=== PATIENT | male | born 1940 | race Caucasian/White ===

== ENCOUNTER 2020-04-15 11:44 | Outpatient (CLI) | payer OTHER, MEDICARE, SELFPAY | END 2020-04-15 11:45 | disposition home or self-care (01) | LOC: ANHCOVIDVC 11:44 | PROVIDERS: PCP Internal Medicine | DX: Z23 Encounter for immunization (principal) | CPT/HCPCS: 0001A; 91300 ==

== ENCOUNTER 2020-05-06 11:26 | Outpatient (CLI) | payer OTHER, MEDICARE, SELFPAY | END 2020-05-06 11:27 | disposition home or self-care (01) | LOC: ANHCOVIDVC 11:26 | PROVIDERS: PCP Internal Medicine | DX: Z23 Encounter for immunization (principal) | CPT/HCPCS: 0002A; 91300 ==

== ENCOUNTER 2020-09-30 13:31 | Observation (INO) | payer OTHER, SELFPAY ==
[2020-09-30] VITALS (29 sets, daily range): BP systolic 111–160; BP diastolic 55–99; PULSE 58–84; RESP 12–20; TEMP 36.1–36.3; O2SAT 94–99; BMI 33.4
--- NOTE | ~2020-09-30 | US_ITS ---
EXAMINATION: US carotid duplex BI DATE: 10/01/2020 09:01 INDICATION: TIA versus CVA TECHNIQUE: Grayscale, color Doppler, and pulsed Doppler images of the cervical carotid arteries were obtained. The degree of vessel stenosis is placed in one of the following categories: normal, <50%, 5 0-69%, >=70% but less than near-occlusion, near-occlusion, or total occlusion. Note that percent sten osis relative to normal distal artery lumen diameter is indirectly measured from velocity measurement s as described by Braden, et al. Radiology 2003; 229:340-346. Notes: Normal: Peak systolic velocity <125 centimeters/sec and no plaque <50%. Peak systolic velocity <125 ( EDV <40; ICA/CCA PSV ratio <2.0; used these factors only a tandem lesions or low cardiac output or co ntralateral disease) 50-69 %: PSV 125-230 (EDV 40-100; ratio 2-4) >= 70% but less than near occlusion: PSV greater than 230 (EDV > 100; ratio> 4.0) Near Occlusion: PSV that is variable; markedly narrowed lumen Occlusion: Absent flow on color/spectral Doppler and no lumen on cobb scale. COMPARISON: None. FINDINGS: RIGHT: The right common carotid artery (CCA) peak systolic velocity (PSV) is 90 cm/s. The right internal car otid artery (ICA) PSV is 89 cm/s. The right ICA end-diastolic velocity (EDV) is 17 cm/s. The right IC A/CCA PSV ratio is 0.98. The external carotid artery (ECA) PSV is 166 cm/s. There is antegrade flow i n the right vertebral artery. LEFT: The left CCA PSV is 163 cm/s. The left ICA PSV is 103 cm/s. The left ICA EDV is 22 cm/s. The left ICA /CCA PSV ratio is 0.63. The ECA PSV is 137 cm/s. There is antegrade flow in the left vertebral arter y. IMPRESSION: 1. Less than 50% stenosis in the right internal carotid artery by sonographic criteria. 2. Less than 50% stenosis in the left internal carotid artery by sonographic criteria. Reviewed, dictated and finalized at location A. IMPRESSION: 1. Less than 50% stenosis in the right internal carotid artery by sonographic c omar. 2. Less than 50% stenosis in the left internal carotid artery by sonographic jin woody.
--- NOTE | ~2020-09-30 | MR_ITS ---
EXAMINATION: MR brain/brain stem wo con DATE: 10/01/2020 09:49 INDICATION: Transient ischemic attack. TECHNIQUE: Magnetic resonance imaging (MRI) of the brain and brainstem was performed without intraven ous contrast. Sequences included sagittal and axial T1-weighted FSE, axial diffusion-weighted FS EPI, axial T2*-weighted GRE, axial T2-weighted FLAIR Propeller, and axial T2-weighted Propeller. Apparent diffusion coefficient (ADC) maps were created. COMPARISON: Head CT 09/30/2020 FINDINGS: There are old infarcts in right frontal lobe and right temporal lobe. There is an old infar ct in the left thalamus. There are scattered areas of nonspecific increased T2-weighted signal intens ity in the cerebral white matter and sharonda. There is no intracranial hemorrhage, acute infarction, or abnormal intracranial mass lesion. The ventricles are normal in size. There is anteroposterior elonga tion of the ocular globes. There is mucosal thickening in the paranasal sinuses. There is a trace lef t mastoid effusion. IMPRESSION: 1. Old infarcts involving the right frontal lobe, right temporal lobe, and left thalamus. 2. Moderate nonspecific cerebral white matter disease and pontine disease, which likely represents ch ronic small vessel ischemic disease. Reviewed, dictated and finalized at location B. IMPRESSION: 1. Old infarcts involving the right frontal lobe, right temporal lobe, and left thalamus. 2. Moderate nonspecific cerebral white matter disease and pontine disease, whic h likely represents chronic small vessel ischemic disease.
--- NOTE | ~2020-09-30 | CT_ITS ---
EXAMINATION: CTA brain carotid DATE: 10/01/2020 10:00 INDICATION: Transient ischemic attack. TECHNIQUE: Computed tomographic angiography (CTA) of the head was performed without and with 100 mL O mnipaque-350 intravenous contrast. CTA of the neck was performed with intravenous contrast. Automated exposure control and iterative reconstruction technique were employed. The dose-length product was 1 937.73 mGy-cm. Maximum intensity projection and volume rendered 3D-reconstructions were created by lino sorto technologist on a separate workstation. COMPARISON: Brain MRI 09/30/2020, head CT 09/30/2020 FINDINGS: HEAD CTA: There are old infarcts in the right frontal lobe and right temporal lobe. There is an old i nfarct in the left thalamus. There are scattered areas of low attenuation in the cerebral white matte r. There is no intracranial hemorrhage, acute infarction, or abnormal intracranial mass lesion. The v entricles are normal in size. There is mucosal thickening in the paranasal sinuses. There is anteropo sterior elongation of the ocular globes. There is a trace left mastoid effusion. The vertebral arteri es are codominant. There is no significant stenosis of basilar artery or the posterior cerebral arter ies. There is mild stenosis of the intracranial internal carotid arteries. There is no significant st enosis of the anterior cerebral arteries. There is mild stenosis of the middle cerebral arteries. Ant erior communicating artery is normal. Right posterior communicating artery is normal. A left posterio r communicating artery is not identified. There is no aneurysm. NECK CTA: There are no pathologically enlarged lymph nodes. There is no significant stenosis of the v ertebral arteries. There is plaque in the proximal internal carotid arteries. There is 38% stenosis o f the proximal right internal carotid artery relative to normal distal artery lumen diameter (NASCET criteria). There is 27% stenosis of the proximal left internal carotid artery relative to normal dist al artery lumen diameter. There is severe cervical spondylosis. IMPRESSION: 1. Old infarcts involving the right frontal lobe, right temporal lobe, and left thalamus. 2. Moderate nonspecific cerebral white matter disease, which likely represents chronic small vessel i schemic disease. 3. No aneurysm or significant intracranial internal stenosis. 4. 38% stenosis of the proximal right internal carotid artery relative to normal distal artery lumen diameter (NASCET criteria). 5. 27% stenosis of the proximal left internal carotid artery relative to normal distal artery lumen d iameter. Reviewed, dictated and finalized at location B. IMPRESSION: 1. Old infarcts involving the right frontal lobe, right temporal lobe, and left thalamus. 2. Moderate nonspecific cerebral white matter disease, which likely represents chronic small vessel ischemic disease. 3. No aneurysm or significant intracranial internal stenosis. 4. 38% stenosis of the proximal right internal carotid artery relative to paul l distal artery lumen diameter (NASCET criteria). 5. 27% stenosis of the proximal left internal carotid artery relative to normal distal artery lumen diameter.
--- NOTE | ~2020-09-30 | CT_ITS ---
EXAMINATION: CT brain wo con DATE: 09/30/2020 17:04 INDICATION: Dizziness TECHNIQUE: Computed tomography (CT) of the head was performed without intravenous contrast. Sagittal and coronal reconstructions were performed. The mA was adjusted according to patient size. Iterative reconstruction technique was employed. The dose-length product was 605.33 mGy-cm. COMPARISON: None FINDINGS: Small to moderate-sized region of encephalomalacia at the anteroinferior right frontal lobe which cou ld represent sequela of chronic infarct or trauma. Small old lacunar infarcts at the anterior limb of the right internal capsule and at the left thalamus. No acute intracranial hemorrhage, acute infarct ion or abnormal extra axial fluid collection. There is mild scattered white matter hypoattenuation co nsistent with chronic small vessel ischemic disease. Symmetric prominence of the sulci and ventricles consistent with moderate age-appropriate diffuse cerebral volume loss. No mass/mass effect. Intracra nial calcified cerebral atherosclerosis is noted. The orbits, paranasal sinuses and mastoid air cells are normal. IMPRESSION: 1. No acute intracranial process. 2. Small to moderate-sized region of encephalomalacia at the anteroinferior right frontal lobe likely sequela of old infarct with differential including sequelae of old trauma. 3. Couple small old infarcts at the anterior limb of the right internal capsule and at the left thala mus. 4. Age-related changes including moderate diffuse volume loss and mild scattered white matter hypoatt enuation consistent with chronic small vessel ischemic disease. Reviewed, dictated and finalized at location A. IMPRESSION: 1. No acute intracranial process. 2. Small to moderate-sized region of encephalomalacia at the anteroinferior rig ht frontal lobe likely sequela of old infarct with differential including seque lae of old trauma. 3. Couple small old infarcts at the anterior limb of the right internal capsule and at the left thalamus. 4. Age-related changes including moderate diffuse volume loss and mild scattere d white matter hypoattenuation consistent with chronic small vessel ischemic di sease.
--- NOTE | 2020-09-30 13:32 | ECG_ITS ---
Measurements Intervals [place] Rate: 84 P: -3 GA: 139 QRS: -35 QRSD: 141 T: 136 QT: 400 QTc: 475 Interpretive Statements SINUS RHYTHM ATRIAL PREMATURE COMPLEX LEFT AXIS DEVIATION LEFT BUNDLE BRANCH BLOCK BASELINE WANDER- V4-V6 ABNORMAL ECG Electronically Signed On 09-30-2020 13:47:30 CDT by David Bernal D.O.
[2020-09-30 14:02] LABS: Basophils Percent Auto 0.4 % (0.2-1.2); Eosinophils Percent Auto 0.2 % (0-4.4); Hematocrit 45.3 % (42.0-52.0); Hemoglobin 14.7 g/dL (14.0-18.0); Immature Granulocyte Absolute 0.04 K/mm3 (0.00-0.031); Immature Granulocyte Percent A 0.5 % (0-0.5); Mean Corpuscular HGB Conc 32.5 g/dl (32-36); Mean Corpuscular Hemoglobin 30.2 pg (26-34); Mean Corpuscular Volume 93.2 fl (80-100); Mean Platelet Volume 11.6 fl (7.4-10.4); Monocytes Absolute Auto 0.6 K/mm3 (0.1-0.6); Monocytes Percent Auto 6.7 % (2.6-8.5); Neutrophils Absolute Auto 6.2 K/mm3 (1.3-6.7); Neutrophils Percent Auto 76.2 % (45.5-73.1); Platelet Count Result 191 k/mm3 (150-375); Red Blood Count 4.86 M/mm3 (4.6-6.20); Red Cell Distribution Width 13.3 % (11.5-14.5); White Blood Count 8.2 K/mm3 (4.5-10.0)
[2020-09-30 14:20] LABS: Anion Gap 9 mmol/L (8-16); Blood Urea Nitrogen 17 mg/dL (9-20); Calcium 9.4 mg/dL (8.4-10.2); Carbon Dioxide 18 mmol/L (22-30); Chloride 107 mmol/L (98-107); Estimated CRCL calculation 54 ml/min; Estimated Glomerular Filt Rate 49; Glucose 125 mg/dL (65-110); Sodium 134 mmol/L (137-145)
[2020-09-30] MEDS: SODIUM CHLORIDE 0.9% IV 1,000 ML 999 ML IV CONT (17:26)
--- NOTE | 2020-09-30 17:56 | ED.GENADULT ---
HPI - General Adult General Chief complaint: Dizziness Stated complaint: DIZZY Time Seen by Provider: 09/30/20 16:20 History of Present Illness HPI narrative: Patient is a 79-year-old male who presents ER with double vision and dizziness. Occurred yesterday while he was driving. Has occurred intermittently since then. Waxes and wanes for the length. It does not totally resolve. Cannot quantify the length that will occur for reports of he just stops where he has the symptoms go away. He has no focal weakness in arm or leg. He felt like he was a little off balance with walking but could feel the ground and was not falling over. He has had no slurred speech or difficulty eating or drinking. Denies history of CVA. Reports eating and drinking normally. No flashes or floaters. Related Data Home Medications Medication Instructions Recorded Confirmed aspirin 81 mg tablet,delayed 81 mg PO DAILY 01/25/19 09/30/20 release lisinopril 20 1 tablet PO DAILY 01/25/19 09/30/20 mg-hydrochlorothiazide 12.5 mg tablet tamsulosin 0.4 mg capsule 0.4 mg PO DAILY 01/25/19 09/30/20 atorvastatin 40 mg PO DAILY 09/30/20 09/30/20 spironolactone 25 mg PO DAILY 09/30/20 09/30/20 Allergies Allergy/AdvReac Type Severity Reaction Status Date / Time No Known Allergies Allergy Verified 09/30/20 20:44 Review of Systems Review of Systems: All systems reviewed & are unremarkable except as noted in HPI and below Constitutional: Constitutional: Denies chills, Denies fever(s) and Denies weakness Eyes: Eyes: Reports change in vision (Brief diplopia that is now normalized.) ENT: Denies nasal congestion and Denies sore throat Cardiovascular: Cardiovascular: Denies chest pain, Denies rapid heart rate and Denies radiating jaw, neck or arm pain Respiratory: Respiratory: Denies cough and Denies dyspnea Gastrointestinal: Gastrointestinal: Denies abdominal pain, Denies nausea and Denies vomiting Neurologic: Denies confusion, Reports dizziness, Denies syncope, Denies headache(s), Denies focal weakness and Denies numbness [facility] Past Medical History Medical History (Updated 10/01/20 @ 01:57 by Bull Contreras MD) Alcohol abuse, uncomplicated Benign essential HTN Other and unspecified hyperlipidemia Uncontrolled type 2 diabetes mellitus, with long-term current use of insulin Family History Family History Sibling Family history of malignant neoplasm Patient's brother is in good health Patient's sister is Father Family history of malignant neoplasm Patient's father is Mother Family history of malignant neoplasm Patient's mother is Social History Social History Smoking status: Former smoker Smoking end date: 02/15/94 Alcohol intake: never Substance use: never Gender identity (if verbalized by the patient): Male Spiritual care concerns: No Exam Narrative: GENERAL: Well-appearing, well-nourished, and in no acute distress. HEAD: Normocephalic, atraumatic. EYES: PERRL and EOMI. ENT: Mucous membranes moist. CHEST: Clear to auscultation. No respiratory distress. HEART: Regular rate and rhythm. Normal peripheral pulses. ABDOMEN: Soft, nontender, nondistended. EXTREMITIES: Normal range of motion. No edema. SKIN: Warm, dry, no rash. NEURO: Cranial nerves II through XII intact. No upper or lower extremity drift. Normal [id number] testing bilaterally. Alert and oriented x3. Course Course Emergency Course: Admit to hospitalist service. Patient should likely be on anticoagulants and I am unsure why he is not. He has history of A. fib with hypertension. In addition to that he has diabetes with advanced age and CT evidence of previous CVA. The one larger area of encephalomalacia is likely related to a traumatic accident he had when he was 20 when
--- NOTE | 2020-09-30 22:21 | PM.IMHP ---
H&P: HPI History of Present Illness Date/Time: 09/30/20 22:21 Chief Complaint: vision problems Narrative: Patient is a 79-year-old male who presents to ER with some vision problem that happened yesterday while he was driving down from his friend's . He reports the vision problem was transient and felt like double vision or blurry. He could not say whether it was on his both eyes or 1 eye. But he was able to drive back home and by the time he was home he did have any problems with vision. He felt fine all day yesterday after that and went to bed. Since he woke up this morning his been feeling little weak and it is not focal on 1 side of body but generalized weakness and while he walked he felt his balance was let off and hence came to the ED for evaluation. He worked in his garage all day today without any problem. He has no speech problem or difficulty eating or drinking. He reports no prior history of CVA. Was wearing her pair of eyeglasses which he normally does not use. He reports that he normally uses contacts. Review of Systems Review of Systems: - CONSTITUTIONAL: Denies weight loss, fever and chills. - HEENT: Report changes in vision and denies hearing - RESPIRATORY: Denies SOB and cough. - CV: Denies palpitations and CP. - GI: Denies abdominal pain, nausea, vomiting and diarrhea. - : Denies dysuria and urinary frequency. - MSK: Denies myalgia and joint pain. - SKIN: Denies rash and pruritus. - NEUROLOGICAL: Denies headache and syncope. Reports generalized weakness - PSYCHIATRIC: Denies recent changes in mood. Denies anxiety and depression. All systems reviewed & are unremarkable except as noted in HPI and below Constitutional: Constitutional: Reports fatigue and Reports weakness Neurologic: Reports weakness Endocrine: Endocrine: Reports fatigue PMFSH Past Medical History Medical History (Updated 09/30/20 @ 23:32 by Pa Byrne MD) Alcohol abuse, uncomplicated Benign essential HTN Other and unspecified hyperlipidemia Uncontrolled type 2 diabetes mellitus, with long-term current use of insulin Family History Family History Sibling Family history of malignant neoplasm Patient's brother is in good health Patient's sister is Father Family history of malignant neoplasm Patient's father is Mother Family history of malignant neoplasm Patient's mother is Social History Social History Smoking status: Former smoker Smoking end date: 02/15/94 Alcohol intake: current Meds Home Medications and Allergies Home Medications Medication Instructions Recorded Confirmed Type metformin 1,000 mg tablet 1,000 mg PO BID #180 tablet 01/10/19 06/06/20 Rx aspirin 81 mg tablet,delayed 81 mg PO DAILY 01/25/19 06/06/20 History release lisinopril 20 1 tablet PO DAILY 01/25/19 06/06/20 History mg-hydrochlorothiazide 12.5 mg tablet tamsulosin 0.4 mg capsule 0.4 mg PO DAILY 01/25/19 06/06/20 History pioglitazone 45 mg tablet 45 mg PO DAILY #90 tablet 01/27/19 06/06/20 Rx diltiazem HCl 360 mg capsule,24 360 mg PO DAILY #90 cap 03/10/19 06/06/20 Rx hr,extended release glipizide 10 mg tablet 10 mg PO BID #180 tablet 05/15/19 06/06/20 Rx alcohol swabs 1 pad TOPICAL .COMPLEX #200 each 06/06/19 06/06/20 Rx blood sugar diagnostic #200 each 06/12/19 06/06/20 Rx blood-glucose meter #1 each 06/12/19 06/06/20 Rx pen needle, diabetic 31 gauge x #50 each 06/14/19 06/06/20 Rx 1/4 spironolactone 25 mg tablet 25 mg PO DAILY #90 tablet 07/11/19 06/06/20 Rx blood sugar diagnostic #100 each 02/21/20 06/06/20 Rx atorvastatin 40 mg tablet See Rx Instructions .ROUTE 04/03/20 06/06/20 Rx .COMPLEX #90 tablet insulin glargine 100 unit/mL (3 See Rx Instructions .ROUTE 09/06/20 Rx mL) subcutaneous pen .COMPLEX #15 ml
--- NOTE | 2020-09-30 23:28 | ADMGEN ---
This patient, Kenneth Guillory, was admitted to Medical Room 341-01. Patient/family oriented to hospital policies and general routines including ID bracelet, bed and alarms, visiting hours, pain management, procedures, bathroom and other care routines, personal items, smoking policy, room service/diet, and visiting hours. Information on how to activate the Rapid Response Team has been discussed. Patient/Family are encouraged to report perceived risks to care and to ask questions if they do not understand what they are told or what they should do.
[2020-09-30] MEDS: SODIUM CHLORIDE 0.9% IV 1,000 ML 75 ML IV CONT (23:41)
[2020-09-30 23:49] LABS: Glucose Point of Care 100 mg/dl (65-105)
[2020-10-01] VITALS (10 sets, daily range): BP systolic 121–157; BP diastolic 47–70; PULSE 59–90; RESP 14–24; TEMP 36–36.7; O2SAT 95–97
--- NOTE | 2020-10-01 | ECHO_ITS ---
Patient Info Name: Kenneth Guillory Age: 79 years : 1940 Gender: Male Ht: 73 in Wt: 264 lbs BSA: 2.52 m2 HR: 73 bpm BP: 129 / 67 mmHg Technical Quality: Good Exam Date: 10/01/2020 7:38 AM Exam Location: [facility] Patient Status: Outpatient Admit Date: 09/30/2020 Staff Ordering Physician: aP Byrne MD Fish Net Stringer: Fernie Rock RDCS, RT Attending Provider: Altagracia Aden PA-C Exam Type: CA echo doppler color flow Study Info Indications G45.8 - Other transient cerebral ischemic attacks and related syndromes Complete two-dimensional, color flow and Doppler transthoracic echocardiogram is performed. Strain analysis performed. Summary 1. Complete two-dimensional, color flow and Doppler transthoracic echocardiogram is performed. 2. Left ventricular chamber dimension is normal. 3. Left ventricular systolic function is mildly reduced, estimated at 45-50%. 4. There is moderately increased left ventricular wall thickness. 5. The left ventricular diastolic function is abnormal. 6. E/e' 22 is elevated. 7. Global longitudinal strain is abnormal at -14.0%. 8. Left atrial chamber dimension is moderately enlarged. 9. There is mild mitral valve regurgitation. 10. Dilated inferior vena cava with >50% collapse upon inspiration consistent with elevated right atrial pressure, 10 mmHg. Left Ventricle E/e' 22 is elevated. Global longitudinal strain is abnormal at -14.0%. Left ventricular chamber dimension is normal. Left ventricular systolic function is mildly reduced, estimated at 45-50%. There is moderately increased left ventricular wall thickness. The left ventricular diastolic function is abnormal. Right Ventricle Right ventricular systolic function is normal with normal TAPSE 2.2 cm. Right ventricular chamber dimension is normal. Left Atria Left atrial chamber dimension is moderately enlarged. Right Atria Right atrial chamber dimension is normal. Aortic Valve The aortic valve is trileaflet. There is no aortic valve stenosis. There is no aortic valve regurgitation. Pulmonic Valve There is no pulmonic regurgitation. Mitral Valve There is no mitral valve stenosis. There is mild mitral valve regurgitation. Tricuspid Valve There is no tricuspid valve regurgitation. Pericardium/Pleural There is no pericardial effusion. Inferior Vena Cava Dilated inferior vena cava with >50% collapse upon inspiration consistent with elevated right atrial pressure, 10 mmHg. Aorta The aortic root size at the sinus of Valsalva is normal. Left Ventricular Outflow Tract Name Value Normal LVOT 2D LVOT Diameter 2.1 cm LVOT Doppler LVOT Peak Gradient 4 mmHg LVOT Mean Gradient 2 mmHg LVOT VTI 21 cm LVOT VTI/AV VTI Ratio 0.7 LVOT Stroke Volume 74 ml LVOT CO 5.5 l/min LVOT CI 2.2 l/min/m2 Mitral Valve
[2020-10-01 00:25] LABS: Hemoglobin A1C 7.8 % (<5.7)
[2020-10-01 06:19] LABS: Anion Gap 7 mmol/L (8-16); Basophils Percent Auto 0.8 % (0.2-1.2); Blood Urea Nitrogen 15 mg/dL (9-20); Calcium 8.8 mg/dL (8.4-10.2); Carbon Dioxide 26 mmol/L (22-30); Chloride 102 mmol/L (98-107); Eosinophils Absolute Auto 0.1 K/mm3 (0-0.3); Eosinophils Percent Auto 1.2 % (0-4.4); Estimated CRCL calculation 80 ml/min; Estimated Glomerular Filt Rate > 60; Glucose 116 mg/dL (65-110); Hematocrit 44.2 % (42.0-52.0); Hemoglobin 13.7 g/dL (14.0-18.0); Immature Granulocyte Absolute 0.04 K/mm3 (0.00-0.031); Immature Granulocyte Percent A 0.8 % (0-0.5); Lymphocytes Absolute Auto 1.44 K/mm3 (0.9-3.2); Mean Corpuscular Hemoglobin 29.8 pg (26-34); Mean Corpuscular Volume 96.3 fl (80-100); Mean Platelet Volume 11.6 fl (7.4-10.4); Monocytes Absolute Auto 0.6 K/mm3 (0.1-0.6); Monocytes Percent Auto 10.7 % (2.6-8.5); Neutrophils Percent Auto 58.5 % (45.5-73.1); Platelet Count Result 163 k/mm3 (150-375); Potassium 3.7 mmol/L (3.4-5.0); Red Blood Count 4.59 M/mm3 (4.6-6.20); Red Cell Distribution Width 13.4 % (11.5-14.5); Sodium 135 mmol/L (137-145); White Blood Count 5.1 K/mm3 (4.5-10.0)
[2020-10-01 07:59] LABS: Glucose Point of Care 133 mg/dl (65-105)
[2020-10-01] MEDS: INSULIN ASPART (*BKC) 100 UNITS/ML SUB-Q (11:19)
[2020-10-01] MEDS: ASPIRIN 81 MG ENTERIC TABLET PO (11:56)
[2020-10-01] MEDS: hydroCHLOROthiazide 25 MG TABLET PO (11:56)
[2020-10-01] MEDS: lisinopriL 20 MG TABLET PO (11:56)
[2020-10-01] MEDS: dilTIAZem HCL CD 180 MG CAP.ER.24H 360 MG PO (11:56)
[2020-10-01] MEDS: TAMSULOSIN HCL 0.4 MG CAPSULE PO (11:56)
[2020-10-01] MEDS: ATORVASTATIN 40 MG TABLET PO (11:56)
[2020-10-01] MEDS: SPIRONOLACTONE 25 MG TABLET PO (11:56)
[2020-10-01] MEDS: ENOXAPARIN 40 MG/0.4 ML SYRINGE SUB-Q (11:57)
[2020-10-01 12:11] LABS: Glucose Point of Care 231 mg/dl (65-105)
[2020-10-01] MEDS: SODIUM CHLORIDE 0.9% IV 1,000 ML 75 ML IV CONT (13:53)
--- NOTE | 2020-10-01 14:52 | PM.IMPN ---
Progress Note: A&P Assessment and Plan (1) Generalized weakness: Code(s): R53.1 - Weakness Status: Acute (2) Old lacunar stroke without late effect: Code(s): Z86.73 - Personal history of transient ischemic attack (TIA), and cerebral infarction without residual deficits Status: Acute (3) Encephalomalacia: Code(s): G93.89 - Other specified disorders of brain Status: Acute (4) REVA (acute kidney injury): Code(s): N17.9 - Acute kidney failure, unspecified Status: Acute (5) Transient vision disturbance: Code(s): H53.9 - Unspecified visual disturbance Status: Acute (6) Uncontrolled type 2 diabetes mellitus, with long-term current use of insulin: Code(s): E11.65 - Type 2 diabetes mellitus with hyperglycemia; Z79.4 - retirement (current) use of insulin Status: Acute Assessment and Plan: 1. Generalized weakness 2. Transient vision disturbance Brain MRI showed old infarcts involving the right frontal lobe, right temporal lobe, and left thalamus, moderate nonspecific cerebral white matter disease and pontine disease, which likely represents chronic small vessel ischemic disease. CTA of head and neck also confirmed findings and noted mild bilateral stenosis in the internal carotid arteries. His vision disturbance resolved prior to coming to the hospital. He feels close to baseline from a strength perspective still feels slightly weak. On discussion with the patient, he reports he never had focal weakness or disturbance of speech or otherwise. Overall presentation does not seem consistent with stroke/TIA, as vision disturbance could have been related to glycemic changes, or others. However, optimization from a vascular perspective is recommended. - Will increase his atorvastatin dose to 80 mg daily - Continue aspirin 81 mg daily - He has been in sinus rhythm on telemetry, a capture of irregular rhythm was seen transiently, however distinct p-waves were present, patient denies history of atrial fibrillation. However, he is at risk and cardiology evaluation outpatient setting as recommended. I also discussed with him findings of mildly decreased ejection fraction which will need evaluation. - Continue blood pressure control - PT/OT worked with him today, continue as needed 3. Acute kidney injury, likely to - Creatinine now trended to baseline with gentle IV hydration. Discontinue IV fluids. Encourage oral hydration. 4. Hypertension - Continue lisinopril-hydrochlorothiazide, spironolactone, and diltiazem 5. Hyperlipidemia - Increase atorvastatin to 80 mg daily - Most recent lipid profile with total cholesterol of 150, LDL of 85 6. Diabetes mellitus type 2 on insulin - He is on insulin and metformin home along with glipizide - Continue home lantus Subjective Date/time seen: 10/01/20 14:52 No major issues last night. Hemodynamically stable. Feels almost back to baseline. His blurry vision resolved prior to presenting to the hospital and has not recurred. Just feeling slightly weak. Exam Narrative: Gen: Alert,NAD Abd: Soft, NT, ND Lungs: CTAB Heart: RRR Neuro: Motor and sensory examination of upper lower extremities is grossly normal Objective Data Vital Signs Vital Signs: Vital Signs - 24 hr 09/30/20 15:42 09/30/20 16:13 09/30/20 16:18 Temperature Pulse Rate 79 71 74 Respiratory Rate 20 18 18 Blood Pressure 130/99 H Pulse Oximetry 97 98 96 09/30/20 16:30 09/30/20 16:45 09/30/20 16:46 Temperature Pulse Rate 72 70 73 Respiratory Rate 14 16 14 Blood Pressure 144/66 H Pulse Oximetry 96 98 09/30/20 16:53 09/30/20 16:54 09/30/20 16:55 Temperature Pulse Rate 67 71 70 Respiratory Rate 20 Blood Pressure 140/77 121/62 140/77 Pulse Oximetry 96 09/30/20 16:56 09/30/20 16:58 09/30/20 17:32 Temperature Pulse Rate 72 79 66 Respiratory Rate 20 20 16 Blood Pressure 121/62 121/63 Pulse Oximetry 94 9
[2020-10-01 16:57] LABS: Glucose Point of Care 153 mg/dl (65-105)
[2020-10-01] MEDS: INSULIN GLARGINE (*BKC) 100 UNITS/ML 18 UNITS SUB-Q (21:09)
[2020-10-01 21:12] LABS: Glucose Point of Care 227 mg/dl (65-105)
[2020-10-02] VITALS: PULSE 54
[2020-10-02 04:00] VITALS: PULSE 53
[2020-10-02 06:00] VITALS: BP 128/53; PULSE 66; RESP 20; TEMP 36.7; O2SAT 95
[2020-10-02 07:54] LABS: Glucose Point of Care 150 mg/dl (65-105)
[2020-10-02 08:05] VITALS: PULSE 65
[2020-10-02] MEDS: ASPIRIN 81 MG ENTERIC TABLET PO (09:17)
[2020-10-02] MEDS: SPIRONOLACTONE 25 MG TABLET PO (09:17)
[2020-10-02] MEDS: ATORVASTATIN 40 MG TABLET 80 MG PO (09:17)
[2020-10-02] MEDS: dilTIAZem HCL CD 180 MG CAP.ER.24H 360 MG PO (09:18)
[2020-10-02] MEDS: TAMSULOSIN HCL 0.4 MG CAPSULE PO (09:18)
[2020-10-02] MEDS: hydroCHLOROthiazide 25 MG TABLET PO (09:18)
[2020-10-02] MEDS: lisinopriL 20 MG TABLET PO (09:18)
[2020-10-02] MEDS: ENOXAPARIN 40 MG/0.4 ML SYRINGE SUB-Q (09:19)
[2020-10-02] MEDS: INSULIN GLARGINE (*BKC) 100 UNITS/ML 6 UNITS SUB-Q (09:27)
[2020-10-02] MEDS: INSULIN ASPART (*BKC) 100 UNITS/ML SUB-Q (11:52)
[2020-10-02 12:00] VITALS: PULSE 68
[2020-10-02 12:03] LABS: Glucose Point of Care 250 mg/dl (65-105)
--- NOTE | 2020-10-02 13:28 | PM.IMPN ---
Progress Note: A&P Assessment and Plan (1) Encephalomalacia: Code(s): G93.89 - Other specified disorders of brain Status: Acute (2) Old lacunar stroke without late effect: Code(s): Z86.73 - Personal history of transient ischemic attack (TIA), and cerebral infarction without residual deficits Status: Acute (3) Generalized weakness: Code(s): R53.1 - Weakness Status: Acute (4) REVA (acute kidney injury): Code(s): N17.9 - Acute kidney failure, unspecified Status: Acute (5) Transient vision disturbance: Code(s): H53.9 - Unspecified visual disturbance Status: Acute (6) Uncontrolled type 2 diabetes mellitus, with long-term current use of insulin: Code(s): E11.65 - Type 2 diabetes mellitus with hyperglycemia; Z79.4 - roasterman (current) use of insulin Status: Acute Additional Plan 1. Generalized weakness 2. Transient vision disturbance Brain MRI showed old infarcts involving the right frontal lobe, right temporal lobe, and left thalamus, moderate nonspecific cerebral white matter disease and pontine disease, which likely represents chronic small vessel ischemic disease. CTA of head and neck also confirmed findings and noted mild bilateral stenosis in the internal carotid arteries. His vision disturbance resolved prior to coming to the hospital. He feels close to baseline from a strength perspective still feels slightly weak. On discussion with the patient, he reports he never had focal weakness or disturbance of speech or otherwise. Overall presentation does not seem consistent with stroke/TIA, as vision disturbance could have been related to glycemic changes, or others. However, optimization from a vascular perspective is recommended. - Will increase his atorvastatin dose to 80 mg daily - Continue aspirin 81 mg daily - He has been in sinus rhythm on telemetry, a capture of irregular rhythm was seen transiently, however distinct p-waves were present, patient denies history of atrial fibrillation. However, he is at risk and cardiology evaluation outpatient setting as recommended. I also discussed with him findings of mildly decreased ejection fraction which will need evaluation. - Continue blood pressure control - PT/OT worked with him today, continue as needed 3. Acute kidney injury, likely Pre-renal - Creatinine now trended to baseline with gentle IV hydration. Discontinue IV fluids. Encourage oral hydration. 4. Hypertension - Continue lisinopril-hydrochlorothiazide, spironolactone, and diltiazem 5. Hyperlipidemia - Increase atorvastatin to 80 mg daily - Most recent lipid profile with total cholesterol of 150, LDL of 85 6. Diabetes mellitus type 2 on insulin - He is on insulin and metformin home along with glipizide - Continue home lantus Dispo: Home today with close follow up with PCP Subjective Date/time seen: 10/02/20 13:28 No new issues last night. His weakness is improved. He has not had any arrhythmias on tele. No vision changes. Hemodynamically stable. Review of Systems Review of Systems: All systems reviewed & are unremarkable except as noted in HPI and below Exam Narrative: Gen: Alert, NAD Abd: Soft, NT, ND Heart: RRR Lungs: CTAB Ext: No LE edema Objective Data Vital Signs Vital Signs: Vital Signs - 24 hr 10/01/20 14:00 10/01/20 16:00 10/01/20 20:00 Temperature 97.7 F 98.0 F Pulse Rate 81 71 59 L Respiratory Rate 20 18 Blood Pressure 129/60 130/51 L Pulse Oximetry 97 95 10/01/20 22:00 10/02/20 00:00 10/02/20 04:00 Temperature 96.8 F L Pulse Rate 61 54 L 53 L Respiratory Rate 14 Blood Pressure 121/47 L Pulse Oximetry 97 10/02/20 06:00 10/02/20 08:05 Temperature 98.1 F Pulse Rate 66 65 Respiratory Rate 20 Blood Pressure 128/53 L Pulse Oximetry 95 Intake/Output Intake/Output: Intake & Output 09/29/20 09/30/20 10/01/20 10/02/20 23:59 23:59 23:59 23:59 Intake Total 1000 2
--- NOTE | 2020-10-02 14:55 | PM.DS ---
DS: Admitting Diagnosis Admitting Diagnosis blurry vision generalized weakness DS: Discharge Diagnosis Discharge Diagnosis (1) Generalized weakness: Code(s): R53.1 - Weakness Status: Acute (2) Transient vision disturbance: Code(s): H53.9 - Unspecified visual disturbance Status: Acute DS: Summary Hospital Course Hospital Course: This is a 79-year-old gentleman with past medical history of hypertension, diabetes mellitus who presented to the emergency department with an episode of blurry vision and feeling generalized fatigue and weakness. His episode happened after return from a friend's . The blurry vision episode was transient and resolved. However he continued to feel some weakness that was generalized. He presented to the emergency department. Brain MRI showed old infarcts involving the right frontal lobe, right temporal lobe, and left thalamus, moderate nonspecific cerebral white matter disease and pontine disease, which likely represents chronic small vessel ischemic disease. CTA of head and neck also confirmed findings and noted mild bilateral stenosis in the internal carotid arteries. He was admitted to the hospital for observation. He was monitored on telemetry for 48 hours. He showed no evidence of atrial fibrillation or other arrhythmia. His weakness had resolved and he is back to baseline. No further vision changes. Overall it was thought that his presentation was not clearly consistent with a TIA/stroke as his weakness was generalized and with no imaging evidence of acute findings. However, he was medically optimized, his atorvastatin was increased to 80 mg daily, his aspirin was continued. Physical therapy worked with him during the hospitalization, and was noted to be strong enough to discharge to home with self-care. Other relevant issues during the hospitalization, on presentation he was found to have a creatinine of 1.4. This was thought to be prerenal. With hydration it improved back to his baseline and normalized. His blood pressure was noted to be elevated initially, with resumption of his home medications, his blood pressure was well controlled. From a cardiac perspective, an echocardiogram was done that showed left ventricular systolic function mildly reduced with EF 45-50%, elevated right-sided pressures were noted. Recommend outpatient cardiology evaluation. From a diabetes perspective, he was managed with insulin sliding-scale, recommend continuation of his home medications. Status at Discharge Functional status at discharge: independent ambulation Time Spent with Patient Time attestation: Total time spent providing and/or coordinating discharge services: Time spent: Greater than 30 minutes Exam Narrative: Gen: Alert, NAD Abd: Soft, NT, ND Heart: RRR Lungs: CTAB Ext: No lower extremity edema DS: Data Data Completed and Pending Labs on day of discharge: Labs from last 24 hours 10/02/20 10/02/20 10/01/20 11:49 07:41 21:04 POC Capillary Glucose 250 H 150 H 227 H 10/01/20 16:34 POC Capillary Glucose 153 H Discharge Plan Discharge Discharging Clinician: Sepideh Gongora Patient Disposition: Home, Self-Care Activity: as tolerated Diet: diabetic Discharge Instructions: Recommend follow-up with primary provider within 1-2 weeks of discharge, continue to maintain diabetic diet, and monitor home glucose. Given heart function on ultrasound of your heart was noted to be slightly decreased, close follow-up with her primary providers import. Continue to monitor for recurrence of the symptoms you have and if any concerns should reach out to primary provider or present to the emergency department. Patient Instructions: Antibiotic Form, Acute Kidney Injury (DC) Stand Alone Forms: General Discharge Information Follow-up/Referrals: Salvador Fisher DO [Primary Care Provider] - ( Post hospital follow-up within 1-2 weeks) Discharg
== END 2020-10-02 15:45 | disposition home or self-care (01) ==
LOC: ANHED 16:30 → ANH3MED 22:54
PROVIDERS: Emergency Medicine; Physician Assistant; Admitting Provider Internal Medicine; Emergency Provider Emergency Medicine; PCP Internal Medicine; Visit Provider Internal Medicine Nephrology
DX: R53.1 Weakness (principal); H53.9 Unspecified visual disturbance; G93.89 Other specified disorders of brain; R42 Dizziness and giddiness; I10 Essential (primary) hypertension; I65.23 Occlusion and stenosis of bilateral carotid arteries; E78.5 Hyperlipidemia, unspecified; E11.65 Type 2 diabetes mellitus with hyperglycemia; N40.0 Benign prostatic hyperplasia without lower urinary tract symptoms; N17.9 Acute kidney failure, unspecified; I34.0 Nonrheumatic mitral (valve) insufficiency; Z86.73 Personal history of transient ischemic attack (TIA), and cerebral infarction without residual deficits; Z86.010 Personal history of colon polyps; Z87.891 Personal history of nicotine dependence; Z79.84 Long term (current) use of oral hypoglycemic drugs; Z79.4 Long term (current) use of insulin; Z79.82 Long term (current) use of aspirin
CPT/HCPCS: 36415; 70450; 70496; 70498; 70551; 80048; 82948; 83036; 85025; 93005; 93306; 93880; 96360; 96361; 96372; 97162; 97165; 99285; A9270; G0378; J1650; J1815; J7030; Q9967

== ENCOUNTER 2020-11-29 09:27 | Outpatient (CLI) | payer OTHER, SELFPAY ==
--- NOTE | ~2020-11-29 | NM_ITS ---
EXAMINATION: NM stress w perf spect multi DATE: 11/29/2020 13:04 INDICATION: Dyspnea TECHNIQUE: Rest images were obtained following intravenous administration of 7.87 mCi Tc99m tetrofosm in (Upshot). The patient performed an exercise activity. At peak exercise, 24.2 mCi Tc99m tetrofosmi n (Myoview) was administered intravenously, and stress images were obtained. Data was reconstructed i nto short axis and horizontal and vertical long axis SPECT images. Gated SPECT images were also obtai fara. COMPARISON: None. FINDINGS: Small mild reversible perfusion defect involving the apical septal segment. No nonreversible infarct is identified. There is normal left ventricular chamber size and wall motion with borderline left margaret tricular ejection fraction measuring 46%. IMPRESSION: 1. Small mild reversible perfusion defect consistent with ischemia at the apical septal segment.. 2. Borderline left ventricular ejection fraction measuring 46%. Reviewed, dictated and finalized at location A. IMPRESSION: 1. Small mild reversible perfusion defect consistent with ischemia at the apica l septal segment.. 2. Borderline left ventricular ejection fraction measuring 46%.
--- NOTE | 2020-11-29 11:23 | EST_ITS ---
Patient Info Name: Kenneth Guillory Age: 79 years : 1940 Gender: Male Ht: 71 in Wt: 265 lbs BSA: 2.50 m2 HR: 66 bpm BP: 125 / 76 mmHg Heart Rhythm: Atrial Fibrillation Exam Date: 11/29/2020 12:00 PM Exam Location: [facility] Stress Patient Status: Outpatient Admit Date: 11/29/2020 Staff Ordering Physician: David Bernal DO Attending Provider: David Bernal DO Exercise Technologist: Tere Canseco CT Exercise Physician: David Bernal DO Exam Type: CA stress sachi w NM Study Info Indications R06.00 - Dyspnea, unspecified A regadenoson stress test was performed. Summary 1. 1. Inconclusive lexiscan stress test for ischemic ST changes by ECG criteria due to baseline LBBB. 2. 2. Stable hemodynamics throughout the test. 3. 3. Nuclear scan to follow and will be reported separately. Please correlate with it. 4. 4. Patient informed of the above results. Protocol: Lexiscan Stress ECG Details Stage: REST Duration (min): 1 min : 29 sec HR (bpm): 64 SBP (mmHg): 125 DBP (mmHg): 76 Stage: REST Duration (min): 6 min : 39 sec HR (bpm): 62 SBP (mmHg): 125 DBP (mmHg): 76 Stage: STAGE 1 Duration (min): 1 min : 0 sec HR (bpm): 69 SBP (mmHg): 125 DBP (mmHg): 76 Stage: RECOVERY Duration (min): 1 min : 0 sec HR (bpm): 79 SBP (mmHg): 135 DBP (mmHg): 56 Stage: RECOVERY Duration (min): 2 min : 0 sec HR (bpm): 68 SBP (mmHg): 135 DBP (mmHg): 56 Stage: RECOVERY Duration (min): 3 min : 0 sec HR (bpm): 70 SBP (mmHg): 131 DBP (mmHg): 57 Stage: RECOVERY Duration (min): 3 min : 2 sec HR (bpm): 72 SBP (mmHg): 131 DBP (mmHg): 57 Rest HR: 62 bpm Peak HR: 79 bpm Rest Sys BP: 125 mmHg Peak Sys BP: 135 mmHg Max Pred HR: 143 bpm % Max Pred HR: 55 % Target HR: 122 bpm Max RPP: 10,665 bpm*mmHg Termination Reason: Completed protocol Cardiac Symptoms: None Total Time: 1 min : 0 sec Rest López BP: 76 mmHg Peak López BP: 56 mmHg Total Dose: 0.4 mg Resting ECG Atrial fibrillation, LBBB. Stress ECG No ST changes. Arrhythmias None. Report Signatures
== END 2020-11-29 09:28 | disposition home or self-care (01) ==
LOC: ANHCARD 09:30
PROVIDERS: PCP Internal Medicine; Visit Provider Internal Medicine Cardiovascular Disease
DX: R06.00 Dyspnea, unspecified (principal); R94.2 Abnormal results of pulmonary function studies
CPT/HCPCS: 78452; 93017; A9502; J2785

== ENCOUNTER 2020-12-25 02:52 | Day surgery (SDC) | payer OTHER, SELFPAY ==
[2020-12-24 14:11] VITALS: BMI 34.3
[2020-12-25] VITALS (10 sets, daily range): BP systolic 112–162; BP diastolic 65–104; PULSE 63–110; RESP 12–19; TEMP 35.8–36.3; O2SAT 94–98; BMI 32.5
--- NOTE | 2020-12-25 07:15 | SUR.PREOP ---
ARRIVES VIA WC TO [facility] FOR SCHEDULED LHC W DR. WHITMAN. STATES DAUGHTER DROPPED HIM OFF THIS AM. DENIES PAIN OR SOB. ORIENTED TO ROOM, PLAN OF CARE, PROCEDURE. QUESTIONS ANSWERED. NOTED SOME DIFFICULTY WITH RETENTION OF INFORMATION; ASKING SAME QUESTIONS FREQUENTLY. AGAIN, EXPLAINED PROCEDURE AND WHAT TO EXPECT AND REORIENTED OFTEN. IV STARTED, LABS SENT, VS OBTAINED, CONSENT SIGNED, SKIN PREPPED, PULSES MARKED. WILL CONTINUE TO MONITOR.
[2020-12-25 08:15] LABS: Anion Gap 6 mmol/L (8-16); Blood Urea Nitrogen 14 mg/dL (9-20); Carbon Dioxide 26 mmol/L (22-30); Chloride 106 mmol/L (98-107); Estimated CRCL calculation 89 ml/min; Estimated Glomerular Filt Rate > 60; Glucose 228 mg/dL (65-110); Sodium 138 mmol/L (137-145)
[2020-12-25 08:17] LABS: Prothrombin Time 12.7 Seconds (11.1-14.7)
[2020-12-25 08:18] LABS: Basophils Absolute Auto 0.1 K/mm3 (0.0-0.1); Eosinophils Absolute Auto 0.1 K/mm3 (0-0.3); Hematocrit 44.4 % (42.0-52.0); Hemoglobin 14.6 g/dL (14.0-18.0); Immature Granulocyte Absolute 0.03 K/mm3 (0.00-0.031); Immature Granulocyte Percent A 0.5 % (0-0.5); Immature Platelet Fraction Pct 7.2 % (0.9-11.2); Lymphocytes Absolute Auto 1.66 K/mm3 (0.9-3.2); Lymphocytes Percent Auto 26.6 % (18.3-44.2); Mean Corpuscular HGB Conc 32.9 g/dl (32-36); Mean Corpuscular Hemoglobin 30.8 pg (26-34); Mean Corpuscular Volume 93.7 fl (80-100); Mean Platelet Volume 11.8 fl (7.4-10.4); Monocytes Absolute Auto 0.6 K/mm3 (0.1-0.6); Monocytes Percent Auto 9.3 % (2.6-8.5); Neutrophils Absolute Auto 3.9 K/mm3 (1.3-6.7); Neutrophils Percent Auto 61.6 % (45.5-73.1); Platelet Count Result 183 k/mm3 (150-375); Red Blood Count 4.74 M/mm3 (4.6-6.20); Red Cell Distribution Width 13.6 % (11.5-14.5); White Blood Count 6.2 K/mm3 (4.5-10.0)
--- NOTE | 2020-12-25 08:52 | WPDMODSED ---
Moderate Sedation Note-Pt Data Patient Data Diagnosis: Atrial fibrillation left bundle branch block abnormal nuclear stress test ( no chest pain) Present Complaint: no complaints Procedure to be performed/Plan: left heart catheterization Allergies Allergy/AdvReac Type Severity Reaction Status Date / Time No Known Allergies Allergy Verified 12/25/20 08:41 Home Medications Medication Instructions Recorded Confirmed Type aspirin 81 mg tablet,delayed 81 mg PO DAILY 01/25/19 12/24/20 History release tamsulosin 0.4 mg capsule 0.4 mg PO DAILY 01/25/19 12/24/20 History blood sugar diagnostic #200 each 06/12/19 12/13/20 Rx blood-glucose meter #1 each 06/12/19 12/13/20 Rx pen needle, diabetic 31 gauge x #50 each 06/14/19 12/13/20 Rx 1/4 blood sugar diagnostic #100 each 02/21/20 12/13/20 Rx spironolactone 25 mg PO DAILY 09/30/20 12/24/20 History lisinopril 20 1 tablet PO DAILY #90 tablet 10/16/20 12/24/20 Rx mg-hydrochlorothiazide 12.5 mg tablet atorvastatin 80 mg tablet 80 mg PO DAILY #90 tablet 10/24/20 12/24/20 Rx metformin 1,000 mg tablet 1,000 mg PO BID #180 tablet 10/24/20 12/24/20 Rx apixaban 5 mg tablet 5 mg PO BID #60 tablet 11/29/20 12/25/20 Rx insulin glargine 100 unit/mL (3 See Rx Instructions .ROUTE 12/02/20 12/24/20 Rx mL) subcutaneous pen .COMPLEX #15 ml diltiazem HCl 360 mg capsule,24 360 mg PO DAILY #90 cap 12/03/20 12/24/20 Rx hr,extended release glipizide 10 mg PO BID 12/24/20 12/24/20 History pioglitazone 45 mg PO DAILY 12/24/20 12/24/20 History Current Medications: Active Medications Sodium Chloride (Normal Saline Iv) 500 mls @ 100 mls/hr IV CONT .Q5H STEVE Sedation/Anesthesia: No previous sedation/anesthesia problems (including family history). [facility] Past Medical History Medical History Alcohol abuse, uncomplicated Benign essential HTN Other and unspecified hyperlipidemia Uncontrolled type 2 diabetes mellitus, with long-term current use of insulin Family History Family History Sibling Family history of malignant neoplasm Patient's brother is in good health Patient's sister is Father Family history of malignant neoplasm Patient's father is Mother Family history of malignant neoplasm Patient's mother is Social History Social History Smoking status: Former smoker Second hand tobacco smoke exposure: No Smoking end date: 02/15/94 Alcohol intake: former Alcohol use details: 2012 Substance use: never Living arrangements: alone Gender identity (if verbalized by the patient): Male Spiritual care concerns: No Mod Sed Physical Exam Physical Exam Pre Procedural Exam: Normal: Appearance ( overweight patient no distress), Neck, Throat, Airway, Lungs, Heart Size, Heart Rate and Extremities and Variation: Heart Rhythm ( irregularly irregular) and Neuro Exam ( seems to have poor short-term memory) Hours since solid foods: 12 Hours since liquid intake: 12 Mallampati Classification: class II Internal Medicine - PN: Obj Da Meds/Results Medications: Active Medications Generic Name Dose Route Start Last Admin Trade Name Freq PRN Reason Stop Dose Admin Sodium Chloride 500 mls @ 100 mls/hr 12/25/20 07:00 Normal Saline Iv IV CONT .Q5H STEVE Labs CBC & Chem 7: 12/25/20 07:24 12/25/20 07:24 Labs: Laboratory Results - last 24 hr 12/25/20 12/25/20 12/25/20 07:24 07:24 07:24 WBC 6.2 RBC 4.74 Hgb 14.6 Hct 44.4 MCV 93.7 MCH 30.8 MCHC 32.9 RDW 13.6 Plt Count 183 MPV 11.8 H Immature Gran % (Auto) 0.5 Neut % (Auto) 61.6 Lymph % (Auto) 26.6 [place] % (Auto) 9.3 H Eos % (Auto) 1.0 Baso % (Auto) 1.0 Lymph # (Auto) 1.66 [place] # (Auto)
--- NOTE | 2020-12-25 09:20 | WPDCARDPROC ---
Cardiac Cath Procedure Note Date of procedure:: 12/25/20 Performing physician:: Jose Logan MD Indication:: abnormal nuclear stress test atrial fibrillation left bundle-branch block Brief clinical history:: this is a 80-year-old patient who has been found to have atrial fibrillation, left bundle branch block and LV systolic dysfunction. The patient for that reason underwent a nuclear stress test and there were modest abnormalities prompting angiogram to be recommended. He does not give a history of anginal-type chest pain. He seems to be somewhat demented to me is his short-term memory seems to be very poor as we discussed today's procedure Procedure Procedure performed:: left ventriculogram coronary angiogram Angio-Seal to right femoral artery Sedation/Medication given:: fentanyl 50 mg Versed 2 mg case start time 9:06 a.m. case end time 9:17 a.m. sedation provided by Maryam Arroyo RN, trained observer Access site:: right femoral artery Estimated blood loss:: 15 cc Procedure note:: patient was brought to the cardiac catheterization lab in the postabsorptive state the right femoral triangle was prepared and draped in the usual fashion. Anesthesia was given with 1% lidocaine infiltrated locally. Using the modified Seldinger technique 5 [place] sheath was placed into the right common femoral artery. After this left heart catheterization was carried out I used a 5 [place] angled pigtail catheter to measure left-sided hemodynamics and then injected LV g in the PORTILLO projection after this the pigtail catheter was removed and I used a 5 [place] FL4 catheter to engage and inject the left coronary artery in multiple projections after this I used a 5 [place] JR4 catheter to engage and inject the right coronary artery in orthogonal projections after this the case was terminated I performed an angiogram of the femoral artery through the sheath and then deployed a 6 [place] Angio-Seal device with a good hemostatic result. The patient left the cath lab technologist in stable condition there were no apparent procedural complications and there was no evidence of a groin hematoma upon leaving the cath lab technologist. Findings:: Hemodynamics: Central aortic pressure is 136/60 left ventricle 136/5 end-diastolic 16 there is gradient on pullback across the aortic valve. Left ventricle: The LV is normal in size there appears to be mild global systolic dysfunction with a global ejection fraction of about 40%. The left main coronary artery is widely patent the left anterior descending is a medium caliber artery in the proximal 2/3 from the distal portion down to the apex it is exceedingly small but patent. There is minimal luminal irregularity in the LAD but otherwise no significant disease. The circumflex is a medium caliber artery giving rise to the marginal branches the 1st of these takes off as a ramus intermedius branch which is relatively large and free of disease. The 2nd OM branch is extremely small and has a 85-90% stenosis. The right coronary artery is [id number] in caliber there is about 20-30% stenosis in the 2nd portion of the RCA. The RCA is dominant to the posterior circulation. The acute marginal branch which takes off in the 2nd portion of the artery has a proximal / ostial 90% stenosis. Conclusion:: 1. Coronary artery disease with high-grade lesions limited to a an extraordinarily small 2nd OM branch of the circumflex and the acute marginal RV branch of the right coronary artery. 2. Mildly reduced left ventricular systolic dysfunction with modestly elevated LVEDP Jose Logan MD [facility]
--- NOTE | 2020-12-25 11:39 | SUR.PHASEII ---
spoke with daughter about patient's excelsior picker time. discussed d/c instructions with her and the need for someone to stay with him tonight. spoke with daughter about patient's forgetfulness and concerns that he lives alone
--- NOTE | 2020-12-25 12:56 | SUR.PHASEII ---
Addendum entered by Andree Costello RN 12/25/20 12:58: @1220 Original Note: d/c instructions given to patient with written print out. verbalized understanding and all questions and concerns address. iv d/c tip intact. patient transferred with steady gait around room to get dressed and use the rr. patient transferred via wc to hospital entrance to daughter's vehicle. d/c instructions given to her as well and she verbalized understanding.
== END 2020-12-25 12:20 | disposition home or self-care (01) ==
PROVIDERS: PCP Internal Medicine; Visit Provider Specialist
PROC: 4A023N7 Measurement of Cardiac Sampling and Pressure, Left Heart, Percutaneous Approach (ICD-10-PCS; CPT 93452; principal; 2020-12-25 08:30)
DX: I25.10 Atherosclerotic heart disease of native coronary artery without angina pectoris (principal); R94.39 Abnormal result of other cardiovascular function study; I48.91 Unspecified atrial fibrillation; I44.7 Left bundle-branch block, unspecified; I11.0 Hypertensive heart disease with heart failure; E78.49 Other hyperlipidemia; E11.9 Type 2 diabetes mellitus without complications; Z87.891 Personal history of nicotine dependence; Z79.01 Long term (current) use of anticoagulants; Z79.4 Long term (current) use of insulin; Z79.84 Long term (current) use of oral hypoglycemic drugs; Z79.82 Long term (current) use of aspirin
CPT/HCPCS: 36415; 80048; 85025; 85055; 85610; 93458; C1760; C1887; C1894; G0269; J1644; J2250; J3010; J7040

== ENCOUNTER 2021-05-10 04:47 | Emergency (ER) | payer OTHER, SELFPAY ==
[2021-05-10] VITALS (15 sets, daily range): BP systolic 109–155; BP diastolic 68–113; PULSE 67–118; RESP 15–29; TEMP 34.4; O2SAT 91–96
--- NOTE | ~2021-05-10 | XR_ITS ---
EXAMINATION: XR chest 2V DATE: 05/10/2021 05:36 INDICATION: Shortness of breath TECHNIQUE: frontal and lateral views of the chest were obtained. COMPARISON: None FINDINGS: Opacities in the bilateral lower lung zones which includes small bilateral pleural effusions at the p osterior sulci. No pneumothorax. Cardiomegaly. There are bridging osteophytes at multiple levels in the spine, consistent with diffuse idiopathic skeletal hyperostosis (DISH). IMPRESSION: 1. Opacities in bilateral lower lung zones which could represent pneumonia, pulmonary edema, atelecta sis or some combination thereof. 2. Cardiomegaly. Reviewed, dictated and finalized at location A. IMPRESSION: 1. Opacities in bilateral lower lung zones which could represent pneumonia, pul monary edema, atelectasis or some combination thereof. 2. Cardiomegaly.
--- NOTE | 2021-05-10 05:01 | ECG_ITS ---
Measurements Intervals [place] Rate: 101 P: HI: 0 QRS: 30 QRSD: 141 T: 164 QT: 401 QTc: 521 Interpretive Statements ATRIAL FIBRILLATION LEFT BUNDLE BRANCH BLOCK [120+ ms QRS DURATION, 80+ ms Q/S IN V1/V2, 85+ ms R IN I/aVL/V5/V6] ABNORMAL ECG COMPARED TO ECG 09/30/2020 13:37:51 ATRIAL FIBRILLATION REPLACES SINUS RHYTHM Electronically Signed On 05-10-2021 8:41:55 CDT by Jose Logan M.D.
--- NOTE | 2021-05-10 05:34 | ED.SOB ---
HPI - SOB/Dyspnea General Chief Complaint: Shortness of Breath/Dyspnea Stated Complaint: SOB X 2 days Time Seen by Provider: 05/10/21 05:19 Source: patient Mode of arrival: ambulatory Limitations: no limitations History of Present Illness HPI Narrative: Patient is a 80-year-old male complain of shortness of breath, worse with exertion x2 days. Patient also states that he had some palpitations this morning. Patient denies any cough, chest pain, abdominal pain, nausea, vomiting, diaphoresis, fever or chills. Patient denies any history of CHF or COPD. Patient does have a history of atrial fib on Eliquis and diltiazem. Related Data Home Medications Medication Instructions Recorded Confirmed tamsulosin 0.4 mg capsule 0.4 mg PO DAILY 01/25/19 05/10/21 spironolactone 25 mg PO DAILY 09/30/20 05/10/21 aspirin 81 mg PO DAILY 05/10/21 05/10/21 Allergies Allergy/AdvReac Type Severity Reaction Status Date / Time No Known Allergies Allergy Verified 05/10/21 05:08 Review of Systems Review of Systems: All systems reviewed & are unremarkable except as noted in HPI and below Constitutional: Constitutional: Denies body ache(s), Denies chills, Denies excessive sweating, Denies fatigue, Denies fever(s), Denies headache(s), Denies lethargy, Denies malaise, Denies weakness and Denies weight loss Eyes: Eyes: Denies blurry vision, Denies change in vision and Denies loss of vision ENT: Denies dizziness, Denies ear discharge, Denies headache(s), Denies lip swelling, Denies epistaxis, Denies nasal congestion, Denies neck pain, Denies throat swelling and Denies tongue swelling Cardiovascular: Cardiovascular: Denies chest pain, Denies chest pain at rest, Denies chest pain with activity, Denies diaphoresis, Denies edema, Denies irregular heart rhythm, Denies lightheadedness and Denies palpitations Respiratory: Respiratory: Denies chest congestion, Denies cough and Denies hemoptysis Gastrointestinal: Gastrointestinal: Denies abdominal pain, Denies melena, Denies hematochezia, Denies diarrhea, Denies nausea, Denies vomiting and Denies hematemesis Musculoskeletal: Musculoskeletal: Denies abnormal gait, Denies deformity, Denies joint swelling, Denies limited range of motion, Denies neck pain and Denies numbness Neurologic: Denies Abnormal speech present, Denies abnormal gait, Denies confusion, Denies dizziness, Denies headache(s), Denies focal weakness, Denies loss of vision, Denies numbness, Denies Other visual disturbances, Denies Sensory deficit (Neuro) and Denies weakness Psychiatric: Psychiatric: Denies confusion, Denies depression, Denies auditory hallucinations, Denies homicidal ideation and Denies suicidal ideation Endocrine: Endocrine: Denies cold intolerance, Denies excessive sweating, Denies fatigue, Denies heat intolerance and Denies palpitations Hematologic/Lymphatic: Hematologic/Lymphatic: Denies easy bleeding and Denies easy bruising Allergic/Immunologic: Allergic/Immunologic: Denies lip swelling, Denies throat swelling and Denies tongue swelling PMFSH Past Medical History Medical History Alcohol abuse, uncomplicated Benign essential HTN Other and unspecified hyperlipidemia Uncontrolled type 2 diabetes mellitus, with long-term current use of insulin Family History Family History Sibling Family history of malignant neoplasm Patient's brother is in good health Patient's sister is Father Family history of malignant neoplasm Patient's father is Mother Family history of malignant neoplasm Patient's mother is Social History Social History Smoking status: Never smoker Second hand tobacco smoke exposure: No Smoking end date: 02/15/94 Alcohol intake: former Alcohol use details: 2012 Substance use:
[2021-05-10] MEDS: dilTIAZem HCl INJ 25 MG/5 ML VIAL 20 MG IV PUSH (05:39)
[2021-05-10 05:41] LABS: Basophils Absolute Auto 0.1 K/mm3 (0.0-0.1); Basophils Percent Auto 0.6 % (0.2-1.2); Eosinophils Absolute Auto 0.1 K/mm3 (0-0.3); Eosinophils Percent Auto 0.6 % (0-4.4); Hematocrit 50.8 % (42.0-52.0); Hemoglobin 16.6 g/dL (14.0-18.0); Immature Granulocyte Absolute 0.08 K/mm3 (0.00-0.031); Immature Granulocyte Percent A 0.8 % (0-0.5); Lymphocytes Absolute Auto 1.84 K/mm3 (0.9-3.2); Lymphocytes Percent Auto 19.2 % (18.3-44.2); Mean Corpuscular HGB Conc 32.7 g/dl (32-36); Mean Corpuscular Hemoglobin 30.5 pg (26-34); Mean Corpuscular Volume 93.2 fl (80-100); Mean Platelet Volume 12.2 fl (7.4-10.4); Monocytes Absolute Auto 0.8 K/mm3 (0.1-0.6); Monocytes Percent Auto 8.1 % (2.6-8.5); Neutrophils Absolute Auto 6.8 K/mm3 (1.3-6.7); Neutrophils Percent Auto 70.7 % (45.5-73.1); Platelet Count Result 291 k/mm3 (150-375); Red Blood Count 5.45 M/mm3 (4.6-6.20); Red Cell Distribution Width 13.3 % (11.5-14.5); White Blood Count 9.6 K/mm3 (4.5-10.0)
[2021-05-10 06:03] LABS: INR 1.9; Prothrombin Time 21.1 Seconds (11.1-14.7)
[2021-05-10 06:04] LABS: Partial Thromboplastin Time 34.3 SECONDS (22.3-36.8)
[2021-05-10 06:08] LABS: Alanine Aminotransferase 32 U/L (4-50); Albumin Level 3.6 g/dL (3.5-5.1); Alkaline Phosphatase 79 U/L (38-126); Anion Gap 6 mmol/L (8-16); Aspartate Amino Transferase 30 U/L (17-59); Bilirubin,Total 1.1 mg/dL (0.2-1.3); Blood Urea Nitrogen 18 mg/dL (9-20); Calcium 8.5 mg/dL (8.4-10.2); Carbon Dioxide 32 mmol/L (22-30); Chloride 93 mmol/L (98-107); Estimated CRCL calculation 87 ml/min; Estimated Glomerular Filt Rate > 60; Glucose 251 mg/dL (65-110); Potassium 3.9 mmol/L (3.4-5.0); Sodium 131 mmol/L (137-145)
[2021-05-10 06:16] LABS: NT Pro B Type Natriuretic Pept 2570 pg/mL (5-100); Troponin I 0.032 ng/mL (0.000-0.034)
[2021-05-10 06:25] LABS: D Dimer 0.48 ug/mL (<0.48)
--- NOTE | 2021-05-10 07:08 | PC.NURSE ---
report to JESSE Hand, to continue care.
[2021-05-10] MEDS: FUROSEMIDE INJ 40 MG/4 ML VIAL 20 MG IV PUSH (07:13)
== END 2021-05-10 08:48 | disposition home or self-care (01) ==
PROVIDERS: Emergency Provider Emergency Medicine; PCP Internal Medicine
DX: I48.91 Unspecified atrial fibrillation (principal); I50.9 Heart failure, unspecified; I11.0 Hypertensive heart disease with heart failure; E78.5 Hyperlipidemia, unspecified; E11.9 Type 2 diabetes mellitus without complications; Z87.891 Personal history of nicotine dependence; Z79.01 Long term (current) use of anticoagulants; Z79.4 Long term (current) use of insulin; Z79.84 Long term (current) use of oral hypoglycemic drugs; I44.7 Left bundle-branch block, unspecified
CPT/HCPCS: 36415; 71046; 80053; 83880; 84484; 85025; 85380; 85610; 85730; 93005; 96365; 96367; 96375; 99284; J0456; J0696; J1940

== ENCOUNTER 2021-07-30 20:44 | Emergency (ER) | payer OTHER, SELFPAY ==
[2021-07-30 20:46] VITALS: BP 137/93; PULSE 80; RESP 18; TEMP 36.1; O2SAT 96
[2021-07-30 21:06] VITALS: BP 121/98; PULSE 100; RESP 18; O2SAT 98
--- NOTE | 2021-07-30 21:06 | ED.MALEGU ---
HPI - Male Genitourinary General Chief complaint: Urogenital-Male Stated complaint: cant urinate Time Seen by Provider: 07/30/21 20:51 History of Present Illness HPI Narrative: Patient is a 80-year-old male with a history of urinary retention status post TURP (2017) here for evaluation of urinary retention. Patient states that he has voided only small amounts of urine throughout the day that is associated with some dysuria. Denies abdominal pain, back pain, fevers, chills. States that he is set to follow-up from his TURP in November of this year. He has required a morrissey before for urinary retention and has managed this at home before. Related Data Home Medications Medication Instructions Recorded Confirmed tamsulosin 0.4 mg capsule 0.4 mg PO DAILY 01/25/19 05/10/21 aspirin 81 mg tablet 81 mg PO DAILY 05/10/21 05/10/21 Allergies Allergy/AdvReac Type Severity Reaction Status Date / Time No Known Allergies Allergy Verified 05/10/21 05:08 Review of Systems Review of Systems: Gen: Denies fevers or chills Eyes: Denies eye pain or visual change ENT: Denies congestion Respiratory: Denies shortness of breath or cough CV: Denies chest pain or palpitations GI: Denies abdominal pain nausea, emesis or diarrhea reports urinary retention and dysuria. Denies urgency, frequency or hematuria Musculoskeletal: Denies back pain or muscle pain Neuro: Denies numbness, tingling, weakness or focal weakness Skin: Denies rash Except as documented, all other systems reviewed and negative [facility] Past Medical History Medical History Alcohol abuse, uncomplicated Benign essential HTN Other and unspecified hyperlipidemia Uncontrolled type 2 diabetes mellitus, with long-term current use of insulin Family History Family History Sibling Family history of malignant neoplasm Patient's brother is in good health Patient's sister is Father Family history of malignant neoplasm Patient's father is Mother Family history of malignant neoplasm Patient's mother is Social History Social History Smoking status: Never smoker Second hand tobacco smoke exposure: No Smoking end date: 02/15/94 Alcohol intake: former Alcohol use details: 2012 Substance use: never Substance use type: does not use Gender identity (if verbalized by the patient): Male Spiritual care concerns: No Exam Narrative: APPEARANCE: Well appearing, no pain in distress, well-nourished. Head normocephalic and atraumatic. EYES: PERRLA/EOMI, conjunctivae clear NOSE: No nasal drainage EARS: External ear normal in appearance THROAT: Oropharynx is clear. Mucous membranes are moist. NECK: Supple. No adenopathy, no masses. RESPIRATORY: Airway patent, respirations nonlabored. Clear to auscultation bilaterally, no rales, rhonchi, wheezing. CARDIOVASCULAR: Regular rate and rhythm without murmurs, rubs, or gallops. ABDOMINAL: No suprapubic tenderness. Normoactive bowel sounds. Soft, nontender, nondistended. No rebound tenderness or guarding. MUSCULOSKELETAL: Extremities are warm and well-perfused. Moves all extremities well. No edema. NEURO: Normal speech. No focal neurologic deficits. SKIN: Skin is warm and dry. No rashes. PSYCHIATRIC: Normal affect/mood. Course Vital Signs Vital signs: Vital Signs Temperature 97 F L 07/30/21 20:46 Pulse Rate 80 07/30/21 20:46 Respiratory Rate 18 07/30/21 20:46 Blood Pressure 137/93 H 07/30/21 20:46 Pulse Oximetry 96 07/30/21 20:46 Oxygen Delivery Room Air 07/30/21 20:46 Temperature 97 F L 07/30/21 20:46 Pulse Rate 64 07/30/21 23:18 Respiratory Rate 18 07/30/21 23:18 Blood Pressure 125/75 07/30/21 23:18 Pulse Oximetry 96 07/30/21 23:18 Oxygen Delivery Room
[2021-07-30 21:31] LABS: Appearance Urine Cloudy (Clear); Bilirubin Urine 1+ (Negative); Blood Urine 3+ (Negative); Color Urine Yellow (Yellow); Glucose Urine UA Trace mg/dL (Negative); Ketones Urine Negative (Negative); Leukocyte Esterase Ur Negative LEU/UL (Negative); Nitrate Urine Negative (Negative); Protein Urine 2+ mg/dL (Negative); Specific Grav Ur 1.025 (1.001-1.035); pH Urine 5.5 (5.0-9.0)
[2021-07-30 21:36] LABS: Bacteria Urine Trace /hpf; Mucus Urine Few /lpf; RBC Urine >75 /hpf (0-2); Squamous Epithelial Cell Urine Rare /hpf (Few)
[2021-07-30 21:37] LABS: Add Urine Microscopic? YES
[2021-07-30 23:18] VITALS: BP 125/75; PULSE 64; RESP 18; O2SAT 96
== END 2021-07-30 23:15 | disposition home or self-care (01) ==
PROVIDERS: Emergency Provider Family Medicine; PCP Internal Medicine
DX: R33.9 Retention of urine, unspecified (principal); R31.9 Hematuria, unspecified; I10 Essential (primary) hypertension; E78.5 Hyperlipidemia, unspecified; E11.9 Type 2 diabetes mellitus without complications; Z79.4 Long term (current) use of insulin
CPT/HCPCS: 51702; 81001; 87086; 87088; 99283

== ENCOUNTER 2021-08-10 03:36 | Emergency (ER) | payer OTHER, SELFPAY ==
[2021-08-10] VITALS (10 sets, daily range): BP systolic 99–119; BP diastolic 59–94; PULSE 82–146; RESP 17–26; TEMP 37.1; O2SAT 91–98
--- NOTE | ~2021-08-10 | XR_ITS ---
EXAMINATION: XR chest 1V portable INDICATION: Heart palpitations TECHNIQUE: Portable AP chest at 0539 hours COMPARISON: 05/10/2021 FINDINGS: Cardiomegaly is noted. There are small pleural effusions. Minimal airspace opacities are pr esent in the lung bases. No pneumothorax is identified. IMPRESSION: 1. Cardiomegaly. 2. Small pleural effusions. 3. Minimal bibasilar airspace opacities, consistent with atelectasis versus pneumonia. Reviewed, dictated and finalized at location A. IMPRESSION: 1. Cardiomegaly. 2. Small pleural effusions. 3. Minimal bibasilar airspace opacities, consistent with atelectasis versus pne umonia.
--- NOTE | 2021-08-10 03:53 | ECG_ITS ---
Measurements Intervals [place] Rate: 127 P: DE: 0 QRS: -11 QRSD: 140 T: 139 QT: 336 QTc: 489 Interpretive Statements ATRIAL FIBRILLATION WITH RAPID VENTRICULAR RESPONSE LEFT BUNDLE BRANCH BLOCK [120+ ms QRS DURATION, 80+ ms Q/S IN V1/V2, 85+ ms R IN I/aVL/V5/V6] COMPARED TO ECG 05/10/2021 05:06:13 NO SIGNIFICANT CHANGES Electronically Signed On 08-10-2021 7:19:07 CDT by Jose Logan M.D.
[2021-08-10 04:02] LABS: Basophils Absolute Auto 0.1 K/mm3 (0.0-0.1); Basophils Percent Auto 0.6 % (0.2-1.2); Eosinophils Absolute Auto 0.1 K/mm3 (0-0.3); Eosinophils Percent Auto 1.2 % (0-4.4); Hemoglobin 14.4 g/dL (14.0-18.0); Immature Granulocyte Absolute 0.05 K/mm3 (0.00-0.031); Immature Granulocyte Percent A 0.6 % (0-0.5); Lymphocytes Percent Auto 20.7 % (18.3-44.2); Mean Corpuscular Hemoglobin 29.3 pg (26-34); Mean Corpuscular Volume 91.6 fl (80-100); Mean Platelet Volume 11.1 fl (7.4-10.4); Monocytes Absolute Auto 0.7 K/mm3 (0.1-0.6); Monocytes Percent Auto 8.3 % (2.6-8.5); Neutrophils Absolute Auto 5.7 K/mm3 (1.3-6.7); Neutrophils Percent Auto 68.6 % (45.5-73.1); Platelet Count Result 236 k/mm3 (150-375); Red Blood Count 4.91 M/mm3 (4.6-6.20); Red Cell Distribution Width 14.6 % (11.5-14.5); White Blood Count 8.2 K/mm3 (4.5-10.0)
[2021-08-10] MEDS: dilTIAZem HCl INJ 25 MG/5 ML VIAL 20 MG IV PUSH (04:06)
[2021-08-10 04:11] LABS: Alanine Aminotransferase 16 U/L (6-50); Albumin Level 3.5 g/dL (3.5-5.1); Alkaline Phosphatase 97 U/L (38-126); Anion Gap 9 mmol/L (8-16); Aspartate Amino Transferase 18 U/L (17-59); Bilirubin,Total 1.4 mg/dL (0.2-1.3); Blood Urea Nitrogen 12 mg/dL (9-20); Calcium 8.9 mg/dL (8.4-10.2); Carbon Dioxide 18 mmol/L (22-30); Chloride 108 mmol/L (98-107); Estimated Glomerular Filt Rate > 60; Glucose 145 mg/dL (65-110); Magnesium 1.6 mg/dL (1.6-2.3); Potassium 3.9 mmol/L (3.4-5.0); Sodium 135 mmol/L (137-145)
--- NOTE | 2021-08-10 04:12 | ED.GENADULT ---
HPI - General Adult General Chief complaint: Urogenital-Male Stated complaint: catheter issues Time Seen by Provider: 08/10/21 03:49 History of Present Illness HPI narrative: Patient is a 80-year-old gentleman who presents to the emergency department with chief complaint of problems with catheter not draining and fast heart rate. The patient states he has history of A. fib reports he has missed a few doses of his Cardizem and reports that he was having problems with his catheter not draining. Patient denies pain denies shortness of breath denies chest pain. Patient reports symptoms or not improved by anything or they worsened by anything. Related Data Home Medications Medication Instructions Recorded Confirmed tamsulosin 0.4 mg capsule 0.4 mg PO DAILY 01/25/19 08/06/21 aspirin 81 mg tablet 81 mg PO DAILY 05/10/21 08/06/21 Allergies Allergy/AdvReac Type Severity Reaction Status Date / Time No Known Allergies Allergy Verified 08/06/21 13:53 Review of Systems Review of Systems: A 10 system review of systems was completed on the patient and is negative except for what is stated in the HPI. Nursing and ancillary documentation was reviewed. [facility] Past Medical History Medical History Alcohol abuse, uncomplicated Benign essential HTN Other and unspecified hyperlipidemia Uncontrolled type 2 diabetes mellitus, with long-term current use of insulin Family History Family History Sibling Family history of malignant neoplasm Patient's brother is in good health Patient's sister is Father Family history of malignant neoplasm Patient's father is Mother Family history of malignant neoplasm Patient's mother is Social History Social History Smoking status: Former smoker Second hand tobacco smoke exposure: No Smoking end date: 02/15/94 Alcohol intake: former Alcohol use details: 2012 Substance use: never Substance use type: does not use Gender identity (if verbalized by the patient): Male Spiritual care concerns: No Exam Narrative: GENERAL: Well-appearing, well-nourished, and in no acute distress. HEAD: Normocephalic, atraumatic. EYES: PERRLA and EOMI. ENT: Nares clear, no rhinorrhea or epistaxis. Mucous membranes moist. NECK: Supple. CHEST: Clear to auscultation. No respiratory distress. HEART: Regular rate and rhythm. No murmur heard. Normal peripheral pulses. ABDOMEN: Soft, nontender, nondistended, normal active bowel sounds. Ford catheter in place there is blood in the urine no clots present EXTREMITIES: Normal range of motion. No edema. SKIN: Warm, dry, no rash. NEURO: No focal deficits. Alert and oriented x3. PSYCH: Normal mood and affect. Course Course Emergency Course: The patient was given IV dose of Cardizem which has brought his rate down to 83. Patient's urine shows evidence of UTI the patient will be started on Keflex and the patient was doing much better at this time the patient was instructed to make sure he takes his Cardizem. Vital Signs Vital signs: Vital Signs Temperature 37.1 C 08/10/21 03:45 Pulse Rate 141 H 08/10/21 03:45 Respiratory Rate 21 H 08/10/21 03:45 Blood Pressure 119/90 08/10/21 03:45 Pulse Oximetry 96 08/10/21 03:45 Oxygen Delivery Room Air 08/10/21 03:45 Temperature 37.1 C 08/10/21 03:45 Pulse Rate 95 08/10/21 05:17 Respiratory Rate 22 H 08/10/21 05:17 Blood Pressure 116/94 H 08/10/21 05:17 Pulse Oximetry 94 08/10/21 05:17 Oxygen Delivery Room Air 08/10/21 03:45 Medical Decision Making Vital Signs Vital Signs: Vital Signs Temperature 37.1 C 08/10/21 03:45 Pulse Rate 141 H 08/10/21 03:45 Respiratory Rate 21 H 08/10/21 03:45 Blood Pressure 119
[2021-08-10 04:13] LABS: INR 1.4; Partial Thromboplastin Time 34.7 SECONDS (22.3-36.8); Prothrombin Time 16.2 Seconds (11.1-14.7)
[2021-08-10 04:23] LABS: Troponin I 0.013 ng/mL (0.000-0.034)
[2021-08-10 05:25] LABS: Appearance Urine Cloudy (Clear); Bilirubin Urine 1+ (Negative); Blood Urine 3+ (Negative); Color Urine Amber (Yellow); Glucose Urine UA Negative (Negative); Ketones Urine Negative (Negative); Leukocyte Esterase Ur 3+ LEU/UL (Negative); Nitrate Urine Positive (Negative); Protein Urine 3+ mg/dL (Negative); Specific Grav Ur 1.015 (1.001-1.035); pH Urine >=9.0 (5.0-9.0)
[2021-08-10 05:29] LABS: RBC Urine >75 /hpf (0-2); WBC Urine >75 /hpf
[2021-08-10 05:44] LABS: Add Urine Microscopic? YES
[2021-08-10] MEDS: CEPHALEXIN 500 MG CAPSULE PO (06:30)
== END 2021-08-10 06:55 | disposition home or self-care (01) ==
PROVIDERS: Emergency Provider Emergency Medicine; PCP Internal Medicine
DX: I48.91 Unspecified atrial fibrillation (principal); N39.0 Urinary tract infection, site not specified; I10 Essential (primary) hypertension; E78.5 Hyperlipidemia, unspecified; E11.9 Type 2 diabetes mellitus without complications; Z79.82 Long term (current) use of aspirin; Z87.891 Personal history of nicotine dependence; Z79.84 Long term (current) use of oral hypoglycemic drugs; Z79.4 Long term (current) use of insulin; I44.7 Left bundle-branch block, unspecified
CPT/HCPCS: 36415; 51702; 71045; 80053; 81001; 83735; 84484; 85025; 85610; 85730; 87077; 87086; 87186; 93005; 96374; 99284; A9270

== ENCOUNTER 2021-08-14 11:55 | Emergency (ER) | payer OTHER, SELFPAY ==
--- NOTE | ~2021-08-14 | CT_ITS ---
EXAMINATION: CT abdomen pelvis w con INDICATION: Abdominal pain and hematuria TECHNIQUE: Computed tomographic images of the abdomen and pelvis were obtained after the administrati on of 100 cc of Omnipaque 300 intravenous contrast. The dose-length product (DLP) was 1104.90 mGy-cm. Automated exposure control and iterative reconstruction technique were employed. COMPARISON: None available FINDINGS: There are small pleural effusions. There is minimal associated airspace opacities of the vel ng bases. The heart size is normal. There is calcified coronary artery atherosclerosis. The liver is diffusely low in attenuation when compared with the spleen, consistent with hepatic steatosis. The sp ely and pancreas are normal. There is questionable mild fat stranding surrounding the gallbladder. T here is a 1.7 cm mass of the left adrenal gland. There is a 1.2 cm mass of the right adrenal gland. T here is a 1.8 cm cyst of the right kidney. The left kidney is unremarkable. No pathologically enlarge d abdominal or pelvic lymph nodes are identified. There is no free intraperitoneal gas or evidence of bowel obstruction. Colonic diverticulosis is present without evidence of diverticulitis. There are c hanges of mesh ventral hernia repair. A Ford catheter is present in the bladder. The prostate is enl arged. There is severe lumbar spondylosis. IMPRESSION: 1. Possible inflammatory change surrounding the gallbladder. Recommend correlation for right upper qu adrant tenderness. 2. Small pleural effusions with bibasilar atelectasis versus pneumonia. 3. Bilateral adrenal masses, probably benign. Recommend follow-up adrenal CT in 12 months. Reviewed, dictated and finalized at location F. IMPRESSION: 1. Possible inflammatory change surrounding the gallbladder. Recommend correlat ion for right upper quadrant tenderness. 2. Small pleural effusions with bibasilar atelectasis versus pneumonia. 3. Bilateral adrenal masses, probably benign. Recommend follow-up adrenal CT in 12 months.
[2021-08-14 11:58] VITALS: BP 110/50; PULSE 79; RESP 16; TEMP 36.2; O2SAT 98
[2021-08-14 12:23] LABS: Add Urine Microscopic? YES; Appearance Urine Cloudy (Clear); Bilirubin Urine 3+ (Negative); Blood Urine 3+ (Negative); Color Urine Brown (Yellow); Glucose Urine UA Trace mg/dL (Negative); Ketones Urine 2+ mg/dL (Negative); Leukocyte Esterase Ur 3+ LEU/UL (Negative); Nitrate Urine Negative (Negative); Protein Urine 3+ mg/dL (Negative); pH Urine >=9.0 (5.0-9.0)
[2021-08-14 12:27] LABS: Bacteria Urine 3+ /hpf; Mucus Urine Heavy /lpf; RBC Urine 21-50 /hpf (0-2); WBC Clumps Urine Present /HPF; WBC Urine 21-30 /hpf
--- NOTE | 2021-08-14 12:43 | ED.MALEGU ---
HPI - Male Genitourinary General Chief complaint: Urogenital-Male Stated complaint: difficulty urination Time Seen by Provider: 08/14/21 12:29 History of Present Illness HPI Narrative: 80-year-old male presents to the emergency room complaints of hematuria. Patient states he was seen here 2 weeks ago for urinary retention, and an indwelling Ford catheter was placed to the leg bag with strict instructions to follow-up with urology. Patient then followed up with his primary care physician couple days later, and was once again told to follow-up with urology for his urinary retention. Patient was seen here over the weekend for hematuria and dysuria around his Ford catheter, was found to have urinary tract infection. Patient states that he completed his course of antibiotics and continues to experience the dysuria and hematuria. Related Data Home Medications Medication Instructions Recorded Confirmed tamsulosin 0.4 mg capsule 0.4 mg PO DAILY 01/25/19 08/06/21 aspirin 81 mg tablet 81 mg PO DAILY 05/10/21 08/06/21 Allergies Allergy/AdvReac Type Severity Reaction Status Date / Time No Known Allergies Allergy Verified 08/14/21 12:13 Review of Systems Review of Systems: CONSTITUTIONAL: Denies fever, chills, or sweats. EYES: Denies visual changes, redness, or discharge. ENT: Denies rhinorrhea, congestion, sore throat, or otalgia. CARDIOVASCULAR: Denies chest pain, palpitations, or edema. RESPIRATORY: Denies cough or dyspnea. GASTROINTESTINAL: Denies abdominal pain, nausea, vomiting, or diarrhea. GENITOURINARY: Reports dysuria or hematuria. SKIN: Denies rash or itching. MUSCULOSKELETAL: Denies back pain, joint pain, or myalgia. NEUROLOGIC: Denies headache, numbness, dizziness, or weakness. PSYCHIATRIC: Denies anxiety or depression. [facility] Past Medical History Medical History Alcohol abuse, uncomplicated Benign essential HTN Other and unspecified hyperlipidemia Uncontrolled type 2 diabetes mellitus, with long-term current use of insulin Family History Family History Sibling Family history of malignant neoplasm Patient's brother is in good health Patient's sister is Father Family history of malignant neoplasm Patient's father is Mother Family history of malignant neoplasm Patient's mother is Social History Social History Smoking status: Former smoker Second hand tobacco smoke exposure: No Smoking end date: 02/15/94 Alcohol intake: former Alcohol use details: 2012 Substance use: never Substance use type: does not use Gender identity (if verbalized by the patient): Male Spiritual care concerns: No Exam Narrative: GENERAL: Well-appearing, well-nourished, no physical limitations, and in no acute distress. HEAD: Normocephalic, atraumatic. EYES: Conjunctivae normal, PERRLA and EOMI. CHEST: Clear to auscultation. No respiratory distress. No wheezes rales or rhonchi. No tenderness. HEART: Regular rate and rhythm. No murmur heard. Normal peripheral pulses. ABDOMEN: Soft, suprapubic tenderness, nondistended, normal active bowel sounds. : Ford catheter in place with leg bag EXTREMITIES: Normal range of motion. No edema. No clubbing or cyanosis SKIN: Warm, dry, no rash. No noted wounds NEURO: No focal deficits. Alert and oriented x3. MAEW. CN's II-XI intact bilaterally, normal gait PSYCH: Cooperative. Normal mood and affect. Course Vital Signs Vital signs: Vital Signs Temperature 36.2 C L 08/14/21 11:58 Pulse Rate 79 08/14/21 11:58 Respiratory Rate 16 08/14/21 11:58 Blood Pressure 110/50 L 08/14/21 11:58 Pulse Oximetry 98 08/14/21 11:58 Temperature 36.2 C L 08/14/21 11:58 Pulse Rate 79 08/14/21 11:58 Respiratory Rate 16 08/14/21 11:58 Blo
[2021-08-14] MEDS: SODIUM CHLORIDE 0.9% IV 1,000 ML 999 ML IV CONT (13:17)
[2021-08-14 13:25] LABS: Basophils Absolute Auto 0.1 K/mm3 (0.0-0.1); Basophils Percent Auto 0.5 % (0.2-1.2); Eosinophils Percent Auto 0.1 % (0-4.4); Hematocrit 45.9 % (42.0-52.0); Hemoglobin 14.7 g/dL (14.0-18.0); Immature Granulocyte Absolute 0.07 K/mm3 (0.00-0.031); Immature Granulocyte Percent A 0.6 % (0-0.5); Lymphocytes Absolute Auto 0.99 K/mm3 (0.9-3.2); Mean Corpuscular Hemoglobin 29.3 pg (26-34); Mean Corpuscular Volume 91.4 fl (80-100); Mean Platelet Volume 11.1 fl (7.4-10.4); Monocytes Absolute Auto 0.9 K/mm3 (0.1-0.6); Neutrophils Percent Auto 81.8 % (45.5-73.1); Platelet Count Result 253 k/mm3 (150-375); Red Blood Count 5.02 M/mm3 (4.6-6.20); Red Cell Distribution Width 14.6 % (11.5-14.5)
[2021-08-14 13:34] LABS: Alanine Aminotransferase 14 U/L (6-50); Albumin Level 3.6 g/dL (3.5-5.1); Alkaline Phosphatase 114 U/L (38-126); Anion Gap 8 mmol/L (8-16); Aspartate Amino Transferase 23 U/L (17-59); Bilirubin,Total 1.8 mg/dL (0.2-1.3); Blood Urea Nitrogen 17 mg/dL (9-20); Calcium 9.1 mg/dL (8.4-10.2); Carbon Dioxide 26 mmol/L (22-30); Chloride 102 mmol/L (98-107); Estimated CRCL calculation 75 ml/min; Estimated Glomerular Filt Rate > 60; Glucose 83 mg/dL (65-110); Potassium 4.1 mmol/L (3.4-5.0); Sodium 136 mmol/L (137-145)
--- NOTE | 2021-08-14 13:50 | PC.NURSE ---
Patient off unit to CT.
[2021-08-14 14:05] LABS: Prostate Specific Antigen 6.9 ng/mL (< OR = 4.0)
[2021-08-14 15:13] LABS: Lipase 34 U/L (23-300)
[2021-08-14] MEDS: CIPROFLOXACIN 400 MG/D5W 200ML 200 ML 200 MG IVPB (15:19)
[2021-08-14 16:45] VITALS: BP 126/69; PULSE 60; RESP 18; O2SAT 97
== END 2021-08-14 16:59 | disposition home or self-care (01) ==
PROVIDERS: Emergency Provider Nurse Practitioner Family; PCP Internal Medicine
DX: N39.0 Urinary tract infection, site not specified (principal); R31.9 Hematuria, unspecified; N13.9 Obstructive and reflux uropathy, unspecified; I10 Essential (primary) hypertension; E78.5 Hyperlipidemia, unspecified; E11.9 Type 2 diabetes mellitus without complications; Z87.891 Personal history of nicotine dependence; Z79.82 Long term (current) use of aspirin; Z79.84 Long term (current) use of oral hypoglycemic drugs; Z79.4 Long term (current) use of insulin; R91.8 Other nonspecific abnormal finding of lung field; E27.8 Other specified disorders of adrenal gland
CPT/HCPCS: 36415; 51702; 74177; 80053; 81001; 83690; 84153; 85025; 87086; 87088; 96361; 96365; 99284; J0744; J7030; Q9967

== ENCOUNTER 2021-10-23 17:01 | Emergency (ER) | payer OTHER, SELFPAY ==
[2021-10-23 17:38] VITALS: BP 139/98; PULSE 96; RESP 16; TEMP 36.8; O2SAT 98
--- NOTE | 2021-10-23 19:45 | ED.MALEGU ---
HPI - Male Genitourinary General Chief complaint: Urogenital-Male Stated complaint: leaking morrissey Time Seen by Provider: 10/23/21 19:05 History of Present Illness HPI Narrative: Patient is a 80-year-old male who presents ER with leaking Morrissey catheter bag. Patient noticed it was leaking today and cannot get it to stop and is tired of the mass. Denies any issue with actual drainage from the Morrissey. No fevers or chills or sweats. No suprapubic pain or back pain. Related Data Home Medications Medication Instructions Recorded Confirmed tamsulosin 0.4 mg capsule 0.4 mg PO DAILY 01/25/19 10/10/21 aspirin 81 mg tablet 81 mg PO DAILY 05/10/21 10/10/21 Allergies Allergy/AdvReac Type Severity Reaction Status Date / Time No Known Allergies Allergy Verified 10/10/21 11:27 Review of Systems Constitutional: Constitutional: Denies chills and Denies fever(s) Gastrointestinal: Gastrointestinal: Denies abdominal pain, Denies nausea and Denies vomiting Genitourinary: Genitourinary: Denies hematuria and Denies oliguria PMFSH Past Medical History Medical History Alcohol abuse, uncomplicated Benign essential HTN Other and unspecified hyperlipidemia Uncontrolled type 2 diabetes mellitus, with long-term current use of insulin Family History Family History Sibling Family history of malignant neoplasm Patient's brother is in good health Patient's sister is Father Family history of malignant neoplasm Patient's father is Mother Family history of malignant neoplasm Patient's mother is Social History Social History Smoking status: Former smoker Second hand tobacco smoke exposure: No Smoking end date: 02/15/94 Alcohol intake: former Alcohol use details: 2012 Substance use: never Substance use type: does not use Gender identity (if verbalized by the patient): Male Spiritual care concerns: No Exam Narrative: GENERAL: Well-appearing, well-nourished, and in no acute distress. HEAD: Normocephalic, atraumatic. CHEST: Clear to auscultation. No respiratory distress. HEART: Regular rate and rhythm. Normal peripheral pulses. NEURO: Alert and oriented x3. PSYCH: Normal mood and affect. Course Course Emergency Course: Morrissey bag exchanged. Patient unsure when he is going to his Morrissey out. Chart review shows multiple visits with again and he is supposed to get cystoscopy. We will give him the clinic phone number so he can call for follow-up. Vital Signs Vital signs: Vital Signs Temperature 98.2 F 10/23/21 17:38 Pulse Rate 96 10/23/21 17:38 Respiratory Rate 16 10/23/21 17:38 Blood Pressure 139/98 H 10/23/21 17:38 Pulse Oximetry 98 10/23/21 17:38 Temperature 98.2 F 10/23/21 17:38 Pulse Rate 96 10/23/21 17:38 Respiratory Rate 16 10/23/21 17:38 Blood Pressure 139/98 H 10/23/21 17:38 Pulse Oximetry 98 10/23/21 17:38 Discharge Plan Discharge Clinical Impression: Morrissey catheter problem Patient Disposition: Home, Self-Care Condition: Stable Instructions: How to Change a Catheter Drainage Bag (DC) Additional Instructions: Return the ER if you have fever over 100.4 ?F, you have severe back pain, you cannot keep down food/water, you have additional concerns. Prescriptions: No Action isosorbide mononitrate 10 mg tablet 10 mg PO .qd Qty: 30 5RF Rx Instructions: give doses 7 hrs apart tamsulosin 0.4 mg capsule 0.4 mg PO DAILY atorvastatin 80 mg tablet 80 mg PO DAILY Qty: 90 1RF metformin 1,000 mg tablet 1,000 mg PO BID Qty: 180 1RF aspirin 81 mg Tablet 81 mg PO DAILY (DME) blood-glucose meter Kit See Rx Instructions .ROUTE .MEDSUPPLY Qty: 1 0RF Rx Instructions: use to test blo
== END 2021-10-23 20:13 | disposition home or self-care (01) ==
PROVIDERS: Emergency Provider Emergency Medicine; PCP Internal Medicine
DX: T83.031A Leakage of indwelling urethral catheter, initial encounter (principal); I10 Essential (primary) hypertension; E78.5 Hyperlipidemia, unspecified; E11.9 Type 2 diabetes mellitus without complications; Z79.82 Long term (current) use of aspirin; Z87.891 Personal history of nicotine dependence; Z79.4 Long term (current) use of insulin; Z79.84 Long term (current) use of oral hypoglycemic drugs; Y84.6 Urinary catheterization as the cause of abnormal reaction of the patient, or of later complication, without mention of misadventure at the time of the procedure
CPT/HCPCS: 99282

== ENCOUNTER 2021-10-28 15:10 | Inpatient (IN) | payer OTHER, SELFPAY ==
[2021-10-28] VITALS (7 sets, daily range): BP systolic 106–140; BP diastolic 55–99; PULSE 85–111; RESP 16–24; TEMP 36.6–37.2; O2SAT 98–99; BMI 23.8; BMI 27.5
--- NOTE | ~2021-10-28 | MR_ITS ---
EXAMINATION: MR foot RT wo con DATE: 10/29/2021 12:34 INDICATION: Right foot necrotic tissue. TECHNIQUE: Magnetic resonance imaging (MRI) of the right foot was performed without intravenous contr ast. COMPARISON: None FINDINGS: Bone alignment is normal. No fracture. There is mild osteoarthritis of first and fifth meta tarsophalangeal joints and some of the interphalangeal joints. Lisfranc ligament is normal. There is moderate to severe fatty atrophy of the musculature. There is increased T2-weighted signal intensity in the musculature, likely subacute on chronic denervation. IMPRESSION: 1. No evidence of osteomyelitis. 2. Mild polyarticular osteoarthritis. Reviewed, dictated and finalized at location A.
--- NOTE | ~2021-10-28 | MR_ITS ---
EXAMINATION: MR foot LT wo con DATE: 10/29/2021 12:34 INDICATION: Left foot necrotic toes. TECHNIQUE: Magnetic resonance imaging (MRI) of the left foot was performed without intravenous contra st. COMPARISON: Left foot radiographs 10/28/2021 FINDINGS: There is dorsiflexion of the metatarsophalangeal joints and flexion of the interphalangeal joints. No fracture. There is mild osteoarthritis of first metatarsophalangeal joint and some the int erphalangeal joints and midfoot joints. There are enthesophytes at the posterior and plantar aspects of calcaneal tuberosity. Lisfranc ligament is normal. The tendons are unremarkable. There is moderate to severe fatty atrophy of much of the musculature. There is increased T2-weighted signal intensity in the musculature, consistent with subacute on chronic denervation. Subcutaneous edema is noted. The re is artifact from a 5 mm linear radiopaque foreign body plantar to head of fifth metatarsal. IMPRESSION: 1. No evidence of osteomyelitis. 2. Mild polyarticular osteoarthritis. 3. 5 mm linear radiopaque foreign body in the soft tissues plantar to head of fifth metatarsal. Reviewed, dictated and finalized at location A. IMPRESSION: 1. No evidence of osteomyelitis. 2. Mild polyarticular osteoarthritis. 3. 5 mm linear radiopaque foreign body in the soft tissues plantar to head of f ifth metatarsal.
--- NOTE | ~2021-10-28 | XR_ITS ---
EXAM: XR foot LT min 3V DATE: 10/28/2021 17:26 HISTORY: necrotic toes, SPECIFICALLY 1ST 2ND DIGITS, DIABETIC . COMPARISON: None available. FINDINGS: Decreased mineralization. Vascular calcification Degenerative tibiotalar change. Plantar a nd Achilles enthesopathy. Soft tissue ulceration and subcutaneous gas in the distal portions of the f irst and second toes. No definite adjacent osseous erosion. Linear metallic foreign body in the later al aspect of the ball of the foot. Rounded hypodensities projecting over the ball and healed the foot within subcutaneous fat. IMPRESSION: Cellulitis and soft tissue ulcers involving the distal first and second toes, without def inite evidence of adjacent osteomyelitis although bone may be exposed to clinical probing. Radiopaque foreign body in the lateral aspect of the ball of the foot. Lucencies in the subcutaneous fat of the heel and ball of the foot may represent fat necrosis, or additional foreign bodies. Reviewed, dictated and finalized at location K. IMPRESSION: Cellulitis and soft tissue ulcers involving the distal first and se cond toes, without definite evidence of adjacent osteomyelitis although bone ma y be exposed to clinical probing. Radiopaque foreign body in the lateral aspect of the ball of the foot. Lucencies in the subcutaneous fat of the heel and bal l of the foot may represent fat necrosis, or additional foreign bodies.
--- NOTE | ~2021-10-28 | XR_ITS ---
EXAMINATION: XR chest 1V portable Exam Date/Time: 10/28/2021 18:15 CDT HISTORY: afib, sob Comparison: 08/10/2021. RESULT: Lines, tubes, and devices: None. Lungs and pleura: Senescent change. Bibasilar atelectasis/scar. Right lateral costophrenic angle kalie nting. Cardiomediastinal silhouette: Stable. Other: No acute osseous or upper abdominal finding. IMPRESSION: Small left pleural effusion versus chronic pleural scarring. Reviewed, dictated and finalized at location K.
--- NOTE | ~2021-10-28 | US_ITS ---
EXAMINATION: US arterial ankle brachial ind DATE: 10/29/2021 12:42 INDICATION: Peripheral arterial disease. Claudication. TECHNIQUE: Segmental pressures and plethysmographic and Doppler waveforms of the brachial and lower e xtremity arteries were obtained. COMPARISON: None. FINDINGS: Right and left brachial artery pressures of 129 mm Hg and 127 mm Hg, respectively, are concordant (no rmal difference <= 30 mmHg). The right ankle-brachial index (MEHNAZ) could not be measured due to inability to cuff occlude the arter ies (normal >= 0.9-1.0). The right great toe-brachial index (TBI) is 0.45 (normal >= 0.65). Arterial Doppler waveforms are biphasic at the ankle. The left MEHNAZ is 1.02. The left TBI was not measured. Arterial Doppler waveforms are noisy at the ankl e. IMPRESSION: 1. Decreased right TBI and nondiagnostic right MEHNAZ, consistent with right-sided arterial occlusive di sease. 2. Normal left MEHNAZ. No significant left-sided arterial occlusive disease. Reviewed, dictated and finalized at location A. IMPRESSION: 1. Decreased right TBI and nondiagnostic right MEHNAZ, consistent with right-sided arterial occlusive disease. 2. Normal left MEHNAZ. No significant left-sided arterial occlusive disease.
[2021-10-28 16:16] LABS: Basophils Percent Auto 0.3 % (0.2-1.2); Eosinophils Percent Auto 0.1 % (0-4.4); Hemoglobin 12.9 g/dL (14.0-18.0); Immature Granulocyte Absolute 0.11 K/mm3 (0.00-0.031); Immature Granulocyte Percent A 0.9 % (0-0.5); Lymphocytes Absolute Auto 0.75 K/mm3 (0.9-3.2); Lymphocytes Percent Auto 6.4 % (18.3-44.2); Mean Corpuscular HGB Conc 32.3 g/dl (32-36); Mean Corpuscular Hemoglobin 28.6 pg (26-34); Mean Corpuscular Volume 88.7 fl (80-100); Mean Platelet Volume 11.2 fl (7.4-10.4); Monocytes Absolute Auto 0.7 K/mm3 (0.1-0.6); Neutrophils Absolute Auto 10.1 K/mm3 (1.3-6.7); Neutrophils Percent Auto 86.3 % (45.5-73.1); Platelet Count Result 322 k/mm3 (150-375); Red Blood Count 4.51 M/mm3 (4.6-6.20); Red Cell Distribution Width 13.9 % (11.5-14.5); White Blood Count 11.7 K/mm3 (4.5-10.0)
[2021-10-28 16:24] LABS: Lactic Acid Reflex 2.3 mmol/L (0.7-2.0)
[2021-10-28 16:27] LABS: Alanine Aminotransferase 19 U/L (6-50); Alkaline Phosphatase 85 U/L (38-126); Anion Gap 9 mmol/L (8-16); Aspartate Amino Transferase 18 U/L (17-59); Bilirubin,Total 1.2 mg/dL (0.2-1.3); Blood Urea Nitrogen 14 mg/dL (9-20); Calcium 8.9 mg/dL (8.4-10.2); Carbon Dioxide 22 mmol/L (22-30); Chloride 103 mmol/L (98-107); Estimated CRCL calculation 76 ml/min; Estimated Glomerular Filt Rate > 60; Glucose 240 mg/dL (65-110); Magnesium 1.6 mg/dL (1.6-2.3); Potassium 4.1 mmol/L (3.4-5.0); Sodium 134 mmol/L (137-145)
[2021-10-28 16:31] LABS: Beta-Hydroxybutyrate/Acetoacetate 0.35 mmol/L (0.02-0.27)
--- NOTE | 2021-10-28 17:03 | ED.GENADULT ---
HPI - General Adult General Chief complaint: Extremity Injury, Lower <LISA Powell Last Filed: 10/29/21 00:03> Stated complaint: toe issue black <LISA Powell Last Filed: 10/29/21 00:03> Time Seen by Provider: 10/28/21 16:58 <LISA Powell Last Filed: 10/29/21 00:03> Source: patient and old records reviewed <LISA Powell Last Filed: 10/29/21 00:03> Mode of arrival: ambulatory <LISA Powell Last Filed: 10/29/21 00:03> Limitations: no limitations <LISA Powell Last Filed: 10/29/21 00:03> History of Present Illness HPI narrative: Patient is a 80 y/o male who presents to the ED with c/o black discoloration to his left first and second toes. Patient reports his toes have been black in color for the last 1 week. He denies any known injury. Denies any significant pain, he states he just noticed the abnormal coloration. He saw his PCP today and was referred to the ED for further evaluation. Patient has a history of diabetes mellitus. He states his blood sugars have been ranging from 100-150. Blood glucose upon arrival 240. He denies any other symptoms recently, fever, cough, cold symptoms, nausea, vomiting, abdominal pain, chest pain, difficulty breathing. <LISA Powell Last Filed: 10/29/21 00:03> Related Data Home medications: Home Medications Medication Instructions Recorded Confirmed tamsulosin 0.4 mg capsule 0.4 mg PO DAILY 01/25/19 10/28/21 aspirin 81 mg tablet,delayed 81 mg PO DAILY 10/28/21 10/28/21 release insulin glargine 100 unit/mL (3 6 unit subcut QAM 10/28/21 10/28/21 mL) subcutaneous pen (Lantus Solostar U-100 Insulin) insulin glargine 100 unit/mL (3 18 unit subcut QPM 10/28/21 10/28/21 mL) subcutaneous pen (Lantus Solostar U-100 Insulin) <Ciara Barahona PA-C - Last Filed: 10/29/21 00:03> Allergies/adverse reactions: Allergies Allergy/AdvReac Type Severity Reaction Status Date / Time No Known Allergies Allergy Verified 10/28/21 14:23 <Ciara Barahona PA-C - Last Filed: 10/29/21 00:03> Review of Systems Review of Systems: CONSTITUTIONAL: Denies fever, chills, diaphoresis. CARDIOVASCULAR: Denies chest pain. RESPIRATORY: Denies dyspnea. GASTROINTESTINAL: Denies abdominal pain, nausea, vomiting. SKIN: Reports black discoloration to left first and second toes. MUSCULOSKELETAL: Denies significant pain to left toes. <Ciara Barahona PA-C - Last Filed: 10/29/21 00:03> All systems reviewed & are unremarkable except as noted in HPI and below <Ciara Barahona PA-C - Last Filed: 10/29/21 00:03> [facility] Past Medical History Medical History: Medical History (Updated 10/29/21 @ 11:02 by Kecia Malone DO) Abnormal nuclear stress test Alcohol abuse, uncomplicated Atrial fibrillation Benign essential HTN BPH (benign prostatic hyperplasia) CAD (coronary artery disease) Diabetes mellitus with neuropathy Hematuria Hyperlipidemia Old lacunar stroke without late effect Other and unspecified hyperlipidemia Peripheral vascular disease due to secondary diabetes Uncontrolled type 2 diabetes mellitus, with long-term current use of insulin <Ciara Barahona PA-C - Last Filed: 10/29/21 00:03> Surgical History Surgical History: Surgical History History of cardiac catheterization History of colonoscopy Hx of transurethral resection of prostate <LISA Powell Last Filed: 10/29/21 00:03> Family History Family History: Family History Sibling Family history of malignant neoplasm Patient's brother is in good health Patient's sister is Father Family history of malignant neoplasm Patient's father is Mother Family histo
--- NOTE | 2021-10-28 17:15 | ECG_ITS ---
Measurements Intervals [place] Rate: 118 P: [place]: 0 QRS: 43 QRSD: 136 T: 164 QT: 354 QTc: 497 Interpretive Statements ATRIAL FIBRILLATION WITH RAPID VENTRICULAR RESPONSE LEFT BUNDLE BRANCH BLOCK BASELINE ARTIFACT- V5 COMPARED TO ECG 08/10/2021 03:47:48 NO SIGNIFICANT CHANGES Electronically Signed On 10-29-2021 14:26:40 CDT by David Bernal D.O.
[2021-10-28 18:03] LABS: CRP 7.6 mg/dL (<1.0)
[2021-10-28] MEDS: dilTIAZem HCl INJ 25 MG/5 ML VIAL 10 MG IV PUSH (18:10)
[2021-10-28] MEDS: SODIUM CHLORIDE 0.9% IV 1,000 ML 999 ML IV CONT (18:11)
[2021-10-28 18:15] LABS: Erythrocyte Sedimentation Rate 45 mm/hr (0-20)
[2021-10-28 18:15] LABS: Troponin I < 0.012 ng/mL (0.000-0.034)
[2021-10-28 18:18] LABS: INR 1.3; Prothrombin Time 15.7 Seconds (11.1-14.7)
[2021-10-28 19:12] LABS: Reflex Lactic Acid Yes or No Add Lactic
--- NOTE | 2021-10-28 19:13 | PC.NURSE ---
report to JESSE Eaton she assumed care of pt.
[2021-10-28 21:28] LABS: Lactic Acid 1.6 mmol/L (0.7-2.0)
[2021-10-28 21:35] LABS: Glucose Point of Care 174 mg/dl (65-105)
[2021-10-28] MEDS: dilTIAZem 100 MG/100 ML 100 MG/100 ML BAG IV CONT (22:15)
[2021-10-28] MEDS: metroNIDAZOLE 500 MG/ISO 100ML 500 MG/100 ML BAG 100 MG IVPB (22:16)
--- NOTE | 2021-10-28 23:28 | ADMGEN ---
This patient, Kenneth Guillory, was admitted to IMU Room 211-01 @2100. Patient/family oriented to hospital policies and general routines including ID bracelet, bed and alarms, visiting hours, pain management, procedures, bathroom and other care routines, personal items, smoking policy, room service/diet, and visiting hours. Information on how to activate the Rapid Response Team has been discussed. Patient/Family are encouraged to report perceived risks to care and to ask questions if they do not understand what they are told or what they should do.
--- NOTE | 2021-10-28 23:36 | PM.IMHP ---
H&P: HPI History of Present Illness Date/Time: 10/28/21 23:36 Chief Complaint: Lactose Narrative: This is a 80-year-old male patient who has a history of diabetes uncontrolled. The patient came to the emergency room with complaint of black discoloration to his left 1st and 2nd toe. The patient stated they had been black in color for at least 1 week. He denies any injury. He denies any discomfort. The patient saw his primary care doctor today who referred him to go to the emergency room. There was also an odorous smell from the left foot. The patient also chronically has a Ford catheter. His white count is noted to be 11.7. His H&H is 12.9 and 40.0. His ESR is 45. Sodium is 134. His blood sugar initially was 240 and is down to 174. His lactic was 2.3 now 1.6. His hemoglobin A1c last month was 8.6. CRP is 7.6. His beta hydroxybutyrate/acetoacetate is 0.35. The patient was started on cefepime, Flagyl and vancomycin. The patient has a history of AFib and went into RVR and was given IV bolus of Cardizem. He is typically on p.o. Cardizem however the patient only dropped briefly and then was back up in the 130s. Psoas put him on a Cardizem drip. The patient is being admitted to observation status on the date of service of 10/28/2021. Review of Systems Review of Systems: All systems reviewed & are unremarkable except as noted in HPI and below Constitutional: Constitutional: Reports as per HPI and Reports no additional constitutional complaints Comments: See HPI Eyes: Eyes: Reports as per HPI and Reports no additional eye complaints ENT: Reports system reviewed and no additional complaints, except as documented and Reports Normal hearing present Cardiovascular: Cardiovascular: Reports no additional cardiovascular complaints Respiratory: Respiratory: Reports no additional respiratory complaints and Reports no additional respiratory complaints Gastrointestinal: Gastrointestinal: Reports as per HPI and Reports no additional gastrointestinal complaints Musculoskeletal: Musculoskeletal: Reports no additional musculoskeletal complaints Integumentary/Breasts: Skin/Breast: Reports system reviewed and no additional complaints, except as docu and Reports as per HPI Neurologic: Reports system reviewed and no additional complaints, except as documented, Reports as per HPI and Reports Normal hearing present Psychiatric: Psychiatric: Reports no additional psychiatric complaints and Reports as per HPI Endocrine: Endocrine: Reports no additional endocrine complaints Hematologic/Lymphatic: Hematologic/Lymphatic: Reports no additional hematologic/lymphatic complaints Allergic/Immunologic: Allergic/Immunologic: Reports no additional allergic/immunologic complaints [facility] Past Medical History Medical History (Updated 10/28/21 @ 23:57 by Cathy Russell NP) Abnormal nuclear stress test Alcohol abuse, uncomplicated Atrial fibrillation Benign essential HTN BPH (benign prostatic hyperplasia) CAD (coronary artery disease) Hematuria Hyperlipidemia Old lacunar stroke without late effect Other and unspecified hyperlipidemia Uncontrolled type 2 diabetes mellitus, with long-term current use of insulin Surgical History Surgical History (Updated 10/28/21 @ 23:45 by Cathy Russell NP) History of cardiac catheterization History of colonoscopy Hx of transurethral resection of prostate Family History Family History Sibling Family history of malignant neoplasm Patient's brother is in good health Patient's sister is Father Family history of malignant neoplasm Patient's father is Mother Family history of malignant neoplasm Patient's mother is Social History Social History (Updated 10/28/21 @ 23:47 by Cathy Russell NP) Social History: The patient is a and he has 3 children. He states that his childr
[2021-10-29] VITALS (14 sets, daily range): BP systolic 96–110; BP diastolic 51–73; PULSE 76–112; RESP 18–24; TEMP 36–36.5; O2SAT 92–98
[2021-10-29 04:42] LABS: Appearance Urine Cloudy (Clear); Bilirubin Urine Negative (Negative); Blood Urine 2+ (Negative); Color Urine Yellow (Yellow); Glucose Urine UA Negative (Negative); Ketones Urine Negative (Negative); Leukocyte Esterase Ur 1+ LEU/UL (NEGATIVE); Nitrate Urine Positive (Negative); Protein Urine 2+ mg/dL (Negative); Urobilinogen Urine 0.2 mg/dL (<2.0)
[2021-10-29 04:47] LABS: Add Urine Microscopic? YES; Bacteria Urine Trace /hpf; Mucus Urine Rare /lpf; WBC Urine >75 /hpf (0-3)
[2021-10-29 05:42] LABS: Basophils Percent Auto 0.4 % (0.2-1.2); Eosinophils Percent Auto 0.3 % (0-4.4); Hematocrit 38.8 % (42.0-52.0); Immature Granulocyte Absolute 0.06 K/mm3 (0.00-0.031); Immature Granulocyte Percent A 0.7 % (0-0.5); Lymphocytes Absolute Auto 1.28 K/mm3 (0.9-3.2); Lymphocytes Percent Auto 14.1 % (18.3-44.2); Mean Corpuscular HGB Conc 30.9 g/dl (32-36); Mean Corpuscular Hemoglobin 28.4 pg (26-34); Mean Corpuscular Volume 91.9 fl (80-100); Mean Platelet Volume 11.8 fl (7.4-10.4); Monocytes Absolute Auto 0.7 K/mm3 (0.1-0.6); Monocytes Percent Auto 8.1 % (2.6-8.5); Neutrophils Absolute Auto 6.9 K/mm3 (1.3-6.7); Neutrophils Percent Auto 76.4 % (45.5-73.1); Platelet Count Result 265 k/mm3 (150-375); Red Blood Count 4.22 M/mm3 (4.6-6.20); White Blood Count 9.1 K/mm3 (4.5-10.0)
[2021-10-29 05:58] LABS: Alanine Aminotransferase 15 U/L (6-50); Albumin Level 2.7 g/dL (3.5-5.1); Alkaline Phosphatase 73 U/L (38-126); Anion Gap 7 mmol/L (8-16); Aspartate Amino Transferase 15 U/L (17-59); Bilirubin,Total 1.2 mg/dL (0.2-1.3); Blood Urea Nitrogen 12 mg/dL (9-20); Calcium 8.4 mg/dL (8.4-10.2); Carbon Dioxide 24 mmol/L (22-30); Chloride 105 mmol/L (98-107); Estimated CRCL calculation 85 ml/min; Estimated Glomerular Filt Rate > 60; Glucose 158 mg/dL (65-110); Magnesium 1.8 mg/dL (1.6-2.3); Phosphorus 3.3 mg/dL (2.5-4.5); Potassium 3.8 mmol/L (3.4-5.0); Sodium 136 mmol/L (137-145)
[2021-10-29 06:03] LABS: Hemoglobin A1C 8.3 % (<5.7)
[2021-10-29] MEDS: metroNIDAZOLE 500 MG/ISO 100ML 500 MG/100 ML BAG 100 MG IVPB ×3 (06:05→20:13)
[2021-10-29 06:08] LABS: Lactic Acid Reflex 1.1 mmol/L (0.7-2.0)
[2021-10-29 07:48] LABS: Glucose Point of Care 145 mg/dl (65-105)
--- NOTE | 2021-10-29 09:03 | PM.CNOR ---
Assessment and Plan Assessment and plan (1) Gangrene of toe of left foot: Code(s): I96 - Gangrene, not elsewhere classified Status: Acute Assessment and Plan: Patient admitted with left 2nd toe gangrene and partial hallux gangrene, dry. Also with necrotic eschars lateral plantar left foot and left heel. Distal right hallux. All areas appeared to be secondary to peripheral vascular disease. Also with dense neuropathy of both feet. Patient with chronic indwelling Ford catheter, unaware of treatment reason. Current UTI. Also with AFib. Other than necrosis the feet do not appear to be infected. Patient started on antibiotics, agree as initial treatment to prevent further infection. Discussed with patient. Medical comorbidities with uncontrolled diabetes, AFib, UTI. Agree with medical management for the time being. Current workup including MRI of the left foot and ABIs ordered. Will follow results. Eventually will need amputation of necrotic toes and debridement of necrotic areas. If patient has evidence of vascular disease may benefit from vascular evaluation and treatment prior to surgery to improve chance for healing. Wound consult to assist with conservative treatment of necrosis and diabetic foot ulcers. Appreciate input. Will follow. 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 Will await results. History of Present Illness HPI Consult date: 10/29/21 Requesting physician: Ciara Barahona PA-C Chief complaint: Dry Gangrene L Toes, DM, Afib w/RVR Narrative: 80-year-old gentleman admitted through the emergency room yesterday for necrotic toes left foot. The patient states that he noted changes to the toes some time in the past week. No history of injury. Patient lives at home alone. He is . He does have a son and daughter who live in the area. He states that he has diabetes but isn't very good about checking his blood sugar. He does not routinely check his feet. He states that he has not had any prior ulcerations or infections of the feet. Review of Systems Constitutional: Constitutional: Denies fever(s) Eyes: Eyes: Denies blurry vision ENT: Reports Normal hearing present Cardiovascular: Cardiovascular: Denies chest pain and Denies dyspnea Respiratory: Respiratory: Denies dyspnea and Denies wheezing Gastrointestinal: Gastrointestinal: Denies abdominal pain Genitourinary: Genitourinary: Denies urinary urgency Musculoskeletal: Musculoskeletal: Reports as per HPI Neurologic: Reports Normal hearing present, Denies behavioral changes, Denies confusion, Reports numbness (feet) and Denies convulsions Psychiatric: Psychiatric: Denies behavioral changes, Denies confusion and Denies hallucinations Endocrine: Endocrine: Denies heat intolerance Hematologic/Lymphatic: Hematologic/Lymphatic: Denies easy bleeding Allergic/Immunologic: Allergic/Immunologic: Denies wheezing [facility] Past Medical History Medical History (Updated 10/29/21 @ 09:11 by Antoni Delgado MD) Abnormal nuclear stress test Alcohol abuse, uncomplicated Atrial fibrillation Benign essential HTN BPH (benign prostatic hyperplasia) CAD (coronary artery disease) Diabetes mellitus with neuropathy Hematuria Hyperlipidemia Old lacunar stroke without late effect Other and unspecified hyperlipidemia Per
[2021-10-29] MEDS: ENOXAPARIN 40 MG/0.4 ML SYRINGE SUB-Q (10:23)
[2021-10-29] MEDS: TAMSULOSIN HCL 0.4 MG CAPSULE PO (10:23)
[2021-10-29] MEDS: ASPIRIN 81 MG ENTERIC TABLET PO (10:23)
[2021-10-29] MEDS: PIOGLITAZONE HCL 45 MG TABLET PO (10:23)
[2021-10-29] MEDS: ATORVASTATIN 40 MG TABLET 80 MG PO (10:23)
[2021-10-29] MEDS: glipiZIDE 5 MG TABLET 10 MG PO ×2 (10:23→17:08)
[2021-10-29] MEDS: lisinopriL 20 MG TABLET PO (10:23)
[2021-10-29] MEDS: hydroCHLOROthiazide 12.5 MG CAPSULE PO (10:23)
[2021-10-29] MEDS: INSULIN GLARGINE (*BKC) 100 UNITS/ML 6 UNITS SUB-Q (10:28)
[2021-10-29] MEDS: SPIRONOLACTONE 25 MG TABLET PO (10:31)
--- NOTE | 2021-10-29 10:48 | PM.IMPN ---
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: with plywood stock grader use Diabetes mellitus type: type 2 Qualified Code(s): E11.40 - Type 2 diabetes mellitus with diabetic neuropathy, unspecified; Z79.4 - half-way (current) use of insulin Code(s): E11.40 - Type 2 diabetes mellitus with diabetic neuropathy, unspecified Status: Acute Assessment and Plan: Hemoglobin A1c is 8.3, uncontrolled, continue Accu-Cheks and sliding scale insulin, will attempt to get better control to improve wound healing Will increase long-acting insulin from 18 units to 20 units at night and 6 units to 8 units in the morning (2) Peripheral vascular disease due to secondary diabetes: Code(s): E13.51 - Other specified diabetes mellitus with diabetic peripheral angiopathy without gangrene Status: Acute Assessment and Plan: Bilateral lower extremity diabetic foot ulcers, concerning for osteomyelitis, continue IV antibiotics--vancomycin, cefepime, Flagyl, appreciate surgery consultation, ABIs an MRI all pending (3) Gangrene: Code(s): I96 - Gangrene, not elsewhere classified Status: Acute Assessment and Plan: See above (4) CAD (coronary artery disease): Code(s): I25.10 - Atherosclerotic heart disease of [place] coronary artery without angina pectoris Status: Acute Assessment and Plan: Stable, continue aspirin (5) Atrial fibrillation with RVR: Code(s): I48.91 - Unspecified atrial fibrillation Status: Acute Assessment and Plan: Currently on a Cardizem drip, Cardiology consult pending (6) Chronic indwelling Ford catheter: Code(s): Z97.8 - Presence of other specified devices Status: Acute Assessment and Plan: Secondary to BPH (7) Old lacunar stroke without late effect: Code(s): Z86.73 - Personal history of transient ischemic attack (TIA), and cerebral infarction without residual deficits Status: Acute (8) Benign prostatic hyperplasia without lower urinary tract symptoms: Onset Date: 09/16/18 Code(s): N40.0 - Benign prostatic hyperplasia without lower urinary tract symptoms Status: Acute Assessment and Plan: Stable, continue Ford, continue Flomax Plan DVT prophylaxis with Lovenox GI prophylaxis not indicated Code status full code Subjective Date/time seen: 10/29/21 10:48 Interval history: No overnight events noted. No chest pain or shortness of breath. No nausea, vomiting or diarrhea. No fevers or chills. Review of Systems Review of Systems: 12 point review of systems was assessed and was negative except as noted in the HPI Exam Narrative: General: No acute distress, alert and oriented per baseline HEENT: Atraumatic, normocephalic, mucous membranes moist, poor dentition CV: Irregularly irregular, S1, S2 Lungs: Clear to auscultation bilaterally, no rales or crackles noted, no wheezes, good air entry Abdomen: Soft, nontender, nondistended Extremities: Unable to assess pulses easily, left toes wrapped in bandages, clean dry and intact, right foot with eschar noted on distal tip of hallux Skin: No rashes noted, no lesions or wounds seen Psych: Slowed cognition, flattened affect Objective Data Vital Signs Vital Signs: Vital Signs - 24 hr 10/28/21 15:13 10/28/21 17:58 10/28/21 18:37 Temperature 98.9 F Pulse Rate 95 104 H 85 Respiratory Rate 16 17 24 H Blood Pressure 140/99 H 106/76 108/75 Pulse Oximetry 99 98 98 Oxygen Delivery Room Air 10/28/21 21:07 10/28/21 22:15 10/28/21 22:00 Temperature 97.8 F Pulse Rate 111 H 108 H 97 Respiratory Rate 18 Blood Pressure 115/89 Pulse Oximetry 99 Oxygen Delivery 10/28/21 23:54 10/29/21 00:00 10/29/21 00:00 Temperature 98.0 F Pulse Rate 91 91 91 Respiratory Rate 20 20 Blood Pressure 109/55 L Pulse Oximetry 98 98 Oxygen
[2021-10-29] MEDS: SOD HYPOCHLORITE 1/4 STRENGTH 473 ML 1 APPLIC TOPICAL ×2 (13:23→20:13)
--- NOTE | 2021-10-29 15:02 | ECG_ITS ---
Measurements Intervals [place] Rate: 79 P: [place]: 0 QRS: 124 QRSD: 140 T: 189 QT: 461 QTc: 530 Interpretive Statements ATRIAL FIBRILLATION RIGHT AXIS DEVIATION LEFT BUNDLE BRANCH BLOCK ABNORMAL ECG COMPARED TO ECG 10/28/2021 17:26:16 HR HAS DECREASED Electronically Signed On 10-29-2021 15:35:03 CDT by David Bernal D.O.
[2021-10-29] MEDS: dilTIAZem 100 MG/100 ML 100 MG/100 ML BAG IV CONT (15:45)
[2021-10-29 16:13] LABS: Glucose Point of Care 249 mg/dl (65-105)
[2021-10-29] MEDS: INSULIN GLARGINE (*BKC) 100 UNITS/ML 18 UNITS SUB-Q (17:07)
[2021-10-29] MEDS: INSULIN ASPART (*BKC) 100 UNITS/ML SUB-Q (17:08)
[2021-10-29] MEDS: INSULIN GLARGINE (*BKC) 100 UNITS/ML 8 UNITS SUB-Q (18:40)
[2021-10-29 20:22] LABS: Glucose Point of Care 152 mg/dl (65-105)
[2021-10-30] VITALS (18 sets, daily range): BP systolic 95–119; BP diastolic 55–97; PULSE 77–95; RESP 17–20; TEMP 36.3–36.6; O2SAT 95–99
[2021-10-30] MEDS: metroNIDAZOLE 500 MG/ISO 100ML 500 MG/100 ML BAG 100 MG IVPB ×3 (05:42→22:04)
[2021-10-30 08:18] LABS: Glucose Point of Care 69 mg/dl (65-105)
[2021-10-30] MEDS: DEXTROSE 50% 25 GM/50 ML SYRINGE IV PUSH (08:44)
[2021-10-30] MEDS: lisinopriL 20 MG TABLET PO (08:45)
[2021-10-30] MEDS: ATORVASTATIN 40 MG TABLET 80 MG PO (08:45)
[2021-10-30] MEDS: SPIRONOLACTONE 25 MG TABLET PO (08:45)
[2021-10-30] MEDS: TAMSULOSIN HCL 0.4 MG CAPSULE PO (08:45)
[2021-10-30] MEDS: ASPIRIN 81 MG ENTERIC TABLET PO (08:45)
[2021-10-30] MEDS: PIOGLITAZONE HCL 45 MG TABLET PO (08:46)
[2021-10-30] MEDS: ENOXAPARIN 40 MG/0.4 ML SYRINGE SUB-Q (08:46)
[2021-10-30] MEDS: glipiZIDE 5 MG TABLET 10 MG PO ×2 (08:46→17:55)
[2021-10-30] MEDS: hydroCHLOROthiazide 12.5 MG CAPSULE PO (08:46)
[2021-10-30] MEDS: INSULIN GLARGINE (*BKC) 100 UNITS/ML 8 UNITS SUB-Q (08:46)
[2021-10-30 08:58] LABS: Basophils Percent Auto 0.3 % (0.2-1.2); Eosinophils Percent Auto 0.2 % (0-4.4); Hematocrit 37.9 % (42.0-52.0); Hemoglobin 12.3 g/dL (14.0-18.0); Lymphocytes Absolute Auto 0.81 K/mm3 (0.9-3.2); Lymphocytes Percent Auto 8.5 % (18.3-44.2); Mean Corpuscular HGB Conc 32.5 g/dl (32-36); Mean Corpuscular Hemoglobin 29.1 pg (26-34); Mean Corpuscular Volume 89.6 fl (80-100); Mean Platelet Volume 10.8 fl (7.4-10.4); Monocytes Absolute Auto 0.8 K/mm3 (0.1-0.6); Neutrophils Absolute Auto 7.8 K/mm3 (1.3-6.7); Platelet Count Result 252 k/mm3 (150-375); Red Blood Count 4.23 M/mm3 (4.6-6.20); Red Cell Distribution Width 13.9 % (11.5-14.5); White Blood Count 9.5 K/mm3 (4.5-10.0)
[2021-10-30 09:18] LABS: Alanine Aminotransferase 16 U/L (6-50); Albumin Level 2.9 g/dL (3.5-5.1); Alkaline Phosphatase 66 U/L (38-126); Anion Gap 12 mmol/L (8-16); Aspartate Amino Transferase 18 U/L (17-59); Blood Urea Nitrogen 11 mg/dL (9-20); Carbon Dioxide 22 mmol/L (22-30); Chloride 102 mmol/L (98-107); Estimated CRCL calculation 75 ml/min; Estimated Glomerular Filt Rate > 60; Glucose 71 mg/dL (65-110); Potassium 3.1 mmol/L (3.4-5.0); Sodium 136 mmol/L (137-145)
[2021-10-30 09:24] LABS: Glucose Point of Care 115 mg/dl (65-105)
[2021-10-30 09:24] LABS: Vancomycin Trough 17.5 ug/mL (10.0-20.0)
--- NOTE | 2021-10-30 09:42 | PM.IMPN ---
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 insulin use: with termite technician use Diabetes mellitus type: type 2 Qualified Code(s): E11.40 - Type 2 diabetes mellitus with diabetic neuropathy, unspecified; Z79.4 - nursing home (current) use of insulin Code(s): E11.40 - Type 2 diabetes mellitus with diabetic neuropathy, unspecified Status: Acute Assessment and Plan: Hemoglobin A1c is 8.3, uncontrolled, continue Accu-Cheks and sliding scale insulin, will attempt to get better control to improve wound healing 10/29: Will increase long-acting insulin from 18 units to 20 units at night and 6 units to 8 units in the morning 10/30: Some hypoglycemia noted in the content writer, will change insulin to 10 units in the AM, back down to 18 units QHS (2) Peripheral vascular disease due to secondary diabetes: Code(s): E13.51 - Other specified diabetes mellitus with diabetic peripheral angiopathy without gangrene Status: Acute Assessment and Plan: Bilateral lower extremity diabetic foot ulcers, continue IV antibiotics--vancomycin, cefepime, Flagyl, appreciate surgery consultation ABIs showed normal on the left, arterial occlusive disease on the right. MRI showed necrosis of left 2nd tow and hallux without ostemyelitis or abscess. Ortho plan is for amputation of the left 2nd toe and tip of the hallux with debridement of gangrenous eschars on left foot once medically optimized Blood cx prelim positive for GNB (3) Gangrene: Code(s): I96 - Gangrene, not elsewhere classified Status: Acute Assessment and Plan: See above (4) CAD (coronary artery disease): Code(s): I25.10 - Atherosclerotic heart disease of [place] coronary artery without angina pectoris Status: Acute Assessment and Plan: Stable, continue aspirin (5) Atrial fibrillation with RVR: Code(s): I48.91 - Unspecified atrial fibrillation Status: Acute Assessment and Plan: Currently on a Cardizem drip, Cardiology consult pending (6) Chronic indwelling Ford catheter: Code(s): Z97.8 - Presence of other specified devices Status: Acute Assessment and Plan: Secondary to BPH (7) Old lacunar stroke without late effect: Code(s): Z86.73 - Personal history of transient ischemic attack (TIA), and cerebral infarction without residual deficits Status: Acute (8) Benign prostatic hyperplasia without lower urinary tract symptoms: Onset Date: 09/16/18 Code(s): N40.0 - Benign prostatic hyperplasia without lower urinary tract symptoms Status: Acute Assessment and Plan: Stable, continue Ford, continue Flomax Plan DVT prophylaxis with Lovenox GI prophylaxis not indicated Code status full code Subjective Date/time seen: 10/30/21 09:42 Interval history: Patient sitting up eating lunch, no complaints. No overnight events noted. No chest pain or shortness of breath. No nausea, vomiting or diarrhea. No fevers or chills. Review of Systems Review of Systems: 12 point review of systems was assessed and was negative except as noted in the HPI Exam Narrative: General: No acute distress, alert and oriented per baseline HEENT: Atraumatic, normocephalic, mucous membranes moist, poor dentition CV: Irregularly irregular, S1, S2 Lungs: Clear to auscultation bilaterally, no rales or crackles noted, no wheezes, good air entry Abdomen: Soft, nontender, nondistended Extremities: Unable to assess pulses easily, left toes wrapped in bandages, clean dry and intact, right foot with eschar noted on distal tip of hallux Skin: No rashes noted, no lesions or wounds seen Psych: Slowed cognition, flattened affect Objective Data Vital Signs Vital Signs: Vital Signs - 24 hr 10/29/21 12:35 10/29/21 15:45 10/29/21 16:00 Temperature 97.1 F L 97.6 F Pulse Rate 100 76 79 Respiratory Rate 24
--- NOTE | 2021-10-30 12:02 | PM.PNORT ---
Progress Note: A&P Assessment and Plan (1) Gangrene: Code(s): I96 - Gangrene, not elsewhere classified Status: Acute (2) Peripheral vascular disease due to secondary diabetes: Code(s): E13.51 - Other specified diabetes mellitus with diabetic peripheral angiopathy without gangrene Status: Acute Assessment and Plan: Bilateral lower extremity ABIs/ TBI as ordered. Will await results. (3) Diabetes mellitus with neuropathy: Qualifiers: Diabetes mellitus type: type 2 Diabetes mellitus lobsterman insulin use: with lobsterman use Qualified Code(s): E11.40 - Type 2 diabetes mellitus with diabetic neuropathy, unspecified; Z79.4 - residential (current) use of insulin Code(s): E11.40 - Type 2 diabetes mellitus with diabetic neuropathy, unspecified Status: Acute (4) Gangrene of toe of left foot: Code(s): I96 - Gangrene, not elsewhere classified Status: Acute Assessment and Plan: Left 2nd toe gangrene and partial hallux gangrene, dry. Also with necrotic eschars lateral plantar left foot and left heel. Distal right hallux. All areas appeared to be secondary to peripheral vascular disease. Also with dense neuropathy of both feet. Other than necrosis, the feet do not appear to be infected. Patient started on antibiotics, agree as initial treatment to prevent further infection. Discussed with patient and daughter at bedside today. Medical comorbidities with uncontrolled diabetes, AFib, UTI. Agree with medical management for the time being. Current workup including MRI of the left foot and ABIs ordered. Will follow results. Eventually will need amputation of necrotic toes and debridement of necrotic areas. Wound consult to assist with conservative treatment of necrosis and diabetic foot ulcers. Appreciate input. MRI and ABIs reviewed. Plan for amputation of the left 2nd toe and tip of the hallux with debridement of the other gangrenous eschars left foot once the patient is medically optimized. Continue with antibiotics and local wound care in the interim. Once patient is stable for discharge will need follow-up with vascular surgery. Likely plan for return to OR Wednesday if medically stable. Subjective Subjective Date/Time Seen: 10/30/21 12:02 Interval history: Doing well. No new concerns. Pain controlled. Review of Systems Constitutional: Constitutional: Denies fever(s) Eyes: Eyes: Denies blurry vision ENT: Reports Normal hearing present Cardiovascular: Cardiovascular: Denies chest pain and Denies dyspnea Respiratory: Respiratory: Denies dyspnea and Denies wheezing Gastrointestinal: Gastrointestinal: Denies abdominal pain Genitourinary: Genitourinary: Denies urinary urgency Musculoskeletal: Musculoskeletal: Reports as per HPI Neurologic: Reports Normal hearing present, Denies behavioral changes, Denies confusion, Reports numbness (feet) and Denies convulsions Psychiatric: Psychiatric: Denies behavioral changes, Denies confusion and Denies hallucinations Endocrine: Endocrine: Denies heat intolerance Hematologic/Lymphatic: Hematologic/Lymphatic: Denies easy bleeding Allergic/Immunologic: Allergic/Immunologic: Denies wheezing Exam Const: General: healthy appearing; No in distress or confusion Orientation/consciousness: oriented to person, oriented to place, oriented to time and No confusion HENMT: Head: normal to inspection, normocephalic and atraumatic Eyes: Conjunctivae: conjunctivae normal Sclera: sclerae normal Neck: Neck: supple and nontender Resp: Effort & Inspection: normal respiratory effort and no audible wheezes Neuro: General: oriented to person, oriented to place, oriented to time and No confusion Extrem: Right upper extremity: normal to inspection Left upper extremity: normal to inspection Right lower extremity: ankle Details: normal to inspection, abnormal ROM Details: with range as follows (Ankle dorsiflexion -10 deg
[2021-10-30] MEDS: dilTIAZem 100 MG/100 ML 100 MG/100 ML BAG IV CONT (12:04)
[2021-10-30 12:06] LABS: Glucose Point of Care 193 mg/dl (65-105)
--- NOTE | 2021-10-30 15:03 | PM.CNCAR ---
History of Present Illness History of Present Illness Consult date/time: 10/30/21 15:03 Requesting physician: Kecia Malone DO Consult reason: atrial fibrillation Reason For Visit: Dry Gangrene L Toes, DM, Afib w/RVR Narrative: Mr Guillory is a 80 year old male [facility] Past Medical History Medical History (Updated 10/29/21 @ 11:02 by Kecia Malone DO) Abnormal nuclear stress test Alcohol abuse, uncomplicated Atrial fibrillation Benign essential HTN BPH (benign prostatic hyperplasia) CAD (coronary artery disease) Diabetes mellitus with neuropathy Hematuria Hyperlipidemia Old lacunar stroke without late effect Other and unspecified hyperlipidemia Peripheral vascular disease due to secondary diabetes Uncontrolled type 2 diabetes mellitus, with long-term current use of insulin Surgical History Surgical History History of cardiac catheterization History of colonoscopy Hx of transurethral resection of prostate Family History Family History Sibling Family history of malignant neoplasm Patient's brother is in good health Patient's sister is Father Family history of malignant neoplasm Patient's father is Mother Family history of malignant neoplasm Patient's mother is Social History Social History Social History: The patient is a and he has 3 children. He states that his children to help him out at times. The patient now lives home alone. He has a history of alcoholism but states he no longer drinks. 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 Patient is a former smoker. He does not use any marijuana or illicit drugs. His son Eamon is the durable power civil attorney for healthcare. Code status full code Smoking status: Former smoker Second hand tobacco smoke exposure: No Smoking end date: 02/15/94 Alcohol intake: former Alcohol use details: 2012 Substance use: former Substance use type: does not use Gender identity (if verbalized by the patient): Male Spiritual care concerns: No Meds Home Medications and Allergies Home Medications Medication Instructions Recorded Confirmed Type tamsulosin 0.4 mg capsule 0.4 mg PO DAILY 01/25/19 10/28/21 History lisinopril 20 1 tablet PO DAILY #90 tabs 10/16/20 10/28/21 Rx mg-hydrochlorothiazide 12.5 mg tablet atorvastatin 80 mg tablet 80 mg PO DAILY #90 tabs 10/24/20 10/28/21 Rx metformin 1,000 mg tablet 1,000 mg PO BID #180 tabs 10/24/20 10/28/21 Rx diltiazem HCl 360 mg capsule,24 360 mg PO DAILY #90 caps 12/03/20 10/28/21 Rx hr,extended release (Taztia XT) glipizide 10 mg tablet 10 mg PO BID #180 tabs 12/30/20 10/28/21 Rx pioglitazone 45 mg tablet 45 mg PO DAILY #90 tabs 12/30/20 10/28/21 Rx isosorbide mononitrate 10 mg tablet 10 mg PO .qd #30 tabs 01/02/21 10/28/21 Rx spironolactone 25 mg tablet 25 mg PO DAILY #90 tabs 07/28/21 10/28/21 Rx aspirin 81 mg tablet,delayed 81 mg PO DAILY 10/28/21 10/28/21 History release insulin glargine 100 unit/mL (3 6 unit subcut QAM 10/28/21 10/28/21 History mL) subcutaneous pen (Lantus Solostar U-100 Insulin) insulin glargine 100 unit/mL (3 18 unit subcut QPM 10/28/21 10/28/21 History mL) subcutaneous pen (Lantus Solostar U-100 Insulin) Allergies Allergy/AdvReac Type Severity Reaction Status Date / Time No Known Allergies Allergy Verified 10/28/21 14:23 Vital Signs Vital Signs - 24 hr 10/29/21 15:45 10/29/21 16:00 10/29/21 16:00 Temperature 36.4 C Pulse Rate 76 79 83 Respiratory Rate 18 Blood Pressure 110/63 Pulse Oximetry 97 Oxygen Delivery 10/29/21 16:00 10/29/21 18:00 10/29/21 20:00 Temperature 36.4 C Pulse Rate 87 112 H Respiratory Rate 20 Blood Pressure 101/52 L Pulse Oximetry 95 Oxygen Deli
[2021-10-30 15:59] LABS: Glucose Point of Care 112 mg/dl (65-105)
--- NOTE | 2021-10-30 16:32 | PM.CNCAR ---
Assessment and Plan Assessment and plan (1) Preop cardiovascular exam: Code(s): Z01.810 - Encounter for preprocedural cardiovascular examination Status: Acute Assessment and Plan: Patient is at moderate cardiac risk given known CAD that are small and not amenable to PCI, mild systolic dysfunction, uncontrolled DM, atrial fib. May proceed to noncardiac surgery once HR is controlled and it appears HR is controlled on IV Diltiazem. Will change that to PO medication in AM. (2) Hyperlipidemia: Code(s): E78.5 - Hyperlipidemia, unspecified Status: Acute Assessment and Plan: On Atorvastatin. (3) CAD (coronary artery disease): Code(s): I25.10 - Atherosclerotic heart disease of [place] coronary artery without angina pectoris Status: Acute Assessment and Plan: Stable. (4) Atrial fibrillation: Code(s): I48.91 - Unspecified atrial fibrillation Status: Acute Assessment and Plan: Stop Diltiazem drip in AM, and start Diltiazem ER 360 mg daily, and add Metoprol 25 mg PO every 6 hours for rate control. On Lovenox. After surgery, resume Eliquis. (5) Systolic dysfunction: Code(s): I51.9 - Heart disease, unspecified Status: Acute Assessment and Plan: Obtain echo. History of Present Illness History of Present Illness Consult date/time: 10/30/21 16:32 Reason For Visit: Dry Gangrene L Toes, DM, Afib w/RVR Narrative: 80 yr old man who is my regular cardiology patient and who's PCP is Dr. Fisher presents to ER 2 days ago for blackened toes. He has a history of stroke (no symptoms, but found on scans), DM, hypertension, dyslipidemia, LBBB, atrial fibrillation. Reports he noted his left toes becoming black in color for about a week. He was having issues with urinary retention and hematuria and morrissey catheter which resolved and back on Eliiquis which was stopped this hospitalization for possible toe amputation.? He has not had any more chest discomfort since being on Isosorbide mononitrate.?Reports he walks around [email or web address] and does notice CORTEZ and he has CORTEZ walking up stairs. Denies sob, orthopnea, PND, edema, dizziness, palpitations. 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 Logan: LAD distal to apical exceedingly small but patent with minimal irregularities, 2nd OM exceedingly small with 85-90% stenosis; RCA with 20-30% mid and small acute marginal RV branch with prox 90% stenosis. Echo/MUGA:: 10/01/20 Echo: EF 45-50%, mod LVH, diastolic dysfunction (E/e' 22), mod LAE, mild MR. Electrophysiology:: 08/10/21 EKG: Atrial fib with RVR at 127 bpm, LBBB. 12/13/20 EKG: Atrial fibrillation at 72 bpm, LBBB. 09/30/20 EKG: Sinus rhythm, PAC, LBBB. Stress Tests:: 11/29/20 Lexiscan myoview: Small apical septal ischemia. EF 46%. 08/14/21 CT abd: Gallbladder inflammation. Small pleural effusions. Bilateral adrenal masses, probably benign; CT f/u in 12 months. 10/01/20 CTA head/neck: Old infarcts of right frontal, right temporal, left thalamus. Chronic small vessel ischemic disease. 38% prox Right ICA and 27% prox Left ICA stenosis. 10/01/20 MRI brain: Old infarcts of right frontal, right temporal, left thalamus. 10/01/20 Carotid duplex: <50% bilateral ICA stenosis. Review of Systems Review of Systems: All systems reviewed & are unremarkable except as noted in HPI and below Constitutional: Constitutional: Reports as per HPI, Denies chills and Denies fever(s) Cardiovascular: Cardiovascular: Reports as per HPI, Denies chest pain, Denies leg edema and Denies lightheadedness Respiratory: Respiratory: Reports as per HPI and Denies dyspnea Gastrointestinal: Gastrointestinal: Reports as per HPI and Denies abdominal pain Genitourinary: Genitourinary: Reports as per HPI and Denies dysuria Musculoskeletal: Musculoskeletal: Reports as per HPI Neurologic: Reports as per HPI, Denies dizziness and Denies syncope [facility] Past Medical History Medical Histo
[2021-10-30] MEDS: INSULIN GLARGINE (*BKC) 100 UNITS/ML 18 UNITS SUB-Q (17:56)
[2021-10-30] MEDS: SOD HYPOCHLORITE 1/4 STRENGTH 473 ML 1 APPLIC TOPICAL ×2 (17:57→20:51)
[2021-10-30 20:11] LABS: Glucose Point of Care 108 mg/dl (65-105)
[2021-10-31] VITALS (10 sets, daily range): BP systolic 97–111; BP diastolic 54–60; PULSE 62–89; RESP 16–20; TEMP 36–37; O2SAT 95–99
--- NOTE | 2021-10-31 | ECHO_ITS ---
Patient Info Name: Kenneth Guillory Age: 80 years : 1940 Gender: Male Ht: 73 in Wt: 207 lbs BSA: 2.21 m2 HR: 84 bpm BP: 97 / 55 mmHg Heart Rhythm: Atrial Fibrillation Technical Quality: Fair Exam Date: 10/31/2021 7:51 AM Exam Location: [facility] Patient Status: Inpatient Admit Date: 10/29/2021 Staff Ordering Physician: David Bernal DO Acoustics Teacher: Rosy Grier RDCS Attending Provider: Kecia Malone DO Referring Physician: Gabe RADFORD; Exam Type: CA echo doppler color flow Study Info Indications I48.1 - Persistent atrial fibrillation Complete two-dimensional, color flow and Doppler transthoracic echocardiogram is performed. Summary 1. Complete two-dimensional, color flow and Doppler transthoracic echocardiogram is performed. 2. Left ventricular chamber dimension is mildly enlarged. 3. Left ventricular systolic function is moderately reduced, estimated at 35-40%. 4. Left ventricular septal wall motion is abnormal with septal motion related to bundle branch block. 5. The left ventricular diastolic function is abnormal. 6. E/e' 25 is elevated. 7. Atrial fibrillation. 8. Left atrial chamber dimension is moderately enlarged. 9. There is mild mitral valve regurgitation. 10. There is trace tricuspid valve regurgitation. 11. No pulmonary hypertension, estimated pulmonary arterial systolic pressure is 33 mmHg. 12. There is trace pulmonic regurgitation. Left Ventricle Atrial fibrillation. E/e' 25 is elevated. Left ventricular chamber dimension is mildly enlarged. Left ventricular systolic function is moderately reduced, estimated at 35-40%. Left ventricular septal wall motion is abnormal with septal motion related to bundle branch block. The left ventricular diastolic function is abnormal. Right Ventricle Right ventricular systolic function is normal and with normal TAPSE 1.9 cm. Right ventricular chamber dimension is normal. Left Atria Left atrial chamber dimension is moderately enlarged. Right Atria Right atrial chamber dimension is normal. Aortic Valve The aortic valve is trileaflet. There is no aortic valve stenosis. There is no aortic valve regurgitation. Pulmonic Valve There is trace pulmonic regurgitation. Mitral Valve There is no mitral valve stenosis. There is mild mitral valve regurgitation. Tricuspid Valve There is trace tricuspid valve regurgitation. No pulmonary hypertension, estimated pulmonary arterial systolic pressure is 33 mmHg. Pericardium/Pleural There is no pericardial effusion. Inferior Vena Cava Normal inferior vena cava with >50% collapse upon inspiration consistent with normal right atrial pressure, 5 mmHg. Aorta The aortic root size at the sinus of Valsalva is normal. Left Ventricular Outflow Tract Name Value Normal LVOT 2D LVOT Diameter 2.1 cm LVOT Doppler LVOT Peak Gradient 1 mmHg LVOT Mean Gradient 1 mmHg LVOT VTI 10 cm LVOT VTI/AV VTI Ratio 0.5 LVOT Stroke Volume
[2021-10-31] MEDS: metroNIDAZOLE 500 MG/ISO 100ML 500 MG/100 ML BAG 100 MG IVPB ×3 (04:58→20:38)
[2021-10-31 05:30] LABS: Basophils Percent Auto 0.3 % (0.2-1.2); Eosinophils Percent Auto 0.2 % (0-4.4); Hemoglobin 11.9 g/dL (14.0-18.0); Immature Granulocyte Absolute 0.12 K/mm3 (0.00-0.031); Immature Granulocyte Percent A 1.2 % (0-0.5); Lymphocytes Absolute Auto 0.96 K/mm3 (0.9-3.2); Lymphocytes Percent Auto 9.4 % (18.3-44.2); Mean Corpuscular HGB Conc 31.3 g/dl (32-36); Mean Corpuscular Hemoglobin 28.5 pg (26-34); Mean Corpuscular Volume 90.9 fl (80-100); Mean Platelet Volume 10.8 fl (7.4-10.4); Monocytes Percent Auto 9.7 % (2.6-8.5); Neutrophils Absolute Auto 8.1 K/mm3 (1.3-6.7); Neutrophils Percent Auto 79.2 % (45.5-73.1); Platelet Count Result 248 k/mm3 (150-375); Red Blood Count 4.18 M/mm3 (4.6-6.20); Red Cell Distribution Width 14.1 % (11.5-14.5); White Blood Count 10.3 K/mm3 (4.5-10.0)
[2021-10-31 05:49] LABS: Alanine Aminotransferase 14 U/L (6-50); Albumin Level 2.6 g/dL (3.5-5.1); Alkaline Phosphatase 60 U/L (38-126); Anion Gap 10 mmol/L (8-16); Aspartate Amino Transferase 19 U/L (17-59); Bilirubin,Total 0.6 mg/dL (0.2-1.3); Blood Urea Nitrogen 11 mg/dL (9-20); Calcium 7.7 mg/dL (8.4-10.2); Carbon Dioxide 22 mmol/L (22-30); Chloride 103 mmol/L (98-107); Estimated CRCL calculation 75 ml/min; Estimated Glomerular Filt Rate > 60; Glucose 47 mg/dL (65-110); Potassium 3.1 mmol/L (3.4-5.0); Sodium 135 mmol/L (137-145)
[2021-10-31] MEDS: DEXTROSE 50% 25 GM/50 ML SYRINGE IV PUSH (05:52)
[2021-10-31 06:22] LABS: Glucose Point of Care 162 mg/dl (65-105)
--- NOTE | 2021-10-31 07:33 | PM.PNCARD ---
Progress Note: A&P Assessment and Plan (1) Preop cardiovascular exam: Code(s): Z01.810 - Encounter for preprocedural cardiovascular examination Status: Acute Assessment and Plan: Patient is at moderate cardiac risk given known CAD that are small and not amenable to PCI, mild systolic dysfunction, uncontrolled DM, atrial fib. May proceed to noncardiac surgery without further cardiac workup as HR is not controlled in atrial fibrillation. (2) Atrial fibrillation: Code(s): I48.91 - Unspecified atrial fibrillation Status: Acute Assessment and Plan: HR controlled. Stop Diltiazem drip and start lower home dose of Diltiazem ER 240 mg daily due to low normal BP. In addition, stop Lisinopril/HCTZ due to low normal BP. KCl 40 meq x1 for potassium 3.1. Add Metoprolol Tartate 12.5 mg PO every 6 hours for HR >100 bpm. On Lovenox. After surgery resume Eliquis. (3) CAD (coronary artery disease): Code(s): I25.10 - Atherosclerotic heart disease of [place] coronary artery without angina pectoris Status: Acute Assessment and Plan: Stable. (4) Systolic dysfunction: Code(s): I51.9 - Heart disease, unspecified Status: Acute Assessment and Plan: Obtain echo. (5) Hyperlipidemia: Code(s): E78.5 - Hyperlipidemia, unspecified Status: Acute Assessment and Plan: On Atorvastatin. Subjective Date/time seen: 10/31/21 07:33 Interval history: Denies chest pain or sob. Exam Const: General: cooperative, healthy appearing and comfortable Resp: Auscultation: clear to auscultation bilaterally, no crackles, no rales, no rhonchi and no wheezes Cardio: Jugular venous distension: no JVD Rate: regular rate Rhythm: abnormal rhythm Peripheral pulses: dorsalis pedis pulses not present Other: Left foot wrapped, right foot with absent pulses GI: GI Palp: No abdominal tenderness and Yes Soft to palpation Neuro: General: oriented to person, oriented to place and oriented to time Extrem: Right lower extremity: no edema Left lower extremity: no edema Objective Data Vital Signs Vital Signs: Vital Signs - 24 hr 10/30/21 08:34 10/30/21 08:00 10/30/21 08:00 Temperature 97.5 F L Pulse Rate 92 89 Respiratory Rate 18 Blood Pressure 119/74 Pulse Oximetry 96 Oxygen Delivery Room Air 10/30/21 10:00 10/30/21 12:07 10/30/21 12:00 Temperature 97.3 F L Pulse Rate 91 95 94 Respiratory Rate 17 Blood Pressure 101/63 Pulse Oximetry 95 Oxygen Delivery 10/30/21 12:00 10/30/21 15:58 10/30/21 16:00 Temperature 97.8 F Pulse Rate 81 82 Respiratory Rate 18 Blood Pressure 109/97 H Pulse Oximetry 97 Oxygen Delivery Room Air 10/30/21 16:00 10/30/21 17:17 10/30/21 18:00 Temperature Pulse Rate 88 83 Respiratory Rate Blood Pressure Pulse Oximetry Oxygen Delivery Room Air 10/30/21 19:50 10/30/21 23:21 10/30/21 20:00 Temperature 97.6 F 97.9 F Pulse Rate 88 82 82 Respiratory Rate 18 18 18 Blood Pressure 96/56 L 95/62 L Pulse Oximetry 97 99 99 Oxygen Delivery Room Air 10/30/21 20:00 10/30/21 22:00 10/30/21 23:59 Temperature Pulse Rate 92 94 82 Respiratory Rate 18 Blood Pressure Pulse Oximetry 99 Oxygen Delivery Room Air 10/31/21 00:00 10/31/21 02:00 10/31/21 04:00 Temperature Pulse Rate 81 76 73 Respiratory Rate Blood Pressure Pulse Oximetry Oxygen Delivery 10/31/21 04:00 10/31/21 04:00 10/31/21 06:00 Temperature 97.7 F Pulse Rate 73 84 62 Respiratory Rate 18 20 Blood Pressure 97/55 L Pulse Oximetry 99 97 Oxygen Delivery Room Air Intake/Output Intake/Output: Intake & Output 10/28/21 10/29/21 10/30/21 10/31/21 23:59 23:59 23:59 23:59 Intake Total 1100 3260 2530 450 Output Total 850 1950 900 Balance 1100 2410 580 -450 Meds/Results Medications: Active Medications Generic Name Dose Route Start Last Admin Trade Name Freq
[2021-10-31 08:24] LABS: Glucose Point of Care 92 mg/dl (65-105)
--- NOTE | 2021-10-31 08:28 | PM.IMPN ---
Progress Note: A&P Assessment and Plan (1) Diabetes mellitus with neuropathy: Qualifiers: Diabetes mellitus terminal carman insulin use: with terminal carman use Diabetes mellitus type: type 2 Qualified Code(s): E11.40 - Type 2 diabetes mellitus with diabetic neuropathy, unspecified; Z79.4 - [facility] (current) use of insulin Code(s): E11.40 - Type 2 diabetes mellitus with diabetic neuropathy, unspecified Status: Acute Assessment and Plan: Hemoglobin A1c is 8.3, uncontrolled, continue Accu-Cheks and sliding scale insulin, will attempt to get better control to improve wound healing 10/29: Will increase long-acting insulin from 18 units to 20 units at night and 6 units to 8 units in the morning, total increase of 4 units daily 10/30: Some hypoglycemia noted in the underground utility locator, will change insulin to 10 units in the AM, back down to 18 units QHS 10/31: Still with underground utility locator hypoglycemia, 47 this am, despite lowered dose of insulin. Will reduce insulin again and try QHS only dosing. Will give 20 units tonight, hold AM dose. Stop oral glipizide and actos (2) Peripheral vascular disease due to secondary diabetes: Code(s): E13.51 - Other specified diabetes mellitus with diabetic peripheral angiopathy without gangrene Status: Acute Assessment and Plan: Bilateral lower extremity diabetic foot ulcers, continue IV antibiotics--vancomycin, cefepime, Flagyl, appreciate surgery consultation ABIs showed normal on the left, arterial occlusive disease on the right. MRI showed necrosis of left 2nd tow and hallux without ostemyelitis or abscess. Ortho plan is for amputation of the left 2nd toe and tip of the hallux with debridement of gangrenous eschars on left foot once medically optimized Blood cx prelim positive for GNB (3) Gangrene: Code(s): I96 - Gangrene, not elsewhere classified Status: Acute Assessment and Plan: See above (4) CAD (coronary artery disease): Code(s): I25.10 - Atherosclerotic heart disease of [place] coronary artery without angina pectoris Status: Acute Assessment and Plan: Stable, continue aspirin, isosorbide mononitrate 10 mg daily (5) Atrial fibrillation with RVR: Code(s): I48.91 - Unspecified atrial fibrillation Status: Acute Assessment and Plan: Cardizem gtt stopped, lisinopril/HCTZ stopped, aldactone stopped Started diltiazem ER 240 mg and will add potassium and metoprolol as needed for HR control (6) Chronic indwelling Ford catheter: Code(s): Z97.8 - Presence of other specified devices Status: Acute Assessment and Plan: Secondary to BPH (7) Old lacunar stroke without late effect: Code(s): Z86.73 - Personal history of transient ischemic attack (TIA), and cerebral infarction without residual deficits Status: Acute Assessment and Plan: Cont aspirin, statin (8) Benign prostatic hyperplasia without lower urinary tract symptoms: Onset Date: 09/16/18 Code(s): N40.0 - Benign prostatic hyperplasia without lower urinary tract symptoms Status: Acute Assessment and Plan: Stable, continue Ford, continue Flomax Plan DVT prophylaxis with Lovenox GI prophylaxis not indicated Code status full code Subjective Date/time seen: 10/31/21 08:28 Interval history: patient without complaints, no o/n events, no nvd, f,c,cp,sob Review of Systems Review of Systems: All systems reviewed & are unremarkable except as noted in HPI and below (hpi) Exam Narrative: General: No acute distress, alert and oriented per baseline HEENT: Atraumatic, normocephalic, mucous membranes moist, poor dentition CV: Irregularly irregular, S1, S2 Lungs: Clear to auscultation bilaterally, no rales or crackles noted, no wheezes, good air entry Abdomen: Soft, nontender, nondistended Extremities: Unable to assess pulses easily, left toes wrapped in bandages, clean dry and intact, right foot with escha
[2021-10-31] MEDS: ASPIRIN 81 MG ENTERIC TABLET PO (09:58)
[2021-10-31] MEDS: POTASSIUM CHLORIDE 20 MEQ TABLET 40 MEQ PO (09:58)
[2021-10-31] MEDS: TAMSULOSIN HCL 0.4 MG CAPSULE PO (09:59)
[2021-10-31] MEDS: ENOXAPARIN 40 MG/0.4 ML SYRINGE SUB-Q (09:59)
[2021-10-31] MEDS: ATORVASTATIN 40 MG TABLET 80 MG PO (09:59)
[2021-10-31] MEDS: SOD HYPOCHLORITE 1/4 STRENGTH 473 ML 1 APPLIC TOPICAL ×2 (10:21→20:38)
[2021-10-31 11:52] LABS: Glucose Point of Care 152 mg/dl (65-105)
--- NOTE | 2021-10-31 15:52 | ADMGEN ---
This patient, Kenneth Guillory, was admitted to Medical Room 243-. Patient/family oriented to hospital policies and general routines including ID bracelet, bed and alarms, visiting hours, pain management, procedures, bathroom and other care routines, personal items, smoking policy, room service/diet, and visiting hours. Information on how to activate the Rapid Response Team has been discussed. Patient/Family are encouraged to report perceived risks to care and to ask questions if they do not understand what they are told or what they should do.
[2021-10-31 17:42] LABS: Glucose Point of Care 191 mg/dl (65-105)
[2021-10-31] MEDS: INSULIN GLARGINE (*BKC) 100 UNITS/ML 20 UNITS SUB-Q (18:06)
[2021-10-31 20:46] LABS: Glucose Point of Care 288 mg/dl (65-105)
[2021-11-01] VITALS (9 sets, daily range): BP systolic 104–108; BP diastolic 55–62; PULSE 63–98; RESP 16–20; TEMP 36.3–36.6; O2SAT 94–96
[2021-11-01 05:48] LABS: Basophils Percent Auto 0.4 % (0.2-1.2); Eosinophils Percent Auto 0.4 % (0-4.4); Hematocrit 36.2 % (42.0-52.0); Hemoglobin 11.5 g/dL (14.0-18.0); Immature Granulocyte Absolute 0.11 K/mm3 (0.00-0.031); Immature Granulocyte Percent A 1.1 % (0-0.5); Lymphocytes Percent Auto 11.9 % (18.3-44.2); Mean Corpuscular HGB Conc 31.8 g/dl (32-36); Mean Corpuscular Volume 91.2 fl (80-100); Mean Platelet Volume 11.4 fl (7.4-10.4); Monocytes Percent Auto 10.1 % (2.6-8.5); Neutrophils Absolute Auto 7.7 K/mm3 (1.3-6.7); Neutrophils Percent Auto 76.1 % (45.5-73.1); Platelet Count Result 255 k/mm3 (150-375); Red Blood Count 3.97 M/mm3 (4.6-6.20); Red Cell Distribution Width 14.3 % (11.5-14.5); White Blood Count 10.1 K/mm3 (4.5-10.0)
[2021-11-01 05:59] LABS: Alanine Aminotransferase 12 U/L (6-50); Albumin Level 2.7 g/dL (3.5-5.1); Alkaline Phosphatase 56 U/L (38-126); Anion Gap 10 mmol/L (8-16); Aspartate Amino Transferase 17 U/L (17-59); Bilirubin,Total 0.5 mg/dL (0.2-1.3); Blood Urea Nitrogen 9 mg/dL (9-20); Calcium 7.7 mg/dL (8.4-10.2); Carbon Dioxide 22 mmol/L (22-30); Chloride 101 mmol/L (98-107); Estimated CRCL calculation 85 ml/min; Estimated Glomerular Filt Rate > 60; Glucose 120 mg/dL (65-110); Potassium 3.8 mmol/L (3.4-5.0); Sodium 133 mmol/L (137-145)
[2021-11-01] MEDS: metroNIDAZOLE 500 MG/ISO 100ML 500 MG/100 ML BAG 100 MG IVPB ×3 (06:00→20:39)
--- NOTE | 2021-11-01 08:49 | PM.PNCARD ---
Progress Note: A&P Assessment and Plan (1) Preop cardiovascular exam: Code(s): Z01.810 - Encounter for preprocedural cardiovascular examination Status: Acute Assessment and Plan: Patient is at moderate cardiac risk given known CAD that are small and not amenable to PCI, mild systolic dysfunction, uncontrolled DM, atrial fib. May proceed to noncardiac surgery without further cardiac workup as HR is now controlled in atrial fibrillation. (2) Atrial fibrillation: Code(s): I48.91 - Unspecified atrial fibrillation Status: Acute Assessment and Plan: HR controlled. Stop Diltiazem drip and start lower home dose of Diltiazem ER 240 mg daily due to low normal BP. In addition, stop Lisinopril/HCTZ due to low normal BP. KCl 40 meq x1 for potassium 3.1. On Lovenox. After surgery resume Eliquis. Due to systolic dysfunction that is worse than on prior echo a year ago, will change Diltiazem to Metoprolol. Monitor HR. (3) CAD (coronary artery disease): Code(s): I25.10 - Atherosclerotic heart disease of [place] coronary artery without angina pectoris Status: Acute Assessment and Plan: Stable. (4) Systolic dysfunction: Code(s): I51.9 - Heart disease, unspecified Status: Acute Assessment and Plan: Moderate. 10/31/21 Echo: EF 35-40%, mild LVE, diastolic dysfunction (E/e' 25), mod LAE, mild TR/PI. Due to systolic dysfunction, he would benefit from beta constanza rather than Diltiazem. (5) Hyperlipidemia: Code(s): E78.5 - Hyperlipidemia, unspecified Status: Acute Assessment and Plan: On Atorvastatin. Subjective Date/time seen: 11/01/21 08:49 Denies chest pain or sob. He has some left foot pain. Exam Const: General: cooperative, healthy appearing and comfortable Resp: Auscultation: clear to auscultation bilaterally, no crackles, no rales, no rhonchi and no wheezes Cardio: Jugular venous distension: no JVD Rate: regular rate Rhythm: abnormal rhythm Peripheral pulses: dorsalis pedis pulses not present Other: Left foot wrapped, right foot with absent pulses GI: GI Palp: No abdominal tenderness and Yes Soft to palpation Neuro: General: oriented to person, oriented to place and oriented to time Extrem: Right lower extremity: no edema Left lower extremity: no edema Objective Data Vital Signs Vital Signs: Vital Signs - 24 hr 10/31/21 11:58 10/31/21 12:00 10/31/21 16:00 Temperature 97.5 F L Pulse Rate 81 86 89 Respiratory Rate 20 Blood Pressure 111/59 L Pulse Oximetry 98 10/31/21 19:47 10/31/21 20:00 11/01/21 00:00 Temperature 98.6 F Pulse Rate 82 88 74 Respiratory Rate 16 Blood Pressure 105/60 Pulse Oximetry 98 11/01/21 06:00 11/01/21 04:00 Temperature 97.9 F Pulse Rate 83 75 Respiratory Rate 16 Blood Pressure 104/56 L Pulse Oximetry 94 Intake/Output Intake/Output: Intake & Output 10/29/21 10/30/21 10/31/21 11/01/21 23:59 23:59 23:59 23:59 Intake Total 3260 2530 3030 400 Output Total 850 1950 1900 600 Balance 2410 580 1130 -200 Meds/Results Medications: Active Medications Generic Name Dose Route Start Last Admin Trade Name Freq PRN Reason Stop Dose Admin Aspirin 81 mg 10/29/21 09:00 10/31/21 09:58 Aspirin 81 Mg Enteric Tablet PO 81 mg DAILY STEVE Administration Atorvastatin Calcium 80 mg 10/29/21 09:00 10/31/21 09:59 Atorvastatin 40 Mg Tablet PO 80 mg DAILY STEVE Administration Dextrose 12.5 gm 10/28/21 23:33 10/31/21 05:52 Dextrose 50% 25 Gm/50 Ml Syringe IV PUSH 12.5 gm PRN PRN Administration Hypoglycemia Protocol Diltiazem HCl 240 mg 10/31/21 09:00 10/31/21 10:02 Diltiazem Hcl Cd 240 Mg Cap.Er.24h PO 240 mg QAM STEVE Administration Enoxaparin Sodium 40 mg 10/29/21 09:00 10/31/21 09:59 Enoxaparin 40 Mg/0.4 Ml Syringe SUB-Q 40 mg DAILY STEVE Administration Glucagon 1 mg 10/28/21 23:33 Glucagon For Inj 1 Mg Vi
--- NOTE | 2021-11-01 08:57 | PM.PNCARD ---
Progress Note: A&P Assessment and Plan (1) Preop cardiovascular exam: Code(s): Z01.810 - Encounter for preprocedural cardiovascular examination Status: Acute Assessment and Plan: Patient is at moderate cardiac risk given known CAD that are small and not amenable to PCI, mild systolic dysfunction, uncontrolled DM, atrial fib. May proceed to noncardiac surgery without further cardiac workup as HR is now controlled in atrial fibrillation. (2) Atrial fibrillation: Code(s): I48.91 - Unspecified atrial fibrillation Status: Acute Assessment and Plan: HR controlled. Stop Diltiazem drip and start lower home dose of Diltiazem ER 240 mg daily due to low normal BP. In addition, stop Lisinopril/HCTZ due to low normal BP. KCl 40 meq x1 for potassium 3.1. On Lovenox. After surgery resume Eliquis. Due to systolic dysfunction that is worse than on prior echo a year ago, will change Diltiazem to Metoprolol. Monitor HR. (3) CAD (coronary artery disease): Code(s): I25.10 - Atherosclerotic heart disease of [place] coronary artery without angina pectoris Status: Acute Assessment and Plan: Stable. (4) Systolic dysfunction: Code(s): I51.9 - Heart disease, unspecified Status: Acute Assessment and Plan: Moderate. 10/31/21 Echo: EF 35-40%, mild LVE, diastolic dysfunction (E/e' 25), mod LAE, mild TR/PI. Due to systolic dysfunction, he would benefit from beta constanza rather than Diltiazem. (5) Hyperlipidemia: Code(s): E78.5 - Hyperlipidemia, unspecified Status: Acute Assessment and Plan: On Atorvastatin. Subjective Date/time seen: 11/01/21 08:57 Interval history: Denies chest pain or sob. He has some left foot pain. Exam Const: General: cooperative, healthy appearing and comfortable Resp: Auscultation: clear to auscultation bilaterally, no crackles, no rales, no rhonchi and no wheezes Cardio: Jugular venous distension: no JVD Rate: regular rate Rhythm: abnormal rhythm Peripheral pulses: dorsalis pedis pulses not present Other: Left foot wrapped, right foot with absent pulses GI: GI Palp: No abdominal tenderness and Yes Soft to palpation Neuro: General: oriented to person, oriented to place and oriented to time Extrem: Right lower extremity: no edema Left lower extremity: no edema Objective Data Vital Signs Vital Signs: Vital Signs - 24 hr 10/31/21 11:58 10/31/21 12:00 10/31/21 16:00 Temperature 97.5 F L Pulse Rate 81 86 89 Respiratory Rate 20 Blood Pressure 111/59 L Pulse Oximetry 98 10/31/21 19:47 10/31/21 20:00 11/01/21 00:00 Temperature 98.6 F Pulse Rate 82 88 74 Respiratory Rate 16 Blood Pressure 105/60 Pulse Oximetry 98 11/01/21 06:00 11/01/21 04:00 Temperature 97.9 F Pulse Rate 83 75 Respiratory Rate 16 Blood Pressure 104/56 L Pulse Oximetry 94 Intake/Output Intake/Output: Intake & Output 10/29/21 10/30/21 10/31/21 11/01/21 23:59 23:59 23:59 23:59 Intake Total 3260 2530 3030 400 Output Total 850 1950 1900 600 Balance 2410 580 1130 -200 Meds/Results Medications: Active Medications Generic Name Dose Route Start Last Admin Trade Name Freq PRN Reason Stop Dose Admin Aspirin 81 mg 10/29/21 09:00 10/31/21 09:58 Aspirin 81 Mg Enteric Tablet PO 81 mg DAILY STEVE Administration Atorvastatin Calcium 80 mg 10/29/21 09:00 10/31/21 09:59 Atorvastatin 40 Mg Tablet PO 80 mg DAILY STEVE Administration Dextrose 12.5 gm 10/28/21 23:33 10/31/21 05:52 Dextrose 50% 25 Gm/50 Ml Syringe IV PUSH 12.5 gm PRN PRN Administration Hypoglycemia Protocol Enoxaparin Sodium 40 mg 10/29/21 09:00 10/31/21 09:59 Enoxaparin 40 Mg/0.4 Ml Syringe SUB-Q 40 mg DAILY STEVE Administration Glucagon 1 mg 10/28/21 23:33 Glucagon For Inj 1 Mg Vial IM PRN PRN Hypoglycemia Protocol Glucose 15 gm 10/28/21 23:33 Glucose Oral Gel 15 Gm
[2021-11-01 09:02] LABS: Glucose Point of Care 98 mg/dl (65-105)
[2021-11-01] MEDS: ASPIRIN 81 MG ENTERIC TABLET PO (09:49)
[2021-11-01] MEDS: ATORVASTATIN 40 MG TABLET 80 MG PO (09:49)
[2021-11-01] MEDS: TAMSULOSIN HCL 0.4 MG CAPSULE PO (09:49)
[2021-11-01] MEDS: ENOXAPARIN 40 MG/0.4 ML SYRINGE SUB-Q (09:49)
[2021-11-01] MEDS: SOD HYPOCHLORITE 1/4 STRENGTH 473 ML 1 APPLIC TOPICAL ×2 (09:50→19:58)
[2021-11-01] MEDS: METOPROLOL TARTRATE 25 MG TABLET PO ×2 (12:00→18:50)
[2021-11-01 12:12] LABS: Glucose Point of Care 154 mg/dl (65-105)
--- NOTE | 2021-11-01 16:31 | PM.IMPN ---
Progress Note: A&P Assessment and Plan (1) Diabetes mellitus with neuropathy: Qualifiers: Diabetes mellitus type: type 2 Diabetes mellitus long term care administrator insulin use: with fdc use Qualified Code(s): E11.40 - Type 2 diabetes mellitus with diabetic neuropathy, unspecified; Z79.4 - skilled nursing (current) use of insulin Code(s): E11.40 - Type 2 diabetes mellitus with diabetic neuropathy, unspecified Status: Acute Assessment and Plan: Hemoglobin A1c is 8.3, uncontrolled, continue Accu-Cheks and sliding scale insulin, will attempt to get better control to improve wound healing 10/29: Will increase long-acting insulin from 18 units to 20 units at night and 6 units to 8 units in the morning, total increase of 4 units daily 10/30: Some hypoglycemia noted in the housekeeping attendant, will change insulin to 10 units in the AM, back down to 18 units QHS 10/31: Still with housekeeping attendant hypoglycemia, 47 this am, despite lowered dose of insulin. Will reduce insulin again and try QHS only dosing. Will give 20 units tonight, hold AM dose. Stop oral glipizide and actos 11/01: Sugars look much better, no hypoglycemic episodes, continue current management (2) Peripheral vascular disease due to secondary diabetes: Code(s): E13.51 - Other specified diabetes mellitus with diabetic peripheral angiopathy without gangrene Status: Acute Assessment and Plan: Bilateral lower extremity diabetic foot ulcers, continue IV antibiotics--vancomycin, cefepime, Flagyl, appreciate surgery consultation ABIs showed normal on the left, arterial occlusive disease on the right. MRI showed necrosis of left 2nd tow and hallux without ostemyelitis or abscess. Ortho plan is for amputation of the left 2nd toe and tip of the hallux with debridement of gangrenous eschars on left foot once medically optimized Blood cultures show one bottle positive for Proteus, sensitive to cefepime, blood culture two is preliminarily positive for Bacteroides fragilis, sensitivity pending, but likely sensitive to flagyl, will repeat blood cultures tomorrow, will discontinue vanc at this point (3) Gangrene: Code(s): I96 - Gangrene, not elsewhere classified Status: Acute Assessment and Plan: See above (4) CAD (coronary artery disease): Code(s): I25.10 - Atherosclerotic heart disease of [place] coronary artery without angina pectoris Status: Acute Assessment and Plan: Stable, continue aspirin, isosorbide mononitrate 10 mg daily (5) Atrial fibrillation with RVR: Code(s): I48.91 - Unspecified atrial fibrillation Status: Acute Assessment and Plan: Appreciate cardiology consultation, was previously on a diltiazem drip, this has been discontinued in favor of oral diltiazem, however, due to known systolic dysfunction (echo from 10/31/2021 showed an EF of 35-40% with diastolic dysfunction noted) this was switched to metoprolol (6) Chronic indwelling Ford catheter: Code(s): Z97.8 - Presence of other specified devices Status: Acute Assessment and Plan: Secondary to BPH (7) Old lacunar stroke without late effect: Code(s): Z86.73 - Personal history of transient ischemic attack (TIA), and cerebral infarction without residual deficits Status: Acute Assessment and Plan: Cont aspirin, statin (8) Benign prostatic hyperplasia without lower urinary tract symptoms: Onset Date: 09/16/18 Code(s): N40.0 - Benign prostatic hyperplasia without lower urinary tract symptoms Status: Acute Assessment and Plan: Stable, continue Ford, continue Flomax Plan DVT prophylaxis with Lovenox GI prophylaxis not indicated Code status full code Subjective Date/time seen: 11/01/21 16:31 Interval history: Patient resting comfortably, no complaints. No overnight events noted. No chest pain or shortness of breath. No nausea, vomiting or diarrhea. No fevers or chills. Review of Syste
[2021-11-01 17:39] LABS: Glucose Point of Care 187 mg/dl (65-105)
[2021-11-01] MEDS: INSULIN GLARGINE (*BKC) 100 UNITS/ML 20 UNITS SUB-Q (18:45)
[2021-11-01 21:16] LABS: Glucose Point of Care 216 mg/dl (65-105)
[2021-11-02] VITALS (13 sets, daily range): BP systolic 106–114; BP diastolic 60–66; PULSE 72–95; RESP 18; TEMP 36.4–36.6; O2SAT 95–97
[2021-11-02] MEDS: METOPROLOL TARTRATE 25 MG TABLET PO ×4 (00:10→21:09)
[2021-11-02 05:28] LABS: Basophils Absolute Auto 0.1 K/mm3 (0.0-0.1); Basophils Percent Auto 0.5 % (0.2-1.2); Eosinophils Percent Auto 0.3 % (0-4.4); Hematocrit 37.8 % (42.0-52.0); Hemoglobin 11.9 g/dL (14.0-18.0); Immature Granulocyte Absolute 0.11 K/mm3 (0.00-0.031); Immature Granulocyte Percent A 1.1 % (0-0.5); Lymphocytes Absolute Auto 1.09 K/mm3 (0.9-3.2); Lymphocytes Percent Auto 10.7 % (18.3-44.2); Mean Corpuscular HGB Conc 31.5 g/dl (32-36); Mean Platelet Volume 11.2 fl (7.4-10.4); Monocytes Absolute Auto 0.9 K/mm3 (0.1-0.6); Monocytes Percent Auto 9.1 % (2.6-8.5); Neutrophils Percent Auto 78.3 % (45.5-73.1); Platelet Count Result 275 k/mm3 (150-375); Red Blood Count 4.11 M/mm3 (4.6-6.20); Red Cell Distribution Width 14.3 % (11.5-14.5); White Blood Count 10.2 K/mm3 (4.5-10.0)
[2021-11-02] MEDS: metroNIDAZOLE 500 MG/ISO 100ML 500 MG/100 ML BAG 100 MG IVPB ×3 (05:28→22:32)
[2021-11-02 05:44] LABS: Alanine Aminotransferase 13 U/L (6-50); Albumin Level 2.8 g/dL (3.5-5.1); Alkaline Phosphatase 66 U/L (38-126); Anion Gap 9 mmol/L (8-16); Aspartate Amino Transferase 18 U/L (17-59); Bilirubin,Total 0.5 mg/dL (0.2-1.3); Blood Urea Nitrogen 8 mg/dL (9-20); Calcium 8.1 mg/dL (8.4-10.2); Carbon Dioxide 24 mmol/L (22-30); Chloride 101 mmol/L (98-107); Estimated CRCL calculation 85 ml/min; Estimated Glomerular Filt Rate > 60; Glucose 108 mg/dL (65-110); Sodium 134 mmol/L (137-145)
--- NOTE | 2021-11-02 07:50 | PM.PNCARD ---
Progress Note: A&P Assessment and Plan (1) Preop cardiovascular exam: Code(s): Z01.810 - Encounter for preprocedural cardiovascular examination Status: Acute Assessment and Plan: Patient is at moderate cardiac risk given known CAD that are small and not amenable to PCI, mild systolic dysfunction, uncontrolled DM, atrial fib. May proceed to noncardiac surgery without further cardiac workup as HR is now controlled in atrial fibrillation. (2) Atrial fibrillation: Code(s): I48.91 - Unspecified atrial fibrillation Status: Acute Assessment and Plan: HR controlled. Stop Diltiazem drip and start lower home dose of Diltiazem ER 240 mg daily due to low normal BP. In addition, stop Lisinopril/HCTZ due to low normal BP. KCl 40 meq x1 for potassium 3.1. On Lovenox. After surgery resume Eliquis. Due to systolic dysfunction that is worse than on prior echo a year ago, will changed Diltiazem to Metoprolol. Change Metoprolol 25 mg Q6HR to Q8HR. Monitor HR. (3) CAD (coronary artery disease): Code(s): I25.10 - Atherosclerotic heart disease of [place] coronary artery without angina pectoris Status: Acute Assessment and Plan: Stable. (4) Systolic dysfunction: Code(s): I51.9 - Heart disease, unspecified Status: Acute Assessment and Plan: Moderate. 10/31/21 Echo: EF 35-40%, mild LVE, diastolic dysfunction (E/e' 25), mod LAE, mild TR/PI. Due to systolic dysfunction, he would benefit from beta constanza rather than Diltiazem. If his BP improves will need to put him back on Lisinopril. (5) Hyperlipidemia: Code(s): E78.5 - Hyperlipidemia, unspecified Status: Acute Assessment and Plan: On Atorvastatin. Subjective Date/time seen: 11/02/21 07:50 Interval history: Denies chest pain or sob. Has left foot pain. Exam Const: General: cooperative, healthy appearing and comfortable Resp: Auscultation: clear to auscultation bilaterally, no crackles, no rales, no rhonchi and no wheezes Cardio: Jugular venous distension: no JVD Rate: regular rate Rhythm: abnormal rhythm Peripheral pulses: dorsalis pedis pulses not present Other: Left foot wrapped, right foot with absent pulses GI: GI Palp: No abdominal tenderness and Yes Soft to palpation Neuro: General: oriented to person, oriented to place and oriented to time Extrem: Right lower extremity: no edema Left lower extremity: no edema Objective Data Vital Signs Vital Signs: Vital Signs - 24 hr 11/01/21 08:00 11/01/21 08:00 11/01/21 14:25 Temperature 97.4 F L Pulse Rate 72 63 Respiratory Rate 18 Blood Pressure 105/62 Pulse Oximetry 96 Oxygen Delivery Room Air 11/01/21 12:00 11/01/21 16:00 11/01/21 12:00 Temperature Pulse Rate 98 91 91 Respiratory Rate Blood Pressure Pulse Oximetry Oxygen Delivery 11/01/21 18:50 11/01/21 19:59 11/02/21 00:10 Temperature 97.7 F Pulse Rate 86 65 78 Respiratory Rate 20 Blood Pressure 108/55 L Pulse Oximetry 96 Oxygen Delivery 11/02/21 00:00 11/02/21 00:00 11/02/21 05:30 Temperature 98 F Pulse Rate 91 78 85 Respiratory Rate 18 Blood Pressure 114/66 Pulse Oximetry 95 Oxygen Delivery 11/02/21 04:00 11/02/21 05:27 Temperature Pulse Rate 80 80 Respiratory Rate Blood Pressure Pulse Oximetry Oxygen Delivery Intake/Output Intake/Output: Intake & Output 10/30/21 10/31/21 11/01/21 11/02/21 23:59 23:59 23:59 23:59 Intake Total 2530 3030 1660 Output Total 1950 1900 1350 625 Balance 580 1130 310 -625 Meds/Results Medications: Active Medications Generic Name Dose Route Start Last Admin Trade Name Palq PRN Reason Stop Dose Admin Aspirin 81 mg 10/29/21 09:00 11/01/21 09:49 Aspirin 81 Mg Enteric Tablet PO 81 mg DAILY [facility] Administration Atorvastatin Calcium 80 mg 10/29/21 09:00 11/01/21 09:49 Atorvastatin 40 Mg Tablet PO 80 mg DAILY [facility] Ad
[2021-11-02] MEDS: ATORVASTATIN 40 MG TABLET 80 MG PO (08:37)
[2021-11-02] MEDS: ENOXAPARIN 40 MG/0.4 ML SYRINGE SUB-Q (08:37)
[2021-11-02] MEDS: ASPIRIN 81 MG ENTERIC TABLET PO (08:37)
[2021-11-02] MEDS: TAMSULOSIN HCL 0.4 MG CAPSULE PO (08:38)
[2021-11-02] MEDS: SOD HYPOCHLORITE 1/4 STRENGTH 473 ML 1 APPLIC TOPICAL ×2 (08:38→21:07)
[2021-11-02 09:22] LABS: Glucose Point of Care 114 mg/dl (65-105)
[2021-11-02 12:32] LABS: Glucose Point of Care 123 mg/dl (65-105)
--- NOTE | 2021-11-02 16:21 | PM.IMPN ---
Progress Note: A&P Assessment and Plan (1) Diabetes mellitus with neuropathy: Qualifiers: Diabetes mellitus type: type 2 Diabetes mellitus ad terminal makeup operator insulin use: with penitentiary use Qualified Code(s): E11.40 - Type 2 diabetes mellitus with diabetic neuropathy, unspecified; Z79.4 - penitentiary (current) use of insulin Code(s): E11.40 - Type 2 diabetes mellitus with diabetic neuropathy, unspecified Status: Acute Assessment and Plan: Hemoglobin A1c is 8.3, uncontrolled, continue Accu-Cheks and sliding scale insulin, will attempt to get better control to improve wound healing 10/29: Will increase long-acting insulin from 18 units to 20 units at night and 6 units to 8 units in the morning, total increase of 4 units daily 10/30: Some hypoglycemia noted in the reconnaissance crewmember, will change insulin to 10 units in the AM, back down to 18 units QHS 10/31: Still with reconnaissance crewmember hypoglycemia, 47 this am, despite lowered dose of insulin. Will reduce insulin again and try QHS only dosing. Will give 20 units tonight, hold AM dose. Stop oral glipizide and actos 11/01: Sugars look much better, no hypoglycemic episodes, continue current management 11/02: Continue current management (2) Peripheral vascular disease due to secondary diabetes: Code(s): E13.51 - Other specified diabetes mellitus with diabetic peripheral angiopathy without gangrene Status: Acute Assessment and Plan: Bilateral lower extremity diabetic foot ulcers, continue IV antibiotics--vancomycin, cefepime, Flagyl, appreciate surgery consultation ABIs showed normal on the left, arterial occlusive disease on the right. MRI showed necrosis of left 2nd tow and hallux without ostemyelitis or abscess. Ortho plan is for amputation of the left 2nd toe and tip of the hallux with debridement of gangrenous eschars on left foot once medically optimized Blood cultures show one bottle positive for Proteus, sensitive to cefepime, blood culture two is preliminarily positive for Bacteroides fragilis, sensitivity pending, but likely sensitive to flagyl, will repeat blood cultures tomorrow, will discontinue vanc at this point Antibiotics started on admission October 28, 2021, repeat blood cultures pending, will likely need long-term antibiotics due to bacteremia (3) Gangrene: Code(s): I96 - Gangrene, not elsewhere classified Status: Acute Assessment and Plan: See above (4) CAD (coronary artery disease): Code(s): I25.10 - Atherosclerotic heart disease of [place] coronary artery without angina pectoris Status: Acute Assessment and Plan: Stable, continue aspirin, isosorbide mononitrate 10 mg daily (5) Atrial fibrillation with RVR: Code(s): I48.91 - Unspecified atrial fibrillation Status: Acute Assessment and Plan: Appreciate cardiology consultation, was previously on a diltiazem drip, this has been discontinued in favor of oral diltiazem, however, due to known systolic dysfunction (echo from 10/31/2021 showed an EF of 35-40% with diastolic dysfunction noted) this was switched to metoprolol (6) Chronic indwelling Ford catheter: Code(s): Z97.8 - Presence of other specified devices Status: Acute Assessment and Plan: Secondary to BPH (7) Old lacunar stroke without late effect: Code(s): Z86.73 - Personal history of transient ischemic attack (TIA), and cerebral infarction without residual deficits Status: Acute Assessment and Plan: Cont aspirin, statin (8) Benign prostatic hyperplasia without lower urinary tract symptoms: Onset Date: 09/16/18 Code(s): N40.0 - Benign prostatic hyperplasia without lower urinary tract symptoms Status: Acute Assessment and Plan: Stable, continue Ford, continue Flomax Plan DVT prophylaxis with Lovenox GI prophylaxis not indicated Code status full code Subjective Date/time seen: 11/02/21 16:21 Interval history: No overni
[2021-11-02 17:14] LABS: Glucose Point of Care 216 mg/dl (65-105)
[2021-11-02] MEDS: INSULIN GLARGINE (*BKC) 100 UNITS/ML 20 UNITS SUB-Q (17:42)
[2021-11-02] MEDS: INSULIN ASPART (*BKC) 100 UNITS/ML SUB-Q (17:42)
[2021-11-02 22:44] LABS: Glucose Point of Care 160 mg/dl (65-105)
[2021-11-03] VITALS (21 sets, daily range): BP systolic 103–127; BP diastolic 54–88; PULSE 59–118; RESP 16–24; TEMP 35.8–36.8; O2SAT 94–100
[2021-11-03 05:48] LABS: Basophils Absolute Auto 0.1 K/mm3 (0.0-0.1); Basophils Percent Auto 0.6 % (0.2-1.2); Eosinophils Percent Auto 0.3 % (0-4.4); Hematocrit 38.6 % (42.0-52.0); Hemoglobin 12.2 g/dL (14.0-18.0); Immature Granulocyte Absolute 0.09 K/mm3 (0.00-0.031); Immature Granulocyte Percent A 0.8 % (0-0.5); Lymphocytes Absolute Auto 1.48 K/mm3 (0.9-3.2); Lymphocytes Percent Auto 13.8 % (18.3-44.2); Mean Corpuscular HGB Conc 31.6 g/dl (32-36); Mean Corpuscular Hemoglobin 28.3 pg (26-34); Mean Corpuscular Volume 89.6 fl (80-100); Mean Platelet Volume 11.5 fl (7.4-10.4); Monocytes Percent Auto 9.1 % (2.6-8.5); Neutrophils Absolute Auto 8.1 K/mm3 (1.3-6.7); Neutrophils Percent Auto 75.4 % (45.5-73.1); Platelet Count Result 308 k/mm3 (150-375); Red Blood Count 4.31 M/mm3 (4.6-6.20); Red Cell Distribution Width 14.1 % (11.5-14.5); White Blood Count 10.7 K/mm3 (4.5-10.0)
[2021-11-03] MEDS: metroNIDAZOLE 500 MG/ISO 100ML 500 MG/100 ML BAG 100 MG IVPB ×3 (05:49→21:09)
[2021-11-03 06:10] LABS: Alanine Aminotransferase 13 U/L (6-50); Albumin Level 2.7 g/dL (3.5-5.1); Alkaline Phosphatase 59 U/L (38-126); Anion Gap 5 mmol/L (8-16); Aspartate Amino Transferase 23 U/L (17-59); Bilirubin,Total 0.7 mg/dL (0.2-1.3); Blood Urea Nitrogen 8 mg/dL (9-20); Calcium 8.2 mg/dL (8.4-10.2); Carbon Dioxide 24 mmol/L (22-30); Chloride 104 mmol/L (98-107); Estimated CRCL calculation 85 ml/min; Estimated Glomerular Filt Rate > 60; Glucose 67 mg/dL (65-110); Potassium 4.2 mmol/L (3.4-5.0); Sodium 133 mmol/L (137-145)
[2021-11-03] MEDS: METOPROLOL TARTRATE 25 MG TABLET PO ×3 (06:56→21:08)
--- NOTE | 2021-11-03 07:09 | WPDHPUPDATE1 ---
History and Physical Update Update Date/Time: 11/03/21 07:09 History and Physical has been reviewed, including an updated exam of the patient. There are NO changes in the patient's condition. Left foot ulcers and necrotic 2nd toe and hallux. Plan for amputation left 2nd toe and hallux with debridement foot. Risks, benefits, and alternatives have been discussed and questions answered. Patient agrees to proceed with procedure.
--- NOTE | 2021-11-03 07:48 | PM.PNCARD ---
Progress Note: A&P Assessment and Plan (1) Preop cardiovascular exam: Code(s): Z01.810 - Encounter for preprocedural cardiovascular examination Status: Acute Assessment and Plan: Patient is at moderate cardiac risk given known CAD that are small and not amenable to PCI, moderate systolic dysfunction, uncontrolled DM, atrial fib. May proceed to noncardiac surgery without further cardiac workup as HR is now controlled in atrial fibrillation. He will be going for toe amputations this morning. (2) Atrial fibrillation: Code(s): I48.91 - Unspecified atrial fibrillation Status: Acute Assessment and Plan: HR controlled. Stop Diltiazem drip and start lower home dose of Diltiazem ER 240 mg daily due to low normal BP. In addition, stop Lisinopril/HCTZ due to low normal BP. KCl 40 meq x1 for potassium 3.1. On Lovenox. After surgery resume Eliquis. Due to systolic dysfunction that is worse than on prior echo a year ago, will changed Diltiazem to Metoprolol. Metoprolol 25 mg Q8HR. Monitor HR. (3) CAD (coronary artery disease): Code(s): I25.10 - Atherosclerotic heart disease of [place] coronary artery without angina pectoris Status: Acute Assessment and Plan: Stable. (4) Systolic dysfunction: Code(s): I51.9 - Heart disease, unspecified Status: Acute Assessment and Plan: Moderate. 10/31/21 Echo: EF 35-40%, mild LVE, diastolic dysfunction (E/e' 25), mod LAE, mild TR/PI. Due to systolic dysfunction, he would benefit from beta constanza rather than Diltiazem. If his BP improves will need to put him back on Lisinopril. (5) Hyperlipidemia: Code(s): E78.5 - Hyperlipidemia, unspecified Status: Acute Assessment and Plan: On Atorvastatin. Subjective Date/time seen: 11/03/21 07:48 Interval history: Denies chest pain or sob. Has some mild intermittent left foot pain. Exam Const: General: cooperative, healthy appearing and comfortable Resp: Auscultation: clear to auscultation bilaterally, no crackles, no rales, no rhonchi and no wheezes Cardio: Jugular venous distension: no JVD Rate: regular rate Rhythm: abnormal rhythm Peripheral pulses: dorsalis pedis pulses not present Other: Left foot wrapped, right foot with absent pulses GI: GI Palp: No abdominal tenderness and Yes Soft to palpation Neuro: General: oriented to person, oriented to place and oriented to time Extrem: Right lower extremity: no edema Left lower extremity: no edema Objective Data Vital Signs Vital Signs: Vital Signs - 24 hr 11/02/21 08:00 11/02/21 08:00 11/02/21 14:42 Temperature Pulse Rate 89 88 Respiratory Rate Blood Pressure Pulse Oximetry Oxygen Delivery Room Air 11/02/21 12:00 11/02/21 14:45 11/02/21 16:00 Temperature 97.6 F Pulse Rate 84 95 81 Respiratory Rate 18 Blood Pressure 110/60 Pulse Oximetry 95 Oxygen Delivery 11/02/21 20:34 11/02/21 21:09 11/02/21 20:00 Temperature 98 F Pulse Rate 82 76 Respiratory Rate 18 Blood Pressure 106/64 Pulse Oximetry 97 Oxygen Delivery Room Air 11/02/21 20:03 11/03/21 00:01 11/03/21 04:51 Temperature 98 F Pulse Rate 72 72 66 Respiratory Rate 20 Blood Pressure 127/70 Pulse Oximetry 97 Oxygen Delivery 11/03/21 04:03 11/03/21 06:10 11/03/21 06:56 Temperature Pulse Rate 83 87 92 Respiratory Rate Blood Pressure Pulse Oximetry Oxygen Delivery Intake/Output Intake/Output: Intake & Output 10/31/21 11/01/21 11/02/21 11/03/21 23:59 23:59 23:59 23:59 Intake Total 3030 1660 1280 100 Output Total 1900 1350 1475 550 Balance 1130 814 -619 -147 Meds/Results Medications: Active Medications Generic Name Dose Route Start Last Admin Trade Name Freq PRN Reason Stop Dose Admin Aspirin 81 mg 10/29/21 09:00 11/02/21 08:37 Aspirin 81 Mg Enteric Tablet PO 81 mg DAILY STVEE Administration Atorvastatin Calcium 80 mg
--- NOTE | 2021-11-03 08:05 | WPDANESEPPF ---
Anes - Initial Pre Proc Eval Procedure: Operation Date: 11/03/21 09:30 Proposed Procedures p Amputation Left Second Toe, Hallux, Debridement Left Foot - Antoni Delgado MD Date/Time: 11/03/21 08:05 Surgeon: Kecia Malone DO Pre Op Diagnosis: Dry Gangrene L Toes, DM, Afib w/RVR Patient Data Age: 80 Gender: M Height: 1.85 m Weight: 89.2 kg Last Vital Signs Temp 36.6 C 11/03/21 04:51 Pulse 92 11/03/21 06:56 Resp 20 11/03/21 04:51 BP 127/70 11/03/21 04:51 Pulse Ox 97 11/03/21 04:51 O2 Del Method Room Air 11/02/21 20:00 Allergies Allergy/AdvReac Type Severity Reaction Status Date / Time No Known Allergies Allergy Verified 11/03/21 09:01 Home Medications Medication Instructions Recorded Confirmed Type tamsulosin 0.4 mg capsule 0.4 mg PO DAILY 01/25/19 10/28/21 History lisinopril 20 1 tablet PO DAILY #90 tabs 10/16/20 10/28/21 Rx mg-hydrochlorothiazide 12.5 mg tablet atorvastatin 80 mg tablet 80 mg PO DAILY #90 tabs 10/24/20 10/28/21 Rx metformin 1,000 mg tablet 1,000 mg PO BID #180 tabs 10/24/20 10/28/21 Rx diltiazem HCl 360 mg capsule,24 360 mg PO DAILY #90 caps 12/03/20 10/28/21 Rx hr,extended release (Taztia XT) glipizide 10 mg tablet 10 mg PO BID #180 tabs 12/30/20 10/28/21 Rx pioglitazone 45 mg tablet 45 mg PO DAILY #90 tabs 12/30/20 10/28/21 Rx spironolactone 25 mg tablet 25 mg PO DAILY #90 tabs 07/28/21 10/28/21 Rx aspirin 81 mg tablet,delayed 81 mg PO DAILY 10/28/21 10/28/21 History release insulin glargine 100 unit/mL (3 6 unit subcut QAM 10/28/21 10/28/21 History mL) subcutaneous pen (Lantus Solostar U-100 Insulin) insulin glargine 100 unit/mL (3 18 unit subcut QPM 10/28/21 10/28/21 History mL) subcutaneous pen (Lantus Solostar U-100 Insulin) Laboratory Tests 11/02/21 11/02/21 11/02/21 09:17 12:27 17:11 WBC RBC Hgb Hct MCV MCH MCHC RDW Plt Count MPV Immature Gran % (Auto) Neut % (Auto) Lymph % (Auto) [place] % (Auto) Eos % (Auto) Baso % (Auto) Lymph # (Auto) [place] # (Auto) Eos # (Auto) Baso # (Auto) Abs Immat Gran (auto) Absolute Neuts (auto) Absolute Nucleated RBC Nucleated RBC % Sodium Potassium Chloride Carbon Dioxide Anion Gap BUN Creatinine Estim Creat Clear Calc Estimated GFR Glucose POC Capillary Glucose 114 mg/dl H mg/dl 123 mg/dl H mg/dl 216 mg/dl H mg/dl (65-105) (65-105) (65-105) Calcium Total Bilirubin AST ALT Alkaline Phosphatase Total Protein Albumin 11/02/21 11/03/21 11/03/21 21:06 05:25 05:25 WBC 10.7 K/mm3 H K/mm3 (4.5-10.0) RBC 4.31 M/mm3 L M/mm3 (4.6-6.20) Hgb 12.2 g/dL L g/dL (14.0-18.0) Hct 38.6 % L % (42.0-52.0) MCV 89.6 fl fl (80-100) MCH 28.3 pg pg (26-34) MCHC 31.6 g/dl L g/dl (32-36) RDW 14.1 % % (11.5-14.5) Plt Count 308 k/mm3 k/mm3 (150-375) MPV 11.5 fl H fl (7.4-10.4) Immature Gran % (Auto) 0.8 % H % (0-0.5) Neut % (Auto) 75.4 % H % (45.5-73.1) Lymph % (Auto) 13.8 % L % (18.3-44.2) [place] % (Auto) 9.1 % H % (2.6-8.5) Eos % (Auto) 0.3 % % (0-4.4) Baso % (Auto) 0.6 % % (0.2-1.2) Lymph # (Auto) 1.48 K/mm3 K/mm3 (0.9-3.2) [place] # (Auto) 1.0 K/mm3 H K/mm3 (0.1-0.6) Eos # (Auto) 0.0 K/mm3 K/mm3 (0-0.3) Baso # (Auto) 0.1 K/mm3 K/mm3 (0.0-0.1) Abs Immat Gran
[2021-11-03 08:19] LABS: Glucose Point of Care 59 mg/dl (65-105)
[2021-11-03] MEDS: DEXTROSE 50% 25 GM/50 ML SYRINGE IV PUSH (08:21)
--- NOTE | 2021-11-03 08:28 | PC.NURSE ---
To OR per norbert, IV Left hand. Report given to Teresa MOLINA, made aware pt will need recheck on blood sugar as dextrose was just administered.
[2021-11-03] MEDS: LACTATED RINGERS 1,000 ML 30 ML IV CONT (08:50)
[2021-11-03 08:51] LABS: Glucose Point of Care 106 mg/dl (65-105)
--- NOTE | 2021-11-03 10:07 | PM.IMPN ---
Progress Note: A&P Assessment and Plan (1) Diabetes mellitus with neuropathy: Qualifiers: Diabetes mellitus long term care administrator insulin use: with long term care administrator use Diabetes mellitus type: type 2 Qualified Code(s): E11.40 - Type 2 diabetes mellitus with diabetic neuropathy, unspecified; Z79.4 - USP (current) use of insulin Code(s): E11.40 - Type 2 diabetes mellitus with diabetic neuropathy, unspecified Status: Acute Assessment and Plan: Hemoglobin A1c is 8.3, uncontrolled, continue Accu-Cheks and sliding scale insulin, will attempt to get better control to improve wound healing 10/29: Will increase long-acting insulin from 18 units to 20 units at night and 6 units to 8 units in the morning, total increase of 4 units daily 10/30: Some hypoglycemia noted in the wheel blocker, will change insulin to 10 units in the AM, back down to 18 units QHS 10/31: Still with wheel blocker hypoglycemia, 47 this am, despite lowered dose of insulin. Will reduce insulin again and try QHS only dosing. Will give 20 units tonight, hold AM dose. Stop oral glipizide and actos 11/01: Sugars look much better, no hypoglycemic episodes, continue current management 11/02: Continue current management 11/03: In the OR today (2) Peripheral vascular disease due to secondary diabetes: Code(s): E13.51 - Other specified diabetes mellitus with diabetic peripheral angiopathy without gangrene Status: Acute Assessment and Plan: Bilateral lower extremity diabetic foot ulcers, continue IV antibiotics--vancomycin, cefepime, Flagyl, appreciate surgery consultation ABIs showed normal on the left, arterial occlusive disease on the right. MRI showed necrosis of left 2nd tow and hallux without ostemyelitis or abscess. Ortho plan is for amputation of the left 2nd toe and tip of the hallux with debridement of gangrenous eschars on left foot once medically optimized Blood cultures show one bottle positive for Proteus, sensitive to cefepime, blood culture two is preliminarily positive for Bacteroides fragilis, sensitivity pending, but likely sensitive to flagyl, will repeat blood cultures tomorrow, will discontinue vanc at this point Antibiotics started on admission October 28, 2021, repeat blood cultures pending, will likely need long-term antibiotics due to bacteremia (3) Gangrene: Code(s): I96 - Gangrene, not elsewhere classified Status: Acute Assessment and Plan: See above (4) CAD (coronary artery disease): Code(s): I25.10 - Atherosclerotic heart disease of [place] coronary artery without angina pectoris Status: Acute Assessment and Plan: Stable, continue aspirin, isosorbide mononitrate 10 mg daily (5) Atrial fibrillation with RVR: Code(s): I48.91 - Unspecified atrial fibrillation Status: Acute Assessment and Plan: Appreciate cardiology consultation, was previously on a diltiazem drip, this has been discontinued in favor of oral diltiazem, however, due to known systolic dysfunction (echo from 10/31/2021 showed an EF of 35-40% with diastolic dysfunction noted) this was switched to metoprolol (6) Chronic indwelling Ford catheter: Code(s): Z97.8 - Presence of other specified devices Status: Acute Assessment and Plan: Secondary to BPH (7) Old lacunar stroke without late effect: Code(s): Z86.73 - Personal history of transient ischemic attack (TIA), and cerebral infarction without residual deficits Status: Acute Assessment and Plan: Cont aspirin, statin (8) Benign prostatic hyperplasia without lower urinary tract symptoms: Onset Date: 09/16/18 Code(s): N40.0 - Benign prostatic hyperplasia without lower urinary tract symptoms Status: Acute Assessment and Plan: Stable, continue Ford, continue Flomax Plan DVT prophylaxis with Lovenox GI prophylaxis not indicated Code status full code Subjective Date/time seen: 11/03/21 10:07 Interv
[2021-11-03 10:41] LABS: Glucose Point of Care 91 mg/dl (65-105)
--- NOTE | 2021-11-03 10:51 | P.OP_ITS ---
Procedure Note - Detailed Date of Procedure 11/03/21 Pre-op Diagnosis Dry Gangrene L Toes, DM, Afib w/RVR Post-op Diagnosis Same Procedure Performed Amputation left hallux and 2nd toe, excisional debridement left diabetic foot ulcer x2, 5 x 5 cm. Surgeon Antoni Delgado MD Pediatric Occupational Therapist clinical education assistant Anesthesia General Indications 80-year-old gentleman with diabetes, peripheral neuropathy, peripheral vascular disease with necrosis of the left toes and diabetic foot ulcers. Presents for operative treatment. Findings Complete necrosis of the 2nd toe to the metatarsophalangeal joint. Necrosis of the hallux from the interphalangeal joint distally. 4 x 4 cm ulcer which extended to the muscular layer lateral forefoot, 3 x 3 cm ulcer heel which extends to the muscle layer. Description of Procedure Patient identified in the preoperative holding. Informed consent given. Operative extremity marked. Patient received intravenous antibiotics. Patient brought to the operating room where underwent general anesthetic by anesthesia team. Positioned supine on operating room table. Time-out performed confirming the patient, site of the surgery and the plan. Left foot prepped draped usual sterile surgical fashion using a Betadine prep solution. Fifteen blade knife used to create an oblique incision elliptical in configuration at the base of the hallux. Soft tissue elevated from around the proximal phalanx. Proximal phalanx and transected in the midportion the distal part of the toe removed and passed off. And the bone was debrided with rongeur. This was thoroughly irrig ated and skin closed with 0 Prolene interrupted suture. Fifteen blade knife then used to make elliptical incision at the base of the 2nd toe. This was released through the metatarsophalangeal joint and the toe was removed and passed off. Any necrotic tissue was debrided. Cartilage from the metatarsal head removed with a rongeur. This was thoroughly irrigated and then skin closed with 0 Prolene interrupted suture. Fifteen blade knife used to sharply debride the lateral forefoot and the heel ulcers. Skin, subcutaneous tissue and muscle that was necrotic or infected was sharply debrided and excised. Wounds then irrigated and packed open. Sterile dressing applied. The patient was then woken from anesthesia, extubated and taken to the recovery room in stable condition. All sponge, needle, instrument counts were correct at the end of the case. Estimated Blood Loss 2 Tourniquet Time 0 Drains No Packing Yes Pathology Yes (Left hallux and 2nd toe) Complications None Condition Stable Disposition PACU
--- NOTE | 2021-11-03 11:35 | PC.NURSE ---
Returned from OR per stretcher. Report received from Korin.
[2021-11-03 12:19] LABS: Glucose Point of Care 89 mg/dl (65-105)
--- NOTE | 2021-11-03 13:31 | PCPTNOTE ---
Attempted PT evaluation, patient doesn't have a post-op shoe at this time enable to ambulate safely. RN aware. Will follow.
--- NOTE | 2021-11-03 13:31 | PCOTNOTE ---
Pt. does not yet have post-op shoe necessary for out of bed activity. Nursing aware. Following.
[2021-11-03] MEDS: INSULIN ASPART (*BKC) 100 UNITS/ML SUB-Q (17:16)
[2021-11-03] MEDS: INSULIN GLARGINE (*BKC) 100 UNITS/ML 20 UNITS SUB-Q (17:18)
[2021-11-03] MEDS: ACETAMINOPHEN 325 MG TABLET 650 MG PO (17:22)
[2021-11-03 17:24] LABS: Glucose Point of Care 206 mg/dl (65-105)
[2021-11-03] MEDS: traMADol HCL (*CRX) 25 MG TABLET PO (21:25)
[2021-11-03 22:01] LABS: Glucose Point of Care 199 mg/dl (65-105)
[2021-11-04] VITALS (14 sets, daily range): BP systolic 96–126; BP diastolic 57–79; PULSE 76–120; RESP 14–18; TEMP 35.5–36.9; O2SAT 93–96
--- NOTE | 2021-11-04 | ECG_ITS ---
Measurements Intervals [place] Rate: 86 P: TN: 0 QRS: 102 QRSD: 146 T: 160 QT: 415 QTc: 497 Interpretive Statements ATRIAL FIBRILLATION RIGHT AXIS DEVIATION LEFT BUNDLE BRANCH BLOCK COMPARED TO ECG 10/29/2021 15:22:33 NO SIGNIFICANT CHANGES Electronically Signed On 11-04-2021 9:51:59 CDT by David Bernal D.O.
[2021-11-04] MEDS: metroNIDAZOLE 500 MG/ISO 100ML 500 MG/100 ML BAG 100 MG IVPB ×3 (05:28→21:34)
[2021-11-04] MEDS: METOPROLOL TARTRATE 25 MG TABLET PO ×2 (05:28→17:17)
[2021-11-04 05:45] LABS: Basophils Absolute Auto 0.1 K/mm3 (0.0-0.1); Basophils Percent Auto 0.6 % (0.2-1.2); Eosinophils Percent Auto 0.4 % (0-4.4); Hematocrit 40.1 % (42.0-52.0); Hemoglobin 12.5 g/dL (14.0-18.0); Immature Granulocyte Absolute 0.11 K/mm3 (0.00-0.031); Immature Granulocyte Percent A 1.1 % (0-0.5); Lymphocytes Absolute Auto 1.52 K/mm3 (0.9-3.2); Lymphocytes Percent Auto 15.7 % (18.3-44.2); Mean Corpuscular HGB Conc 31.2 g/dl (32-36); Mean Corpuscular Hemoglobin 28.5 pg (26-34); Mean Corpuscular Volume 91.3 fl (80-100); Mean Platelet Volume 11.2 fl (7.4-10.4); Monocytes Absolute Auto 0.9 K/mm3 (0.1-0.6); Monocytes Percent Auto 9.7 % (2.6-8.5); Neutrophils Percent Auto 72.5 % (45.5-73.1); Platelet Count Result 316 k/mm3 (150-375); Red Blood Count 4.39 M/mm3 (4.6-6.20); White Blood Count 9.7 K/mm3 (4.5-10.0)
[2021-11-04 05:59] LABS: Alanine Aminotransferase 13 U/L (6-50); Albumin Level 2.8 g/dL (3.5-5.1); Alkaline Phosphatase 68 U/L (38-126); Anion Gap 8 mmol/L (8-16); Aspartate Amino Transferase 18 U/L (17-59); Bilirubin,Total 0.6 mg/dL (0.2-1.3); Blood Urea Nitrogen 8 mg/dL (9-20); Calcium 8.4 mg/dL (8.4-10.2); Carbon Dioxide 29 mmol/L (22-30); Chloride 99 mmol/L (98-107); Estimated CRCL calculation 85 ml/min; Estimated Glomerular Filt Rate > 60; Glucose 69 mg/dL (65-110); Sodium 136 mmol/L (137-145)
[2021-11-04 06:10] LABS: Glucose Point of Care 69 mg/dl (65-105)
--- NOTE | 2021-11-04 08:04 | PM.PNCARD ---
Progress Note: A&P Assessment and Plan (1) Preop cardiovascular exam: Code(s): Z01.810 - Encounter for preprocedural cardiovascular examination Status: Acute Assessment and Plan: Patient is at moderate cardiac risk given known CAD that are small and not amenable to PCI, moderate systolic dysfunction, uncontrolled DM, atrial fib. May proceed to noncardiac surgery without further cardiac workup as HR is now controlled in atrial fibrillation. He will be going for toe amputations this morning. Check postop EKG. (2) Atrial fibrillation: Code(s): I48.91 - Unspecified atrial fibrillation Status: Acute Assessment and Plan: HR controlled. Stop Diltiazem drip and start lower home dose of Diltiazem ER 240 mg daily due to low normal BP. In addition, stop Lisinopril/HCTZ due to low normal BP. On Lovenox. After surgery resume Eliquis. Due to systolic dysfunction that is worse than on prior echo a year ago, will changed Diltiazem to Metoprolol. Decrease Metoprolol 25 mg Q12HR. Monitor HR. Resume Eliquis 5 mg BID when OK by surgery and then stop Lovenox. (3) CAD (coronary artery disease): Code(s): I25.10 - Atherosclerotic heart disease of [place] coronary artery without angina pectoris Status: Acute Assessment and Plan: Stable. (4) Systolic dysfunction: Code(s): I51.9 - Heart disease, unspecified Status: Acute Assessment and Plan: Moderate. 10/31/21 Echo: EF 35-40%, mild LVE, diastolic dysfunction (E/e' 25), mod LAE, mild TR/PI. Due to systolic dysfunction, he would benefit from beta constanza rather than Diltiazem. BP improved, start Losartan 12.5 mg daily and HCTZ 12.5 mg daily. (5) Hyperlipidemia: Code(s): E78.5 - Hyperlipidemia, unspecified Status: Acute Assessment and Plan: On Atorvastatin. Subjective Date/time seen: 11/04/21 08:04 Interval history: Denies chest pain or sob. No more foot pain since surgery yesterday. Exam Const: General: cooperative, healthy appearing and comfortable Resp: Auscultation: clear to auscultation bilaterally, no crackles, no rales, no rhonchi and no wheezes Cardio: Jugular venous distension: no JVD Rate: regular rate Rhythm: abnormal rhythm Peripheral pulses: dorsalis pedis pulses not present Other: Left foot wrapped, right foot with absent pulses GI: GI Palp: No abdominal tenderness and Yes Soft to palpation Neuro: General: oriented to person, oriented to place and oriented to time Extrem: Right lower extremity: no edema Left lower extremity: no edema Objective Data Vital Signs Vital Signs: Vital Signs - 24 hr 11/03/21 10:29 11/03/21 10:45 11/03/21 10:40 Temperature 97.7 F Pulse Rate 76 88 Respiratory Rate 16 16 Blood Pressure 105/63 119/82 Pulse Oximetry 97 100 Oxygen Delivery Simple Face Mask Room Air Simple Face Mask Oxygen Flow Rate 6 6 11/03/21 10:55 11/03/21 11:10 11/03/21 11:22 Temperature 97.2 F L Pulse Rate 89 88 91 Respiratory Rate 18 20 20 Blood Pressure 103/72 122/88 117/69 Pulse Oximetry 96 96 94 Oxygen Delivery Room Air Room Air Room Air Oxygen Flow Rate 11/03/21 11:45 11/03/21 12:00 11/03/21 12:30 Temperature 97.4 F L 97.6 F 97.2 F L Pulse Rate 91 82 92 Respiratory Rate 20 20 24 H Blood Pressure 121/65 120/71 118/66 Pulse Oximetry 97 95 97 Oxygen Delivery Oxygen Flow Rate 11/03/21 13:30 11/03/21 12:00 11/03/21 15:39 Temperature 97.0 F L Pulse Rate 85 94 98 Respiratory Rate 22 H Blood Pressure 117/54 L Pulse Oximetry 97 Oxygen Delivery Oxygen Flow Rate 11/03/21 15:38 11/03/21 16:00 11/03/21 17:13 Temperature 97.6 F Pulse Rate 118 H 88 Respiratory Rate 20 Blood Pressure 115/72 Pulse Oximetry 96 Oxygen Delivery Room Air Oxygen Flow Rate 11/03/21 20:10 11/03/21 21:08 11/03/21 20:00 Temperature 96.5 F L Pulse Rate 89 82 Respiratory Rate 20 Blood Pressure 115/59 L Pu
[2021-11-04 08:37] LABS: Glucose Point of Care 139 mg/dl (65-105)
[2021-11-04] MEDS: hydroCHLOROthiazide 12.5 MG CAPSULE PO (08:43)
[2021-11-04] MEDS: TAMSULOSIN HCL 0.4 MG CAPSULE PO (08:43)
[2021-11-04] MEDS: ATORVASTATIN 40 MG TABLET 80 MG PO (08:43)
[2021-11-04] MEDS: LOSARTAN POTASSIUM 12.5 MG TABLET PO (08:43)
[2021-11-04] MEDS: ASPIRIN 81 MG ENTERIC TABLET PO (08:43)
--- NOTE | 2021-11-04 09:45 | WPDANESPN ---
Anes - Prog Note Post-Op Date/Time: 11/04/21 10:29 Cardiovascular status: normal Respiratory status: normal Airway patency: baseline Mental status: baseline Post-Op hydration status: normal Vital Signs: Last Vital Signs Temp 35.5 C L 11/04/21 04:37 Pulse 101 H 11/04/21 08:00 Resp 18 11/04/21 08:46 BP 125/72 11/04/21 04:37 Pulse Ox 95 11/04/21 08:46 O2 Del Method Room Air 11/04/21 08:46 O2 Flow Rate 6 11/03/21 10:40 Pain Score (VAS): 06/24 I/O: Intake & Output 11/03/21 11/04/21 11/04/21 23:59 07:59 15:59 Intake Total 720 340 530 Output Total 1075 600 Balance -355 -260 530 Laboratory Tests 11/04/21 04:58 11/04/21 04:58 11/03/21 11/03/21 11/03/21 10:38 12:08 17:11 WBC RBC Hgb Hct MCV MCH MCHC RDW Plt Count MPV Immature Gran % (Auto) Neut % (Auto) Lymph % (Auto) [place] % (Auto) Eos % (Auto) Baso % (Auto) Lymph # (Auto) [place] # (Auto) Eos # (Auto) Baso # (Auto) Abs Immat Gran (auto) Absolute Neuts (auto) Absolute Nucleated RBC Nucleated RBC % Sodium Potassium Chloride Carbon Dioxide Anion Gap BUN Creatinine Estim Creat Clear Calc Estimated GFR Glucose POC Capillary Glucose 91 89 206 H Calcium Total Bilirubin AST ALT Alkaline Phosphatase Total Protein Albumin 11/03/21 11/04/21 11/04/21 20:16 04:58 04:58 WBC 9.7 RBC 4.39 L Hgb 12.5 L Hct 40.1 L MCV 91.3 MCH 28.5 MCHC 31.2 L RDW 14.0 Plt Count 316 MPV 11.2 H Immature Gran % (Auto) 1.1 H Neut % (Auto) 72.5 Lymph % (Auto) 15.7 L [place] % (Auto) 9.7 H Eos % (Auto) 0.4 Baso % (Auto) 0.6 Lymph # (Auto) 1.52 [place] # (Auto) 0.9 H Eos # (Auto) 0.0 Baso # (Auto) 0.1 Abs Immat Gran (auto) 0.11 H Absolute Neuts (auto) 7.0 H Absolute Nucleated RBC 0.0 Nucleated RBC % 0.0 Sodium 136 L Potassium 4.0 Chloride 99 Carbon Dioxide 29 Anion Gap 8 BUN 8 L Creatinine 0.80 Estim Creat Clear Calc 85 Estimated GFR > 60 Glucose 69 POC Capillary Glucose 199 H Calcium 8.4 Total Bilirubin 0.6 AST 18 ALT 13 Alkaline Phosphatase 68 Total Protein 7.0 Albumin 2.8 L 11/04/21 11/04/21 05:39 08:31 WBC RBC Hgb Hct MCV MCH MCHC RDW Plt Count MPV Immature Gran % (Auto) Neut % (Auto) Lymph % (Auto) [place] % (Auto) Eos % (Auto) Baso % (Auto) Lymph # (Auto) [place] # (Auto) Eos # (Auto) Baso # (Auto) Abs Immat Gran (auto) Absolute Neuts (auto) Absolute Nucleated RBC Nucleated RBC % Sodium Potassium Chloride Carbon Dioxide Anion Gap BUN Creatinine Estim Creat Clear Calc Estimated GFR Glucose POC Capillary Glucose 69 139 H Calcium Total Bilirubin AST ALT Alkaline Phosphatase Total Protein Albumin Microbiology 11/02/21 16:59 Blood Blood Culture - Preliminary 11/02/21 16:59 Blood Blood Culture - Preliminary 10/28/21 17:35 Blood Blood Culture - Final Bacteroides fragilis 10/28/21 17:35 Blood Blood Culture - Final Proteus Mirabilis Post-procedural complaints: none Patient Feedback: Patient satisfied with anesthetic care.
--- NOTE | 2021-11-04 10:29 | PM.PNORT ---
Progress Note: A&P Assessment and Plan (1) Gangrene of toe of left foot: Code(s): I96 - Gangrene, not elsewhere classified Status: Acute Assessment and Plan: POD #1: Debridement Left Foot and 1st/2nd Ray amputation Dressing changed. Continued concern for overall viability of remaining toes and ability to heal wounds due to severe peripheral vascular disease. Patient needs appointment scheduled with vascular surgery as part of discharge planning. Antibiotics per medicine team. Elevate LLE. Post Op Shoe. Pain control. Dispo: SNF when medically cleared and follow up with vascular surgery is arranged. Plan for follow up in the [facility] wound clinic in 2 weeks. (2) Peripheral vascular disease due to secondary diabetes: Code(s): E13.51 - Other specified diabetes mellitus with diabetic peripheral angiopathy without gangrene Status: Acute Assessment and Plan: Patient needs to have vascular surgery appointment made before discharge to SNF given questionable viability of the left foot and concern for worsening/inability to heal. (3) Diabetes mellitus with neuropathy: Qualifiers: Diabetes mellitus type: type 2 Diabetes mellitus skilled nursing insulin use: with termite technician use Qualified Code(s): E11.40 - Type 2 diabetes mellitus with diabetic neuropathy, unspecified; Z79.4 - oysterman (current) use of insulin Code(s): E11.40 - Type 2 diabetes mellitus with diabetic neuropathy, unspecified Status: Acute Subjective Subjective Date/Time Seen: 11/04/21 10:29 Post Op day: 1 Interval history: POD #1 Patient doing well. No concerns. Review of Systems Constitutional: Constitutional: Denies fever(s) Eyes: Eyes: Denies blurry vision ENT: Reports Normal hearing present Cardiovascular: Cardiovascular: Denies chest pain and Denies dyspnea Respiratory: Respiratory: Denies dyspnea and Denies wheezing Gastrointestinal: Gastrointestinal: Denies abdominal pain Genitourinary: Genitourinary: Denies urinary urgency Musculoskeletal: Musculoskeletal: Reports as per HPI Neurologic: Reports Normal hearing present, Denies behavioral changes, Denies confusion, Reports numbness (feet) and Denies convulsions Psychiatric: Psychiatric: Denies behavioral changes, Denies confusion and Denies hallucinations Endocrine: Endocrine: Denies heat intolerance Hematologic/Lymphatic: Hematologic/Lymphatic: Denies easy bleeding Allergic/Immunologic: Allergic/Immunologic: Denies wheezing Exam Const: General: comfortable and no acute distress Resp: Effort & Inspection: normal respiratory effort Skin: Wounds: wounds noted (see extremity exam ) Extrem: Other: Dressing removed right foot. Some sanguineous drainage. Incision well approximated at the site of the 1st/2nd ray amputation. Skin/remaining toes with questionable viability skilled nursing. Blue tinged 3rd ray. Lateral forefoot and heel wounds with 10% slough and 90% red/pink wound bed. New dressing placed. Objective Data Vital Signs Vital Signs: Vital Signs - 24 hr 11/03/21 10:45 11/03/21 10:40 11/03/21 10:55 Temperature Pulse Rate 88 89 Respiratory Rate 16 18 Blood Pressure 119/82 103/72 Pulse Oximetry 100 96 Oxygen Delivery Room Air Simple Face Mask Room Air Oxygen Flow Rate 6 11/03/21 11:10 11/03/21 11:22 11/03/21 11:45 Temperature 36.2 C L 36.3 C L Pulse Rate 88 91 91 Respiratory Rate 20 20 20 Blood Pressure 122/88 117/69 121/65 Pulse Oximetry 96 94 97 Oxygen Delivery Room Air Room Air Oxygen Flow Rate 11/03/21 12:00 11/03/21 12:30 11/03/21 13:30 Temperature 36.4 C 36.2 C L 36.1 C L Pulse Rate 82 92 85 Respiratory Rate 20 24 H 22 H Blood Pressure 120/71 118/66 117/54 L Pulse Oximetry 95 97 97 Oxygen Delivery Oxygen Flow Rate 11/03/21 12:00 11/03/21 15:39 11/03/21 15:38 Temperature Pulse Rate 94 98 Respiratory Rate Blood Pressure Pulse Oximetry Oxygen Delivery Miranda
[2021-11-04] MEDS: traMADol HCL (*CRX) 25 MG TABLET PO (10:37)
[2021-11-04 12:07] LABS: Glucose Point of Care 153 mg/dl (65-105)
[2021-11-04] MEDS: cefTRIAXone 2 GM in SODIUM CHLORIDE 0.9% IV 100 ML 200 ML IVPB (12:42)
--- NOTE | 2021-11-04 14:48 | PM.IMPN ---
Progress Note: A&P Assessment and Plan (1) Diabetes mellitus with neuropathy: Qualifiers: Diabetes mellitus type: type 2 Diabetes mellitus terminal operator insulin use: with care home use Qualified Code(s): E11.40 - Type 2 diabetes mellitus with diabetic neuropathy, unspecified; Z79.4 - jail (current) use of insulin Code(s): E11.40 - Type 2 diabetes mellitus with diabetic neuropathy, unspecified Status: Acute Assessment and Plan: Hemoglobin A1c is 8.3, uncontrolled, continue Accu-Cheks and sliding scale insulin, will attempt to get better control to improve wound healing 10/29: Will increase long-acting insulin from 18 units to 20 units at night and 6 units to 8 units in the morning, total increase of 4 units daily 10/30: Some hypoglycemia noted in the director dermatology, will change insulin to 10 units in the AM, back down to 18 units QHS 10/31: Still with director dermatology hypoglycemia, 47 this am, despite lowered dose of insulin. Will reduce insulin again and try QHS only dosing. Will give 20 units tonight, hold AM dose. Stop oral glipizide and actos 11/01: Sugars look much better, no hypoglycemic episodes, continue current management 11/02: Continue current management 11/03: In the OR today 11/04: BG stable (2) Peripheral vascular disease due to secondary diabetes: Code(s): E13.51 - Other specified diabetes mellitus with diabetic peripheral angiopathy without gangrene Status: Acute Assessment and Plan: Bilateral lower extremity diabetic foot ulcers, continue IV antibiotics--vancomycin, cefepime, Flagyl, appreciate surgery consultation ABIs showed normal on the left, arterial occlusive disease on the right. MRI showed necrosis of left 2nd tow and hallux without ostemyelitis or abscess. Ortho plan is for amputation of the left 2nd toe and tip of the hallux with debridement of gangrenous eschars on left foot once medically optimized Blood cultures show one bottle positive for Proteus, sensitive to cefepime, blood culture two is preliminarily positive for Bacteroides fragilis, sensitivity pending, but likely sensitive to flagyl, will repeat blood cultures tomorrow, will discontinue vanc at this point Antibiotics started on admission October 28, 2021, repeat blood cultures pending, will likely need long-term antibiotics due to bacteremia 11/04: f/u repeat blood cultures, de-escalate to rocephin + flagyl, will likely be able to go to SNF with cefdinir + flagyl po tomorrow if blood cx come back negative and sensitivities come back (3) Gangrene: Code(s): I96 - Gangrene, not elsewhere classified Status: Acute Assessment and Plan: See above (4) CAD (coronary artery disease): Code(s): I25.10 - Atherosclerotic heart disease of [place] coronary artery without angina pectoris Status: Acute Assessment and Plan: Stable, continue aspirin, isosorbide mononitrate 10 mg daily (5) Atrial fibrillation with RVR: Code(s): I48.91 - Unspecified atrial fibrillation Status: Acute Assessment and Plan: Appreciate cardiology consultation, was previously on a diltiazem drip, this has been discontinued in favor of oral diltiazem, however, due to known systolic dysfunction (echo from 10/31/2021 showed an EF of 35-40% with diastolic dysfunction noted) this was switched to metoprolol (6) Chronic indwelling Ford catheter: Code(s): Z97.8 - Presence of other specified devices Status: Acute Assessment and Plan: Secondary to BPH (7) Old lacunar stroke without late effect: Code(s): Z86.73 - Personal history of transient ischemic attack (TIA), and cerebral infarction without residual deficits Status: Acute Assessment and Plan: Cont aspirin, statin (8) Benign prostatic hyperplasia without lower urinary tract symptoms: Onset Date: 09/16/18 Code(s): N40.0 - Benign prostatic hyperplasia without lower urinary tract symptoms Status: Acute
[2021-11-04 17:14] LABS: Glucose Point of Care 168 mg/dl (65-105)
[2021-11-04] MEDS: INSULIN GLARGINE (*BKC) 100 UNITS/ML 20 UNITS SUB-Q (17:19)
[2021-11-04] MEDS: cefTRIAXone 2 GM in SODIUM CHLORIDE 0.9% IV 100 ML IVPB (20:33)
[2021-11-04 23:36] LABS: Glucose Point of Care 200 mg/dl (65-105)
[2021-11-05] VITALS (9 sets, daily range): BP systolic 102–127; BP diastolic 58–75; PULSE 70–100; RESP 20; TEMP 35.8–36.5; O2SAT 93–97
[2021-11-05] MEDS: ACETAMINOPHEN 325 MG TABLET 650 MG PO ×2 (05:17→11:48)
[2021-11-05] MEDS: metroNIDAZOLE 500 MG/ISO 100ML 500 MG/100 ML BAG 100 MG IVPB ×2 (05:17→13:37)
[2021-11-05] MEDS: METOPROLOL TARTRATE 25 MG TABLET PO ×2 (05:18→17:48)
[2021-11-05 05:34] LABS: Basophils Absolute Auto 0.1 K/mm3 (0.0-0.1); Basophils Percent Auto 0.7 % (0.2-1.2); Eosinophils Percent Auto 0.2 % (0-4.4); Hemoglobin 12.9 g/dL (14.0-18.0); Lymphocytes Percent Auto 16.4 % (18.3-44.2); Mean Corpuscular HGB Conc 31.5 g/dl (32-36); Mean Corpuscular Hemoglobin 28.3 pg (26-34); Mean Corpuscular Volume 89.9 fl (80-100); Mean Platelet Volume 10.9 fl (7.4-10.4); Monocytes Absolute Auto 0.9 K/mm3 (0.1-0.6); Monocytes Percent Auto 8.8 % (2.6-8.5); Neutrophils Absolute Auto 7.1 K/mm3 (1.3-6.7); Neutrophils Percent Auto 72.9 % (45.5-73.1); Platelet Count Result 320 k/mm3 (150-375); Red Blood Count 4.56 M/mm3 (4.6-6.20); Red Cell Distribution Width 14.2 % (11.5-14.5); White Blood Count 9.8 K/mm3 (4.5-10.0)
[2021-11-05 05:46] LABS: Alanine Aminotransferase 13 U/L (6-50); Albumin Level 2.8 g/dL (3.5-5.1); Alkaline Phosphatase 66 U/L (38-126); Anion Gap 8 mmol/L (8-16); Aspartate Amino Transferase 17 U/L (17-59); Bilirubin,Total 0.5 mg/dL (0.2-1.3); Blood Urea Nitrogen 7 mg/dL (9-20); Calcium 8.5 mg/dL (8.4-10.2); Carbon Dioxide 30 mmol/L (22-30); Chloride 99 mmol/L (98-107); Estimated CRCL calculation 85 ml/min; Estimated Glomerular Filt Rate > 60; Glucose 64 mg/dL (65-110); Potassium 4.2 mmol/L (3.4-5.0); Sodium 137 mmol/L (137-145)
[2021-11-05 07:30] LABS: Glucose Point of Care 65 mg/dl (65-105)
--- NOTE | 2021-11-05 08:05 | PM.PNCARD ---
Progress Note: A&P Assessment and Plan (1) Preop cardiovascular exam: Code(s): Z01.810 - Encounter for preprocedural cardiovascular examination Status: Acute Assessment and Plan: Patient is at moderate cardiac risk given known CAD that are small and not amenable to PCI, moderate systolic dysfunction, uncontrolled DM, atrial fib. May proceed to noncardiac surgery without further cardiac workup as HR is now controlled in atrial fibrillation. Check postop EKG is unremarkable. (2) Atrial fibrillation: Code(s): I48.91 - Unspecified atrial fibrillation Status: Acute Assessment and Plan: HR controlled. Stop Diltiazem drip and start lower home dose of Diltiazem ER 240 mg daily due to low normal BP. In addition, stop Lisinopril/HCTZ due to low normal BP. On Lovenox. After surgery resume Eliquis. Due to systolic dysfunction that is worse than on prior echo a year ago, will changed Diltiazem to Metoprolol. On Metoprolol 25 mg Q12HR. Resume Eliquis 5 mg BID when OK by surgery and then stop Lovenox. (3) CAD (coronary artery disease): Code(s): I25.10 - Atherosclerotic heart disease of [place] coronary artery without angina pectoris Status: Acute Assessment and Plan: Stable. (4) Systolic dysfunction: Code(s): I51.9 - Heart disease, unspecified Status: Acute Assessment and Plan: Moderate. 10/31/21 Echo: EF 35-40%, mild LVE, diastolic dysfunction (E/e' 25), mod LAE, mild TR/PI. Due to systolic dysfunction, he would benefit from beta constanza rather than Diltiazem. On Metoprolol 25 mg BID, Losartan 12.5 mg daily and HCTZ 12.5 mg daily. (5) Hyperlipidemia: Code(s): E78.5 - Hyperlipidemia, unspecified Status: Acute Assessment and Plan: On Atorvastatin. Subjective Date/time seen: 11/05/21 08:05 Interval history: Denies any chest pain, sob, or foot pain. Exam Const: General: cooperative, healthy appearing and comfortable Resp: Auscultation: clear to auscultation bilaterally, no crackles, no rales, no rhonchi and no wheezes Cardio: Jugular venous distension: no JVD Rate: regular rate Rhythm: abnormal rhythm Peripheral pulses: dorsalis pedis pulses not present Other: Left foot wrapped, right foot with absent pulses GI: GI Palp: No abdominal tenderness and Yes Soft to palpation Neuro: General: oriented to person, oriented to place and oriented to time Extrem: Right lower extremity: no edema Left lower extremity: no edema Objective Data Vital Signs Vital Signs: Vital Signs - 24 hr 11/04/21 08:46 11/04/21 10:32 11/04/21 12:04 Temperature 97.7 F Pulse Rate 76 107 H Respiratory Rate 18 16 Blood Pressure 126/79 Pulse Oximetry 95 95 Oxygen Delivery Room Air 11/04/21 14:15 11/04/21 17:17 11/04/21 16:00 Temperature 98.5 F Pulse Rate 84 120 H 94 Respiratory Rate 14 Blood Pressure 106/59 L Pulse Oximetry 93 Oxygen Delivery 11/04/21 19:49 11/04/21 19:49 11/04/21 20:00 Temperature 96.3 F L Pulse Rate 80 120 H 85 Respiratory Rate 18 14 Blood Pressure 96/68 L Pulse Oximetry 94 93 Oxygen Delivery Room Air 11/05/21 00:00 11/05/21 04:02 11/05/21 04:00 Temperature 96.5 F L Pulse Rate 93 89 87 Respiratory Rate 20 Blood Pressure 127/75 Pulse Oximetry 93 Oxygen Delivery 11/05/21 05:18 Temperature Pulse Rate 80 Respiratory Rate Blood Pressure Pulse Oximetry Oxygen Delivery Intake/Output Intake/Output: Intake & Output 11/02/21 11/03/21 11/04/21 11/05/21 23:59 23:59 23:59 23:59 Intake Total 1280 1210 1710 290 Output Total 6297 1625 1525 1200 Balance -195 -415 185 -910 Meds/Results Medications: Active Medications Generic Name Dose Route Start Last Admin Trade Name Freq PRN Reason Stop Dose Admin Acetaminophen 650 mg 11/03/21 11:28 11/05/21 05:17 Acetaminophen 325 Mg Tablet PO 650 mg Q6H PRN Administration Pain or Fever
[2021-11-05 08:07] LABS: Glucose Point of Care 77 mg/dl (65-105)
[2021-11-05] MEDS: TAMSULOSIN HCL 0.4 MG CAPSULE PO (09:02)
[2021-11-05] MEDS: hydroCHLOROthiazide 12.5 MG CAPSULE PO (09:03)
[2021-11-05] MEDS: ATORVASTATIN 40 MG TABLET 80 MG PO (09:03)
[2021-11-05] MEDS: cefTRIAXone 2 GM in SODIUM CHLORIDE 0.9% IV 100 ML 200 ML IVPB (09:03)
[2021-11-05] MEDS: LOSARTAN POTASSIUM 12.5 MG TABLET PO (09:03)
[2021-11-05] MEDS: APIXABAN 5 MG TABLET PO ×2 (09:03→20:13)
[2021-11-05] MEDS: ASPIRIN 81 MG ENTERIC TABLET PO (09:03)
[2021-11-05] MEDS: traMADol HCL (*CRX) 25 MG TABLET PO (10:01)
--- NOTE | 2021-11-05 10:22 | PCNWS ---
Weekly nutritional screen. Patient is tolerating current diet with adequate intake. No weight loss reported. No nutritional needs at this time.
[2021-11-05 12:02] LABS: Glucose Point of Care 123 mg/dl (65-105)
[2021-11-05 12:09] LABS: EDCOVIDSCREEN Negative (Negative)
--- NOTE | 2021-11-05 14:04 | PC.NURSE ---
On 11/05/21, the student, [Edd Traoer], provided care and completed [facility] documentation on this patient. I have reviewed the student's documentation and agree with the findings.
[2021-11-05 17:02] LABS: Glucose Point of Care 164 mg/dl (65-105)
--- NOTE | 2021-11-05 17:15 | PM.DS ---
DS: Admitting Diagnosis Discharge Date 11/05/21 Admitting Diagnosis Wet Gangrene DS: Discharge Diagnosis Discharge Diagnosis (1) Diabetes mellitus with neuropathy: Qualifiers: Diabetes mellitus jail insulin use: with jail use Diabetes mellitus type: type 2 Qualified Code(s): E11.40 - Type 2 diabetes mellitus with diabetic neuropathy, unspecified; Z79.4 - long term care phlebotomist (current) use of insulin Code(s): E11.40 - Type 2 diabetes mellitus with diabetic neuropathy, unspecified Status: Acute Assessment and Plan: Hemoglobin A1c is 8.3, uncontrolled, continue Accu-Cheks and sliding scale insulin, will attempt to get better control to improve wound healing 10/29: Will increase long-acting insulin from 18 units to 20 units at night and 6 units to 8 units in the morning, total increase of 4 units daily 10/30: Some hypoglycemia noted in the zyglo technician, will change insulin to 10 units in the AM, back down to 18 units QHS 10/31: Still with zyglo technician hypoglycemia, 47 this am, despite lowered dose of insulin. Will reduce insulin again and try QHS only dosing. Will give 20 units tonight, hold AM dose. Stop oral glipizide and actos 11/01: Sugars look much better, no hypoglycemic episodes, continue current management 11/02: Continue current management 11/03: In the OR today 11/04: BG stable 11/05- BG 69-200. Continuing glargine 20 units qpm. Discontinuing pioglitazone due to heart failure with EF worsen compared to a year ago. Also holding metformin until patient follows up with primary care physician. (2) Peripheral vascular disease due to secondary diabetes: Code(s): E13.51 - Other specified diabetes mellitus with diabetic peripheral angiopathy without gangrene Status: Acute Assessment and Plan: Bilateral lower extremity diabetic foot ulcers, continue IV antibiotics--vancomycin, cefepime, Flagyl, appreciate surgery consultation ABIs showed normal on the left, arterial occlusive disease on the right. MRI showed necrosis of left 2nd tow and hallux without ostemyelitis or abscess. Ortho plan is for amputation of the left 2nd toe and tip of the hallux with debridement of gangrenous eschars on left foot once medically optimized Blood cultures show one bottle positive for Proteus, sensitive to cefepime, blood culture two is preliminarily positive for Bacteroides fragilis, sensitivity pending, but likely sensitive to flagyl, will repeat blood cultures tomorrow, will discontinue vanc at this point Antibiotics started on admission October 28, 2021, repeat blood cultures pending, will likely need long-term antibiotics due to bacteremia 11/04: f/u repeat blood cultures, de-escalate to rocephin + flagyl, will likely be able to go to SNF with cefdinir + flagyl po tomorrow if blood cx come back negative and sensitivities come back 11/05: F/u repeat blood cultures from 11/02 with now growth. Will discharge to SNF with cefdinir and metronidazole to be completed on 11/02/21 for a total of 14 days treatment. Patient PCP called by care coordination for referral for Vascular Surgery follow up. (3) Gangrene: Code(s): I96 - Gangrene, not elsewhere classified Status: Acute Assessment and Plan: Meets criteria for wet gangrene with initial leukocytosis. Patient initially treated with cefepime, vancomycin and metronidazole. Continued cefdinir and metronidazole through 11/12/21. (4) CAD (coronary artery disease): Code(s): I25.10 - Atherosclerotic heart disease of [place] coronary artery without angina pectoris Status: Acute Assessment and Plan: Stable, continue aspirin and statin. (5) Atrial fibrillation with RVR: Code(s): I48.91 - Unspecified atrial fibrillation Status: Acute Assessment and Plan: Appreciate cardiology consultation, was previously on a diltiazem drip, this has been discontinued in favor of oral diltiazem, however, due to known systolic dysfunction (ech
[2021-11-05] MEDS: INSULIN GLARGINE (*BKC) 100 UNITS/ML 20 UNITS SUB-Q (17:50)
[2021-11-05] MEDS: cefTRIAXone 2 GM in SODIUM CHLORIDE 0.9% IV 100 ML IVPB (20:14)
[2021-11-05 20:40] LABS: Glucose Point of Care 235 mg/dl (65-105)
== END 2021-11-05 22:40 | DRG 617 ==
LOC: ANHED 19:24 → ANHIMU 20:08 → ANH2MED 10-31 15:20
PROVIDERS: Nurse Practitioner; Orthopaedic Surgery; Physician Assistant; Student in an Organized Health Care Education/Training Program; Admitting Provider Internal Medicine; Emergency Provider Emergency Medicine; PCP Internal Medicine; Visit Provider Family Medicine
PROC: 0Y6Q0Z3 Detachment at Left 1st Toe, Low, Open Approach (ICD-10-PCS; principal; 2021-11-03 09:30)
DX: E11.69 Type 2 diabetes mellitus with other specified complication (principal); E11.52 Type 2 diabetes mellitus with diabetic peripheral angiopathy with gangrene; M86.8X7 Other osteomyelitis, ankle and foot; N39.0 Urinary tract infection, site not specified; E11.42 Type 2 diabetes mellitus with diabetic polyneuropathy; E11.621 Type 2 diabetes mellitus with foot ulcer; L97.523 Non-pressure chronic ulcer of other part of left foot with necrosis of muscle; L97.519 Non-pressure chronic ulcer of other part of right foot with unspecified severity; E11.65 Type 2 diabetes mellitus with hyperglycemia; I11.9 Hypertensive heart disease without heart failure; I48.91 Unspecified atrial fibrillation; N40.0 Benign prostatic hyperplasia without lower urinary tract symptoms; I25.10 Atherosclerotic heart disease of native coronary artery without angina pectoris; E78.5 Hyperlipidemia, unspecified; F10.21 Alcohol dependence, in remission; Z20.822 Contact with and (suspected) exposure to COVID-19; Z79.4 Long term (current) use of insulin; Z79.82 Long term (current) use of aspirin; Z79.84 Long term (current) use of oral hypoglycemic drugs; Z86.73 Personal history of transient ischemic attack (TIA), and cerebral infarction without residual deficits; Z97.8 Presence of other specified devices
CPT/HCPCS: 36415; 71045; 73630; 73718; 80053; 80202; 81001; 82010; 82565; 82948; 83036; 83605; 83735; 84100; 84484; 85025; 85610; 85652; 85730; 86140; 87040; 87077; 87186; 87426; 88305; 88311; 93005; 93306; 93922; 96361; 96365; 96366; 96367; 96368; 96372; 96375; 97110; 97116; 97161; 97166; 97530; 97535; 99285; A9270; C9803; G0378; J0692; J0696; J1650; J1815; J2370; J2704; J3010; J3370; J7030; J7120

== ENCOUNTER 2021-11-22 16:29 | Emergency (ER) | payer OTHER, SELFPAY ==
[2021-11-22] VITALS (7 sets, daily range): BP systolic 108–127; BP diastolic 62–82; PULSE 80–107; RESP 16–22; TEMP 36.6; O2SAT 95–100
--- NOTE | 2021-11-22 17:07 | ED.MALEGU ---
HPI - Male Genitourinary General Chief complaint: Urogenital-Male Stated complaint: bleeding from penis after pulling out catheter Time Seen by Provider: 11/22/21 16:30 Source: patient, family and RN notes reviewed Mode of arrival: EMS Limitations: no limitations History of Present Illness HPI Narrative: This is a 80 year old male with history of chronic indwelling morrissey catheter who presents for evaluation after morrissey catheter pulled out. Nursing staff reports patient pulled out catheter last night. He states he has been able to urinate some but there was blood in urine. He is unsure how long he has had catheter in place. He denies abdominal pain, penile pain, nausea, vomiting or fever. He takes eliquis for atrial fibrillation. Related Data Home Medications Medication Instructions Recorded Confirmed tamsulosin 0.4 mg capsule 0.4 mg PO DAILY 01/25/19 10/28/21 aspirin 81 mg tablet,delayed 81 mg PO DAILY 10/28/21 10/28/21 release Allergies Allergy/AdvReac Type Severity Reaction Status Date / Time No Known Allergies Allergy Verified 11/22/21 17:02 Review of Systems Review of Systems: All systems reviewed & are unremarkable except as noted in HPI and below Constitutional: Constitutional: Denies chills and Denies fatigue Gastrointestinal: Gastrointestinal: Denies abdominal pain, Denies nausea and Denies vomiting Genitourinary: Genitourinary: Reports hematuria, Denies oliguria and Denies dysuria Musculoskeletal: Musculoskeletal: Denies back pain PMFSH Past Medical History Medical History Abnormal nuclear stress test Alcohol abuse, uncomplicated Atrial fibrillation Benign essential HTN BPH (benign prostatic hyperplasia) Brain TIA CAD (coronary artery disease) CHF (congestive heart failure) Diabetes mellitus with neuropathy Encephalomalacia Hematuria Hyperlipidemia Obesity (BMI 30-39.9) Old lacunar stroke without late effect Other and unspecified hyperlipidemia Peripheral vascular disease due to secondary diabetes Uncontrolled type 2 diabetes mellitus, with long-term current use of insulin Surgical History Surgical History History of cardiac catheterization History of colonoscopy Hx of transurethral resection of prostate Family History Family History Sibling Family history of malignant neoplasm Patient's brother is in good health Patient's sister is Father Family history of malignant neoplasm Patient's father is Mother Family history of malignant neoplasm Patient's mother is Social History Social History Social History: The patient is a and he has 3 children. He states that his children to help him out at times. The patient now lives home alone. He has a history of alcoholism but states he no longer drinks. Patient is retired from the local [employer]. Patient is a former smoker. He does not use any marijuana or illicit drugs. His son Eamon is the durable power bankruptcy attorney for healthcare. Code status full code Smoking status: Former smoker Second hand tobacco smoke exposure: No Smoking end date: 02/15/94 Alcohol intake: former Alcohol use details: 2012 Substance use: former Substance use type: does not use Gender identity (if verbalized by the patient): Male Spiritual care concerns: No Exam Const: General: no acute distress Nutritional Appearance: well nourished HENMT: Head: normal to inspection Eyes: EOM: EOMs intact bilaterally Chest: Chest palpation & inspection: normal inspection of the chest Resp: Effort & Inspection: normal respiratory effort Auscultation: clear to auscultation bilaterally Cardio: Rate: regular rate Rhythm: regular rhythm Heart so
[2021-11-22 18:37] LABS: Add Urine Microscopic? YES; Appearance Urine Cloudy (Clear); Bacteria Urine Trace /hpf; Bilirubin Urine Negative (Negative); Blood Urine 3+ (Negative); Color Urine Yellow (Yellow); Glucose Urine UA Negative (Negative); Ketones Urine Negative (Negative); Leukocyte Esterase Ur Trace LEU/UL (Negative); Mucus Urine Few /lpf; Nitrate Urine Negative (Negative); Protein Urine 1+ mg/dL (Negative); RBC Urine >75 /hpf (0-2); Specific Grav Ur 1.011 (1.001-1.035); Urobilinogen Urine Negative mg/dL (<2.0)
[2021-11-22 19:40] LABS: Basophils Percent Auto 0.5 % (0.2-1.2); Eosinophils Percent Auto 0.3 % (0-4.4); Hematocrit 37.2 % (42.0-52.0); Hemoglobin 11.8 g/dL (14.0-18.0); Immature Granulocyte Absolute 0.03 K/mm3 (0.00-0.031); Immature Granulocyte Percent A 0.4 % (0-0.5); Lymphocytes Absolute Auto 1.15 K/mm3 (0.9-3.2); Lymphocytes Percent Auto 15.3 % (18.3-44.2); Mean Corpuscular HGB Conc 31.7 g/dl (32-36); Mean Corpuscular Hemoglobin 28.7 pg (26-34); Mean Corpuscular Volume 90.5 fl (80-100); Mean Platelet Volume 10.3 fl (7.4-10.4); Monocytes Absolute Auto 0.6 K/mm3 (0.1-0.6); Monocytes Percent Auto 8.1 % (2.6-8.5); Neutrophils Absolute Auto 5.7 K/mm3 (1.3-6.7); Neutrophils Percent Auto 75.4 % (45.5-73.1); Platelet Count Result 263 k/mm3 (150-375); Red Blood Count 4.11 M/mm3 (4.6-6.20); Red Cell Distribution Width 14.9 % (11.5-14.5); White Blood Count 7.5 K/mm3 (4.5-10.0)
[2021-11-22 19:50] LABS: Alanine Aminotransferase 19 U/L (6-50); Albumin Level 2.9 g/dL (3.5-5.1); Alkaline Phosphatase 71 U/L (38-126); Anion Gap 6 mmol/L (8-16); Aspartate Amino Transferase 20 U/L (17-59); Bilirubin,Total 0.9 mg/dL (0.2-1.3); Blood Urea Nitrogen 10 mg/dL (9-20); Calcium 8.1 mg/dL (8.4-10.2); Carbon Dioxide 26 mmol/L (22-30); Chloride 101 mmol/L (98-107); Estimated CRCL calculation 85 ml/min; Estimated Glomerular Filt Rate > 60; Glucose 117 mg/dL (65-110); Potassium 3.6 mmol/L (3.4-5.0); Sodium 133 mmol/L (137-145)
--- NOTE | 2021-11-22 19:56 | PC.NURSE ---
This RN called [facility] and spoke with LESA Shi, who reports that pt was scheduled to be d/c from their facility today prior to removing morrissey cath. Per Yuridia, pt's family needs to come picking table worker pt's belongings and medications, and follow up with his primary care provider. Pt also has home health already se up.
== END 2021-11-22 20:36 ==
PROVIDERS: Emergency Provider General Practice; PCP Internal Medicine
DX: N40.1 Benign prostatic hyperplasia with lower urinary tract symptoms (principal); R33.8 Other retention of urine; I48.91 Unspecified atrial fibrillation; I25.10 Atherosclerotic heart disease of native coronary artery without angina pectoris; I11.0 Hypertensive heart disease with heart failure; I50.9 Heart failure, unspecified; E11.40 Type 2 diabetes mellitus with diabetic neuropathy, unspecified; E11.51 Type 2 diabetes mellitus with diabetic peripheral angiopathy without gangrene; I73.9 Peripheral vascular disease, unspecified; E78.5 Hyperlipidemia, unspecified; Z90.79 Acquired absence of other genital organ(s); Z86.73 Personal history of transient ischemic attack (TIA), and cerebral infarction without residual deficits; Z87.891 Personal history of nicotine dependence; Z79.82 Long term (current) use of aspirin; Z79.01 Long term (current) use of anticoagulants; Z79.4 Long term (current) use of insulin; Z79.84 Long term (current) use of oral hypoglycemic drugs
CPT/HCPCS: 36415; 51702; 80053; 81001; 85025; 87086; 99283

== ENCOUNTER 2021-12-02 08:19 | Outpatient (RCR) | payer OTHER, SELFPAY ==
--- NOTE | 2021-12-02 09:00 | W.PM.PROC2 ---
Procedure Note - Detailed Date of Procedure 12/02/21 Pre-op Diagnosis E11.40, I96 Gangrene, not elsewhere classified Post-op Diagnosis Same Procedure Performed Excisional debridement left foot 6 x 4.5 cm. Skin, subcutaneous tissue and muscle. Surgeon Antoni Delgado MD Anesthesia None Indications 81-year-old status post left foot toe amputations. Presents with wound dehiscence and necrotic breakdown of the surgical site. Indicated for debridement. Description of Procedure Informed consent given by the patient. Correct site identified and marked. Alcohol prep solution used. Fifteen blade knife then used to debride skin which was necrotic, subcutaneous tissue and muscle which was nonviable of the left distal foot. Wound measures 6 x 4.5 cm. Minimal bleeding encountered. Sterile dressing applied. Drains No Packing Yes Pathology None sent Complications None Condition Stable Disposition Other ( Return home with family)
--- NOTE | 2021-12-02 09:02 | PM.PNORT ---
Progress Note: A&P Assessment and Plan (1) Gangrene: Code(s): I96 - Gangrene, not elsewhere classified Status: Acute Assessment and Plan: 4 weeks status post left hallux amputation and debridement. Wound dehiscence noted today. Sutures removed. Indicated for debridement of the necrotic tissue. Performed today without difficulty. Awaiting home health assistance. Silver gel to the wounds with dry gauze covering to be changed daily. Patient may wash foot dry. Continue with protected weight-bearing with fracture boot. Follow-up in 2 weeks for reassessment. 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 Recommend vascular evaluation. Subjective Subjective Date/Time Seen: 12/02/21 09:02 Principal diagnosis: left foot gangrene Interval history: 4 weeks status post left hallux amputation with debridement. [facility] He has returned home over the past week. Family doing dressing changes with Xeroform. Awaiting home health. Exam Const: General: cooperative and no acute distress Orientation/consciousness: patient oriented x3 and No confusion HENMT: Head: normal to inspection, normocephalic and atraumatic Eyes: Conjunctivae: conjunctivae normal Sclera: sclerae normal Neck: Neck: supple and nontender Resp: Effort & Inspection: normal respiratory effort and no audible wheezes Neuro: General: oriented to person, oriented to place, oriented to time and No confusion Extrem: Right upper extremity: normal to inspection Left upper extremity: normal to inspection Right lower extremity: ankle Details: normal to inspection, abnormal ROM Details: with range as follows (Ankle dorsiflexion -10 degrees, Plantar flexion 40 degrees, inversion 15 degrees, [id number] degress) and other (Good stability all directions); no tenderness, no swelling and no ecchymosis and foot Details: abnormal to inspection Details: other ( clawtoe deformity), abnormal ROM of toe (Hallux MTP dorsieflexion 40, planterflexion 20), vascular exam Details: dorsalis pedis pulse absent, posterior tibial pulse absent and capillary refill abnormal, tendon exam Details: active flexion abnormal and active extension abnormal and motor-sensory exam (Absent sensation light touch to the above ankle level.) Details: two point discrimination abnormal Location: in all toes and light-touch abnormal Location: in all toes Left lower extremity: ankle Details: normal to inspection and abnormal ROM Details: with range as follows (Ankle dorsiflexion -10, planter flexion 40, inversion 15, eversion 15); no tenderness and no swelling and foot Details: abnormal to inspection ( completely necrotic 2nd toe. Necrotic hallux to the IP joint. Necrotic skin plantar 5th metatarsal head. No drainage.), vascular exam Details: dorsalis pedis pulse absent, posterior tivial pulse absent and capillary refill abnormal, tendon exam active flexion normal of the great toe and active extension normal of the great toe, motor-sensory exam ( Absent sensation light touch to the above ankle level.) two point discrimination abnormal in all toes and light-touch abnormal in all toes and other ( Wound dehiscence with necrosis the hallux amputation surgical site. Wound measures 6 x 4.5 cm with 1.4 cm depth. 90% slough. No drainage. Lateral m
[2021-12-02 09:46] VITALS: BMI 28.4
== END 2022-02-17 07:28 | disposition home or self-care (01) ==
LOC: ANHWOC 08:19
PROVIDERS: PCP Internal Medicine; Visit Provider Orthopaedic Surgery
DX: E11.40 Type 2 diabetes mellitus with diabetic neuropathy, unspecified (principal); I96 Gangrene, not elsewhere classified; Z79.4 Long term (current) use of insulin
CPT/HCPCS: 11042

== ENCOUNTER 2021-12-15 14:14 | Inpatient (IN) | payer OTHER, SELFPAY ==
[2021-12-15] VITALS (18 sets, daily range): BP systolic 108–158; BP diastolic 76–115; PULSE 94–120; RESP 16–24; TEMP 35.6–36.3; O2SAT 96–100; BMI 28.2
--- NOTE | ~2021-12-15 | MR_ITS ---
EXAMINATION: MR foot LT wo con DATE: 12/16/2021 09:46 INDICATION: Suspected osteomyelitis TECHNIQUE: Magnetic resonance imaging (MRI) of the left fore/mid foot was performed without intraveno us contrast. Sequences included axial, sagittal and coronal T1-weighted FSE, sagittal fluid sensitive FSE STIR and axial and coronal T2-weighted FS FSE. COMPARISON: MRI dated 10/29/2021 and radiographs dated 12/15/2021 FINDINGS: Since the prior MRI there has been amputation of the great toe at the level of the proximal metaphyse al region of the proximal phalanx and of the second toe at the level of the metatarsophalangeal joint . There is a large open soft tissue defect at the great toe amputation which exposes the osteotomy dyan in of the remaining base of the proximal phalanx. There is decreased T1 and increased T2 signal invol ving the medial aspect of the remaining bone consistent with osteomyelitis. A couple small regions of increased T2 signal and minimally decreased T1 signal at the medial and plantar aspects of the head of the first metatarsal and increased T2 and decreased T1 signal at the medial sesamoid and small fir st metatarsophalangeal joint effusion consistent with septic arthritis and additional osteomyelitis. Increased T2 signal and loss of T1 marrow fat signal along the distal margin of the head of the secon d metatarsal with osteolysis and loss of the distal cortical margin evident on the prior radiographs consistent with additional osteomyelitis. Marrow edema at the immediately adjacent medial side of the head of the third metatarsal and medial base of the third proximal phalanx with indistinct cortices on the radiographs also consistent with osteomyelitis. Similar marrow signal changes with increased T2 and decreased T1 signal at the lateral base of the fi fth proximal phalanx and lateral head of the fifth metatarsal adjacent to a deep soft tissue ulcerati on and with associated subtle cortical erosions on prior radiographs consistent with osteomyelitis. No fractures. Mild polyarticular osteoarthritis throughout the mid and forefoot. Diffuse subcutaneous edema in the forefoot. No abscess. There is mild fatty atrophy and increased fluid signal of the int rinsic musculature of the foot consistent with likely acute on chronic innervation changes related to diabetic neuropathy. Chronic diabetic neuropathy. IMPRESSION: 1. Status post amputation of the first and second toes. 2. Osteomyelitis involving the remaining remaining small portion of the base of the first proximal ph alanx, head of the first metatarsal and medial first metatarsal sesamoid. 3. Osteomyelitis involving the head of the second metatarsal and adjacent medial side of both the bas e of the third proximal phalanx and head of the third metatarsal. 4. Osteomyelitis involving the lateral base of the fifth proximal phalanx and lateral head of the fif th metatarsal. Reviewed, dictated and finalized at location B. IMPRESSION: 1. Status post amputation of the first and second toes. 2. Osteomyelitis involving the remaining remaining small portion of the base of the first proximal phalanx, head of the first metatarsal and medial first meta tarsal sesamoid. 3. Osteomyelitis involving the head of the second metatarsal and adjacent media l side of both the base of the third proximal phalanx and head of the third met atarsal. 4. Osteomyelitis involving the lateral base of the fifth proximal phalanx and l ateral head of the fifth metatarsal.
--- NOTE | ~2021-12-15 | XR_ITS ---
XR foot LT min 3V DATE: 12/15/2021 14:46 INDICATION: Wound following partial amputation of left foot TECHNIQUE: 4 views COMPARISON: 10/28/2021 left foot 10/29/2021 ultrasound arterial ankle/brachial index 10/29/2021 MR left foot FINDINGS: There is amputation of the second toe including all 3 phalanges. There is amputation of the distal phalanx of the great toe and all but the base and a portion of the metaphysis of the proximal phalanx of the left great toe. There is subcutaneous emphysema of the stum p at the first and second digits, which may be postoperative. Infection is not excluded. There is cortical bone destruction of the head of the second metatarsal bone, which may be postoperat traci change or secondary to osteomyelitis. There is plantar and posterior calcaneal enthesopathy. Metatarsal artery calcification is noted in addition to anterior and posterior tibial artery calcific ation, suggesting diabetes. IMPRESSION: Surgical amputation of the second toe and most of the first toe except for the base and m idportion of the metaphysis of the proximal phalanx There is subcutaneous emphysema at the amputation sites, which may be postoperative versus infection There is some bone destruction of the cortex of the second metatarsal head which may be postoperative or secondary to osteomyelitis Arterial calcifications including metatarsal artery calcification suggesting diabetes Plantar and posterior calcaneal enthesopathy Reviewed, dictated and finalized at location A. IMPRESSION: Surgical amputation of the second toe and most of the first toe exc ept for the base and midportion of the metaphysis of the proximal phalanx There is subcutaneous emphysema at the amputation sites, which may be postopera tive versus infection There is some bone destruction of the cortex of the second metatarsal head whic h may be postoperative or secondary to osteomyelitis Arterial calcifications including metatarsal artery calcification suggesting di abetes Plantar and posterior calcaneal enthesopathy
--- NOTE | ~2021-12-15 | US_ITS ---
EXAMINATION: US arterial ankle brachial ind DATE: 12/16/2021 09:56 INDICATION: Peripheral vascular disease with left foot gangrene in a patient with diabetes, hyperchol esterolemia, hypertension and prior smoking. TECHNIQUE: Segmental pressures and plethysmographic and Doppler waveforms of the brachial and lower e xtremity arteries were obtained. COMPARISON: None. FINDINGS: Right and left brachial artery pressures of 117 mm Hg and 131 mm Hg, respectively, are concordant (no rmal difference <= 30 mmHg). The right ankle-brachial index (MEHNAZ) is 1.05 (normal >= 0.9-1.0). The right great toe-brachial index (TBI) is 0.47 (normal >= 0.65). Arterial Doppler waveforms are biphasic with brisk systolic upstrokes at both right posterior tibial and dorsalis pedis arteries. The left MEHNAZ is 1.03. The left TBI is unable to be obtained due to prior amputation of the left great toe. Arterial Doppler waveforms are biphasic with brisk systolic upstrokes at both left posterior ti bial and dorsalis pedis arteries. IMPRESSION: 1. Mild arterial occlusive disease to the right lower limb with normal right MEHNAZ but mildly decreased right TBI. 2. No evident arterial occlusive disease to the left lower limb with normal left MEHNAZ, similar to the right but with left TBI unable to be obtained due to amputation of the left great toe. Reviewed, dictated and finalized at location B. IMPRESSION: 1. Mild arterial occlusive disease to the right lower limb with normal right AB I but mildly decreased right TBI. 2. No evident arterial occlusive disease to the left lower limb with normal lef t MEHNAZ, similar to the right but with left TBI unable to be obtained due to ampu tation of the left great toe.
--- NOTE | 2021-12-15 14:27 | ECG_ITS ---
Measurements Intervals [place] Rate: 129 P: [place]: 0 QRS: 9 QRSD: 139 T: 0 QT: 353 QTc: 518 Interpretive Statements ATRIAL FIBRILLATION WITH RAPID VENTRICULAR RESPONSE LEFT BUNDLE BRANCH BLOCK LOW VOLTAGE IN LIMB LEADS BASELINE WANDER- V4-V6 ABNORMAL ECG COMPARED TO ECG 11/04/2021 09:28:51 HEART RATE HAS INCREASED Electronically Signed On 12-16-2021 6:21:59 CDT by David Bernal D.O.
--- NOTE | 2021-12-15 15:04 | ED.WOUNDLAC ---
HPI - Wound/Laceration General Chief Complaint: Wound/Laceration Stated Complaint: wound/infection Time Seen by Provider: 12/15/21 14:33 History of Present Illness HPI narrative: Pt presents with worsening wound around amputated left great and second toes. Pt denies fever or chills or pain. Pt says that his daughter watches wound. Pt says home health came today and said the wound was significantly worse and he needed to come to the ER. Related Data Home Medications Medication Instructions Recorded Confirmed aspirin 81 mg tablet,delayed 81 mg PO DAILY 10/28/21 12/02/21 release Allergies Allergy/AdvReac Type Severity Reaction Status Date / Time No Known Allergies Allergy Verified 12/15/21 14:36 Review of Systems Review of Systems: All systems reviewed & are unremarkable except as noted in HPI and below PMFSH Past Medical History Medical History (Updated 12/15/21 @ 18:59 by Giovanni Naylor III, ) Abnormal ankle brachial index (MEHNAZ) Abnormal nuclear stress test Alcohol abuse, uncomplicated Atrial fibrillation Benign essential HTN BPH (benign prostatic hyperplasia) Brain TIA CAD (coronary artery disease) CHF (congestive heart failure) Diabetes mellitus with neuropathy Encephalomalacia Hematuria Hyperlipidemia Obesity (BMI 30-39.9) Old lacunar stroke without late effect Other and unspecified hyperlipidemia Peripheral vascular disease due to secondary diabetes Uncontrolled type 2 diabetes mellitus, with long-term current use of insulin Surgical History Surgical History History of cardiac catheterization History of colonoscopy Hx of transurethral resection of prostate Family History Family History Sibling Family history of malignant neoplasm Patient's brother is in good health Patient's sister is Father Family history of malignant neoplasm Patient's father is Mother Family history of malignant neoplasm Patient's mother is Social History Social History Social History: The patient is a and he has 3 children. He states that his children to help him out at times. The patient now lives home alone. He has a history of alcoholism but states he no longer drinks. 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 Patient is a former smoker. He does not use any marijuana or illicit drugs. His son Eamon is the durable power employment law attorney for healthcare. Code status full code Smoking status: Former smoker Second hand tobacco smoke exposure: No Smoking end date: 02/15/94 Alcohol intake: former Alcohol use details: 2012 Substance use: former Substance use type: does not use Gender identity (if verbalized by the patient): Male Spiritual care concerns: No Exam Const: Nutritional Appearance: well nourished Orientation/consciousness: patient oriented x3 Limitations: no limitations Eyes: Conjunctivae: conjunctivae normal EOM: EOMs intact bilaterally Neck: Neck: normal visual inspection, no lymphadenopathy and no meningeal signs Resp: Effort & Inspection: normal respiratory effort Auscultation: clear to auscultation bilaterally Cardio: Rate: regular rate Rhythm: regular rhythm GI: GI Palp: Yes Soft to palpation Auscultation: normal bowel sounds Skin: Other: stumps great toe and 2nd toe left foot with drainiage and necrotic tissue around wound, minimal erythema. Neuro: General: patient oriented x3, moves all extremities, no meningeal signs and no focal motor deficits Cranial nerves: Yes Nystagmus not present Speech: normal speech Gait exam (Neuro): Normal gait present Extrem: General: normal to inspection and no clubbing, cyanosis or edema Psych: Mental Status: mental status grossly normal Affect: normal affect Course Vital Signs
[2021-12-15 15:05] LABS: Basophils Absolute Auto 0.1 K/mm3 (0.0-0.1); Basophils Percent Auto 0.8 % (0.2-1.2); Eosinophils Percent Auto 0.4 % (0-4.4); Hematocrit 44.8 % (42.0-52.0); Hemoglobin 13.9 g/dL (14.0-18.0); Immature Granulocyte Absolute 0.14 K/mm3 (0.00-0.031); Immature Granulocyte Percent A 1.4 % (0-0.5); Lymphocytes Absolute Auto 1.23 K/mm3 (0.9-3.2); Lymphocytes Percent Auto 12.7 % (18.3-44.2); Mean Corpuscular Hemoglobin 28.8 pg (26-34); Mean Corpuscular Volume 92.8 fl (80-100); Mean Platelet Volume 11.6 fl (7.4-10.4); Monocytes Absolute Auto 0.6 K/mm3 (0.1-0.6); Monocytes Percent Auto 5.9 % (2.6-8.5); Neutrophils Absolute Auto 7.7 K/mm3 (1.3-6.7); Neutrophils Percent Auto 78.8 % (45.5-73.1); Platelet Count Result 316 k/mm3 (150-375); Red Blood Count 4.83 M/mm3 (4.6-6.20); Red Cell Distribution Width 15.5 % (11.5-14.5); White Blood Count 9.7 K/mm3 (4.5-10.0)
[2021-12-15 15:10] LABS: Lactic Acid Reflex 2.7 mmol/L (0.7-2.0)
[2021-12-15 15:15] LABS: Alanine Aminotransferase 26 U/L (6-50); Albumin Level 3.3 g/dL (3.5-5.1); Alkaline Phosphatase 118 U/L (38-126); Anion Gap 11 mmol/L (8-16); Aspartate Amino Transferase 22 U/L (17-59); Bilirubin,Total 0.9 mg/dL (0.2-1.3); Blood Urea Nitrogen 13 mg/dL (9-20); CRP 2.6 mg/dL (<1.0); Calcium 8.6 mg/dL (8.4-10.2); Carbon Dioxide 28 mmol/L (22-30); Chloride 99 mmol/L (98-107); Estimated CRCL calculation 83 ml/min; Estimated Glomerular Filt Rate > 60; Glucose 261 mg/dL (65-110); Potassium 3.8 mmol/L (3.4-5.0); Sodium 138 mmol/L (137-145)
[2021-12-15 15:27] LABS: Erythrocyte Sedimentation Rate 33 mm/hr (0-20)
[2021-12-15 17:58] LABS: Reflex Lactic Acid Yes or No Add Lactic
--- NOTE | 2021-12-15 18:51 | PC.NURSE ---
SPOKE WITH [facility] BED PLACEMENT TEAM WHO STATES PT IS ON LIST FOR VASCULAR TO A MED/SURG BED.
[2021-12-15 19:46] LABS: SARS-CoV-2 RNA PCR Negative
--- NOTE | 2021-12-15 20:09 | PM.IMHP ---
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 The patient denies fevers or chills, nausea, vomiting, diarrhea, chest pain or shortness of breath. He denies any sick contacts or recent travel. He states he has no pain in his foot due to his neuropathy and no complaints. He is not sure if he has had any drainage from the foot or not. Lab work in the ER showed elevated lactic acid at 2.7, this came down to 2 after recheck. LFTs are within normal limits, CRP was 2.6. Upon chart review, ABIs were done in October 2021 showing normal ABIs on the left with vascular disease noted on the right. An x-ray done in the ER today showed possible osteomyelitis of the 2nd left toe. Patient is on the waiting list at [facility] for a bed so that he can have a vascular surgery workup as well as further care. He was given a dose of Zosyn in the ER. Glucose was 261. Otherwise CBC and BMP were essentially within normal limits. Patient was admitted from October 29 to for sepsis, gangrene and uncontrolled diabetes. He had afib with RVR during that stay, MRI showed osteo of left toes requiring amputation November 03, 2021, by discharge he was ready to transition to [facility]. Patient was seen in the office by Dr. Delgado, orthopedic surgery, on December 02 for his postop check of his left hallux amputation and debridement. Wound dehiscence was noted that day, sutures were removed and debridement of necrotic tissue was performed. Patient was discharged with silver gel and dry gauze to be changed daily and follow up in 2 weeks. At that time, vascular evaluation was recommended. Patient has long history of BPH with urinary retention since catheter placement in August of 2021. He was seen in the office on December 11 by Urology for a voiding trial which he failed, Ford was replaced at that time. Review of Systems Review of Systems: 12 point review of systems was assessed and was negative except as noted in the HPI [facility] Past Medical History Medical History (Updated 12/16/21 @ 01:17 by Kecia Malone DO) Abnormal ankle brachial index (MEHNAZ) Abnormal nuclear stress test Alcohol abuse, uncomplicated Atrial fibrillation Benign essential HTN BPH (benign prostatic hyperplasia) Brain TIA CAD (coronary artery disease) CHF (congestive heart failure) Diabetes mellitus with neuropathy Encephalomalacia Hematuria Hyperlipidemia Obesity (BMI 30-39.9) Old lacunar stroke without late effect Other and unspecified hyperlipidemia Peripheral vascular disease due to secondary diabetes Uncontrolled type 2 diabetes mellitus, with long-term current use of insulin Surgical History Surgical History History of cardiac catheterization History of colonoscopy Hx of transurethral resection of prostate Family History Family History Sibling Family history of malignant neoplasm Patient's brother is in good health Patient's sister is Father Family history of malignant neoplasm Patient's father is Mother Family history of malignant neoplasm Patient's mother is Social History Social History Social History: The patient is a and he has 3 children. He states that his children to help him out at times. The patient now lives home alone. He has a history of alcoho
--- NOTE | 2021-12-15 23:26 | ADMGEN ---
This patient, Kenneth Guillory, was admitted to [facility] Surg Room 310-01 at 2100. Patient/family oriented to hospital policies and general routines including ID bracelet, bed and alarms, visiting hours, pain management, procedures, bathroom and other care routines, personal items, smoking policy, room service/diet, and visiting hours. Information on how to activate the Rapid Response Team has been discussed. Patient/Family are encouraged to report perceived risks to care and to ask questions if they do not understand what they are told or what they should do.
[2021-12-16] MEDS: PIPERACILLIN/TAZOBACTAM SOD 4.5 GM in SODIUM CHLORIDE 0.9% IV 100 ML 200 ML IVPB ×2 (01:07→04:58)
[2021-12-16 05:30] VITALS: BP 110/82; PULSE 83; RESP 17; TEMP 36; O2SAT 99
[2021-12-16 06:10] LABS: Basophils Absolute Auto 0.1 K/mm3 (0.0-0.1); Basophils Percent Auto 0.8 % (0.2-1.2); Eosinophils Absolute Auto 0.1 K/mm3 (0-0.3); Eosinophils Percent Auto 0.7 % (0-4.4); Hematocrit 41.1 % (42.0-52.0); Hemoglobin 12.8 g/dL (14.0-18.0); Immature Granulocyte Absolute 0.09 K/mm3 (0.00-0.031); Lymphocytes Absolute Auto 1.16 K/mm3 (0.9-3.2); Lymphocytes Percent Auto 12.9 % (18.3-44.2); Mean Corpuscular HGB Conc 31.1 g/dl (32-36); Mean Corpuscular Hemoglobin 28.3 pg (26-34); Mean Corpuscular Volume 90.7 fl (80-100); Mean Platelet Volume 11.2 fl (7.4-10.4); Monocytes Absolute Auto 0.6 K/mm3 (0.1-0.6); Monocytes Percent Auto 6.6 % (2.6-8.5); Platelet Count Result 286 k/mm3 (150-375); Red Blood Count 4.53 M/mm3 (4.6-6.20); Red Cell Distribution Width 15.3 % (11.5-14.5)
[2021-12-16 06:27] LABS: Lactic Acid Reflex 1.1 mmol/L (0.7-2.0)
[2021-12-16 06:30] LABS: Alanine Aminotransferase 20 U/L (6-50); Albumin Level 2.9 g/dL (3.5-5.1); Alkaline Phosphatase 90 U/L (38-126); Anion Gap 10 mmol/L (8-16); Aspartate Amino Transferase 16 U/L (17-59); Blood Urea Nitrogen 14 mg/dL (9-20); Calcium 8.3 mg/dL (8.4-10.2); Carbon Dioxide 28 mmol/L (22-30); Chloride 98 mmol/L (98-107); Estimated CRCL calculation 83 ml/min; Estimated Glomerular Filt Rate > 60; Glucose 188 mg/dL (65-110); Potassium 3.7 mmol/L (3.4-5.0); Sodium 136 mmol/L (137-145)
[2021-12-16 07:24] LABS: Hemoglobin A1C 9.7 % (<5.7)
[2021-12-16 08:00] VITALS: PULSE 83; RESP 17; O2SAT 99
[2021-12-16 08:12] LABS: Glucose Point of Care 175 mg/dl (65-105)
--- NOTE | 2021-12-16 10:15 | PCOTNOTE ---
Per nursing, pt is being transferred to another hospital to today. Following.
[2021-12-16] MEDS: METOPROLOL TARTRATE 25 MG TABLET PO (10:22)
[2021-12-16] MEDS: hydroCHLOROthiazide 12.5 MG CAPSULE PO (10:23)
[2021-12-16] MEDS: ATORVASTATIN 40 MG TABLET 80 MG PO (10:23)
--- NOTE | 2021-12-16 10:36 | P.TS_ITS ---
Transfer Discharge Sum: Prov Provider Date of admission: 12/15/21 19:00 Primary care physician: Salvador Fisher DO Admitting clinician: Jm Montes MD Consults: 12/16/21 Care Coordination Consult Routine Comment: d/c planning/transfer planning Reason for Consult:: Other Consult to Physician Routine Comment: Consulting Provider: scallop cutter machine/MD group to consult: Dr Sandy pritchett Reason for consultation: osteo left foot Has provider been notified: No Wound/ET Consult Routine Reason for Consult:: diabetic foot ulcers DS: Admitting Diagnosis Discharge Date 12/16/2021 Admitting Diagnosis diabetic foot wound DS: Discharge Diagnosis Discharge Diagnosis (1) Diabetic foot infection: Code(s): E11.628 - Type 2 diabetes mellitus with other skin complications; L08.9 - Local infection of the skin and subcutaneous tissue, unspecified Status: Acute Assessment and Plan: * started on vancomycin and Zosyn, blood and wound cultures taken and pending * foot x-ray showed surgical amputation with subcutaneous emphysema at amputation site and some bone destruction of the cortex of the 2nd metatarsal head which may be postoperative or secondary to osteomyelitis * MRI follow-up revealed osteomyelitis of the remaining small portion of the base of the 1st proximal phalanx, head of the 1st metatarsal and medial 1st metatarsal sesamoid as well as osteomyelitis involving the head of 2nd metatarsal adjacent medial side of both the bases 3rd proximal phalanx and head of the 3rd metatarsal, lateral base of the 5th proximal phalanx and lateral head of the 5th metatarsal * patient was accepted for transfer to [facility] for evaluation by vascular surgery * disc provided with MRI and x-ray results to be reviewed at outside facility (2) Diabetes mellitus with neuropathy: Qualifiers: Diabetes mellitus type: type 2 Diabetes mellitus continuous churn buttermaker insulin use: with continuous churn buttermaker use Qualified Code(s): E11.40 - Type 2 diabetes mellitus with diabetic neuropathy, unspecified; Z79.4 - medical terminologist (current) use of insulin Code(s): E11.40 - Type 2 diabetes mellitus with diabetic neuropathy, unspecified Status: Chronic Assessment and Plan: * A1c 8.3 * managed during admission with Accu-Cheks and sliding scale insulin * hypoglycemic protocol * continue home lantus 20 units qHS * will need tight glucose control, goal of less than 180 for best healing (3) Chronic indwelling Ford catheter: Code(s): Z97.8 - Presence of other specified devices Status: Chronic Assessment and Plan: * failed voiding trial on December 11, 2021 with Urology * chronic Ford since August 2021, last replaced on December 11 * continue tamsulosin and finasteride (4) CHF (congestive heart failure): Code(s): I50.9 - Heart failure, unspecified Status: Chronic Assessment and Plan: * Stable, patient euvolemic on exam (5) Atrial fibrillation: Code(s): I48.91 - Unspecified atrial fibrillation Status: Chronic Assessment and Plan: * rate controlled during admission * eliquis on hold in the event surgical intervention is planned * continue metoprolol tartrate (6) Benign essential HTN: Code(s): I10 - Essential (primary) hypertension Status: Chronic Assessment and Plan: * BP stable during admission * Continue HCTZ and metopr
--- NOTE | 2021-12-16 10:36 | PM.TDS ---
Transfer Discharge Sum: Prov Provider Date of admission: 12/15/21 19:00 Primary care physician: Salvador Fisher DO Admitting clinician: Jm Montes MD Consults: 12/16/21 Care Coordination Consult Routine Comment: d/c planning/transfer planning Reason for Consult:: Other Consult to Physician Routine Comment: Consulting Provider: on call pharmacy technician/MD group to consult: Dr Sandy pritchett Reason for consultation: osteo left foot Has provider been notified: No Wound/ET Consult Routine Reason for Consult:: diabetic foot ulcers DS: Admitting Diagnosis Discharge Date 12/16/2021 Admitting Diagnosis diabetic foot wound DS: Discharge Diagnosis Discharge Diagnosis (1) Diabetic foot infection: Code(s): E11.628 - Type 2 diabetes mellitus with other skin complications; L08.9 - Local infection of the skin and subcutaneous tissue, unspecified Status: Acute Assessment and Plan: started on vancomycin and Zosyn, blood and wound cultures taken and pending foot x-ray showed surgical amputation with subcutaneous emphysema at amputation site and some bone destruction of the cortex of the 2nd metatarsal head which may be postoperative or secondary to osteomyelitis MRI follow-up revealed osteomyelitis of the remaining small portion of the base of the 1st proximal phalanx, head of the 1st metatarsal and medial 1st metatarsal sesamoid as well as osteomyelitis involving the head of 2nd metatarsal adjacent medial side of both the bases 3rd proximal phalanx and head of the 3rd metatarsal, lateral base of the 5th proximal phalanx and lateral head of the 5th metatarsal patient was accepted for transfer to [facility] for evaluation by vascular surgery disc provided with MRI and x-ray results to be reviewed at outside facility (2) Diabetes mellitus with neuropathy: Qualifiers: Diabetes mellitus type: type 2 Diabetes mellitus intermediate teacher insulin use: with correction use Qualified Code(s): E11.40 - Type 2 diabetes mellitus with diabetic neuropathy, unspecified; Z79.4 - middle or intermediate school principal (current) use of insulin Code(s): E11.40 - Type 2 diabetes mellitus with diabetic neuropathy, unspecified Status: Chronic Assessment and Plan: A1c 8.3 managed during admission with Accu-Cheks and sliding scale insulin hypoglycemic protocol continue home lantus 20 units qHS will need tight glucose control, goal of less than 180 for best healing (3) Chronic indwelling Ford catheter: Code(s): Z97.8 - Presence of other specified devices Status: Chronic Assessment and Plan: failed voiding trial on December 11, 2021 with Urology chronic Ford since August 2021, last replaced on December 11 continue tamsulosin and finasteride (4) CHF (congestive heart failure): Code(s): I50.9 - Heart failure, unspecified Status: Chronic Assessment and Plan: Stable, patient euvolemic on exam (5) Atrial fibrillation: Code(s): I48.91 - Unspecified atrial fibrillation Status: Chronic Assessment and Plan: rate controlled during admission eliquis on hold in the event surgical intervention is planned continue metoprolol tartrate (6) Benign essential HTN: Code(s): I10 - Essential (primary) hypertension Status: Chronic Assessment and Plan: BP stable during admission Continue HCTZ and metoprolol Transfer Discharge Sum: Med Medications Active and Home Medications: Home Medications atorvastatin 80 mg tablet 80 mg PO DAILY #90 tabs 10/24/20 [Rx Confirmed 12/15/21] aspirin 81 mg tablet,delayed release 81 mg PO DAILY 10/28/21 [History Confirmed 12/15/21] apixaban 5 mg tablet (Eliquis) 5 mg PO Q12HR 30 days #60 tabs 11/05/21 [Rx Confirmed 12/15/21] hydrochlorothiazide 12.5 mg capsule 12.5 mg PO QAM 30 days #30 caps 11/05/21 [Rx Confirmed 12/15/21] insulin aspart U-100 100 unit/mL subcutaneous
== END 2021-12-16 11:37 | disposition short-term general hospital (02) | DRG 565 ==
LOC: ANHED 18:59 → ANH3MEDSUR 20:40
PROVIDERS: Student in an Organized Health Care Education/Training Program; Admitting Provider Family Medicine; Emergency Provider Emergency Medicine; PCP Internal Medicine; Visit Provider Physician Assistant
DX: T87.44 Infection of amputation stump, left lower extremity (principal); I48.20 Chronic atrial fibrillation, unspecified; L97.426 Non-pressure chronic ulcer of left heel and midfoot with bone involvement without evidence of necrosis; M86.9 Osteomyelitis, unspecified; E11.621 Type 2 diabetes mellitus with foot ulcer; E11.628 Type 2 diabetes mellitus with other skin complications; L08.9 Local infection of the skin and subcutaneous tissue, unspecified; E11.40 Type 2 diabetes mellitus with diabetic neuropathy, unspecified; E11.51 Type 2 diabetes mellitus with diabetic peripheral angiopathy without gangrene; E11.65 Type 2 diabetes mellitus with hyperglycemia; E11.69 Type 2 diabetes mellitus with other specified complication; E78.5 Hyperlipidemia, unspecified; I11.0 Hypertensive heart disease with heart failure; I50.9 Heart failure, unspecified; I25.10 Atherosclerotic heart disease of native coronary artery without angina pectoris; N40.1 Benign prostatic hyperplasia with lower urinary tract symptoms; R33.8 Other retention of urine; G93.89 Other specified disorders of brain; F10.10 Alcohol abuse, uncomplicated; Z20.822 Contact with and (suspected) exposure to COVID-19; Z79.4 Long term (current) use of insulin; Z86.73 Personal history of transient ischemic attack (TIA), and cerebral infarction without residual deficits; Z79.01 Long term (current) use of anticoagulants; Z89.412 Acquired absence of left great toe; Z89.422 Acquired absence of other left toe(s)
CPT/HCPCS: 36415; 73630; 73718; 80053; 82948; 83036; 83605; 85025; 85652; 86140; 87040; 87070; 87205; 93005; 93922; 96365; 99285; A9270; J2543; J3370; U0003; U0005

== ENCOUNTER 2022-01-13 07:54 | Inpatient (IN) | payer OTHER, SELFPAY ==
[2022-01-13] VITALS (49 sets, daily range): BP systolic 100–121; BP diastolic 68–80; PULSE 18–102; RESP 13–68; TEMP 35.1–36.4; O2SAT 91–100; BMI 29.6
--- NOTE | ~2022-01-13 | XR_ITS ---
EXAMINATION: XR chest 1V portable INDICATION: Respiratory failure TECHNIQUE: Portable AP chest at 0539 hours COMPARISON: 01/14/2022 FINDINGS: The endotracheal tube ends approximately 3.5 cm above the holly. The nasogastric tube is f ollowed as far as the stomach. Its tip is beyond the inferior margin of the radiograph. A left upper extremity PICC ends with its tip in the distal superior vena cava. Cardiomegaly is noted. Moderate-si zed pleural effusions are stable. Diffuse airspace opacities persist throughout all lung zones with s light worsening in the right lower lung zone. IMPRESSION: 1. Diffuse lung disease with slight worsening in the right mid and lower lung zones, consistent with pulmonary edema versus pneumonia. 2. Cardiomegaly. 3. Moderate-sized pleural effusions, stable. Reviewed, dictated and finalized at location A. STRATEGIST IMPRESSION: 1. Diffuse lung disease with slight worsening in the right mid and lower lung z ones, consistent with pulmonary edema versus pneumonia. 2. Cardiomegaly. 3. Moderate-sized pleural effusions, stable.
--- NOTE | ~2022-01-13 | US_ITS ---
EXAMINATION: US thoracentesis DATE: 01/23/2022 15:25 INDICATION: Left pleural effusion TECHNIQUE: The procedure and its risks and benefits were discussed with the patient. Potential risks discussed included bleeding, infection, and pneumothorax. The patient understood the risks and agreed to proceed. The skin was prepped and draped in sterile fashion. 1% lidocaine was used for local anes thesia. Under ultrasound guidance, a 5 Fr catheter with trochar was advanced into the left pleural ef fusion. Fluid was aspirated. The catheter was removed, and a dressing was applied. There were no imme diate complications. FINDINGS: Ultrasound images demonstrate a moderate sized left pleural effusion and the catheter within the flui d. IMPRESSION: 1. Successful ultrasound-guided thoracentesis yielding 1000 mL of clear yellow fluid. Reviewed, dictated and finalized at location A. AND MARBLE SETTER
--- NOTE | ~2022-01-13 | XR_ITS ---
XR chest ET placement 01/19/2022 08:52 Indication: Respiratory distress Procedure: AP portable chest Comparison: Comparison to multiple prior studies sequentially, with oldest reviewed study dated 03/2021. Findings: Endotracheal tube tip 4.3 cm above the holly. NG tube in the stomach. There is bilateral a irspace disease with improvement in the right upper lung. Bilateral pleural effusions. No pneumothora x. PICC line tip in the caudal aspect of the SVC near the cavoatrial junction. Impression: 1: Extensive bilateral airspace disease which may represent edema and/or pneumonia. There is improvem ent in the right upper lung. 2: Bilateral pleural effusions. Reviewed, dictated and finalized at location A. SCREEN PAINTER Impression: 1: Extensive bilateral airspace disease which may represent edema and/or pneumo theresa. There is improvement in the right upper lung. 2: Bilateral pleural effusions.
--- NOTE | ~2022-01-13 | US_ITS ---
EXAMINATION: US venous doppler UE DATE: 01/21/2022 13:15 INDICATION: Arm swelling TECHNIQUE: Casanova scale images with and without compression and Doppler images of the right and left up per extremity veins were obtained. COMPARISON: None. FINDINGS: The right and left internal jugular vein, subclavian vein, axillary vein, brachial veins, basilic vei n, cephalic vein, radial vein, and ulnar vein are patent. IMPRESSION: 1. Patent bilateral upper extremity veins. No evidence of deep venous thrombosis. Reviewed, dictated and finalized at location A. ON STOMPER IMPRESSION: 1. Patent bilateral upper extremity veins. No evidence of deep venous thrombosi s.
--- NOTE | ~2022-01-13 | XR_ITS ---
EXAMINATION: XR chest 1V portable DATE: 01/21/2022 06:16 INDICATION: Spiculated irregular TECHNIQUE: frontal view of the chest was obtained. COMPARISON: Chest radiograph dated 01/20/2022 FINDINGS: Endotracheal tube tip 4.2 cm above the holly. Nasogastric tube extends below the left hemidiaphragm with distal tip collimated off the study. Left upper extremity peripherally inserted central venous catheter (PICC) tip at the caudal superior vena cava. Persistent bilateral gradient of basilar predominant hazy airspace opacities in the mid and lower salomón g zones. No pneumothorax. Cardiomegaly. IMPRESSION: 1. Persistent small right and small to moderate left pleural effusions with associated atelectasis an d/or pneumonia in the mid and lower lung zones. Reviewed, dictated and finalized at location A. NS LABORER IMPRESSION: 1. Persistent small right and small to moderate left pleural effusions with ass ociated atelectasis and/or pneumonia in the mid and lower lung zones.
--- NOTE | ~2022-01-13 | CT_ITS ---
EXAMINATION: CT LE LT wo con DATE: 01/13/2022 15:02 INDICATION: Left lower limb infection. TECHNIQUE: Computed tomography (CT) of the left lower limb was performed without intravenous contrast . Automated exposure control and iterative reconstruction technique were employed. The dose-length pr oduct was 1723.35 mGy-cm. COMPARISON: None FINDINGS: The prostate is moderately enlarged. The bladder is decompressed by a Ford catheter. There is subcutaneous edema in the lower limbs. There are changes of left-sided below-knee amputation. No erosions of bone to suggest osteomyelitis. No abscess. Skin sirena are noted. There is mild left hip osteoarthritis. There is mild left knee osteoarthritis. There is a small knee joint effusion. Vascul ar calcifications are noted. IMPRESSION: 1. Recent left-sided below-knee amputation. No abscess or evidence of osteomyelitis. Reviewed, dictated and finalized at location A. HER PHYSICALLY IMPAIRED IMPRESSION: 1. Recent left-sided below-knee amputation. No abscess or evidence of osteomyel itis.
--- NOTE | ~2022-01-13 | XR_ITS ---
EXAMINATION: XR chest 1V portable DATE: 01/20/2022 05:58 INDICATION: Respiratory failure TECHNIQUE: frontal and lateral views of the chest were obtained. COMPARISON: Chest radiograph dated 01/19/22 FINDINGS: Endotracheal tube tip 4.1 cm above the holly. Nasogastric tube tip in proximal side port in the body of the stomach. Left upper extremity peripherally inserted central venous catheter (PICC) tip at th e caudal superior vena cava. Gradient of bilateral basilar predominant hazy airspace opacities consistent with small left and mode rate-sized left pleural effusions. This has decreased on the left with improved aeration in the left upper lung zone. Left-sided retrocardiac consolidation and additional mild opacities in bilateral mid and lower lung zones. No pneumothorax. Cardiomegaly. IMPRESSION: 1. Small right and decreased moderate-sized left pleural effusions with associated atelectasis and/or pneumonia in the bilateral mid and lower lung zones. Reviewed, dictated and finalized at location A. ROGRAPHER IMPRESSION: 1. Small right and decreased moderate-sized left pleural effusions with associa best atelectasis and/or pneumonia in the bilateral mid and lower lung zones.
--- NOTE | ~2022-01-13 | XR_ITS ---
XR chest 1V 01/13/2022 09:25 Indication: Altered level of consciousness. Procedure: AP view of the chest Comparison: Comparison to multiple prior studies sequentially, with oldest reviewed study dated 05/10. Findings: Cardiomegaly. There is pulmonary edema. Cannot exclude superimposed pneumonia. Bilateral pl eural effusions. No pneumothorax. Impression: 1: Cardiomegaly with pulmonary edema. Cannot exclude superimposed pneumonia. 2: Pleural effusions. Reviewed, dictated and finalized at location A. BOSS HOEING Impression: 1: Cardiomegaly with pulmonary edema. Cannot exclude superimposed pneumonia. 2: Pleural effusions.
--- NOTE | ~2022-01-13 | XR_ITS ---
EXAMINATION: XR chest 1V portable DATE: 01/27/2022 05:48 INDICATION: Respiratory failure. TECHNIQUE: A single frontal view of the chest was obtained. COMPARISON: Chest single view 01/26/2022 FINDINGS: There are airspace opacities in the mid and lower lung zones with a perihilar and basilar p redominance. There are small pleural effusions. No pneumothorax. Cardiomegaly is noted. A left upper extremity peripherally inserted central venous catheter (PICC) is seen with tip in the superior vena cava. IMPRESSION: 1. Stable airspace opacities in the mid and lower lung zones considering the difference in technique, consistent with pneumonia. 2. Stable small pleural effusions. 3. Cardiomegaly. Reviewed, dictated and finalized at location A. OMER ACCOUNT EXECUTIVE IMPRESSION: 1. Stable airspace opacities in the mid and lower lung zones considering the di fference in technique, consistent with pneumonia. 2. Stable small pleural effusions. 3. Cardiomegaly.
--- NOTE | ~2022-01-13 | XR_ITS ---
EXAMINATION: [id number] DATE: 01/24/2022 11:06 INDICATION: Right pleural effusion postthoracentesis. TECHNIQUE: frontal view of the chest was obtained. COMPARISON: Chest radiograph dated 01/23/2022 FINDINGS: Endotracheal tube tip 4.2 cm above the holly. Nasogastric tube with proximal side-port in the body o f the stomach and distal tip collimated beyond the inferior margin of the [id number]. Left upper e xtremity peripherally inserted central venous catheter (PICC) tip at the caudal superior vena cava. Decrease in the airspace opacities at the right lung with mild residual predominantly linear opacitie s at the right lung base and negligible blunting at the costophrenic angle consistent with near compl ete resolution of a prior right pleural effusion with residual mild basilar atelectasis versus less l ikely pneumonia. Persistent. Cardiac opacity at the left lower lung zone consistent with likely small left pleural effusion and associated atelectasis and/or pneumonia. No pneumothorax. Cardiomegaly. IMPRESSION: 1. Near complete resolution of a prior right pleural effusion post thoracentesis. 2. Unchanged small left pleural effusion. 3. Opacity bilateral lower lung zones, left greater than right most likely atelectasis although pneum onia not excludable. 4. Cardiomegaly. Reviewed, dictated and finalized at location A. ENCE DEVELOPMENT MANAGER IMPRESSION: 1. Near complete resolution of a prior right pleural effusion post thoracentesi s. 2. Unchanged small left pleural effusion. 3. Opacity bilateral lower lung zones, left greater than right most likely atel ectasis although pneumonia not excludable. 4. Cardiomegaly.
--- NOTE | ~2022-01-13 | XR_ITS ---
EXAMINATION: XR chest PICC line DATE: 01/14/2022 10:07 INDICATION: Central line placement. TECHNIQUE: A single frontal view of the chest was obtained. COMPARISON: Chest single view at 6:06 AM FINDINGS: There are airspace opacities in all lung zones bilaterally with a perihilar and basilar pre dominance. There are moderate-sized pleural effusions. No pneumothorax. Cardiomegaly is noted. The en dotracheal tube tip is 1.6 cm above the holly. The nasogastric tube tip is beyond the inferior hailey n of the radiograph, but at least to the stomach. A left upper extremity peripherally inserted centra l venous catheter (PICC) is seen with tip at the superior cavoatrial junction. IMPRESSION: 1. PICC tip at the superior cavoatrial junction. 2. Diffuse lung disease with mild improvement, consistent with pulmonary edema versus pneumonia. 3. Stable moderate-sized pleural effusions. 4. Cardiomegaly. Reviewed, dictated and finalized at location A. PRESIDENT OF SOFTWARE ENGINEERING
--- NOTE | ~2022-01-13 | XR_ITS ---
EXAMINATION: XR chest 1V portable DATE: 01/24/2022 06:22 INDICATION: Hepatocellular TECHNIQUE: Respiratory failure COMPARISON: Chest radiograph dated 01/23/2022 FINDINGS: Endotracheal tube tip 4.2 cm above the holly. Nasogastric tube in stomach. Left upper extremity colin pherally inserted central venous catheter (PICC) tip at the caudal superior vena cava. Persistent gradient of basilar predominant hazy airspace opacities throughout the right lung and at t he left lower lung zone with blunting at the costophrenic angle consistent with likely small left and [id number]-ux-lhikahgc right pleural effusions and associated atelectasis and/or pneumonia. No pneumothor ax. Cardiomegaly. IMPRESSION: 1. No significant change in small left and moderate right pleural effusions with associated atelectas is and/or pneumonia. 2. Cardiomegaly. Reviewed, dictated and finalized at location A. UT ROASTER IMPRESSION: 1. No significant change in small left and moderate right pleural effusions wit h associated atelectasis and/or pneumonia. 2. Cardiomegaly.
--- NOTE | ~2022-01-13 | XR_ITS ---
EXAMINATION: XR chest 1V portable DATE: 01/14/2022 06:19 INDICATION: Respiratory failure. TECHNIQUE: A single frontal view of the chest was obtained. COMPARISON: Chest single view 01/13/2022, CT abdomen and pelvis 08/14/2021 FINDINGS: There are moderate-sized pleural effusions. There are airspace opacities in all lung zones bilaterally. No pneumothorax. Cardiomegaly is noted. The endotracheal tube tip is 9 mm above the liu na. The nasogastric tube tip is beyond the inferior margin of the radiograph, but at least to the sto mach. IMPRESSION: 1. Worsened diffuse lung disease, consistent with pulmonary edema versus pneumonia. 2. Moderate-sized pleural effusions with worsening on the right. 3. Cardiomegaly. Reviewed, dictated and finalized at location A. OLOGIC ENGINEER IMPRESSION: 1. Worsened diffuse lung disease, consistent with pulmonary edema versus pneumo theresa. 2. Moderate-sized pleural effusions with worsening on the right. 3. Cardiomegaly.
--- NOTE | ~2022-01-13 | XR_ITS ---
XR chest 1V portable 01/18/2022 06:41 Indication: Respiratory failure Procedure: AP portable chest Comparison: Comparison to multiple prior studies sequentially, with oldest reviewed study dated 12/18. Findings: Endotracheal tube tip 5 cm above the holly. Cardiomegaly. No significant change to diffuse bilateral airspace disease. There are bilateral pleural effusions, right greater than left. No pneum othorax identified. PICC line tip in the SVC. Impression: 1: Stable diffuse bilateral airspace disease which may represent edema and/or pneumonia. 2: Bilateral pleural effusions, right greater than left. 3: Cardiomegaly. Reviewed, dictated and finalized at location A. CAL DOCTOR Impression: 1: Stable diffuse bilateral airspace disease which may represent edema and/or p neumonia. 2: Bilateral pleural effusions, right greater than left. 3: Cardiomegaly.
--- NOTE | ~2022-01-13 | XR_ITS ---
XR abdomen NG/feed tube insert INDICATION: Evaluate NG tube position. TECHNIQUE: Limited KUB perform for evaluating NG tube . COMPARISON: 01/13/2022 FINDINGS: NG tube tip in the stomach. Visualized bowel gas pattern is nonspecific. IMPRESSION: 1: NG tube tip in the stomach. Reviewed, dictated and finalized at location A. TMAN
--- NOTE | ~2022-01-13 | XR_ITS ---
EXAMINATION: XR chest 1V portable DATE: 01/16/2022 06:13 INDICATION: Respiratory failure. TECHNIQUE: A single frontal view of the chest was obtained. COMPARISON: Chest single view 01/15/2022 FINDINGS: There are airspace opacities in all lung zones bilaterally with a perihilar and basilar pre dominance. There are moderate-sized pleural effusions. No pneumothorax. Cardiomegaly is noted. The en dotracheal tube tip is 3.5 cm above the holly. A left upper extremity peripherally inserted central venous catheter (PICC) is seen with tip at the superior cavoatrial junction. The nasogastric tube tip is beyond the inferior margin of the radiograph, but at least to the stomach. IMPRESSION: 1. Stable diffuse lung disease, consistent with pulmonary edema versus pneumonia. 2. Stable moderate-sized pleural effusions. 3. Cardiomegaly. Reviewed, dictated and finalized at location A. ASSOCIATE IMPRESSION: 1. Stable diffuse lung disease, consistent with pulmonary edema versus pneumoni a. 2. Stable moderate-sized pleural effusions. 3. Cardiomegaly.
--- NOTE | ~2022-01-13 | XR_ITS ---
EXAMINATION: XR chest 1V portable DATE: 01/25/2022 06:31 INDICATION: Respiratory failure. TECHNIQUE: A single frontal view of the chest was obtained. COMPARISON: Chest single view 01/24/2022 FINDINGS: There are airspace opacities in right mid and lower lung zones and left lower lung zone. Th ere are small pleural effusions. No pneumothorax. Cardiomegaly is noted. The endotracheal tube tip is 4.2 cm above the holly. The nasogastric tube tip is in the stomach. A left upper extremity peripher ally inserted central venous catheter (PICC) is seen with tip in the superior vena cava. IMPRESSION: 1. Airspace opacities in right mid and lower lung zones and left lower lung zone with worsening on th e right and improvement on the left, consistent with atelectasis versus pneumonia. 2. Stable small pleural effusions. 3. Cardiomegaly. Reviewed, dictated and finalized at location A. LIFE MANAGER IMPRESSION: 1. Airspace opacities in right mid and lower lung zones and left lower lung zon e with worsening on the right and improvement on the left, consistent with atel ectasis versus pneumonia. 2. Stable small pleural effusions. 3. Cardiomegaly.
--- NOTE | ~2022-01-13 | XR_ITS ---
XR chest ET placement 01/13/2022 10:25 Indication: Endotracheal tube placement. Respiratory distress. Procedure: AP portable chest Comparison: 01/13/2022 Findings: Cardiomegaly. Bilateral airspace disease is present, patchy on the right side. Moderate ple ural effusions. Cardiomegaly. Endotracheal tube tip 2.1 cm above the holly. No pneumothorax. Impression: 1: Persistent bilateral airspace disease, patchy on the right. Differential diagnosis includes edema and pneumonia. 2: Moderate pleural effusions. Reviewed, dictated and finalized at location A. RCYCLE SERVICE TECHNICIAN Impression: 1: Persistent bilateral airspace disease, patchy on the right. Differential agnes gnosis includes edema and pneumonia. 2: Moderate pleural effusions.
--- NOTE | ~2022-01-13 | XR_ITS ---
XR abdomen NG/feed tube insert DATE: 01/13/2022 14:20 INDICATION: Orogastric tube placement TECHNIQUE: Portable supine AP view on 01/13/2022 at 1419 hours COMPARISON: 08/14/2021 CT abdomen pelvis FINDINGS: Moderate bilateral pleural effusions, cardiomegaly, pulmonary vascular congestion and bilat eral pulmonary infiltrates are noted, consistent with congestive heart failure. Diffuse idiopathic skeletal hyperostosis of the thoracic spine. An orogastric tube is present, the proximal side-port in the lower esophagus, the tip of the nasogast hiren tube barely extending into the gastric fundus. Advancement of the tube is recommended. IMPRESSION: Orogastric tube side port is in the distal esophagus, the tip of the tube extending barel y into the gastric fundus. Tube advancement is recommended Pelvic congestive heart failure, moderate bilateral pleural effusions, probable pulmonary edema Reviewed, dictated and finalized at Location A. Reviewed, dictated and finalized at location B. LE WMS CONSULTANT IMPRESSION: Orogastric tube side port is in the distal esophagus, the tip of th e tube extending barely into the gastric fundus. Tube advancement is recommende d Pelvic congestive heart failure, moderate bilateral pleural effusions, probable pulmonary edema
--- NOTE | ~2022-01-13 | CT_ITS ---
EXAMINATION: CT brain wo con DATE: 01/13/2022 09:21 INDICATION: Altered level of consciousness TECHNIQUE: Computed tomography (CT) of the head was performed without intravenous contrast. The dose- length product was 832.33 mGy-cm. Automated exposure control and iterative reconstruction technique w ere employed. COMPARISON: CT dated 10/01/2020 FINDINGS: Generalized atrophy. There are scattered moderate periventricular and subcortical white mat ter changes, most likely related to small vessel ischemic disease (microangiopathy). There is a chron ic right frontal lobe infarction. Chronic right lacunar infarction. Chronic left thalamic infarction. Chronic right temporal lobe infarction. There is demineralization. There is intracranial atheroscler osis. No acute infarction, hemorrhage, mass or mass effect. There is mucosal thickening of the maxill luisito and ethmoid sinuses with mucoperiosteal reaction in the right maxillary sinus. Rightward nasal se ptal deviation. Mastoids are pneumatized. IMPRESSION: 1. No acute intracranial abnormality. 2: Multiple chronic infarctions as discussed above. 3: Moderate sinus disease, likely chronic. 4: Chronic age-related findings. Reviewed, dictated and finalized at location A. CAL PRACTICE MANAGER
--- NOTE | ~2022-01-13 | XR_ITS ---
EXAMINATION: XR chest 1V portable DATE: 01/28/2022 06:20 INDICATION: Respiratory failure. TECHNIQUE: A single frontal view of the chest was obtained. COMPARISON: Chest single view 01/27/2022, chest CT 01/25/2022 FINDINGS: The patient is rotated to his left. There are airspace opacities in the mid and lower lung zones, right worse than left. There are small pleural effusions. No pneumothorax. Cardiomegaly is not ed. IMPRESSION: 1. Airspace opacities in the mid and lower lung zones, right worse than left with worsening on the ri ght, consistent with pneumonia. 2. Stable small pleural effusions. 3. Cardiomegaly. Reviewed, dictated and finalized at location A. DCAST OPERATIONS DIRECTOR IMPRESSION: 1. Airspace opacities in the mid and lower lung zones, right worse than left wi th worsening on the right, consistent with pneumonia. 2. Stable small pleural effusions. 3. Cardiomegaly.
--- NOTE | ~2022-01-13 | XR_ITS ---
EXAMINATION: XR chest 1V portable INDICATION: Respiratory failure TECHNIQUE: Portable AP chest at 0558 hours COMPARISON: 01/21/2022 FINDINGS: The endotracheal tube ends approximately 4.8 cm above the holly. The nasogastric tube is f ollowed as far as the stomach. Its tip is beyond the inferior margin of the radiograph. Small to mode rate-sized pleural effusions are stable. Diffuse interstitial and airspace opacities are present with slight worsening. Cardiomegaly is noted. No pneumothorax is identified. A left upper extremity PICC ends with its tip in the proximal superior vena cava. IMPRESSION: 1. Small to moderate-sized pleural effusions, stable. 2. Diffuse lung disease with slight worsening, consistent with pulmonary edema and/or pneumonia. 3. Cardiomegaly. Reviewed, dictated and finalized at location A. PRESS OPERATOR
--- NOTE | ~2022-01-13 | CT_ITS ---
EXAMINATION: CT chest abdomen pelvis wo con DATE: 01/25/2022 10:19 INDICATION: Fever. TECHNIQUE: Computed tomography (CT) of the chest, abdomen, and pelvis was performed without intraveno us contrast. Automated exposure control and iterative reconstruction technique were employed. The dos e-length product was 1833.75 mGy-cm. COMPARISON: Chest CT 01/21/2022, CT abdomen and pelvis 08/14/2021 FINDINGS: CHEST CT: There are nodules and airspace and groundglass opacities in right upper lobe and right lower lobe. Th ere are mild groundglass opacities in right middle lobe. There are peripheral airspace opacities in a nterior segment left upper lobe. There is dependent atelectasis in left lower lobe. There are small p leural effusions, left worse than right. The endotracheal tube tip is in expected position above the holly. There is left atrial enlargement of the heart. There are coronary artery calcifications. Ther e is a small pericardial effusion. The nasogastric tube tip is in the distal stomach. ABDOMEN/PELVIS CT: The liver, gallbladder, spleen, pancreas, and right adrenal gland are normal. There is a chronic 1.5 cm mass in left adrenal gland measuring low attenuation, consistent with an adenoma. The kidneys are normal. There is no urolithiasis. There is a Ford catheter in expected position. The prostate is sev erely enlarged. There is liquid stool in the colon suggestive of diarrhea. There are no pathologicall y enlarged lymph nodes. There is no free intraperitoneal fluid. There is moderate lumbar spondylosis. IMPRESSION: 1. Pneumonia in the right lung and anterior segment left upper lobe, worsened from 01/21/22. 2. Small pleural effusions, left worse than right, improved from 01/21/2022. 3. Stable small pericardial effusion. Reviewed, dictated and finalized at location A. ORT MERCHANDISER IMPRESSION: 1. Pneumonia in the right lung and anterior segment left upper lobe, worsened f rom 01/21/22. 2. Small pleural effusions, left worse than right, improved from 01/21/2022. 3. Stable small pericardial effusion.
--- NOTE | ~2022-01-13 | CT_ITS ---
EXAMINATION: CT diagnostic chest wo con DATE: 01/21/2022 10:06 INDICATION: pneumonia, pleural effusion TECHNIQUE: Computed tomography (CT) of the chest was performed without intravenous contrast. Addition al 3D reconstructions utilizing coronal maximum intensity projection (MIP) were performed. Automated exposure control and iterative reconstruction technique were employed. The dose-length product was 77 4.48 mGy-cm. COMPARISON: None FINDINGS: Endotracheal tube tip 5.5 cm above the holly. Nasogastric tube tip at the gastric antrum with proxim al side-port probably positioned below level of the gastroesophageal junction. Left upper extremity p eripherally inserted central venous catheter (PICC) tip in the caudal superior vena cava. Moderate-sized bilateral posterior layering pleural effusions with complete collapse of the left lowe r lobe and dependent compressive atelectasis in the bilateral upper lobes, lingula and right lower lo be. 2.0 x 1.4 cm somewhat wedge-shaped peripheral nodular opacity at the lingula most likely infectio us/inflammatory in etiology. There are some subtle groundglass opacities in the right middle and righ t lower lobes. A few small calcified nodules in the right upper and lower lobes consistent with old g ranulomatous disease. No pneumothorax. Mild cardiomegaly. Minimal pericardial effusion. Atherosclerot ic coronary artery calcification is. Thoracic aorta is normal in caliber. No pathologically enlarged thoracic lymphadenopathy. Small amount of perihepatic and splenic ascites in the visualized upper abd omen. Mild thoracic spondylosis with bridging osteophytes at multiple levels consistent with diffuse idiopathic skeletal hyperostosis (DISH). IMPRESSION: 1. Moderate-sized bilateral posterior layering pleural effusions with dependent atelectasis including complete collapse of the left lower lobe. Underlying lung disease in the atelectatic portions of the lung cannot be excluded. 2. 2.0 x 1.4 cm peripheral nodular opacity lingula is most likely infectious/inflammatory in etiology . Recommend 3 month follow-up low-dose noncontrast chest CT. 3. Mild groundglass opacities in the right middle and lower lobes which could represent atelectasis, pneumonia or minimal pulmonary edema. 4. Mild cardio likely with coronary artery disease and minimal pericardial effusion. 5. Small amount of ascites in the upper abdomen. Reviewed, dictated and finalized at location A. GENCY CARE ATTENDANT IMPRESSION: 1. Moderate-sized bilateral posterior layering pleural effusions with dependent atelectasis including complete collapse of the left lower lobe. Underlying salomón g disease in the atelectatic portions of the lung cannot be excluded. 2. 2.0 x 1.4 cm peripheral nodular opacity lingula is most likely infectious/in flammatory in etiology. Recommend 3 month follow-up low-dose noncontrast chest CT. 3. Mild groundglass opacities in the right middle and lower lobes which could r epresent atelectasis, pneumonia or minimal pulmonary edema. 4. Mild cardio likely with coronary artery disease and minimal pericardial effu margaret. 5. Small amount of ascites in the upper abdomen.
--- NOTE | ~2022-01-13 | US_ITS ---
EXAMINATION: US thoracentesis DATE: 01/24/2022 11:07 INDICATION: Right pleural effusion TECHNIQUE: The procedure and its risks and benefits were discussed with the patient. Potential risks discussed included bleeding, infection, and pneumothorax. The patient understood the risks and agreed to proceed. The skin was prepped and draped in sterile fashion. 1% lidocaine was used for local anes thesia. Under ultrasound guidance, a 5 Fr catheter with trochar was advanced into the moderate-sized right pleural effusion. Fluid was aspirated. The catheter was removed, and a dressing was applied. Th ere were no immediate complications. FINDINGS: Ultrasound images demonstrate a moderate-sized right pleural effusion and the catheter within the flu id. IMPRESSION: 1. Successful ultrasound-guided thoracentesis yielding 1100 mL of clear yellow fluid. Reviewed, dictated and finalized at location A. MILL SUPERVISOR
--- NOTE | ~2022-01-13 | XR_ITS ---
EXAMINATION: XR chest 1V portable DATE: 01/26/2022 06:38 INDICATION: Respiratory failure. TECHNIQUE: A single frontal view of the chest was obtained. COMPARISON: Chest single view 01/25/2022, chest CT 01/25/2022 FINDINGS: There are patchy airspace opacities in the mid and lower lung zones. There are small pleura l effusions. No pneumothorax. Cardiomegaly is noted. A left upper extremity peripherally inserted siomara tral venous catheter (PICC) is seen with tip in the superior vena cava. IMPRESSION: 1. Stable patchy airspace opacities in the mid and lower lung zones, consistent with pneumonia. 2. Stable small pleural effusions. 3. Cardiomegaly. Reviewed, dictated and finalized at location A. VERY REPRESENTATIVE
--- NOTE | ~2022-01-13 | XR_ITS ---
XR chest 1V portable 01/17/2022 06:16 Indication: Respiratory failure Procedure: AP portable chest Comparison: Comparison to multiple prior studies sequentially, with oldest reviewed study dated 12/18. Findings: Endotracheal tube 4.6 cm above the holly. Cardiomegaly with interstitial edema unchanged B ilateral pleural effusions, right greater than left. No pneumothorax identified. Impression: 1: Unchanged pulmonary edema. Bilateral pleural effusions. Reviewed, dictated and finalized at location A. GER CRISIS Impression: 1: Unchanged pulmonary edema. Bilateral pleural effusions.
--- NOTE | ~2022-01-13 | XR_ITS ---
EXAMINATION: [id number] DATE: 01/23/2022 15:43 INDICATION: Status post left thoracentesis TECHNIQUE: frontal view of the chest was obtained. COMPARISON: Chest radiograph dated 01/23/2022 FINDINGS: Endotracheal tube tip 2.8 cm above the holly. Nasogastric tube extends below the left hemidiaphragm with distal tip collimated off the study. Right upper extremity peripherally inserted central venous catheter (PICC) tip at the caudal superior vena cava. Improved aeration with decreasing opacities in the left lung with some residual opacities in the mid and lower lung zones. There is also been interval improvement in airspace opacities scattered through out the right lung particularly at the lower lung zone. Blunting at the costophrenic angles consisten t with small bilateral pleural effusions. No pneumothorax. Cardiomegaly. IMPRESSION: 1. Opacities in both lungs consistent with small bilateral pleural effusions and associated atelectas is and/or pneumonia. This is decreased bilaterally but to a greater degree on the left post left-side d thoracentesis. Reviewed, dictated and finalized at location A. DATION CONSULTANT IMPRESSION: 1. Opacities in both lungs consistent with small bilateral pleural effusions an d associated atelectasis and/or pneumonia. This is decreased bilaterally but to a greater degree on the left post left-sided thoracentesis.
--- NOTE | ~2022-01-13 | XR_ITS ---
EXAMINATION: XR chest 1V portable DATE: 01/19/2022 06:25 INDICATION: Respiratory failure TECHNIQUE: frontal view of the chest was obtained. COMPARISON: Chest radiograph dated 01/18/2022 FINDINGS: Left upper extremity peripherally inserted central venous catheter (PICC) tip at the superior cavoat rial junction. Increasing diffuse airspace opacities throughout both lungs, left greater than right c onsistent with moderate to large left and small to moderate right pleural effusions with associated a telectasis and/or pneumonia. Cardiomegaly. IMPRESSION: 1. Increasing moderate to large left and [id number]-sltqabce right pleural effusions with associated at electasis and/or pneumonia. 2. Cardiomegaly. Reviewed, dictated and finalized at location A. AL BEHAVIORIST IMPRESSION: 1. Increasing moderate to large left and [id number] right pleural effusi ons with associated atelectasis and/or pneumonia. 2. Cardiomegaly.
--- NOTE | ~2022-01-13 | CT_ITS ---
CT head without contrast Indication: Encephalopathy COMPARISON: 01/13/2022 Technique: Serial scans were obtained through the brain without the administration of contrast. Dose reduction technique was used on this scan by utilizing automated exposure control and iterative recon struction technique. The dose-length product (DLP) was 681.00 mGy-cm. Findings: There is no evidence of intracranial hemorrhage, mass lesion, or acute infarct. Stable movie stunt performer delores right frontal lobe infarct. The ventricles and subarachnoid spaces are dilated, consistent with m ild atrophy. Low attenuation regions are seen within the periventricular white matter bilaterally, l ikely representing changes from chronic microvascular ischemic disease. There is no evidence of edema , mass effect or midline shift. The visualized paranasal sinuses and mastoid air cells are clear. Impression: No acute abnormality. No intracranial hemorrhage, mass, or acute infarct. Stable chronic right frontal lobe infarct. Atrophy and chronic white matter changes, as above. Reviewed, dictated and finalized at location [] RNAL SALESPERSON Impression: No acute abnormality. No intracranial hemorrhage, mass, or acute infarct. Stable chronic right frontal lobe infarct. Atrophy and chronic white matter changes, as above.
--- NOTE | ~2022-01-13 | XR_ITS ---
EXAMINATION: XR chest 1V portable DATE: 01/31/2022 11:32 INDICATION: Pneumonia TECHNIQUE: frontal view of the chest was obtained. COMPARISON: Chest radiograph dated 01/28/2022 FINDINGS: Again seen is a gradient of basilar predominant hazy airspace opacities in the left mid to lower and right lower lung zones consistent with small bilateral posterior layering pleural effusions. This has decreased on the right. More dense bibasilar consolidation, left greater than right consistent with associated atelectasis or pneumonia. Mild linear atelectasis/scarring in the right upper lung zone. N o pneumothorax. Mild cardiomegaly. There are bridging osteophytes at multiple levels in the spine, co nsistent with diffuse idiopathic skeletal hyperostosis (DISH). IMPRESSION: 1. Small bilateral posterior layering pleural effusions with associated bibasilar atelectasis and/or pneumonia, unchanged more prominent on the left and to a lesser degree and with interval improvement on the right. 2. Cardiomegaly. Reviewed, dictated and finalized at location A. UCT MGR IMPRESSION: 1. Small bilateral posterior layering pleural effusions with associated bibasil ar atelectasis and/or pneumonia, unchanged more prominent on the left and to a lesser degree and with interval improvement on the right. 2. Cardiomegaly.
--- NOTE | ~2022-01-13 | XR_ITS ---
EXAMINATION: XR chest 1V portable DATE: 01/23/2022 06:12 INDICATION: Respiratory failure TECHNIQUE: frontal view of the chest was obtained. COMPARISON: Chest radiograph dated 01/22/2022 FINDINGS: Endotracheal tube tip 3.9 cm above the holly. Nasogastric tube extends below the left hemidiaphragm with distal tip collimated off the study. Right upper extremity peripherally inserted central venous catheter (PICC) tip near the superior cavoatrial junction. Persistent lower lung predominant airspace opacities throughout both lungs relatively sparing the api deepthi. This includes small to moderate-sized bilateral pleural effusions. No pneumothorax. Cardiomegaly . IMPRESSION: 1. No significant change in small to moderate-sized bilateral pleural effusions with associated atele ctasis and/or pneumonia. 2. Cardiomegaly. Reviewed, dictated and finalized at location A. IC RELATIONS SPECIALIST IMPRESSION: 1. No significant change in small to moderate-sized bilateral pleural effusions with associated atelectasis and/or pneumonia. 2. Cardiomegaly.
--- NOTE | 2022-01-13 08:04 | ECG_ITS ---
Measurements Intervals Dietrich Rate: 92 P: MT: 0 QRS: 14 QRSD: 146 T: 196 QT: 413 QTc: 513 Interpretive Statements ATRIAL FIBRILLATION LEFT BUNDLE BRANCH BLOCK BASELINE ARTIFACT- I, II, III ABNORMAL ECG COMPARED TO ECG 12/15/2021 14:29:10 HEART RATE HAS DECREASED Electronically Signed On 01-13-2022 22:52:24 INTERNATIONAL TRADE MANAGER by David Bernal D.O.
--- NOTE | 2022-01-13 08:06 | ED.AMS ---
HPI - Altered Mental Status General Chief Complaint: Altered Mental Status Stated Complaint: AMS Time Seen by Provider: 01/13/22 07:58 History of Present Illness HPI narrative: Pt presents from local [facility] for being unresponsive this morning. Pt has history of a fib and has had recent BKA of LLE. Pt is on eliquis. Pt is diabetic and initial BS was in 50's per EMS. Pt given d50 and BS no w 180. No further history available. Pt appears no be full code from PA paperwork. Related Data Home Medications Medication Instructions Recorded Confirmed aspirin 81 mg tablet,delayed 81 mg PO DAILY 10/28/21 12/15/21 release finasteride 5 mg tablet 5 mg PO DAILY 01/13/22 01/13/22 insulin glargine 100 unit/mL 15 units subcut QPM 01/13/22 01/13/22 subcutaneous solution (Lantus U-100 Insulin) Allergies Allergy/AdvReac Type Severity Reaction Status Date / Time No Known Allergies Allergy Verified 12/15/21 14:36 Review of Systems Review of Systems: ROS unobtainable: Yes unobtainable due to medical condition and unobtainable due to mental status PMFSH Past Medical History Medical History Abnormal ankle brachial index (MEHNAZ) Abnormal nuclear stress test Alcohol abuse, uncomplicated Atrial fibrillation Benign essential HTN BPH (benign prostatic hyperplasia) Brain TIA CAD (coronary artery disease) CHF (congestive heart failure) Diabetes mellitus with neuropathy Encephalomalacia Hematuria Hyperlipidemia Obesity (BMI 30-39.9) Old lacunar stroke without late effect Other and unspecified hyperlipidemia Peripheral vascular disease due to secondary diabetes Uncontrolled type 2 diabetes mellitus, with long-term current use of insulin Surgical History Surgical History History of cardiac catheterization History of colonoscopy Hx of transurethral resection of prostate Family History Family History Sibling Family history of malignant neoplasm Patient's brother is in good health Patient's sister is Father Family history of malignant neoplasm Patient's father is Mother Family history of malignant neoplasm Patient's mother is Social History Social History Social History: The patient is a and he has 3 children. He states that his children to help him out at times. The patient now lives home alone. He has a history of alcoholism but states he no longer drinks. 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 Patient is a former smoker. He does not use any marijuana or illicit drugs. His son Eamon is the durable power admitted attorneys for healthcare. Code status full code Smoking packs per day: 1 Smoking cigarettes per day: 20.0 Years smoked: 15 Smoking pack-years: 15.00 Smoking status: Unknown if ever smoked Tobacco type: cigarettes Second hand tobacco smoke exposure: No Smoking end date: 12/15/89 Alcohol intake: unknown Alcohol use details: 2012 Substance use: unknown Substance use type: does not use Lack of Transportation: No Lack of Food: Never True Current Housing: I Have Housing Concerned About Future Housing: No Difficulty Paying Gas/Electric Bills: No Difficulty Paying for Meds: No Currently Unemployed: No Education: High School Diploma/GED Difficulty w/ Childcare or Family Care: No Gender identity (if verbalized by the patient): Male Spiritual care concerns: No Exam Const: Nutritional Appearance: obese Limitations: altered mental status Other: pt no response to verbal stimuli but withdraws from painful stimuli and moans HENMT: Head: normal to inspection Mouth: Yes Normal oral and palatal mucosa present Eyes: Conjunctivae: conjunctivae normal Pupils: Equal, round and reactive pupils prese
[2022-01-13 08:11] LABS: Glucose Point of Care 183 mg/dl (65-105)
[2022-01-13 08:49] LABS: Basophils Percent Auto 0.2 % (0.2-1.2); Hematocrit 42.5 % (42.0-52.0); Immature Granulocyte Absolute 0.07 K/mm3 (0.00-0.031); Immature Granulocyte Percent A 0.6 % (0-0.5); Lymphocytes Absolute Auto 0.49 K/mm3 (0.9-3.2); Lymphocytes Percent Auto 4.1 % (18.3-44.2); Mean Corpuscular HGB Conc 30.6 g/dl (32-36); Mean Corpuscular Hemoglobin 28.7 pg (26-34); Mean Corpuscular Volume 93.8 fl (80-100); Monocytes Absolute Auto 0.8 K/mm3 (0.1-0.6); Monocytes Percent Auto 6.8 % (2.6-8.5); Neutrophils Absolute Auto 10.7 K/mm3 (1.3-6.7); Neutrophils Percent Auto 88.3 % (45.5-73.1); Platelet Count Result 193 k/mm3 (150-375); Red Blood Count 4.53 M/mm3 (4.6-6.20); Red Cell Distribution Width 17.4 % (11.5-14.5); White Blood Count 12.1 K/mm3 (4.5-10.0)
[2022-01-13 09:01] LABS: INR 1.9; Prothrombin Time 21.2 Seconds (11.1-14.7)
[2022-01-13 09:02] LABS: Partial Thromboplastin Time 38.4 SECONDS (22.3-36.8)
[2022-01-13 09:05] LABS: Appearance Urine Clear (Clear); Bilirubin Urine 1+ (Negative); Blood Urine Negative (Negative); Color Urine Amber (Yellow); Glucose Urine UA Negative (Negative); Ketones Urine Trace mg/dL (Negative); Leukocyte Esterase Ur Negative LEU/UL (Negative); Nitrate Urine Negative (Negative); Protein Urine 2+ mg/dL (Negative); Specific Grav Ur 1.025 (1.001-1.035)
[2022-01-13 09:05] LABS: Alveolar/Arterial O2 Gradient 71.3 mmHg; Base Excess ABG 10.5 mEq/l (+/-2.0); Fractional Inspired Oxygen 28 %; HCO3 ABG 37.6 mEq/l (22.0-26.0); Oxygen Content ABG 17.1 %vol (16.0-22.0); Oxygen Saturation ABG 88.8 % (95.0-100.0); PO2 ABG 56.4 mmHg (80.0-100.0); PO2 FiO2 Ratio Arterial Blood 2.01 %; Total Hemoglobin 13.8 g/dL (12.0-18.0); pH ABG 7.408 (7.350-7.450)
[2022-01-13 09:06] LABS: Device NASAL CANNULA; Modified Allen's Test Pass; Site Drawn RIGHT RADIAL
[2022-01-13 09:09] LABS: Lactic Acid Reflex 1.1 mmol/L (0.7-2.0)
[2022-01-13 09:10] LABS: Bacteria Urine Trace /hpf; Budding Yeast Urine Present /hpf; Calcium Oxalate Crystals Urine Present /hpf; Mucus Urine Rare /lpf; Squamous Epithelial Cell Urine Rare /hpf (Few); WBC Urine 0-3 /hpf
[2022-01-13 09:11] LABS: Add Urine Microscopic? YES
[2022-01-13 09:24] LABS: Influenza A QL RT-PCR Negative (Negative); Influenza B QL RT-PCR Negative (Negative); SARS-CoV-2 RNA PCR Positive
[2022-01-13 09:25] LABS: Anisocytosis 2+ (NORMAL); Platelet Estimate Adequate (Adequate); Poikilocytosis 1+ (NORMAL); Schistocytes None Seen (NORMAL)
--- NOTE | 2022-01-13 09:31 | PC.NURSE ---
Patient continues to have periods of apnea. Patient's O2 saturation dropping around 87%-88%. EDP Naylor aware. Patient still only responding to painful stimuli.
--- NOTE | 2022-01-13 09:56 | PC.NURSE ---
pt prepped for intubation bp 114/85 p 86 100% being bagged versed 4mg given ivp 0957 succ 120 mg ivp 0958 pt intubated with 7.5 et tube 27 @ lip confirmed with visual of cords, postive color change on colormetric device, auscultation all 4 lung alicia, good chest rise and fall with bagging resp contacted for pcxr
[2022-01-13 10:00] LABS: Ammonia < 9 umol/L (9-30)
[2022-01-13 10:09] LABS: Alanine Aminotransferase 25 U/L (6-50); Albumin Level 2.6 g/dL (3.5-5.1); Alkaline Phosphatase 92 U/L (38-126); Anion Gap 4 mmol/L (8-16); Aspartate Amino Transferase 31 U/L (17-59); Blood Urea Nitrogen 17 mg/dL (9-20); Calcium 8.3 mg/dL (8.4-10.2); Carbon Dioxide 33 mmol/L (22-30); Chloride 104 mmol/L (98-107); Estimated Glomerular Filt Rate > 60; Glucose 52 mg/dL (65-110); Potassium 3.8 mmol/L (3.4-5.0); Sodium 141 mmol/L (137-145)
--- NOTE | 2022-01-13 10:14 | PC.NURSE ---
Per EDP Naylor, no further sedation needed.
[2022-01-13] MEDS: DEXTROSE 50% 25 GM/50 ML SYRINGE IV PUSH (10:15)
[2022-01-13 10:18] LABS: Troponin I 0.019 ng/mL (0.000-0.034)
--- NOTE | 2022-01-13 10:20 | PC.NURSE ---
Per EDP Naylor, no OG/NG needed at this time.
[2022-01-13] MEDS: SODIUM CHLORIDE 0.9% IV 500 ML 999 ML IV CONT (10:31)
[2022-01-13 10:38] LABS: Glucose Point of Care 116 mg/dl (65-105)
--- NOTE | 2022-01-13 10:56 | PC.NURSE ---
Patient beginning to move and attempted to remove ETT. EDP in room. Per EDP Naylor verbal order read-back, 20mg Propofol given.
[2022-01-13] MEDS: PROPOFOL IV EMULSION 100 ML 3 MG IV CONT (11:01)
[2022-01-13] MEDS: PROPOFOL IV EMULSION 100 ML 9 MG IV CONT (11:11)
[2022-01-13 12:04] LABS: Glucose Point of Care 60 mg/dl (65-105)
[2022-01-13] MEDS: DEXTROSE 10% 500 ML 999 ML (12:12)
[2022-01-13] MEDS: DEXTROSE 50% 25 GM/50 ML SYRINGE (12:12)
[2022-01-13] MEDS: FUROSEMIDE INJ 40 MG/4 ML VIAL IV PUSH (12:25)
--- NOTE | 2022-01-13 13:00 | PM.IMHP ---
H&P: HPI History of Present Illness Date/Time: 01/13/22 13:00 Chief Complaint: Altered mental status. Narrative: This is a 81-year-old male with history of stroke, hypertension, hyperlipidemia, paroxysmal atrial fibrillation on anticoagulation, uncontrolled diabetes, and benign prostatic hyperplasia with chronic indwelling Ford catheter who presented to the emergency department via EMS from local rehab facility for evaluation of altered mental status. He is intubated on mechanical ventilation is unable to provide a history and as such a majority of the following is obtained via a review of his electronic medical records. He was recently seen in our emergency department within the last several weeks and he was sent to [facility] on 12/16/2021 for vascular intervention due to a diabetic foot infection. There he had a left [id number] amputation he was discharged to a local rehab facility where he was found to be altered this morning. EMS was summoned on arrival his blood sugar was in the 50s and he was given an amp of D50 with improvement his blood sugar to 180 however he remained poorly responsive and he was intubated in the ER. He has since been admitted to the ICU on a dextrose drip. Labs in the ER were significant for white blood cell count of 12.1, normal lactic acid level, normal ammonia, and normal troponin. Chest x-ray showed cardiomegaly with pulmonary edema and pleural effusions, possible superimposed pneumonia. UA was unremarkable. Head CT showed no acute findings. Review of Systems Review of Systems: Unable to be obtained as he is intubated. [facility] Past Medical History Medical History (Updated 01/13/22 @ 20:27 by Nupur Go PA-C) Abnormal ankle brachial index (MEHNAZ) Abnormal nuclear stress test Alcohol abuse, uncomplicated Atrial fibrillation Benign essential HTN BPH (benign prostatic hyperplasia) Brain TIA CAD (coronary artery disease) CHF (congestive heart failure) Diabetes mellitus with neuropathy Encephalomalacia Heart failure with reduced ejection fraction Hematuria Hyperlipidemia Obesity (BMI 30-39.9) Old lacunar stroke without late effect Other and unspecified hyperlipidemia Paroxysmal atrial fibrillation Peripheral vascular disease due to secondary diabetes Uncontrolled type 2 diabetes mellitus, with long-term current use of insulin Surgical History Surgical History History of cardiac catheterization History of colonoscopy Hx of transurethral resection of prostate Family History Family History Sibling Family history of malignant neoplasm Patient's brother is in good health Patient's sister is Father Family history of malignant neoplasm Patient's father is Mother Family history of malignant neoplasm Patient's mother is Social History Social History (Updated 01/13/22 @ 20:18 by Nupur Go PA-C) Social History: The patient is and lives in his own home. He has 3 children. Retired from the local [employer]. He smoked briefly and quit in 1989. History of alcoholism, no alcohol for many years. No illicit substance abuse. And he has 3 children. He lives in his own home. Surrogate medical decision maker: Eamon Guillory, son. Code status: Full code. Smoking packs per day: 1 Smoking cigarettes per day: 20.0 Years smoked: 15 Smoking pack-years: 15.00 Smoking status: Former smoker Tobacco type: cigarettes Second hand tobacco smoke exposure: No Smoking end date: 12/15/89 Alcohol intake: unknown Alcohol use details: 2012 Substance use: unknown Substance use type: does not use Lack of Transportation: No Lack of Food: Never True Current Housing: I Have Housing Concerned About Future Housing: No Difficulty Paying Gas/Electric Bills: No Difficulty Paying for
--- NOTE | 2022-01-13 13:08 | WPDCNINT ---
Assessment and Plan Assessment and plan (1) Acute respiratory failure: Code(s): J96.00 - Acute respiratory failure, unspecified whether with hypoxia or hypercapnia Status: Acute Assessment and Plan: Acute Respiratory failure secondary to encephalopathy, pulmonary edema Patient now intubated and sedated Continue full mechanical ventilation support to prevent hypoxemia/hypercarbia and end organ damage. Vent settings and PCXR reviewed ABG ordered and pending Patient received Lasix in the ER with good urine output Bronchodilators (2) Encephalopathy: Code(s): G93.40 - Encephalopathy, unspecified Status: Acute Assessment and Plan: Likely secondary to hypoglycemia or narcotic. No reported seizures but hypoglycemia could have led to a seizure leading to postictal stage. Patient may have another CVA as he has history of multiple CVAs in the past Head CT reviewed and negative Currently he is sedated D5 infusion Check EEG Avoid further opioids at this time Check ammonia and TSH Check urine drug screen (3) Hypoglycemia: Code(s): E16.2 - Hypoglycemia, unspecified Status: Acute Assessment and Plan: Patient has history of diabetes and is on add Lantus and short-acting insulin Hold Lantus IV dextrose infusion Acute cannot blood sugar checks (4) CHF (congestive heart failure): Code(s): I50.9 - Heart failure, unspecified Status: Acute Assessment and Plan: Patient has history of congestive heart failure with EF 35-40% Most recent echocardiogram Summary ? 1. Complete two-dimensional, color flow and Doppler transthoracic echocardiogram is performed. ? 2. Left ventricular chamber dimension is mildly enlarged. ? 3. Left ventricular systolic function is moderately reduced, estimated at 35-40%. ? 4. Left ventricular septal wall motion is abnormal with septal motion related to bundle branch block. ? 5. The left ventricular diastolic function is abnormal. ? 6. E/e' 25 is elevated. ? 7. Atrial fibrillation. ? 8. Left atrial chamber dimension is moderately enlarged. ? 9. There is mild mitral valve regurgitation. ? 10. There is trace tricuspid valve regurgitation. ? 11. No pulmonary hypertension, estimated pulmonary arterial systolic pressure is 33 mmHg. ? 12. There is trace pulmonic regurgitation. Lasix given in the ER Will continue Lasix daily as patient has volume overload (5) Diabetic foot infection: Code(s): E11.628 - Type 2 diabetes mellitus with other skin complications; L08.9 - Local infection of the skin and subcutaneous tissue, unspecified Status: Acute Assessment and Plan: Patient's stump appears slightly warmer and red No discharge seen Check CT Consult wound care to exam Will consider surgery consult Empiric IV antibiotics Blood cultures (6) COVID-19: Code(s): U07.1 - COVID-19 Status: Acute Assessment and Plan: Patient tested positive COVID 19. He is vaccinated against COVID-19 Patient is on oxygen and chest x-ray does show infiltrates which is likely pulmonary edema It seems that he was tested positive and [facility] on 01/03 Isolation Will start dexamethasone at this time (7) Atrial fibrillation: Code(s): I48.91 - Unspecified atrial fibrillation Status: Acute Assessment and Plan: Rate controlled Check EKG Continue Paxil P.o. and IV Lopressor Plan DVT prophylaxis -continue apixaban Stress ulcer prophylaxis -PPI Nutrition -start tube feeds Code Status - Full Code Total Critical Care Time - 40 minutes Due to a high probability of clinically significant, life threatening deterioration, the patient required my highest level of preparedness to intervene emergently and I personally spent this critical care time directly and personally managing the patient. This critical care time included obtaining a history; examining the patient; pulse oximetry; ordering and review of studies; arranging urgen
[2022-01-13 13:53] LABS: Glucose Point of Care 259 mg/dl (65-105)
[2022-01-13] MEDS: PIPERACILLIN/TAZOBACTAM SOD 4.5 GM in SODIUM CHLORIDE 0.9% IV 100 ML 200 ML IVPB (14:02)
--- NOTE | 2022-01-13 15:15 | ADMGEN ---
This patient, Kenneth Guillory, was admitted to Intensive Care Unit-1. Patient/family oriented to hospital policies and general routines including ID bracelet, bed and alarms, visiting hours, pain management, procedures, bathroom and other care routines, personal items, smoking policy, room service/diet, and visiting hours. Information on how to activate the Rapid Response Team has been discussed. Patient/Family are encouraged to report perceived risks to care and to ask questions if they do not understand what they are told or what they should do.
[2022-01-13 15:17] LABS: Thyroid Stimulating Hormone 0.823 uIU/mL (0.465-4.680)
[2022-01-13] MEDS: DEXTROSE 5%/0.45% SOD CHL 1,000 ML 100 ML IV CONT (15:54)
[2022-01-13] MEDS: PROPOFOL IV EMULSION 100 ML 24 MG IV CONT (15:58)
[2022-01-13 16:13] LABS: Ammonia < 9 umol/L (9-30)
[2022-01-13 16:24] LABS: NT Pro B Type Natriuretic Pept 10400 pg/mL (5-100); Troponin I 0.024 ng/mL (0.000-0.034)
[2022-01-13 16:58] LABS: Procalcitonin 0.9 ng/mL
[2022-01-13 18:25] LABS: Glucose Point of Care 171 mg/dl (65-105)
[2022-01-13 18:25] LABS: Glucose Point of Care 145 mg/dl (65-105)
[2022-01-13] MEDS: PROPOFOL IV EMULSION 100 ML 18 MG IV CONT (20:39)
[2022-01-13] MEDS: MINERAL OIL/WHITE PETROLATUM OINTMENT 1 APPLIC EACH EYE (20:42)
[2022-01-13] MEDS: METOPROLOL TARTRATE 25 MG TABLET PO (20:42)
[2022-01-13] MEDS: APIXABAN 5 MG TABLET PO (20:42)
[2022-01-13 21:04] LABS: Glucose Point of Care 154 mg/dl (65-105)
[2022-01-13 22:05] LABS: Alveolar/Arterial O2 Gradient 115.6 mmHg; Base Excess ABG 10.7 mEq/l (+/-2.0); Carboxyhemoglobin 0.4 % THb (0-2.0); Fractional Inspired Oxygen 40 %; HCO3 ABG 33.8 mEq/l (22.0-26.0); Methemoglobin ABG 0.2 %THb (0-1.5); Oxygen Saturation ABG 98.8 % (95.0-100.0); Oxyhemoglobin 97.7 % THb (90.0-100.0); PCO2 ABG 39.2 mmHg (35.0-45.0); PO2 ABG 124.5 mmHg (80.0-100.0); PO2 FiO2 Ratio Arterial Blood 3.11 %; Reduced Hemoglobin 1.7 %THb (0-5.0); Total Hemoglobin 13.7 g/dL (12.0-18.0)
[2022-01-13 22:08] LABS: Arterial Blood Gas Vent Mode CMV; Arterial Blood Gas Ventilator rate 18 /MIN; Device VENTILATOR; Modified Allen's Test Pass; Site Drawn RIGHT RADIAL; pH ABG 7.554 (7.350-7.450)
[2022-01-13 22:09] LABS: Arterial Blood Gas PEEP 5 cmH2O; Arterial Blood Gas Tidal Volume 400 ml
[2022-01-13 22:59] LABS: Glucose Point of Care 237 mg/dl (65-105)
[2022-01-13 23:13] LABS: Barbiturate Screen Urine Negative (Negative); Benzodiazepines Screen Urine Positive (Negative)
[2022-01-13 23:34] LABS: Amphetamine Screen Urine Negative (Negative); Cannabinoid Screen Urine Negative (Negative); Cocaine Screen Urine Negative (Negative); Methadone Screen Urine Negative (Negative); Opiate Screen Urine Negative (Negative); Phencyclidine Screen Urine Negative (Negative)
[2022-01-14] VITALS (40 sets, daily range): BP systolic 82–133; BP diastolic 54–87; PULSE 58–113; RESP 16–21; TEMP 35.8–37.6; O2SAT 98–100; BMI 31.6
[2022-01-14] MEDS: INSULIN ASPART (*BKC) 100 UNITS/ML SUB-Q ×5 (00:59→23:30)
[2022-01-14 01:28] LABS: Glucose Point of Care 266 mg/dl (65-105)
[2022-01-14] MEDS: PROPOFOL IV EMULSION 100 ML 12 MG IV CONT ×2 (04:30→23:31)
[2022-01-14 04:50] LABS: Alanine Aminotransferase 19 U/L (6-50); Albumin Level 2.2 g/dL (3.5-5.1); Alkaline Phosphatase 63 U/L (38-126); Anion Gap 2 mmol/L (8-16); Aspartate Amino Transferase 37 U/L (17-59); Bilirubin,Total 1.5 mg/dL (0.2-1.3); Blood Urea Nitrogen 16 mg/dL (9-20); Calcium 7.5 mg/dL (8.4-10.2); Carbon Dioxide 31 mmol/L (22-30); Chloride 98 mmol/L (98-107); Estimated CRCL calculation 113 ml/min; Estimated Glomerular Filt Rate > 60; Glucose 217 mg/dL (65-110); Magnesium 1.7 mg/dL (1.6-2.3); Phosphorus 3.2 mg/dL (2.5-4.5); Potassium 4.1 mmol/L (3.4-5.0); Sodium 131 mmol/L (137-145)
[2022-01-14 04:50] LABS: Glucose Point of Care 217 mg/dl (65-105)
[2022-01-14 05:07] LABS: Basophils Percent Auto 0.2 % (0.2-1.2); Hematocrit 39.7 % (42.0-52.0); Hemoglobin 12.8 g/dL (14.0-18.0); Immature Granulocyte Absolute 0.06 K/mm3 (0.00-0.031); Immature Granulocyte Percent A 0.6 % (0-0.5); Lymphocytes Absolute Auto 0.34 K/mm3 (0.9-3.2); Lymphocytes Percent Auto 3.5 % (18.3-44.2); Mean Corpuscular HGB Conc 32.2 g/dl (32-36); Mean Corpuscular Hemoglobin 29.8 pg (26-34); Mean Corpuscular Volume 92.3 fl (80-100); Mean Platelet Volume 12.5 fl (7.4-10.4); Monocytes Absolute Auto 0.4 K/mm3 (0.1-0.6); Monocytes Percent Auto 4.4 % (2.6-8.5); Neutrophils Absolute Auto 8.8 K/mm3 (1.3-6.7); Neutrophils Percent Auto 91.3 % (45.5-73.1); Platelet Count Result 183 k/mm3 (150-375); Red Cell Distribution Width 17.4 % (11.5-14.5); White Blood Count 9.7 K/mm3 (4.5-10.0)
[2022-01-14 05:10] LABS: Alveolar/Arterial O2 Gradient 110.2 mmHg; Carboxyhemoglobin 0.2 % THb (0-2.0); Fractional Inspired Oxygen 35 %; HCO3 ABG 35.6 mEq/l (22.0-26.0); Methemoglobin ABG 0.3 %THb (0-1.5); Oxygen Content ABG 18.9 %vol (16.0-22.0); Oxygen Saturation ABG 98.2 % (95.0-100.0); PCO2 ABG 37.7 mmHg (35.0-45.0); PO2 ABG 95.5 mmHg (80.0-100.0); PO2 FiO2 Ratio Arterial Blood 2.73 %; Reduced Hemoglobin 2.5 %THb (0-5.0); Total Hemoglobin 13.8 g/dL (12.0-18.0)
[2022-01-14 05:11] LABS: Arterial Blood Gas Ventilator rate 18 /MIN; Device VENTILATOR; Modified Allen's Test Pass; Site Drawn RIGHT RADIAL; pH ABG 7.593 (7.350-7.450)
[2022-01-14 05:12] LABS: Arterial Blood Gas PEEP 5 cmH2O; Arterial Blood Gas Tidal Volume 400 ml; Arterial Blood Gas Vent Mode CMV
[2022-01-14] MEDS: hetaSTARCH 6%/NACL 500 ML 250 ML IV CONT (07:18)
[2022-01-14] MEDS: IPRATROPIUM BR 0.02% INH SOLN 0.5 MG/2.5 ML VIAL INHALATION ×3 (07:30→22:13)
[2022-01-14] MEDS: ALBUTEROL SULFATE NEB 2.5 MG/3 ML INH 5 MG INHALATION ×3 (07:30→22:13)
[2022-01-14] MEDS: FINASTERIDE 5 MG TABLET PO (09:23)
[2022-01-14] MEDS: APIXABAN 5 MG TABLET PO ×2 (09:24→20:49)
[2022-01-14] MEDS: ASPIRIN 81 MG ENTERIC TABLET PO (09:24)
[2022-01-14] MEDS: LIDOCAINE HCL 1% PF INJ 5 ML VIAL INFILTRATE (09:25)
--- NOTE | 2022-01-14 09:27 | WPDINTPN ---
Progress Note: A&P Assessment and Plan (1) Acute respiratory failure: Code(s): J96.00 - Acute respiratory failure, unspecified whether with hypoxia or hypercapnia Status: Acute Assessment and Plan: Acute Respiratory failure secondary to encephalopathy, pulmonary edema Patient now intubated and sedated Continue full mechanical ventilation support to prevent hypoxemia/hypercarbia and end organ damage. Chest x-ray this morning: Chest x-ray showed worsening diffuse lung disease consistent with pulmonary edema versus pneumonia, moderate-size pleural effusion with worsening on the right, cardiomegaly ABGs reviewed, will decrease respiratory rate to 14, increase PEEP to 8 Patient received Lasix in the ER with good urine output, this morning blood pressures were low, will hold Lasix for now Bronchodilators Sedated with propofol, maintain RASS of 0 to -2, daily sedation vacation evaluated neurological status (2) Pneumonia: Code(s): J18.9 - Pneumonia, unspecified organism Status: Acute Assessment and Plan: Chest x-ray as above -continue Zosyn, vancomycin (01/13) -will add azithromycin (01/14) (3) Encephalopathy: Code(s): G93.40 - Encephalopathy, unspecified Status: Acute Assessment and Plan: Likely secondary to hypoglycemia or narcotic. No reported seizures but hypoglycemia could have led to a seizure leading to postictal stage. Patient may have another CVA as he has history of multiple CVAs in the past Head CT reviewed and negative Currently he is sedated D5 infusion Check EEG Avoid further opioids at this time Ammonia level <9 TSH within normal limits Urine drug screen was positive for benzodiazepine (4) Hypoglycemia: Code(s): E16.2 - Hypoglycemia, unspecified Status: Acute Assessment and Plan: Patient has history of diabetes and is on Lantus and short-acting insulin at home Will hold Lantus for now -continue Accu-Cheks and sliding scale insulin -IV dextrose infusion was discontinued since patient has been hyperglycemic (5) CHF (congestive heart failure): Code(s): I50.9 - Heart failure, unspecified Status: Acute Assessment and Plan: Patient has history of congestive heart failure with EF 35-40% Most recent echocardiogram 10/31/2021 Summary ? 1. Complete two-dimensional, color flow and Doppler transthoracic echocardiogram is performed. ? 2. Left ventricular chamber dimension is mildly enlarged. ? 3. Left ventricular systolic function is moderately reduced, estimated at 35-40%. ? 4. Left ventricular septal wall motion is abnormal with septal motion related to bundle branch block. ? 5. The left ventricular diastolic function is abnormal. ? 6. E/e' 25 is elevated. ? 7. Atrial fibrillation. ? 8. Left atrial chamber dimension is moderately enlarged. ? 9. There is mild mitral valve regurgitation. ? 10. There is trace tricuspid valve regurgitation. ? 11. No pulmonary hypertension, estimated pulmonary arterial systolic pressure is 33 mmHg. ? 12. There is trace pulmonic regurgitation. Lasix given in the ER -hold Lasix given hypotension, will restart Lasix was blood pressures permit (6) Diabetic foot infection: Code(s): E11.628 - Type 2 diabetes mellitus with other skin complications; L08.9 - Local infection of the skin and subcutaneous tissue, unspecified Status: Acute Assessment and Plan: Patient's stump appears slightly warmer and red No discharge seen 01/13/2022 CT scan of left lower extremity: Recent left-sided below-knee amputation. No abscess or evidence of osteomyelitis -wound care evaluate the patient, no further recommendations -patient on empiric antibiotics -Blood cultures pending (7) COVID-19: Code(s): U07.1 - COVID-19 Status: Acute Assessment and Plan: Patient tested positive COVID 19. He is vaccinated against COVID-19 Patient is on oxygen and chest x-ray does show infiltrates which is likely pulmonary
[2022-01-14] MEDS: ALBUMIN HUMAN 25% 25 GM/100 ML 100 ML IVPB ×3 (10:46→20:48)
[2022-01-14] MEDS: PANTOPRAZOLE SODIUM IV 40 MG VIAL IV PUSH (10:49)
[2022-01-14] MEDS: MINERAL OIL/WHITE PETROLATUM OINTMENT 1 APPLIC EACH EYE ×2 (10:51→20:49)
[2022-01-14 11:35] LABS: Glucose Point of Care 236 mg/dl (65-105)
[2022-01-14] MEDS: CENTRAL LINE FLUSH 10 ML IV PUSH ×2 (14:46→21:04)
[2022-01-14] MEDS: PROPOFOL IV EMULSION 100 ML 9 MG IV CONT (15:32)
[2022-01-14 18:05] LABS: Glucose Point of Care 284 mg/dl (65-105)
[2022-01-14 21:11] LABS: Vancomycin Trough 19.4 ug/mL (10.0-20.0)
[2022-01-15] VITALS (32 sets, daily range): BP systolic 98–143; BP diastolic 58–83; PULSE 66–123; RESP 12–22; TEMP 36–36.7; O2SAT 95–100
[2022-01-15] LABS: Glucose Point of Care 331 mg/dl (65-105)
[2022-01-15] MEDS: ALBUTEROL SULFATE NEB 2.5 MG/3 ML INH 5 MG INHALATION ×4 (03:12→20:52)
[2022-01-15] MEDS: IPRATROPIUM BR 0.02% INH SOLN 0.5 MG/2.5 ML VIAL INHALATION ×4 (03:12→20:53)
[2022-01-15] MEDS: ALBUMIN HUMAN 25% 25 GM/100 ML 100 ML IVPB (04:26)
[2022-01-15 04:53] LABS: Basophils Percent Auto 0.1 % (0.2-1.2); Hematocrit 36.4 % (42.0-52.0); Hemoglobin 11.5 g/dL (14.0-18.0); Immature Granulocyte Absolute 0.05 K/mm3 (0.00-0.031); Immature Granulocyte Percent A 0.6 % (0-0.5); Lymphocytes Absolute Auto 0.34 K/mm3 (0.9-3.2); Lymphocytes Percent Auto 3.8 % (18.3-44.2); Mean Corpuscular HGB Conc 31.6 g/dl (32-36); Mean Corpuscular Hemoglobin 29.5 pg (26-34); Mean Corpuscular Volume 93.3 fl (80-100); Mean Platelet Volume 11.9 fl (7.4-10.4); Monocytes Absolute Auto 0.5 K/mm3 (0.1-0.6); Neutrophils Absolute Auto 8.1 K/mm3 (1.3-6.7); Neutrophils Percent Auto 90.5 % (45.5-73.1); Platelet Count Result 181 k/mm3 (150-375); Red Cell Distribution Width 17.7 % (11.5-14.5); White Blood Count 8.9 K/mm3 (4.5-10.0)
[2022-01-15 04:58] LABS: Alanine Aminotransferase 18 U/L (6-50); Albumin Level 2.7 g/dL (3.5-5.1); Alkaline Phosphatase 72 U/L (38-126); Anion Gap 3 mmol/L (8-16); Aspartate Amino Transferase 25 U/L (17-59); Bilirubin,Total 1.2 mg/dL (0.2-1.3); Blood Urea Nitrogen 17 mg/dL (9-20); Calcium 8.1 mg/dL (8.4-10.2); Carbon Dioxide 35 mmol/L (22-30); Chloride 96 mmol/L (98-107); Estimated CRCL calculation 110 ml/min; Estimated Glomerular Filt Rate > 60; Glucose 344 mg/dL (65-110); Magnesium 1.8 mg/dL (1.6-2.3); Phosphorus 3.1 mg/dL (2.5-4.5); Potassium 3.6 mmol/L (3.4-5.0); Sodium 134 mmol/L (137-145)
[2022-01-15] MEDS: INSULIN ASPART (*BKC) 100 UNITS/ML SUB-Q ×4 (06:00→23:13)
[2022-01-15] MEDS: PROPOFOL IV EMULSION 100 ML 9 MG IV CONT ×2 (06:01→16:58)
[2022-01-15] MEDS: CENTRAL LINE FLUSH 10 ML IV PUSH ×3 (06:03→22:22)
[2022-01-15 06:28] LABS: Glucose Point of Care 339 mg/dl (65-105)
[2022-01-15 06:56] LABS: Alveolar/Arterial O2 Gradient 52.1 mmHg; Base Excess ABG 9.1 mEq/l (+/-2.0); Carboxyhemoglobin 0.3 % THb (0-2.0); Fractional Inspired Oxygen 30 %; HCO3 ABG 34.1 mEq/l (22.0-26.0); Methemoglobin ABG 0.2 %THb (0-1.5); Oxygen Content ABG 15.9 %vol (16.0-22.0); Oxyhemoglobin 96.6 % THb (90.0-100.0); PO2 ABG 104.2 mmHg (80.0-100.0); PO2 FiO2 Ratio Arterial Blood 3.47 %; Reduced Hemoglobin 2.9 %THb (0-5.0); Total Hemoglobin 11.6 g/dL (12.0-18.0); pH ABG 7.461 (7.350-7.450)
[2022-01-15 06:57] LABS: Device VENTILATOR; Modified Allen's Test Unable to perform; Site Drawn RIGHT RADIAL
[2022-01-15 06:58] LABS: Arterial Blood Gas PEEP 8 cmH2O; Arterial Blood Gas Tidal Volume 400 ml; Arterial Blood Gas Vent Mode CMV; Arterial Blood Gas Ventilator rate 14 /MIN
[2022-01-15] MEDS: ASPIRIN 81 MG ENTERIC TABLET PO (08:59)
[2022-01-15] MEDS: FINASTERIDE 5 MG TABLET PO (08:59)
[2022-01-15] MEDS: PANTOPRAZOLE SODIUM IV 40 MG VIAL IV PUSH (08:59)
[2022-01-15] MEDS: FUROSEMIDE INJ 40 MG/4 ML VIAL 20 MG IV PUSH (08:59)
[2022-01-15] MEDS: MINERAL OIL/WHITE PETROLATUM OINTMENT 1 APPLIC EACH EYE ×2 (08:59→20:42)
[2022-01-15] MEDS: APIXABAN 5 MG TABLET PO ×2 (08:59→20:42)
[2022-01-15] MEDS: INSULIN GLARGINE (*BKC) 100 UNITS/ML 15 UNITS SUB-Q (09:00)
--- NOTE | 2022-01-15 09:25 | WPDINTPN ---
Progress Note: A&P Assessment and Plan (1) Acute respiratory failure: Code(s): J96.00 - Acute respiratory failure, unspecified whether with hypoxia or hypercapnia Status: Acute Assessment and Plan: Acute Respiratory failure secondary to encephalopathy, pulmonary edema Patient now intubated and sedated Continue full mechanical ventilation support to prevent hypoxemia/hypercarbia and end organ damage. Chest x-ray this morning: showed Diffuse lung disease with slight worsening in the right mid and lower lung zones, consistent with pulmonary edema versus pneumonia. Cardiomegaly, moderate-sized pleural effusions ABGs reviewed, will decrease respiratory rate to 14, increase PEEP to 8 Patient received Lasix in the ER with good urine output, this morning blood pressures were low, Bronchodilators Sedated with propofol, maintain RASS of 0 to -2, daily sedation vacation evaluated neurological status -will diurese patient today, blood pressures have been stable (2) Pneumonia: Code(s): J18.9 - Pneumonia, unspecified organism Status: Acute Assessment and Plan: Chest x-ray as above -continue Zosyn, vancomycin (01/13) -added azithromycin on (01/14) (3) Sepsis: Code(s): A41.9 - Sepsis, unspecified organism Status: Acute Assessment and Plan: Patient presented with encephalopathy, hypoglycemia, respiratory failure source likely due to pna and or bacteremia -01/13: Blood cultures growing gram-positive cocci in clusters 1 of 2 bottles. Blood cultures -Continue abx as above - PICC line placed 01/14 -blood pressures stable this morning (4) Encephalopathy: Code(s): G93.40 - Encephalopathy, unspecified Status: Acute Assessment and Plan: Likely secondary to hypoglycemia or narcotic. No reported seizures but hypoglycemia could have led to a seizure leading to postictal stage. Patient may have another CVA as he has history of multiple CVAs in the past Head CT reviewed and negative Currently he is sedated off D5 infusion -Will decrease sedation to evaluate Neuro status. Check EEG if pt does not wake up Avoid further opioids at this time Ammonia level <9 TSH within normal limits Urine drug screen was positive for benzodiazepine (5) Hypoglycemia: Code(s): E16.2 - Hypoglycemia, unspecified Status: Acute Assessment and Plan: Patient has history of diabetes and is on Lantus and short-acting insulin at home Will hold Lantus for now -continue Accu-Cheks and sliding scale insulin -IV dextrose infusion was discontinued since patient has been hyperglycemic -started on Lantus for hyperglycemia (6) CHF (congestive heart failure): Code(s): I50.9 - Heart failure, unspecified Status: Acute Assessment and Plan: Patient has history of congestive heart failure with EF 35-40% Most recent echocardiogram 10/31/2021 Summary ? 1. Complete two-dimensional, color flow and Doppler transthoracic echocardiogram is performed. ? 2. Left ventricular chamber dimension is mildly enlarged. ? 3. Left ventricular systolic function is moderately reduced, estimated at 35-40%. ? 4. Left ventricular septal wall motion is abnormal with septal motion related to bundle branch block. ? 5. The left ventricular diastolic function is abnormal. ? 6. E/e' 25 is elevated. ? 7. Atrial fibrillation. ? 8. Left atrial chamber dimension is moderately enlarged. ? 9. There is mild mitral valve regurgitation. ? 10. There is trace tricuspid valve regurgitation. ? 11. No pulmonary hypertension, estimated pulmonary arterial systolic pressure is 33 mmHg. ? 12. There is trace pulmonic regurgitation. Lasix given in the ER -will diurese today (7) Diabetic foot infection: Code(s): E11.628 - Type 2 diabetes mellitus with other skin complications; L08.9 - Local infection of the skin and subcutaneous tissue, unspecified Status: Acute Assessment and Plan: Patient's stump appears slightly w
--- NOTE | 2022-01-15 11:11 | PCFNICU ---
ICU Rounding Note: Pt current nutrition is Glucerna 1.2 at 65 ml/hr. Last recorded weight is 103.9 kg. Bowel Motility: No BM reported. Labs Reviewed:Glu 344, Cr 0.6,Hgb 11.5, Hct 36.4, Alb 2.7 Meds Noted:Propofol, Zosyn, Vancomycin, Albumin,Eliquis, Protonix, Lantus, Atrovent Skin: WNL Additional Notes: Patient remains on mechanical vent and tube feedings of Glucerna 1.2 at 65 ml/hr. Patient is tolerating tube feedings per nursing. Propofol infusion at 15 mcg or 9 ml/me=237 kcals. Tube feedings are appropriate at this time. Following daily in ICU rounds. Will monitor every Wednesday and Wednesday..
[2022-01-15 12:20] LABS: Glucose Point of Care 334 mg/dl (65-105)
[2022-01-15 17:30] LABS: Glucose Point of Care 306 mg/dl (65-105)
[2022-01-15 23:55] LABS: Glucose Point of Care 345 mg/dl (65-105)
[2022-01-16] VITALS (35 sets, daily range): BP systolic 101–128; BP diastolic 49–90; PULSE 64–135; RESP 14–22; TEMP 36.2–37.6; O2SAT 95–100
[2022-01-16] MEDS: PROPOFOL IV EMULSION 100 ML 9 MG IV CONT ×3 (03:16→22:47)
[2022-01-16 05:34] LABS: Alveolar/Arterial O2 Gradient 36.4 mmHg; Base Excess ABG 11.3 mEq/l (+/-2.0); Carboxyhemoglobin 0.3 % THb (0-2.0); Fractional Inspired Oxygen 30 %; HCO3 ABG 37.1 mEq/l (22.0-26.0); Methemoglobin ABG 0.3 %THb (0-1.5); Oxygen Saturation ABG 98.3 % (95.0-100.0); Oxyhemoglobin 97.2 % THb (90.0-100.0); PO2 ABG 114.1 mmHg (80.0-100.0); Reduced Hemoglobin 2.2 %THb (0-5.0); Total Hemoglobin 12.3 g/dL (12.0-18.0); pH ABG 7.455 (7.350-7.450)
[2022-01-16 05:54] LABS: Arterial Blood Gas PEEP 8 cmH2O; Arterial Blood Gas Tidal Volume 400 ml; Arterial Blood Gas Vent Mode CMV; Arterial Blood Gas Ventilator rate 14 /MIN; Device VENTILATOR; Modified Allen's Test Pass; Site Drawn RIGHT RADIAL
[2022-01-16] MEDS: INSULIN ASPART (*BKC) 100 UNITS/ML SUB-Q ×3 (06:05→16:55)
[2022-01-16] MEDS: CENTRAL LINE FLUSH 10 ML IV PUSH ×3 (06:07→20:34)
[2022-01-16 06:19] LABS: Basophils Percent Auto 0.1 % (0.2-1.2); Hematocrit 35.8 % (42.0-52.0); Immature Granulocyte Absolute 0.05 K/mm3 (0.00-0.031); Immature Granulocyte Percent A 0.5 % (0-0.5); Lymphocytes Absolute Auto 0.35 K/mm3 (0.9-3.2); Lymphocytes Percent Auto 3.7 % (18.3-44.2); Mean Corpuscular HGB Conc 30.7 g/dl (32-36); Mean Corpuscular Hemoglobin 28.5 pg (26-34); Mean Corpuscular Volume 92.7 fl (80-100); Mean Platelet Volume 11.9 fl (7.4-10.4); Monocytes Absolute Auto 0.6 K/mm3 (0.1-0.6); Monocytes Percent Auto 6.2 % (2.6-8.5); Neutrophils Absolute Auto 8.6 K/mm3 (1.3-6.7); Neutrophils Percent Auto 89.5 % (45.5-73.1); Platelet Count Result 173 k/mm3 (150-375); Red Blood Count 3.86 M/mm3 (4.6-6.20); Red Cell Distribution Width 17.5 % (11.5-14.5); White Blood Count 9.6 K/mm3 (4.5-10.0)
[2022-01-16 06:25] LABS: Alanine Aminotransferase 20 U/L (6-50); Albumin Level 2.6 g/dL (3.5-5.1); Alkaline Phosphatase 66 U/L (38-126); Anion Gap 2 mmol/L (8-16); Aspartate Amino Transferase 33 U/L (17-59); Bilirubin,Total 0.7 mg/dL (0.2-1.3); Blood Urea Nitrogen 17 mg/dL (9-20); Calcium 8.1 mg/dL (8.4-10.2); Carbon Dioxide 37 mmol/L (22-30); Chloride 95 mmol/L (98-107); Estimated CRCL calculation 129 ml/min; Estimated Glomerular Filt Rate > 60; Glucose 279 mg/dL (65-110); Magnesium 1.8 mg/dL (1.6-2.3); Phosphorus 2.8 mg/dL (2.5-4.5); Sodium 134 mmol/L (137-145)
[2022-01-16 06:30] LABS: Glucose Point of Care 298 mg/dl (65-105)
[2022-01-16] MEDS: INSULIN GLARGINE (*BKC) 100 UNITS/ML 30 UNITS SUB-Q (08:09)
[2022-01-16] MEDS: PANTOPRAZOLE SODIUM IV 40 MG VIAL IV PUSH (08:10)
[2022-01-16] MEDS: APIXABAN 5 MG TABLET PO ×2 (08:12→20:34)
[2022-01-16] MEDS: MINERAL OIL/WHITE PETROLATUM OINTMENT 1 APPLIC EACH EYE ×2 (08:12→20:34)
[2022-01-16] MEDS: ASPIRIN 81 MG ENTERIC TABLET PO (08:13)
[2022-01-16] MEDS: FINASTERIDE 5 MG TABLET PO (08:13)
[2022-01-16] MEDS: FUROSEMIDE INJ 40 MG/4 ML VIAL 20 MG IV PUSH (09:13)
[2022-01-16] MEDS: ALBUTEROL SULFATE NEB 2.5 MG/3 ML INH 5 MG INHALATION ×3 (09:48→21:44)
[2022-01-16] MEDS: IPRATROPIUM BR 0.02% INH SOLN 0.5 MG/2.5 ML VIAL INHALATION ×3 (09:48→21:44)
--- NOTE | 2022-01-16 11:16 | PCNFU ---
Nutrition Follow-Up Complete: Inadequate Oral Intake as related to mechanical ventilation as evidenced by NPO. Goal: Meet estimated nutritional needs patient is progressing towards goal. We will continue current goal. Pt current nutrition is Glucerna 1.2 at 65 ml/hr. Last recorded weight is 108 kg. Bowel Motility: No BM started on Miralax. Labs Reviewed:Glu 279, Cr 0.5,Alb 2.6,Na 134 Meds Noted:Propofol, Zosyn, Vancomycin, Albumin,Eliquis, Protonix, Lantus, Atrovent Skin: WNL Additional Notes: Patient remains on mechanical vent and tube feedings of Glucerna 1.2 at 65 ml/hr and tolerating per nursing. Current tube feeding is providing patient with 1716 kcals/86 gms protein/1151 ml water. Additional 317 kcals from propofol infusion. Meeting 100% caloric needs and 91% protein needs. Flush 30 ml q 4hours. Agree with diet orders at this time. Will monitor in ICU rounds and reassessing every Wednesday and Wednesday.
[2022-01-16 11:42] LABS: Glucose Point of Care 351 mg/dl (65-105)
--- NOTE | 2022-01-16 12:23 | WPDINTPN ---
Progress Note: A&P Assessment and Plan (1) Acute respiratory failure: Code(s): J96.00 - Acute respiratory failure, unspecified whether with hypoxia or hypercapnia Status: Acute Assessment and Plan: Acute Respiratory failure secondary to encephalopathy, pulmonary edema Patient now intubated and sedated Continue full mechanical ventilation support to prevent hypoxemia/hypercarbia and end organ damage. Chest x-ray this morning: showed Stable diffuse lung disease, consistent with pulmonary edema versus pneumonia. Stable moderate-sized pleural effusions.. Cardiomegaly ABGs reviewed, 01/15/2022: Responded well to Lasix, will repeat again today Bronchodilators Sedated with propofol, maintain RASS of 0 to -2, daily sedation vacation evaluated neurological status (2) Pneumonia: Code(s): J18.9 - Pneumonia, unspecified organism Status: Acute Assessment and Plan: Chest x-ray as above -continue Zosyn, vancomycin (01/13) -azithromycin (01/14) (3) Sepsis: Code(s): A41.9 - Sepsis, unspecified organism Status: Acute Assessment and Plan: Patient presented with encephalopathy, hypoglycemia, respiratory failure source likely due to pna and or bacteremia -01/13: Blood cultures growing Staph capitis and Staph epidermidis -01/14: Sputum culture: Normal oropharyngeal tami -01/14: MRSA screen pending 01/15; repeat blood cultures pending -Continue abx as above - PICC line placed 01/14 -blood pressures stable this morning (4) Encephalopathy: Code(s): G93.40 - Encephalopathy, unspecified Status: Acute Assessment and Plan: Likely secondary to hypoglycemia or narcotic. No reported seizures but hypoglycemia could have led to a seizure leading to postictal stage. Patient may have another CVA as he has history of multiple CVAs in the past Head CT reviewed and negative Currently he is sedated off D5 infusion -Will decrease sedation to evaluate Neuro status. Check EEG if pt does not wake up Avoid further opioids at this time Ammonia level <9 TSH within normal limits Urine drug screen was positive for benzodiazepine (5) Hypoglycemia: Code(s): E16.2 - Hypoglycemia, unspecified Status: Acute Assessment and Plan: Patient has history of diabetes and is on Lantus and short-acting insulin at home Will hold Lantus for now -continue Accu-Cheks and sliding scale insulin -IV dextrose infusion was discontinued since patient has been hyperglycemic -increase Lantus (6) CHF (congestive heart failure): Code(s): I50.9 - Heart failure, unspecified Status: Acute Assessment and Plan: Patient has history of congestive heart failure with EF 35-40% Most recent echocardiogram 10/31/2021 Summary ? 1. Complete two-dimensional, color flow and Doppler transthoracic echocardiogram is performed. ? 2. Left ventricular chamber dimension is mildly enlarged. ? 3. Left ventricular systolic function is moderately reduced, estimated at 35-40%. ? 4. Left ventricular septal wall motion is abnormal with septal motion related to bundle branch block. ? 5. The left ventricular diastolic function is abnormal. ? 6. E/e' 25 is elevated. ? 7. Atrial fibrillation. ? 8. Left atrial chamber dimension is moderately enlarged. ? 9. There is mild mitral valve regurgitation. ? 10. There is trace tricuspid valve regurgitation. ? 11. No pulmonary hypertension, estimated pulmonary arterial systolic pressure is 33 mmHg. ? 12. There is trace pulmonic regurgitation. Will diurese again today (7) Diabetic foot infection: Code(s): E11.628 - Type 2 diabetes mellitus with other skin complications; L08.9 - Local infection of the skin and subcutaneous tissue, unspecified Status: Acute Assessment and Plan: Patient's stump appears slightly warmer and red No discharge seen 01/13/2022 CT scan of left lower extremity: Recent left-sided below-knee amputation. No abscess or evidence of osteomy
[2022-01-16 17:18] LABS: Glucose Point of Care 273 mg/dl (65-105)
[2022-01-17] VITALS (40 sets, daily range): BP systolic 99–123; BP diastolic 59–91; PULSE 60–127; RESP 14–23; TEMP 37.1–37.9; O2SAT 97–100
[2022-01-17] MEDS: INSULIN ASPART (*BKC) 100 UNITS/ML SUB-Q ×3 (01:17→18:03)
[2022-01-17 01:29] LABS: Glucose Point of Care 256 mg/dl (65-105)
[2022-01-17] MEDS: IPRATROPIUM BR 0.02% INH SOLN 0.5 MG/2.5 ML VIAL INHALATION ×4 (03:12→21:25)
[2022-01-17] MEDS: ALBUTEROL SULFATE NEB 2.5 MG/3 ML INH 5 MG INHALATION ×4 (03:12→21:25)
[2022-01-17 04:58] LABS: Base Excess ABG 17.3 mEq/l (+/-2.0); Carboxyhemoglobin 0.1 % THb (0-2.0); Fractional Inspired Oxygen 30 %; HCO3 ABG 44.3 mEq/l (22.0-26.0); Methemoglobin ABG 0.3 %THb (0-1.5); Oxygen Content ABG 17.6 %vol (16.0-22.0); Oxygen Saturation ABG 95.2 % (95.0-100.0); Oxyhemoglobin 94.7 % THb (90.0-100.0); PO2 ABG 74.6 mmHg (80.0-100.0); PO2 FiO2 Ratio Arterial Blood 2.49 %; Reduced Hemoglobin 4.9 %THb (0-5.0); Total Hemoglobin 13.2 g/dL (12.0-18.0); pH ABG 7.464 (7.350-7.450)
[2022-01-17 05:09] LABS: PCO2 ABG 63.2 mmHg (35.0-45.0); Site Drawn RIGHT RADIAL
[2022-01-17 05:10] LABS: Arterial Blood Gas PEEP 8 cmH2O; Arterial Blood Gas Tidal Volume 400 ml; Arterial Blood Gas Vent Mode CMV; Arterial Blood Gas Ventilator rate 14 /MIN; Device VENTILATOR; Modified Allen's Test Pass
[2022-01-17] MEDS: CENTRAL LINE FLUSH 10 ML IV PUSH ×3 (05:20→20:14)
[2022-01-17 05:22] LABS: Basophils Percent Auto 0.1 % (0.2-1.2); Hematocrit 38.3 % (42.0-52.0); Hemoglobin 11.7 g/dL (14.0-18.0); Immature Granulocyte Absolute 0.07 K/mm3 (0.00-0.031); Immature Granulocyte Percent A 0.8 % (0-0.5); Lymphocytes Absolute Auto 0.65 K/mm3 (0.9-3.2); Lymphocytes Percent Auto 7.1 % (18.3-44.2); Mean Corpuscular HGB Conc 30.5 g/dl (32-36); Mean Corpuscular Hemoglobin 29.4 pg (26-34); Mean Corpuscular Volume 96.2 fl (80-100); Mean Platelet Volume 11.8 fl (7.4-10.4); Monocytes Absolute Auto 0.9 K/mm3 (0.1-0.6); Monocytes Percent Auto 9.9 % (2.6-8.5); Neutrophils Absolute Auto 7.5 K/mm3 (1.3-6.7); Neutrophils Percent Auto 82.1 % (45.5-73.1); Platelet Count Result 184 k/mm3 (150-375); Red Blood Count 3.98 M/mm3 (4.6-6.20); Red Cell Distribution Width 17.2 % (11.5-14.5); White Blood Count 9.1 K/mm3 (4.5-10.0)
[2022-01-17 05:37] LABS: Alanine Aminotransferase 31 U/L (6-50); Albumin Level 2.5 g/dL (3.5-5.1); Alkaline Phosphatase 78 U/L (38-126); Anion Gap 1 mmol/L (8-16); Aspartate Amino Transferase 47 U/L (17-59); Bilirubin,Total 0.6 mg/dL (0.2-1.3); Blood Urea Nitrogen 23 mg/dL (9-20); Calcium 7.8 mg/dL (8.4-10.2); Carbon Dioxide 39 mmol/L (22-30); Chloride 95 mmol/L (98-107); Estimated CRCL calculation 128 ml/min; Estimated Glomerular Filt Rate > 60; Glucose 186 mg/dL (65-110); Magnesium 1.9 mg/dL (1.6-2.3); Phosphorus 2.6 mg/dL (2.5-4.5); Potassium 4.3 mmol/L (3.4-5.0); Sodium 135 mmol/L (137-145)
[2022-01-17 05:47] LABS: Vancomycin Trough 28.1 ug/mL (10.0-20.0)
[2022-01-17 05:48] LABS: Glucose Point of Care 185 mg/dl (65-105)
[2022-01-17] MEDS: polyethylene glycoL 3350 17 GM POWD.PACK PO (09:44)
[2022-01-17] MEDS: PANTOPRAZOLE SODIUM IV 40 MG VIAL IV PUSH (09:45)
[2022-01-17] MEDS: FINASTERIDE 5 MG TABLET PO (09:45)
[2022-01-17] MEDS: ASPIRIN 81 MG ENTERIC TABLET PO (09:45)
[2022-01-17] MEDS: APIXABAN 5 MG TABLET PO ×2 (09:45→20:14)
[2022-01-17] MEDS: MINERAL OIL/WHITE PETROLATUM OINTMENT 1 APPLIC EACH EYE ×2 (09:46→20:15)
[2022-01-17] MEDS: FUROSEMIDE INJ 40 MG/4 ML VIAL 20 MG IV PUSH (09:46)
[2022-01-17] MEDS: INSULIN GLARGINE (*BKC) 100 UNITS/ML 45 UNITS SUB-Q (10:25)
[2022-01-17] MEDS: PROPOFOL IV EMULSION 100 ML 6 MG IV CONT (10:27)
--- NOTE | 2022-01-17 10:45 | P.PNIM_ITS ---
Progress Note: A&P Assessment and Plan (1) Acute respiratory failure: Code(s): J96.00 - Acute respiratory failure, unspecified whether with hypoxia or hypercapnia Status: Acute Assessment and Plan: Acute Respiratory failure secondary to encephalopathy, pulmonary edema Patient now intubated and sedated Continue full mechanical ventilation support to prevent hypoxemia/hypercarbia and end organ damage. Chest x-ray this morning: showed Stable diffuse lung disease, consistent with pulmonary edema versus pneumonia. Stable moderate-sized pleural effusions.. Cardiomegaly ABGs reviewed, 01/15/2022: Responded well to Lasix, will repeat again today Bronchodilators Sedated with propofol, maintain RASS of 0 to -2, daily sedation vacation evaluated neurological status (2) Pneumonia: Code(s): J18.9 - Pneumonia, unspecified organism Status: Acute Assessment and Plan: Chest x-ray as above -continue Zosyn, vancomycin (01/13) -azithromycin (01/14) (3) Sepsis: Code(s): A41.9 - Sepsis, unspecified organism Status: Acute Assessment and Plan: Patient presented with encephalopathy, hypoglycemia, respiratory failure source likely due to pna and or bacteremia -01/13: Blood cultures growing Staph capitis and Staph epidermidis -01/14: Sputum culture: Normal oropharyngeal tami -01/14: MRSA screen pending 01/15; repeat blood cultures pending -Continue abx as above - PICC line placed 01/14 -blood pressures stable this morning (4) Encephalopathy: Code(s): G93.40 - Encephalopathy, unspecified Status: Acute Assessment and Plan: Likely secondary to hypoglycemia or narcotic. No reported seizures but hypoglycemia could have led to a seizure leading to postictal stage. Patient may have another CVA as he has history of multiple CVAs in the past Head CT reviewed and negative Currently he is sedated off D5 infusion -Will decrease sedation to evaluate Neuro status. Check EEG if pt does not wake up Avoid further opioids at this time Ammonia level <9 TSH within normal limits Urine drug screen was positive for benzodiazepine (5) Hypoglycemia: Code(s): E16.2 - Hypoglycemia, unspecified Status: Acute Assessment and Plan: Patient has history of diabetes and is on Lantus and short-acting insulin at home Will hold Lantus for now -continue Accu-Cheks and sliding scale insulin -IV dextrose infusion was discontinued since patient has been hyperglycemic -increase Lantus (6) CHF (congestive heart failure): Code(s): I50.9 - Heart failure, unspecified Status: Acute Assessment and Plan: Patient has history of congestive heart failure with EF 35-40% Most recent echocardiogram 10/31/2021 Summary ? 1. Complete two-dimensional, color flow and Doppler transthoracic echocardiogram is performed. ? 2. Left ventricular chamber dimension is mildly enlarged. ? 3. Left ventricular systolic function is moderately reduced, estimated at 35- 40%. ? 4. Left ventricular septal wall motion is abnormal with septal motion related to bundle branch block. ? 5. The left ventricular diastolic function is abnormal. ? 6. E/e' 25 is elevated. ? 7. Atrial fibrillation. ? 8. Left atrial chamber dimension is moderately enlarged. ? 9. There is mild mitral valve regurgitation. ? 10. There is trace tricuspid valve regurgitation. ? 11. No pulmonary hypertension, estimated pulmonary arterial systolic pressure is 33 mmHg. ? 12. There is trace pulmonic regurgitation. Will diurese again today (7) Diabetic foot infection:
--- NOTE | 2022-01-17 11:59 | WPDINTPN ---
Progress Note: A&P Assessment and Plan (1) Acute respiratory failure: Code(s): J96.00 - Acute respiratory failure, unspecified whether with hypoxia or hypercapnia Status: Acute Assessment and Plan: Acute Respiratory failure secondary to encephalopathy, pulmonary edema Patient now intubated and sedated Continue full mechanical ventilation support to prevent hypoxemia/hypercarbia and end organ damage. Chest x-ray this morning: Unchanged pulmonary edema. Bilateral pleural effusions ABGs reviewed, 01/15/2022: Responded well to Lasix, will repeat again today Bronchodilators Patient requires thoracentesis Sedated with propofol, maintain RASS of 0 to -2, daily sedation vacation evaluated neurological status (2) Pneumonia: Code(s): J18.9 - Pneumonia, unspecified organism Status: Acute Assessment and Plan: Chest x-ray as above -continue Zosyn, vancomycin (01/13) -azithromycin (01/14) (3) Sepsis: Code(s): A41.9 - Sepsis, unspecified organism Status: Acute Assessment and Plan: Patient presented with encephalopathy, hypoglycemia, respiratory failure source likely due to pna and or bacteremia -01/13: Blood cultures growing Staph capitis and Staph epidermidis -01/14: Sputum culture: Normal oropharyngeal tami -01/14: MRSA screen pending 01/15; repeat blood cultures, preliminary report is negative x2 -Continue abx as above - PICC line placed 01/14 -blood pressures stable this morning (4) Encephalopathy: Code(s): G93.40 - Encephalopathy, unspecified Status: Acute Assessment and Plan: Likely secondary to hypoglycemia or narcotic. No reported seizures but hypoglycemia could have led to a seizure leading to postictal stage. Patient may have another CVA as he has history of multiple CVAs in the past Head CT reviewed and negative Currently he is sedated off D5 infusion -Will decrease sedation to evaluate Neuro status. Check EEG if pt does not wake up Avoid further opioids at this time Ammonia level <9 TSH within normal limits Urine drug screen was positive for benzodiazepine (5) Hypoglycemia: Code(s): E16.2 - Hypoglycemia, unspecified Status: Acute Assessment and Plan: Patient has history of diabetes and is on Lantus and short-acting insulin at home Will hold Lantus for now -continue Accu-Cheks and sliding scale insulin -IV dextrose infusion was discontinued since patient has been hyperglycemic -increase Lantus (6) CHF (congestive heart failure): Code(s): I50.9 - Heart failure, unspecified Status: Acute Assessment and Plan: Patient has history of congestive heart failure with EF 35-40% Most recent echocardiogram 10/31/2021 Summary ? 1. Complete two-dimensional, color flow and Doppler transthoracic echocardiogram is performed. ? 2. Left ventricular chamber dimension is mildly enlarged. ? 3. Left ventricular systolic function is moderately reduced, estimated at 35-40%. ? 4. Left ventricular septal wall motion is abnormal with septal motion related to bundle branch block. ? 5. The left ventricular diastolic function is abnormal. ? 6. E/e' 25 is elevated. ? 7. Atrial fibrillation. ? 8. Left atrial chamber dimension is moderately enlarged. ? 9. There is mild mitral valve regurgitation. ? 10. There is trace tricuspid valve regurgitation. ? 11. No pulmonary hypertension, estimated pulmonary arterial systolic pressure is 33 mmHg. ? 12. There is trace pulmonic regurgitation. Will diurese again today (7) Diabetic foot infection: Code(s): E11.628 - Type 2 diabetes mellitus with other skin complications; L08.9 - Local infection of the skin and subcutaneous tissue, unspecified Status: Acute Assessment and Plan: Patient's stump appears slightly warmer and red No discharge seen 01/13/2022 CT scan of left lower extremity: Recent left-sided below-knee amputation. No abscess or evidence of osteomyelitis -wound care lizzy
[2022-01-17 12:39] LABS: Glucose Point of Care 255 mg/dl (65-105)
[2022-01-17] MEDS: LACTULOSE 20 GM/30 ML UDC PO (14:23)
--- NOTE | 2022-01-17 14:37 | ECG_ITS ---
Measurements Intervals [place] Rate: 98 P: CT: 0 QRS: -22 QRSD: 140 T: 156 QT: 374 QTc: 478 Interpretive Statements ATRIAL FIBRILLATION LEFT BUNDLE BRANCH BLOCK [120+ ms QRS DURATION, 80+ ms Q/S IN V1/V2, 85+ ms R IN I/aVL/V5/V6] WARNING: DATA QUALITY MAY AFFECT INTERPRETATION COMPARED TO ECG 01/13/2022 08:04:01 NO SIGNIFICANT CHANGES Electronically Signed On 01-19-2022 11:09:29 [employer]NAGER [employer] by Caroline Macdonald M.D.
[2022-01-17] MEDS: AMIODARONE 150 MG/D5W 100 ML 150 MG/100 ML BAG 600 MG IV CONT (14:43)
[2022-01-17 18:19] LABS: Glucose Point of Care 364 mg/dl (65-105)
[2022-01-18] VITALS (31 sets, daily range): BP systolic 106–141; BP diastolic 52–97; PULSE 72–121; RESP 12–24; TEMP 36.5–37.2; O2SAT 94–100
[2022-01-18] MEDS: PROPOFOL IV EMULSION 100 ML 6 MG IV CONT (00:02)
[2022-01-18] MEDS: INSULIN ASPART (*BKC) 100 UNITS/ML SUB-Q ×4 (00:03→17:02)
[2022-01-18 00:22] LABS: Glucose Point of Care 287 mg/dl (65-105)
[2022-01-18] MEDS: ALBUTEROL SULFATE NEB 2.5 MG/3 ML INH 5 MG INHALATION ×4 (03:27→21:21)
[2022-01-18] MEDS: IPRATROPIUM BR 0.02% INH SOLN 0.5 MG/2.5 ML VIAL INHALATION ×4 (03:27→21:21)
[2022-01-18 05:04] LABS: Alveolar/Arterial O2 Gradient 90.5 mmHg; Base Excess ABG 15.8 mEq/l (+/-2.0); Carboxyhemoglobin 0.3 % THb (0-2.0); Fractional Inspired Oxygen 30 %; HCO3 ABG 44.4 mEq/l (22.0-26.0); Methemoglobin ABG 0.4 %THb (0-1.5); Oxygen Content ABG 13.7 %vol (16.0-22.0); PO2 FiO2 Ratio Arterial Blood 1.27 %; Reduced Hemoglobin 29.3 %THb (0-5.0)
[2022-01-18] MEDS: CENTRAL LINE FLUSH 10 ML IV PUSH ×3 (05:07→21:30)
[2022-01-18 05:08] LABS: Basophils Percent Auto 0.2 % (0.2-1.2); Hemoglobin 12.7 g/dL (14.0-18.0); Immature Granulocyte Absolute 0.11 K/mm3 (0.00-0.031); Immature Granulocyte Percent A 1.2 % (0-0.5); Lymphocytes Percent Auto 6.3 % (18.3-44.2); Mean Corpuscular Hemoglobin 29.5 pg (26-34); Mean Corpuscular Volume 95.1 fl (80-100); Mean Platelet Volume 11.8 fl (7.4-10.4); Monocytes Absolute Auto 0.9 K/mm3 (0.1-0.6); Neutrophils Percent Auto 83.3 % (45.5-73.1); Platelet Count Result 196 k/mm3 (150-375); Red Blood Count 4.31 M/mm3 (4.6-6.20); Red Cell Distribution Width 16.9 % (11.5-14.5); White Blood Count 9.6 K/mm3 (4.5-10.0)
[2022-01-18 05:08] LABS: PCO2 ABG 72.6 mmHg (35.0-45.0)
[2022-01-18 05:09] LABS: Oxygen Saturation ABG 69.8 % (95.0-100.0); PO2 ABG 38.1 mmHg (80.0-100.0)
[2022-01-18 05:10] LABS: Device VENTILATOR; Modified Allen's Test Pass; Site Drawn RIGHT RADIAL
[2022-01-18 05:20] LABS: Alanine Aminotransferase 35 U/L (6-50); Albumin Level 2.7 g/dL (3.5-5.1); Alkaline Phosphatase 99 U/L (38-126); Anion Gap 3 mmol/L (8-16); Aspartate Amino Transferase 40 U/L (17-59); Bilirubin,Total 0.6 mg/dL (0.2-1.3); Blood Urea Nitrogen 30 mg/dL (9-20); Calcium 7.9 mg/dL (8.4-10.2); Carbon Dioxide 39 mmol/L (22-30); Chloride 91 mmol/L (98-107); Estimated CRCL calculation 130 ml/min; Estimated Glomerular Filt Rate > 60; Glucose 231 mg/dL (65-110); Phosphorus 3.3 mg/dL (2.5-4.5); Potassium 4.3 mmol/L (3.4-5.0); Sodium 133 mmol/L (137-145)
[2022-01-18 05:31] LABS: Glucose Point of Care 240 mg/dl (65-105)
[2022-01-18 05:44] LABS: Alveolar/Arterial O2 Gradient 43.4 mmHg; Base Excess ABG 14.7 mEq/l (+/-2.0); Carboxyhemoglobin 0.1 % THb (0-2.0); Fractional Inspired Oxygen 30 %; HCO3 ABG 41.1 mEq/l (22.0-26.0); Methemoglobin ABG 0.3 %THb (0-1.5); Oxygen Content ABG 19.2 %vol (16.0-22.0); Oxygen Saturation ABG 97.9 % (95.0-100.0); Oxyhemoglobin 97.1 % THb (90.0-100.0); PCO2 ABG 57.2 mmHg (35.0-45.0); PO2 ABG 103.3 mmHg (80.0-100.0); PO2 FiO2 Ratio Arterial Blood 3.44 %; Reduced Hemoglobin 2.5 %THb (0-5.0); pH ABG 7.474 (7.350-7.450)
[2022-01-18 05:52] LABS: Device VENTILATOR; Modified Allen's Test Pass; Site Drawn LEFT RADIAL
[2022-01-18 05:53] LABS: Arterial Blood Gas PEEP 8 cmH2O; Arterial Blood Gas Tidal Volume 400 ml; Arterial Blood Gas Vent Mode CMV; Arterial Blood Gas Ventilator rate 14 /MIN
[2022-01-18 05:54] LABS: Arterial Blood Gas PEEP 8 cmH2O; Arterial Blood Gas Vent Mode CMV; Arterial Blood Gas Ventilator rate 14 /MIN; pH ABG 7.404 (7.350-7.450)
[2022-01-18 05:55] LABS: Arterial Blood Gas Tidal Volume 400 ml
--- NOTE | 2022-01-18 08:38 | WPDINTPN ---
Progress Note: A&P Assessment and Plan (1) Acute respiratory failure: Code(s): J96.00 - Acute respiratory failure, unspecified whether with hypoxia or hypercapnia Status: Acute Assessment and Plan: Acute Respiratory failure secondary to encephalopathy, pulmonary edema Patient now intubated and sedated Continue full mechanical ventilation support to prevent hypoxemia/hypercarbia and end organ damage. Chest x-ray this morning: Stable diffuse bilateral airspace disease which may represent edema and/or pneumonia.: Bilateral pleural effusions, right greater than left.? Cardiomegaly. ABGs reviewed, Bronchodilators Bilateral pleural effusions, -patient has been responding to diuresis, will continue Sedated with propofol, maintain RASS of 0 to -2, daily sedation vacation evaluated neurological status -will wean off propofol -placed patient on PSV 01/19, tolerating. Start weaning pressure support 1 sedation is off completely (2) Pneumonia: Code(s): J18.9 - Pneumonia, unspecified organism Status: Acute Assessment and Plan: Chest x-ray as above -continue Zosyn, vancomycin (01/13) -azithromycin (01/14) (3) Sepsis: Code(s): A41.9 - Sepsis, unspecified organism Status: Acute Assessment and Plan: Patient presented with encephalopathy, hypoglycemia, respiratory failure source likely due to pna and or bacteremia -01/13: Blood cultures growing Staph capitis and Staph epidermidis -01/14: Sputum culture: Normal oropharyngeal tami -01/14: MRSA screen negative 01/15; repeat blood cultures, preliminary report is negative x2 -Continue abx as above - PICC line placed 01/14 -blood pressures stable this morning (4) Encephalopathy: Code(s): G93.40 - Encephalopathy, unspecified Status: Acute Assessment and Plan: Likely secondary to hypoglycemia or narcotic. No reported seizures but hypoglycemia could have led to a seizure leading to postictal stage. Patient may have another CVA as he has history of multiple CVAs in the past Head CT reviewed and negative Currently he is sedated off D5 infusion -Will decrease sedation to evaluate Neuro status. Check EEG if pt does not wake up Avoid further opioids at this time Ammonia level <9 TSH within normal limits Urine drug screen was positive for benzodiazepine (5) Hypoglycemia: Code(s): E16.2 - Hypoglycemia, unspecified Status: Acute Assessment and Plan: Patient has history of diabetes and is on Lantus and short-acting insulin at home Will hold Lantus for now -continue Accu-Cheks and sliding scale insulin -IV dextrose infusion was discontinued since patient has been hyperglycemic -increase Lantus (6) CHF (congestive heart failure): Code(s): I50.9 - Heart failure, unspecified Status: Acute Assessment and Plan: Patient has history of congestive heart failure with EF 35-40% Most recent echocardiogram 10/31/2021 Summary ? 1. Complete two-dimensional, color flow and Doppler transthoracic echocardiogram is performed. ? 2. Left ventricular chamber dimension is mildly enlarged. ? 3. Left ventricular systolic function is moderately reduced, estimated at 35-40%. ? 4. Left ventricular septal wall motion is abnormal with septal motion related to bundle branch block. ? 5. The left ventricular diastolic function is abnormal. ? 6. E/e' 25 is elevated. ? 7. Atrial fibrillation. ? 8. Left atrial chamber dimension is moderately enlarged. ? 9. There is mild mitral valve regurgitation. ? 10. There is trace tricuspid valve regurgitation. ? 11. No pulmonary hypertension, estimated pulmonary arterial systolic pressure is 33 mmHg. ? 12. There is trace pulmonic regurgitation. Will diurese again today (7) Diabetic foot infection: Code(s): E11.628 - Type 2 diabetes mellitus with other skin complications; L08.9 - Local infection of the skin and subcutaneous tissue, unspecified Status: Acute Assessmen
[2022-01-18] MEDS: APIXABAN 5 MG TABLET PO ×2 (08:40→20:27)
[2022-01-18] MEDS: MINERAL OIL/WHITE PETROLATUM OINTMENT 1 APPLIC EACH EYE (08:40)
[2022-01-18] MEDS: PANTOPRAZOLE SODIUM IV 40 MG VIAL IV PUSH (08:40)
[2022-01-18] MEDS: polyethylene glycoL 3350 17 GM POWD.PACK PO (08:40)
[2022-01-18] MEDS: LACTULOSE 20 GM/30 ML UDC PO (08:40)
[2022-01-18] MEDS: ASPIRIN 81 MG ENTERIC TABLET PO (08:40)
[2022-01-18] MEDS: FINASTERIDE 5 MG TABLET PO (08:41)
[2022-01-18] MEDS: INSULIN GLARGINE (*BKC) 100 UNITS/ML 55 UNITS SUB-Q (08:41)
[2022-01-18 08:54] LABS: Glucose Point of Care 200 mg/dl (65-105)
[2022-01-18] MEDS: METOPROLOL TARTRATE 12.5 MG TABLET PO ×2 (09:44→20:27)
[2022-01-18] MEDS: FUROSEMIDE INJ 40 MG/4 ML VIAL 20 MG IV PUSH ×2 (09:44→16:46)
[2022-01-18 13:19] LABS: Glucose Point of Care 277 mg/dl (65-105)
--- NOTE | 2022-01-18 15:00 | PCRCNOTE ---
at 14:50 was called to ICU room 1, Pt had self extubated and Dr. Mcknight was also called to bedside. Pt placed on 5L NC, pt is being closely monitored with SpO2 at 98%.
--- NOTE | 2022-01-18 15:31 | PC.NURSE ---
At 1440, this nurse went to assess patient who had a large bowel movement. This nurse and another nurse were bathing patient. At the start of bath, ET tube was noted to be at correct placement of 25 cm at the lip, cuff was properly inflated. Patients restraints removed, and patient turned on side closest to ventilator. This nurse was bathing backside, as patient was rolled back onto his back, the ET tube was noted to be out far further then what was noted at the start of patients bath. Gurgling was heard and ET tube was determined to be out of patients airway. MD and respiratory notified. ET tube removed and ambu bag placed over airway for respiratory support. Tube feeds were already on hold at the start of patients bath. OG tube was also noted to be out of proper placement with the ET tube and was also removed for airway support. Patient placed on 2L NC per Edger Technician direction. Patient alert and following commands. Oxygen noted to be 97-98% on 2L NC. Nurse to monitor.
[2022-01-18 20:58] LABS: Glucose Point of Care 208 mg/dl (65-105)
[2022-01-19] VITALS (110 sets, daily range): BP systolic 80–150; BP diastolic 52–135; PULSE 69–142; RESP 9–34; TEMP 35.5–36.8; O2SAT 91–100
[2022-01-19 00:25] LABS: Glucose Point of Care 75 mg/dl (65-105)
[2022-01-19] MEDS: IPRATROPIUM BR 0.02% INH SOLN 0.5 MG/2.5 ML VIAL INHALATION ×4 (02:49→19:35)
[2022-01-19] MEDS: ALBUTEROL SULFATE NEB 2.5 MG/3 ML INH 5 MG INHALATION ×4 (02:49→19:35)
[2022-01-19 04:42] LABS: Basophils Percent Auto 0.1 % (0.2-1.2); Eosinophils Percent Auto 0.1 % (0-4.4); Hematocrit 40.6 % (42.0-52.0); Hemoglobin 12.6 g/dL (14.0-18.0); Immature Granulocyte Absolute 0.12 K/mm3 (0.00-0.031); Immature Granulocyte Percent A 1.4 % (0-0.5); Lymphocytes Absolute Auto 0.63 K/mm3 (0.9-3.2); Lymphocytes Percent Auto 7.2 % (18.3-44.2); Mean Corpuscular Hemoglobin 29.3 pg (26-34); Mean Corpuscular Volume 94.4 fl (80-100); Mean Platelet Volume 11.9 fl (7.4-10.4); Monocytes Absolute Auto 0.7 K/mm3 (0.1-0.6); Monocytes Percent Auto 8.1 % (2.6-8.5); Neutrophils Absolute Auto 7.3 K/mm3 (1.3-6.7); Neutrophils Percent Auto 83.1 % (45.5-73.1); Platelet Count Result 217 k/mm3 (150-375); Red Cell Distribution Width 16.8 % (11.5-14.5); White Blood Count 8.8 K/mm3 (4.5-10.0)
[2022-01-19 05:08] LABS: Alanine Aminotransferase 43 U/L (6-50); Albumin Level 2.6 g/dL (3.5-5.1); Alkaline Phosphatase 98 U/L (38-126); Aspartate Amino Transferase 48 U/L (17-59); Bilirubin,Total 0.8 mg/dL (0.2-1.3); Blood Urea Nitrogen 28 mg/dL (9-20); Calcium 8.1 mg/dL (8.4-10.2); Carbon Dioxide > 40 mmol/L (22-30); Chloride 92 mmol/L (98-107); Estimated CRCL calculation 111 ml/min; Estimated Glomerular Filt Rate > 60; Glucose 39 mg/dL (65-110); Magnesium 2.1 mg/dL (1.6-2.3); Phosphorus 3.5 mg/dL (2.5-4.5); Potassium 3.7 mmol/L (3.4-5.0); Sodium 134 mmol/L (137-145)
[2022-01-19] MEDS: DEXTROSE 50% 25 GM/50 ML SYRINGE IV PUSH ×2 (05:09→07:02)
[2022-01-19] MEDS: CENTRAL LINE FLUSH 10 ML IV PUSH ×3 (05:11→20:54)
[2022-01-19 05:36] LABS: Glucose Point of Care 107 mg/dl (65-105)
[2022-01-19 05:36] LABS: Glucose Point of Care 45 mg/dl (65-105)
[2022-01-19 05:45] LABS: Vancomycin Random 10.2 ug/mL (10-20)
[2022-01-19 05:49] LABS: Alveolar/Arterial O2 Gradient 62.8 mmHg; Base Excess ABG 14.4 mEq/l (+/-2.0); Carboxyhemoglobin 0.4 % THb (0-2.0); Fractional Inspired Oxygen 28 %; HCO3 ABG 40.4 mEq/l (22.0-26.0); Methemoglobin ABG 0.2 %THb (0-1.5); Oxygen Saturation ABG 94.8 % (95.0-100.0); Oxyhemoglobin 93.6 % THb (90.0-100.0); PCO2 ABG 56.1 mmHg (35.0-45.0); PO2 ABG 70.6 mmHg (80.0-100.0); PO2 FiO2 Ratio Arterial Blood 2.52 %; Reduced Hemoglobin 5.8 %THb (0-5.0); Total Hemoglobin 12.9 g/dL (12.0-18.0); pH ABG 7.475 (7.350-7.450)
[2022-01-19 05:54] LABS: Device NASAL CANNULA; Modified Allen's Test Unable to perform; Site Drawn RIGHT BRACHIAL
[2022-01-19 07:05] LABS: Glucose Point of Care 63 mg/dl (65-105)
[2022-01-19 07:43] LABS: Glucose Point of Care 86 mg/dl (65-105)
[2022-01-19] MEDS: PANTOPRAZOLE SODIUM IV 40 MG VIAL IV PUSH (08:38)
[2022-01-19] MEDS: METOPROLOL TARTRATE 12.5 MG TABLET PO ×2 (08:38→20:54)
[2022-01-19] MEDS: polyethylene glycoL 3350 17 GM POWD.PACK PO (08:38)
[2022-01-19] MEDS: FINASTERIDE 5 MG TABLET PO (08:39)
[2022-01-19] MEDS: APIXABAN 5 MG TABLET PO ×2 (08:40→20:54)
[2022-01-19 09:29] LABS: Triglycerides 47 mg/dL (<150)
[2022-01-19] MEDS: ASPIRIN 81 MG ENTERIC TABLET PO (09:40)
[2022-01-19] MEDS: AMIODARONE 150 MG/D5W 100 ML 150 MG/100 ML BAG 600 MG IV CONT (09:41)
[2022-01-19] MEDS: OLANZapine 5 MG TABLET 10 MG PO (09:47)
[2022-01-19] MEDS: PROPOFOL IV EMULSION 100 ML 9.5 MG IV CONT ×2 (09:48→18:31)
[2022-01-19] MEDS: AMIODARONE 360 MG/D5W 200 ML 360 MG/200 ML BAG 33.33 MG IV CONT (09:50)
[2022-01-19 10:04] LABS: Alveolar/Arterial O2 Gradient 281.9 mmHg; Base Excess ABG 14.9 mEq/l (+/-2.0); Carboxyhemoglobin 0.3 % THb (0-2.0); Fractional Inspired Oxygen 60 %; HCO3 ABG 40.2 mEq/l (22.0-26.0); Methemoglobin ABG 0.3 %THb (0-1.5); Oxygen Content ABG 19.4 %vol (16.0-22.0); Oxygen Saturation ABG 97.4 % (95.0-100.0); Oxyhemoglobin 96.3 % THb (90.0-100.0); PO2 ABG 89.8 mmHg (80.0-100.0); Reduced Hemoglobin 3.1 %THb (0-5.0); Total Hemoglobin 14.3 g/dL (12.0-18.0); pH ABG 7.515 (7.350-7.450)
[2022-01-19 10:05] LABS: Arterial Blood Gas Ventilator rate 16 /MIN; Device VENTILATOR; Modified Allen's Test Pass; Site Drawn RIGHT RADIAL
[2022-01-19 10:06] LABS: Arterial Blood Gas PEEP 8 cmH2O; Arterial Blood Gas Tidal Volume 400 ml; Arterial Blood Gas Vent Mode CMV
--- NOTE | 2022-01-19 11:10 | PCFNICU ---
ICU Rounding Note: Pt current nutrition is NPO. Nutrition recommendation: Glucerna 1.2 @ 65 ml/h with Beneprotein modular once per day. Total 1796 kcals, 105 g protein, 1151 ml free water. Flushes 30 ml q 4 hours. Last recorded weight is 105.6 kg. Bowel Motility: +2 BM 01/19/22 (diarrhea) Labs Reviewed: hGB 12.6, hCT 40.6, Alb 2.6, Na 134, BUN 28, Cre 0.6, Glu 39 Meds Noted: Propofol current rate 9.5 ml/h= 250 kcals Skin: Leg incision Additional Notes: Self-extubated 01/18/22 and had to be re-intubated. Propofol restarted. Tube feeds to restart@ 45 ml/h and advance to goal of 65 ml/h by 10 ml q 4 h. Following daily in ICU rounds. Will montior every Wednesday and Wednesday..
--- NOTE | 2022-01-19 11:28 | WPDINTPN ---
Progress Note: A&P Assessment and Plan (1) Acute respiratory failure: Code(s): J96.00 - Acute respiratory failure, unspecified whether with hypoxia or hypercapnia Status: Acute Assessment and Plan: Acute Respiratory failure secondary to encephalopathy, pulmonary edema 01/18/2022: ETT was accidentally pulled out will turning the patient, patient was on pressure support ventilation at that time off all sedation. Was tolerating 2 L nasal cannula all through yesterday evening and overnight. 01/19/2022: Patient was agonal, chest x-ray worsened, unresponsive, decided to re-intubate the patient. Re-intubation was uneventful. Continue full mechanical ventilation support to prevent hypoxemia/hypercarbia and end organ damage. Chest x-ray this morning: Extensive bilateral airspace disease which may represent edema and/or pneumonia. There is improvement in the right upper lung.:? Bilateral pleural effusions ABGs reviewed, -continue Bronchodilators -patient has been responding well to diuresis, will hold today as patient went to AFib RVR and was hypotensive Restarted propofol, maintain RASS of 0 to -2, daily sedation vacation evaluated neurological status (2) Pneumonia: Code(s): J18.9 - Pneumonia, unspecified organism Status: Acute Assessment and Plan: Chest x-ray as above -continue Zosyn, vancomycin (01/13) -status post 6 days of azithromycin (3) Sepsis: Code(s): A41.9 - Sepsis, unspecified organism Status: Acute Assessment and Plan: Patient presented with encephalopathy, hypoglycemia, respiratory failure source likely due to pna and or bacteremia -01/13: Blood cultures growing Staph capitis and Staph epidermidis -01/14: Sputum culture: Normal oropharyngeal tami -01/14: MRSA screen negative 01/15; repeat blood cultures, preliminary report is negative x2 -Continue abx as above - PICC line placed 01/14 -blood pressures borderline morning (4) Encephalopathy: Code(s): G93.40 - Encephalopathy, unspecified Status: Acute Assessment and Plan: Likely secondary to hypoglycemia or narcotic. No reported seizures but hypoglycemia could have led to a seizure leading to postictal stage. Patient may have another CVA as he has history of multiple CVAs in the past Head CT reviewed and negative Currently he is sedated off D5 infusion -Will decrease sedation to evaluate Neuro status. Check EEG if pt does not wake up Avoid further opioids at this time Ammonia level <9 TSH within normal limits Urine drug screen was positive for benzodiazepine (5) Hypoglycemia: Code(s): E16.2 - Hypoglycemia, unspecified Status: Acute Assessment and Plan: Patient has history of diabetes and is on Lantus and short-acting insulin at home Will hold Lantus for now -continue Accu-Cheks and sliding scale insulin -Lantus held as patient was hypoglycemic overnight requiring D50 IV push Will restart tube feeds and monitor blood sugars closely (6) CHF (congestive heart failure): Code(s): I50.9 - Heart failure, unspecified Status: Acute Assessment and Plan: Patient has history of congestive heart failure with EF 35-40% Most recent echocardiogram 10/31/2021 Summary ? 1. Complete two-dimensional, color flow and Doppler transthoracic echocardiogram is performed. ? 2. Left ventricular chamber dimension is mildly enlarged. ? 3. Left ventricular systolic function is moderately reduced, estimated at 35-40%. ? 4. Left ventricular septal wall motion is abnormal with septal motion related to bundle branch block. ? 5. The left ventricular diastolic function is abnormal. ? 6. E/e' 25 is elevated. ? 7. Atrial fibrillation. ? 8. Left atrial chamber dimension is moderately enlarged. ? 9. There is mild mitral valve regurgitation. ? 10. There is trace tricuspid valve regurgitation. ? 11. No pulmonary hypertension, estimated pulmonary arterial systolic pressure is 33 mmHg. ? 12. Th
--- NOTE | 2022-01-19 11:28 | WPDPROCEDUR ---
Procedures Intubation Intubation Date: 01/19/22 Intubation Time: 08:20 A pre-procedural Time-Out was completed immediately before starting the procedure and confirmed: Patient Identification, Site, Procedure, Patient Position and the Availability of Requisite Equipment: Yes Sedative: etomidate Paralytic: rocuronium Laryngoscope: fiber optic video scope Assist device used: fiber optic device ET tube size: 8 Tube secured depth (cm): 24 Tube secured location: lips Tube placement confirmation: visualized tube passing through cords, equal breath sounds bilaterally, no breath sounds over epigastrium and confirmation by capnometry Patient tolerated procedure: well Intubation complications: none
[2022-01-19 12:04] LABS: Glucose Point of Care 105 mg/dl (65-105)
[2022-01-19] MEDS: AMIODARONE 360 MG/D5W 200 ML 360 MG/200 ML BAG 16.67 MG IV CONT (18:00)
[2022-01-19 18:37] LABS: Glucose Point of Care 154 mg/dl (65-105)
[2022-01-19 18:37] LABS: Glucose Point of Care 117 mg/dl (65-105)
[2022-01-20] VITALS (110 sets, daily range): BP systolic 89–123; BP diastolic 55–84; PULSE 65–97; RESP 14–24; TEMP 35.9–37.2; O2SAT 93–100
[2022-01-20] MEDS: IPRATROPIUM BR 0.02% INH SOLN 0.5 MG/2.5 ML VIAL INHALATION ×4 (01:16→21:43)
[2022-01-20] MEDS: ALBUTEROL SULFATE NEB 2.5 MG/3 ML INH 5 MG INHALATION ×4 (01:16→21:43)
[2022-01-20 05:00] LABS: Glucose Point of Care 190 mg/dl (65-105)
[2022-01-20 05:21] LABS: Alanine Aminotransferase 33 U/L (6-50); Albumin Level 2.2 g/dL (3.5-5.1); Alkaline Phosphatase 95 U/L (38-126); Anion Gap 3 mmol/L (8-16); Aspartate Amino Transferase 38 U/L (17-59); Bilirubin,Total 0.5 mg/dL (0.2-1.3); Blood Urea Nitrogen 30 mg/dL (9-20); Calcium 7.8 mg/dL (8.4-10.2); Carbon Dioxide 39 mmol/L (22-30); Chloride 93 mmol/L (98-107); Estimated CRCL calculation 94 ml/min; Estimated Glomerular Filt Rate > 60; Glucose 211 mg/dL (65-110); Magnesium 2.1 mg/dL (1.6-2.3); Phosphorus 3.2 mg/dL (2.5-4.5); Sodium 135 mmol/L (137-145)
[2022-01-20 05:31] LABS: Basophils Percent Auto 0.1 % (0.2-1.2); Hematocrit 36.3 % (42.0-52.0); Hemoglobin 11.2 g/dL (14.0-18.0); Immature Granulocyte Absolute 0.14 K/mm3 (0.00-0.031); Immature Granulocyte Percent A 1.6 % (0-0.5); Lymphocytes Absolute Auto 0.61 K/mm3 (0.9-3.2); Lymphocytes Percent Auto 6.9 % (18.3-44.2); Mean Corpuscular HGB Conc 30.9 g/dl (32-36); Mean Corpuscular Hemoglobin 28.1 pg (26-34); Mean Corpuscular Volume 91.2 fl (80-100); Mean Platelet Volume 12.5 fl (7.4-10.4); Monocytes Absolute Auto 0.8 K/mm3 (0.1-0.6); Monocytes Percent Auto 8.9 % (2.6-8.5); Neutrophils Absolute Auto 7.3 K/mm3 (1.3-6.7); Neutrophils Percent Auto 82.5 % (45.5-73.1); Platelet Count Result 204 k/mm3 (150-375); Red Blood Count 3.98 M/mm3 (4.6-6.20); Red Cell Distribution Width 16.5 % (11.5-14.5); White Blood Count 8.8 K/mm3 (4.5-10.0)
[2022-01-20] MEDS: INSULIN ASPART (*BKC) 100 UNITS/ML SUB-Q ×3 (05:50→18:23)
[2022-01-20] MEDS: AMIODARONE 360 MG/D5W 200 ML 360 MG/200 ML BAG 16.67 MG IV CONT (06:23)
[2022-01-20] MEDS: CENTRAL LINE FLUSH 10 ML IV PUSH ×3 (06:23→21:47)
[2022-01-20 06:31] LABS: Alveolar/Arterial O2 Gradient 96.3 mmHg; Base Excess ABG 16.1 mEq/l (+/-2.0); Carboxyhemoglobin 0.3 % THb (0-2.0); Fractional Inspired Oxygen 40 %; HCO3 ABG 41.9 mEq/l (22.0-26.0); Methemoglobin ABG 0.3 %THb (0-1.5); Oxygen Content ABG 18.4 %vol (16.0-22.0); Oxygen Saturation ABG 98.7 % (95.0-100.0); Oxyhemoglobin 97.4 % THb (90.0-100.0); PCO2 ABG 55.4 mmHg (35.0-45.0); PO2 ABG 125.2 mmHg (80.0-100.0); PO2 FiO2 Ratio Arterial Blood 3.13 %; Total Hemoglobin 13.3 g/dL (12.0-18.0); pH ABG 7.497 (7.350-7.450)
[2022-01-20 06:33] LABS: Device VENTILATOR; Modified Allen's Test Pass; Site Drawn LEFT RADIAL
[2022-01-20 06:34] LABS: Arterial Blood Gas PEEP 8 cmH2O; Arterial Blood Gas Tidal Volume 400 ml; Arterial Blood Gas Vent Mode CMV; Arterial Blood Gas Ventilator rate 14 /MIN
[2022-01-20] MEDS: APIXABAN 5 MG TABLET PO ×2 (09:38→21:47)
[2022-01-20] MEDS: ASPIRIN 81 MG ENTERIC TABLET PO (09:38)
[2022-01-20] MEDS: polyethylene glycoL 3350 17 GM POWD.PACK PO (09:39)
[2022-01-20] MEDS: METOPROLOL TARTRATE 12.5 MG TABLET PO (09:39)
[2022-01-20] MEDS: FINASTERIDE 5 MG TABLET PO (09:39)
[2022-01-20] MEDS: OLANZapine 5 MG TABLET 10 MG PO (09:39)
[2022-01-20] MEDS: PANTOPRAZOLE SODIUM IV 40 MG VIAL IV PUSH (09:39)
--- NOTE | 2022-01-20 11:23 | PCNFU ---
Nutrition Follow-Up Complete: Inadequate Oral Intake as related to mechanical ventilation as evidenced by NPO. goal: Meet estimated nutritional needs Patient is progressing towards goal.We will continue current goal. Pt current nutrition is Glucerna 1.2 at 65 ml/hr. Last recorded weight is 104.5 kg. Bowel Motility:+Bm reported 01/19 Labs Reviewed:Glu 211, Cr 0.7,BUN 30, Na 135, Alb 2.2,Hct 36.3,Hgb 11.2 Meds Noted:Zosyn, Propofol at 9 ml/ad=963 kcals,Vancomycin, Miralax, Protonix, Atrovent, NovoLog. Skin: WNL Additional Notes: Patient remains on mechanical vent and tube feedings of Glucerna 1.2 at 65 ml/hr and tolerating. Prosource added once daily for an additional 80 kcals and 20 gms protein. Total kcal intake: 2047 kcals/105 gms protein/1151 ml water. Flush 30 ml q 4 hours. Tube feedings meeting 100% kcal and protein needs. Agree with diet orders. Monitoring in ICU rounds and reassess every Wednesday and Wednesday.
[2022-01-20] MEDS: FUROSEMIDE INJ 40 MG/4 ML VIAL 20 MG IV PUSH ×2 (11:49→17:35)
[2022-01-20 12:16] LABS: Glucose Point of Care 279 mg/dl (65-105)
--- NOTE | 2022-01-20 13:02 | WPDINTPN ---
Progress Note: A&P Assessment and Plan (1) Acute respiratory failure: Code(s): J96.00 - Acute respiratory failure, unspecified whether with hypoxia or hypercapnia Status: Acute Assessment and Plan: Acute Respiratory failure secondary to encephalopathy, pulmonary edema 01/18/2022: ETT was accidentally pulled out will turning the patient, patient was on pressure support ventilation at that time off all sedation. Was tolerating 2 L nasal cannula all through yesterday evening and overnight. 01/19/2022: Patient was agonal, chest x-ray worsened, unresponsive, decided to re-intubate the patient. Re-intubation was uneventful. Continue full mechanical ventilation support to prevent hypoxemia/hypercarbia and end organ damage. Chest x-ray this morning: Small right and decreased moderate-sized left pleural effusions with associated atelectasis and/or pneumonia in the bilateral mid and lower lung zones. ABGs reviewed, -continue Bronchodilators -will diurese today Sedated with propofol, maintain RASS of 0 to -2, daily sedation vacation evaluated neurological status (2) Pneumonia: Code(s): J18.9 - Pneumonia, unspecified organism Status: Acute Assessment and Plan: Chest x-ray as above -continue Zosyn, vancomycin (01/13) continue for total of 10 days -status post 6 days of azithromycin (3) Sepsis: Code(s): A41.9 - Sepsis, unspecified organism Status: Acute Assessment and Plan: Patient presented with encephalopathy, hypoglycemia, respiratory failure source likely due to pna and or bacteremia -01/13: Blood cultures growing Staph capitis and Staph epidermidis -01/14: Sputum culture: Normal oropharyngeal tami -01/14: MRSA screen negative 01/15; repeat blood cultures, preliminary report is negative x2 -Continue abx as above - PICC line placed 01/14 - (4) Encephalopathy: Code(s): G93.40 - Encephalopathy, unspecified Status: Acute Assessment and Plan: Likely secondary to hypoglycemia or narcotic. No reported seizures but hypoglycemia could have led to a seizure leading to postictal stage. Patient may have another CVA as he has history of multiple CVAs in the past Head CT reviewed and negative Currently he is sedated off D5 infusion -Will decrease sedation to evaluate Neuro status. Check EEG if pt does not wake up Avoid further opioids at this time Ammonia level <9 TSH within normal limits Urine drug screen was positive for benzodiazepine (5) Hypoglycemia: Code(s): E16.2 - Hypoglycemia, unspecified Status: Acute Assessment and Plan: Patient has history of diabetes and is on Lantus and short-acting insulin at home Will hold Lantus for now -continue Accu-Cheks and sliding scale insulin -Lantus held as patient was hypoglycemic overnight requiring D50 IV push Blood sugars better after restarting tube feeds (6) CHF (congestive heart failure): Code(s): I50.9 - Heart failure, unspecified Status: Acute Assessment and Plan: Patient has history of congestive heart failure with EF 35-40% Most recent echocardiogram 10/31/2021 Summary ? 1. Complete two-dimensional, color flow and Doppler transthoracic echocardiogram is performed. ? 2. Left ventricular chamber dimension is mildly enlarged. ? 3. Left ventricular systolic function is moderately reduced, estimated at 35-40%. ? 4. Left ventricular septal wall motion is abnormal with septal motion related to bundle branch block. ? 5. The left ventricular diastolic function is abnormal. ? 6. E/e' 25 is elevated. ? 7. Atrial fibrillation. ? 8. Left atrial chamber dimension is moderately enlarged. ? 9. There is mild mitral valve regurgitation. ? 10. There is trace tricuspid valve regurgitation. ? 11. No pulmonary hypertension, estimated pulmonary arterial systolic pressure is 33 mmHg. ? 12. There is trace pulmonic regurgitation. (7) Diabetic foot infection: Code(s): E11.628 - Type
[2022-01-20 20:54] LABS: Glucose Point of Care 251 mg/dl (65-105)
[2022-01-20] MEDS: PROPOFOL IV EMULSION 100 ML 9.5 MG IV CONT (21:48)
[2022-01-21] VITALS (33 sets, daily range): BP systolic 86–132; BP diastolic 52–102; PULSE 67–118; RESP 14–21; TEMP 35.9–37.1; O2SAT 96–100
[2022-01-21 01:34] LABS: Glucose Point of Care 98 mg/dl (65-105)
[2022-01-21] MEDS: ALBUTEROL SULFATE NEB 2.5 MG/3 ML INH 5 MG INHALATION ×4 (03:44→21:46)
[2022-01-21] MEDS: IPRATROPIUM BR 0.02% INH SOLN 0.5 MG/2.5 ML VIAL INHALATION ×4 (03:45→21:46)
[2022-01-21 05:57] LABS: Alveolar/Arterial O2 Gradient 88.2 mmHg; Base Excess ABG 17.2 mEq/l (+/-2.0); Carboxyhemoglobin 0.3 % THb (0-2.0); Fractional Inspired Oxygen 40 %; HCO3 ABG 44.1 mEq/l (22.0-26.0); Methemoglobin ABG 0.3 %THb (0-1.5); Oxygen Content ABG 18.5 %vol (16.0-22.0); Oxygen Saturation ABG 98.6 % (95.0-100.0); Oxyhemoglobin 97.4 % THb (90.0-100.0); PO2 FiO2 Ratio Arterial Blood 3.15 %; Total Hemoglobin 13.4 g/dL (12.0-18.0); pH ABG 7.472 (7.350-7.450)
[2022-01-21 06:01] LABS: Device VENTILATOR; Modified Allen's Test Pass; PCO2 ABG 61.7 mmHg (35.0-45.0); Site Drawn LEFT RADIAL
[2022-01-21 06:02] LABS: Arterial Blood Gas PEEP 8 cmH2O; Arterial Blood Gas Tidal Volume 400 ml; Arterial Blood Gas Vent Mode CMV; Arterial Blood Gas Ventilator rate 14 /MIN
[2022-01-21 06:38] LABS: Basophils Percent Auto 0.2 % (0.2-1.2); Hematocrit 39.9 % (42.0-52.0); Hemoglobin 12.3 g/dL (14.0-18.0); Immature Granulocyte Absolute 0.14 K/mm3 (0.00-0.031); Immature Granulocyte Percent A 1.3 % (0-0.5); Lymphocytes Absolute Auto 0.58 K/mm3 (0.9-3.2); Lymphocytes Percent Auto 5.6 % (18.3-44.2); Mean Corpuscular HGB Conc 30.8 g/dl (32-36); Mean Corpuscular Hemoglobin 29.3 pg (26-34); Monocytes Absolute Auto 0.8 K/mm3 (0.1-0.6); Monocytes Percent Auto 7.4 % (2.6-8.5); Neutrophils Absolute Auto 8.9 K/mm3 (1.3-6.7); Neutrophils Percent Auto 85.5 % (45.5-73.1); Platelet Count Result 217 k/mm3 (150-375); Red Cell Distribution Width 16.7 % (11.5-14.5); White Blood Count 10.4 K/mm3 (4.5-10.0)
[2022-01-21 06:56] LABS: Alanine Aminotransferase 35 U/L (6-50); Albumin Level 2.4 g/dL (3.5-5.1); Alkaline Phosphatase 99 U/L (38-126); Aspartate Amino Transferase 39 U/L (17-59); Bilirubin,Total 0.4 mg/dL (0.2-1.3); Blood Urea Nitrogen 34 mg/dL (9-20); Calcium 7.9 mg/dL (8.4-10.2); Carbon Dioxide > 40 mmol/L (22-30); Chloride 92 mmol/L (98-107); Estimated CRCL calculation 93 ml/min; Estimated Glomerular Filt Rate > 60; Glucose 173 mg/dL (65-110); Phosphorus 3.4 mg/dL (2.5-4.5); Potassium 3.9 mmol/L (3.4-5.0); Sodium 133 mmol/L (137-145); Triglycerides 66 mg/dL (<150)
[2022-01-21] MEDS: CENTRAL LINE FLUSH 10 ML IV PUSH ×3 (07:01→21:14)
[2022-01-21] MEDS: FINASTERIDE 5 MG TABLET PO (08:19)
[2022-01-21] MEDS: PANTOPRAZOLE SODIUM IV 40 MG VIAL IV PUSH (08:19)
[2022-01-21] MEDS: polyethylene glycoL 3350 17 GM POWD.PACK PO (08:19)
[2022-01-21] MEDS: APIXABAN 5 MG TABLET PO (08:19)
[2022-01-21] MEDS: ASPIRIN 81 MG ENTERIC TABLET PO (08:19)
[2022-01-21] MEDS: OLANZapine 5 MG TABLET 10 MG PO (08:20)
[2022-01-21] MEDS: FUROSEMIDE INJ 40 MG/4 ML VIAL 20 MG IV PUSH ×2 (08:20→16:58)
[2022-01-21] MEDS: PROPOFOL IV EMULSION 100 ML 3.17 MG IV CONT (08:35)
--- NOTE | 2022-01-21 09:26 | WPDINTPN ---
Progress Note: A&P Assessment and Plan (1) Acute respiratory failure: Code(s): J96.00 - Acute respiratory failure, unspecified whether with hypoxia or hypercapnia Status: Acute Assessment and Plan: Acute Respiratory failure secondary to encephalopathy, pulmonary edema 01/18/2022: ETT was accidentally pulled out will turning the patient, patient was on pressure support ventilation at that time off all sedation. Was tolerating 2 L nasal cannula all through yesterday evening and overnight. 01/19/2022: Patient was agonal, chest x-ray worsened, unresponsive, decided to re-intubate the patient. Re-intubation was uneventful. Continue full mechanical ventilation support to prevent hypoxemia/hypercarbia and end organ damage. Chest x-ray this morning: Persistent small right and small to moderate left pleural effusions with associated atelectasis and/or pneumonia in the mid and lower lung zones ABGs reviewed, -continue Bronchodilators -will diurese today -01/21: Check CT scan of the chest Sedated with propofol, maintain RASS of 0 to -2, daily sedation vacation evaluated neurological status (2) Pneumonia: Code(s): J18.9 - Pneumonia, unspecified organism Status: Acute Assessment and Plan: Chest x-ray as above -continue Zosyn, vancomycin (01/13) continue for total of 10 days -status post 6 days of azithromycin (3) Sepsis: Code(s): A41.9 - Sepsis, unspecified organism Status: Acute Assessment and Plan: Patient presented with encephalopathy, hypoglycemia, respiratory failure source likely due to pna and or bacteremia -01/13: Blood cultures growing Staph capitis and Staph epidermidis -01/14: Sputum culture: Normal oropharyngeal tami -01/14: MRSA screen negative 01/15; repeat blood cultures, preliminary report is negative x2 -Continue abx as above - PICC line placed 01/14 (4) Encephalopathy: Code(s): G93.40 - Encephalopathy, unspecified Status: Acute Assessment and Plan: Likely secondary to hypoglycemia or narcotic. No reported seizures but hypoglycemia could have led to a seizure leading to postictal stage. Patient may have another CVA as he has history of multiple CVAs in the past Head CT reviewed and negative Currently he is sedated off D5 infusion -Will decrease sedation to evaluate Neuro status. Check EEG if pt does not wake up Avoid further opioids at this time Ammonia level <9 TSH within normal limits Urine drug screen was positive for benzodiazepine -improved, patient does open his eyes and follows simple commands on low-dose propofol (5) Hypoglycemia: Code(s): E16.2 - Hypoglycemia, unspecified Status: Acute Assessment and Plan: Patient has history of diabetes and is on Lantus and short-acting insulin at home Will hold Lantus for now -continue Accu-Cheks and sliding scale insulin -Lantus held as patient was hypoglycemic overnight requiring D50 IV push Blood sugars better after restarting tube feeds (6) CHF (congestive heart failure): Code(s): I50.9 - Heart failure, unspecified Status: Acute Assessment and Plan: Patient has history of congestive heart failure with EF 35-40% Most recent echocardiogram 10/31/2021 Summary ? 1. Complete two-dimensional, color flow and Doppler transthoracic echocardiogram is performed. ? 2. Left ventricular chamber dimension is mildly enlarged. ? 3. Left ventricular systolic function is moderately reduced, estimated at 35-40%. ? 4. Left ventricular septal wall motion is abnormal with septal motion related to bundle branch block. ? 5. The left ventricular diastolic function is abnormal. ? 6. E/e' 25 is elevated. ? 7. Atrial fibrillation. ? 8. Left atrial chamber dimension is moderately enlarged. ? 9. There is mild mitral valve regurgitation. ? 10. There is trace tricuspid valve regurgitation. ? 11. No pulmonary hypertension, estimated pulmonary arterial systolic pressure is 33 mmHg
--- NOTE | 2022-01-21 11:34 | PCFNICU ---
ICU Rounding Note: Pt current nutrition is . Nutrition recommendation: Last recorded weight is 104 kg. Bowel Motility: Labs Reviewed: Meds Noted: Skin: Additional Notes: Following daily in ICU rounds. Will montior every Wednesday and Wednesday..
--- NOTE | 2022-01-21 11:35 | PCFNICU ---
ICU Rounding Note: Pt current nutrition is Glucerna 1.2 at 65 ml/hr Last recorded weight is 104 kg. Bowel Motility:+Bm reported 01/20 Labs Reviewed:Glu 173, BUN 34, Alb 2.4,Na 133, Hgb 12.3,Hct 39.9 Meds Noted:Zosyn, Propofol at 6.34 ml/cm=241 kcals,Vancomycin, Miralax, Protonix, Atrovent, NovoLog. Skin: WNL Additional Notes:Patient remains on mechanical vent and tube feedings of Glucerna 1.2 at 65 ml/hr and tolerating. Prosource once daily providing an additional 80 kcals and 20 gms protein. Flush 30 ml q 4 hours. Agree with diet orders at this time. Following daily in ICU rounds and reassess every Wednesday and Wednesday.
[2022-01-21] MEDS: METOPROLOL TARTRATE 12.5 MG TABLET PO ×2 (12:03→23:00)
[2022-01-21] MEDS: INSULIN ASPART (*BKC) 100 UNITS/ML SUB-Q ×2 (12:06→18:50)
[2022-01-21 12:40] LABS: Glucose Point of Care 292 mg/dl (65-105)
--- NOTE | 2022-01-21 15:08 | PM.IMPN ---
Progress Note: A&P Assessment and Plan (1) Acute respiratory failure: Code(s): J96.00 - Acute respiratory failure, unspecified whether with hypoxia or hypercapnia Status: Acute Assessment and Plan: Acute Respiratory failure secondary to encephalopathy, pulmonary edema Patient now intubated and sedated Continue full mechanical ventilation support to prevent hypoxemia/hypercarbia and end organ damage. Chest x-ray this morning: showed Stable diffuse lung disease, consistent with pulmonary edema versus pneumonia. Stable moderate-sized pleural effusions.. 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 (2) Pneumonia: Code(s): J18.9 - Pneumonia, unspecified organism Status: Acute Assessment and Plan: Chest x-ray as above -continue Zosyn, vancomycin (01/13) -azithromycin (01/14) (3) Sepsis: Code(s): A41.9 - Sepsis, unspecified organism Status: Acute Assessment and Plan: Patient presented with encephalopathy, hypoglycemia, respiratory failure source likely due to pna and or bacteremia -01/13: Blood cultures growing Staph capitis and Staph epidermidis -01/14: Sputum culture: Normal oropharyngeal tami -01/14: MRSA screen pending 01/15; repeat blood cultures pending -Continue abx as above - PICC line placed 01/14 -blood pressures stable this morning (4) Encephalopathy: Code(s): G93.40 - Encephalopathy, unspecified Status: Acute Assessment and Plan: Likely secondary to hypoglycemia or narcotic. No reported seizures but hypoglycemia could have led to a seizure leading to postictal stage. Patient may have another CVA as he has history of multiple CVAs in the past Head CT reviewed and negative Currently he is sedated off D5 infusion -Will decrease sedation to evaluate Neuro status. Check EEG if pt does not wake up Avoid further opioids at this time Ammonia level <9 TSH within normal limits Urine drug screen was positive for benzodiazepine (5) Hypoglycemia: Code(s): E16.2 - Hypoglycemia, unspecified Status: Acute Assessment and Plan: Patient has history of diabetes and is on Lantus and short-acting insulin at home Will hold Lantus for now -continue Accu-Cheks and sliding scale insulin -IV dextrose infusion was discontinued since patient has been hyperglycemic -increase Lantus (6) CHF (congestive heart failure): Code(s): I50.9 - Heart failure, unspecified Status: Acute Assessment and Plan: Patient has history of congestive heart failure with EF 35-40% Most recent echocardiogram 10/31/2021 Summary ? 1. Complete two-dimensional, color flow and Doppler transthoracic echocardiogram is performed. ? 2. Left ventricular chamber dimension is mildly enlarged. ? 3. Left ventricular systolic function is moderately reduced, estimated at 35-40%. ? 4. Left ventricular septal wall motion is abnormal with septal motion related to bundle branch block. ? 5. The left ventricular diastolic function is abnormal. ? 6. E/e' 25 is elevated. ? 7. Atrial fibrillation. ? 8. Left atrial chamber dimension is moderately enlarged. ? 9. There is mild mitral valve regurgitation. ? 10. There is trace tricuspid valve regurgitation. ? 11. No pulmonary hypertension, estimated
[2022-01-21 18:54] LABS: Glucose Point of Care 339 mg/dl (65-105)
--- NOTE | 2022-01-21 20:24 | PC.NURSE ---
Report given to JESSE Perez at 1300 PM 01/21/2022. All questions answered and plan of care reviewed. Ana to resume patient care.
--- NOTE | 2022-01-21 20:37 | PC.NURSE ---
This nurse to resume patient care at 1700 PM 01/21/2022 . Report received by Ana.
[2022-01-22] VITALS (29 sets, daily range): BP systolic 98–137; BP diastolic 58–83; PULSE 61–96; RESP 14–20; TEMP 36.5–36.9; O2SAT 96–100
[2022-01-22 00:26] LABS: Glucose Point of Care 335 mg/dl (65-105)
[2022-01-22] MEDS: INSULIN ASPART (*BKC) 100 UNITS/ML SUB-Q ×4 (00:58→17:44)
[2022-01-22] MEDS: ALBUTEROL SULFATE NEB 2.5 MG/3 ML INH 5 MG INHALATION ×4 (02:52→20:58)
[2022-01-22] MEDS: IPRATROPIUM BR 0.02% INH SOLN 0.5 MG/2.5 ML VIAL INHALATION ×4 (02:52→20:57)
[2022-01-22 05:25] LABS: Glucose Point of Care 323 mg/dl (65-105)
[2022-01-22] MEDS: PROPOFOL IV EMULSION 100 ML 6.34 MG IV CONT ×2 (05:43→17:50)
[2022-01-22] MEDS: CENTRAL LINE FLUSH 10 ML IV PUSH ×3 (05:46→20:25)
[2022-01-22 05:53] LABS: Alveolar/Arterial O2 Gradient 78.3 mmHg; Base Excess ABG 11.7 mEq/l (+/-2.0); Carboxyhemoglobin 0.3 % THb (0-2.0); Fractional Inspired Oxygen 30 %; HCO3 ABG 35.4 mEq/l (22.0-26.0); Methemoglobin ABG 0.2 %THb (0-1.5); Oxygen Content ABG 17.9 %vol (16.0-22.0); Oxygen Saturation ABG 97.3 % (95.0-100.0); Oxyhemoglobin 95.6 % THb (90.0-100.0); PCO2 ABG 42.6 mmHg (35.0-45.0); PO2 ABG 85.5 mmHg (80.0-100.0); PO2 FiO2 Ratio Arterial Blood 2.85 %; Reduced Hemoglobin 3.9 %THb (0-5.0); Total Hemoglobin 13.3 g/dL (12.0-18.0)
[2022-01-22 05:54] LABS: Device VENTILATOR; Modified Allen's Test Pass; Site Drawn RIGHT RADIAL; pH ABG 7.538 (7.350-7.450)
[2022-01-22 05:55] LABS: Arterial Blood Gas PEEP 8 cmH2O; Arterial Blood Gas Tidal Volume 400 ml; Arterial Blood Gas Vent Mode CMV; Arterial Blood Gas Ventilator rate 14 /MIN
[2022-01-22 07:16] LABS: Basophils Percent Auto 0.2 % (0.2-1.2); Hematocrit 38.4 % (42.0-52.0); Hemoglobin 11.8 g/dL (14.0-18.0); Immature Granulocyte Absolute 0.19 K/mm3 (0.00-0.031); Immature Granulocyte Percent A 2.2 % (0-0.5); Lymphocytes Absolute Auto 0.75 K/mm3 (0.9-3.2); Lymphocytes Percent Auto 8.6 % (18.3-44.2); Mean Corpuscular HGB Conc 30.7 g/dl (32-36); Mean Corpuscular Hemoglobin 29.4 pg (26-34); Mean Corpuscular Volume 95.5 fl (80-100); Mean Platelet Volume 11.8 fl (7.4-10.4); Monocytes Absolute Auto 0.7 K/mm3 (0.1-0.6); Monocytes Percent Auto 7.6 % (2.6-8.5); Neutrophils Absolute Auto 7.1 K/mm3 (1.3-6.7); Neutrophils Percent Auto 81.4 % (45.5-73.1); Platelet Count Result 218 k/mm3 (150-375); Red Blood Count 4.02 M/mm3 (4.6-6.20); Red Cell Distribution Width 16.7 % (11.5-14.5); White Blood Count 8.7 K/mm3 (4.5-10.0)
[2022-01-22 07:39] LABS: Alanine Aminotransferase 33 U/L (6-50); Albumin Level 2.4 g/dL (3.5-5.1); Alkaline Phosphatase 98 U/L (38-126); Aspartate Amino Transferase 30 U/L (17-59); Bilirubin,Total 0.5 mg/dL (0.2-1.3); Blood Urea Nitrogen 37 mg/dL (9-20); Calcium 7.6 mg/dL (8.4-10.2); Carbon Dioxide > 40 mmol/L (22-30); Chloride 92 mmol/L (98-107); Estimated CRCL calculation 109 ml/min; Estimated Glomerular Filt Rate > 60; Glucose 291 mg/dL (65-110); Phosphorus 2.9 mg/dL (2.5-4.5); Potassium 3.7 mmol/L (3.4-5.0); Sodium 134 mmol/L (137-145)
[2022-01-22 07:43] LABS: Vancomycin Trough 16.2 ug/mL (10.0-20.0)
[2022-01-22] MEDS: ASPIRIN 81 MG ENTERIC TABLET PO (09:13)
[2022-01-22] MEDS: FUROSEMIDE INJ 40 MG/4 ML VIAL 20 MG IV PUSH (09:13)
[2022-01-22] MEDS: FINASTERIDE 5 MG TABLET PO (09:13)
[2022-01-22] MEDS: METOPROLOL TARTRATE 12.5 MG TABLET PO ×2 (09:13→20:24)
[2022-01-22] MEDS: OLANZapine 5 MG TABLET 10 MG PO (09:14)
[2022-01-22] MEDS: PANTOPRAZOLE SODIUM IV 40 MG VIAL IV PUSH (09:14)
--- NOTE | 2022-01-22 10:25 | PCFNICU ---
ICU Rounding Note: Pt current nutrition is Glucerna 1.2 at 65 ml/hr Last recorded weight is 106.2 kg. Bowel Motility:+BM reported 01/22 Labs Reviewed:Glu 291, Cr 0.6,BUN 37, Na 134, Alb 2.4,Hct 38.4,Hgb 11.8 Meds Noted:Zosyn, Propofol at 6.34 ml/bg=548 kcals,Vancomycin, Miralax, Protonix, Atrovent, NovoLog. Skin: WNL Additional Notes: Patient remains on mechanical vent and tube feedings of Glucerna 1.2 at 65 ml/hr and tolerating. Protein Modular of Prosource once daily providing an additional 80 kcals and 20 gms protein. Flush 30 ml q 4 hours. Agree with diet orders. Following daily in ICU rounds and reassessing every Wednesday and Wednesday.
[2022-01-22 12:41] LABS: Glucose Point of Care 339 mg/dl (65-105)
--- NOTE | 2022-01-22 14:50 | WPDINTPN ---
Progress Note: A&P Assessment and Plan (1) Acute respiratory failure: Code(s): J96.00 - Acute respiratory failure, unspecified whether with hypoxia or hypercapnia Status: Acute Assessment and Plan: Acute Respiratory failure secondary to encephalopathy, pulmonary edema 01/18/2022: ETT was accidentally pulled out will turning the patient, patient was on pressure support ventilation at that time off all sedation. Was tolerating 2 L nasal cannula all through yesterday evening and overnight. 01/19/2022: Patient was agonal, chest x-ray worsened, unresponsive, decided to re-intubate the patient. Re-intubation was uneventful. Continue full mechanical ventilation support to prevent hypoxemia/hypercarbia and end organ damage. Chest x-ray this morning: Persistent small right and small to moderate left pleural effusions with associated atelectasis and/or pneumonia in the mid and lower lung zones ABGs reviewed, -01/21: Lower extremity Dopplers were negative for DVT CT chest IMPRESSION: 1. Moderate-sized bilateral posterior layering pleural effusions with dependent atelectasis including complete collapse of the left lower lobe. Underlying lung disease in the atelectatic portions of the lung cannot be excluded. 2. 2.0 x 1.4 cm peripheral nodular opacity lingula is most likely infectious/inflammatory in etiology. Recommend 3 month follow-up low-dose noncontrast chest CT. 3. Mild groundglass opacities in the right middle and lower lobes which could represent atelectasis, pneumonia or minimal pulmonary edema. 4. Mild cardio likely with coronary artery disease and minimal pericardial effusion. 5. Small amount of ascites in the upper abdomen -continue Bronchodilators -continue diuretics. Will give dose of Diamox due to metabolic alkalosis - Sedated with propofol, maintain RASS of 0 to -2, daily sedation vacation evaluated neurological status (2) Pneumonia: Code(s): J18.9 - Pneumonia, unspecified organism Status: Acute Assessment and Plan: Chest x-ray as above -continue Zosyn, vancomycin (01/13) continue for total of 10 days -status post 6 days of azithromycin (3) Sepsis: Code(s): A41.9 - Sepsis, unspecified organism Status: Acute Assessment and Plan: Patient presented with encephalopathy, hypoglycemia, respiratory failure source likely due to pna and or bacteremia -01/13: Blood cultures growing Staph capitis and Staph epidermidis -01/14: Sputum culture: Normal oropharyngeal tami -01/14: MRSA screen negative 01/15; repeat blood cultures, preliminary report is negative x2 -Continue abx as above - PICC line placed 01/14 (4) Encephalopathy: Code(s): G93.40 - Encephalopathy, unspecified Status: Acute Assessment and Plan: Likely secondary to hypoglycemia or narcotic. No reported seizures but hypoglycemia could have led to a seizure leading to postictal stage. Patient may have another CVA as he has history of multiple CVAs in the past Head CT reviewed and negative Currently he is sedated off D5 infusion Avoid further opioids at this time Ammonia level <9 TSH within normal limits Urine drug screen was positive for benzodiazepine -improved, patient does open his eyes and follows simple commands on low-dose propofol (5) Hypoglycemia: Code(s): E16.2 - Hypoglycemia, unspecified Status: Acute Assessment and Plan: Patient has history of diabetes and is on Lantus and short-acting insulin at home -continue Accu-Cheks and sliding scale insulin -resume Lantus at a lower rate (6) CHF (congestive heart failure): Code(s): I50.9 - Heart failure, unspecified Status: Acute Assessment and Plan: Patient has history of congestive heart failure with EF 35-40% Most recent echocardiogram 10/31/2021 Summary ? 1. Complete two-dimensional, color flow and Doppler transthoracic echocardiogram is performed. ? 2. Left ventricular chamber dimension is
--- NOTE | 2022-01-22 16:05 | PM.IMPN ---
Progress Note: A&P Assessment and Plan (1) Acute respiratory failure: Code(s): J96.00 - Acute respiratory failure, unspecified whether with hypoxia or hypercapnia Status: Acute Assessment and Plan: Acute Respiratory failure secondary to encephalopathy, pulmonary edema Patient now intubated and sedated Continue full mechanical ventilation support to prevent hypoxemia/hypercarbia and end organ damage. Chest x-ray this morning: showed Stable diffuse lung disease, consistent with pulmonary edema versus pneumonia. Stable moderate-sized pleural effusions.. 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 (2) Pneumonia: Code(s): J18.9 - Pneumonia, unspecified organism Status: Acute Assessment and Plan: Chest x-ray as above -continue Zosyn, vancomycin (01/13) -azithromycin (01/14) (3) Sepsis: Code(s): A41.9 - Sepsis, unspecified organism Status: Acute Assessment and Plan: Patient presented with encephalopathy, hypoglycemia, respiratory failure source likely due to pna and or bacteremia -01/13: Blood cultures growing Staph capitis and Staph epidermidis -01/14: Sputum culture: Normal oropharyngeal tami -01/14: MRSA screen pending 01/15; repeat blood cultures pending -Continue abx as above - PICC line placed 01/14 -blood pressures stable this morning (4) Encephalopathy: Code(s): G93.40 - Encephalopathy, unspecified Status: Acute Assessment and Plan: Likely secondary to hypoglycemia or narcotic. No reported seizures but hypoglycemia could have led to a seizure leading to postictal stage. Patient may have another CVA as he has history of multiple CVAs in the past Head CT reviewed and negative Currently he is sedated off D5 infusion -Will decrease sedation to evaluate Neuro status. Check EEG if pt does not wake up Avoid further opioids at this time Ammonia level <9 TSH within normal limits Urine drug screen was positive for benzodiazepine (5) Hypoglycemia: Code(s): E16.2 - Hypoglycemia, unspecified Status: Acute Assessment and Plan: Patient has history of diabetes and is on Lantus and short-acting insulin at home Will hold Lantus for now -continue Accu-Cheks and sliding scale insulin -IV dextrose infusion was discontinued since patient has been hyperglycemic -increase Lantus (6) CHF (congestive heart failure): Code(s): I50.9 - Heart failure, unspecified Status: Acute Assessment and Plan: Patient has history of congestive heart failure with EF 35-40% Most recent echocardiogram 10/31/2021 Summary ? 1. Complete two-dimensional, color flow and Doppler transthoracic echocardiogram is performed. ? 2. Left ventricular chamber dimension is mildly enlarged. ? 3. Left ventricular systolic function is moderately reduced, estimated at 35-40%. ? 4. Left ventricular septal wall motion is abnormal with septal motion related to bundle branch block. ? 5. The left ventricular diastolic function is abnormal. ? 6. E/e' 25 is elevated. ? 7. Atrial fibrillation. ? 8. Left atrial chamber dimension is moderately enlarged. ? 9. There is mild mitral valve regurgitation. ? 10. There is trace tricuspid valve regurgitation. ? 11. No pulmonary
[2022-01-22 17:28] LABS: Glucose Point of Care 320 mg/dl (65-105)
[2022-01-22] MEDS: acetaZOLAMIDE SODIUM FOR INJ 500 MG VIAL IV PUSH (17:41)
[2022-01-22] MEDS: INSULIN GLARGINE (*BKC) 100 UNITS/ML 20 UNITS SUB-Q (17:44)
[2022-01-22] MEDS: MINERAL OIL/WHITE PETROLATUM OINTMENT 1 APPLIC EACH EYE (21:54)
[2022-01-23] VITALS (26 sets, daily range): BP systolic 98–130; BP diastolic 57–92; PULSE 59–104; RESP 12–18; TEMP 36.1–36.5; O2SAT 100
[2022-01-23] MEDS: INSULIN ASPART (*BKC) 100 UNITS/ML SUB-Q ×4 (00:26→16:52)
[2022-01-23 00:33] LABS: Glucose Point of Care 299 mg/dl (65-105)
[2022-01-23] MEDS: IPRATROPIUM BR 0.02% INH SOLN 0.5 MG/2.5 ML VIAL INHALATION ×4 (02:52→19:33)
[2022-01-23] MEDS: ALBUTEROL SULFATE NEB 2.5 MG/3 ML INH 5 MG INHALATION ×4 (02:52→19:33)
[2022-01-23] MEDS: CENTRAL LINE FLUSH 10 ML IV PUSH ×3 (05:06→20:08)
[2022-01-23 05:25] LABS: Basophils Percent Auto 0.2 % (0.2-1.2); Hematocrit 38.6 % (42.0-52.0); Hemoglobin 11.9 g/dL (14.0-18.0); Immature Granulocyte Absolute 0.16 K/mm3 (0.00-0.031); Immature Granulocyte Percent A 1.8 % (0-0.5); Lymphocytes Absolute Auto 0.47 K/mm3 (0.9-3.2); Lymphocytes Percent Auto 5.3 % (18.3-44.2); Mean Corpuscular HGB Conc 30.8 g/dl (32-36); Mean Corpuscular Hemoglobin 29.1 pg (26-34); Mean Corpuscular Volume 94.4 fl (80-100); Mean Platelet Volume 11.7 fl (7.4-10.4); Monocytes Absolute Auto 0.6 K/mm3 (0.1-0.6); Monocytes Percent Auto 6.7 % (2.6-8.5); Neutrophils Absolute Auto 7.7 K/mm3 (1.3-6.7); Platelet Count Result 210 k/mm3 (150-375); Red Blood Count 4.09 M/mm3 (4.6-6.20); Red Cell Distribution Width 16.3 % (11.5-14.5); White Blood Count 8.9 K/mm3 (4.5-10.0)
[2022-01-23 05:36] LABS: Alanine Aminotransferase 28 U/L (6-50); Albumin Level 2.3 g/dL (3.5-5.1); Alkaline Phosphatase 93 U/L (38-126); Anion Gap -3 mmol/L (8-16); Aspartate Amino Transferase 28 U/L (17-59); Bilirubin,Total 0.4 mg/dL (0.2-1.3); Blood Urea Nitrogen 31 mg/dL (9-20); Calcium 7.7 mg/dL (8.4-10.2); Carbon Dioxide 38 mmol/L (22-30); Chloride 93 mmol/L (98-107); Estimated CRCL calculation 74 ml/min; Estimated Glomerular Filt Rate > 60; Glucose 265 mg/dL (65-110); Magnesium 1.9 mg/dL (1.6-2.3); Phosphorus 2.8 mg/dL (2.5-4.5); Potassium 3.4 mmol/L (3.4-5.0); Sodium 128 mmol/L (137-145)
[2022-01-23 05:39] LABS: Triglycerides 107 mg/dL (<150)
[2022-01-23 05:43] LABS: Alveolar/Arterial O2 Gradient 23.5 mmHg; Base Excess ABG 12.1 mEq/l (+/-2.0); Carboxyhemoglobin 0.3 % THb (0-2.0); Fractional Inspired Oxygen 30 %; Methemoglobin ABG 0.2 %THb (0-1.5); Oxygen Content ABG 18.2 %vol (16.0-22.0); Oxygen Saturation ABG 98.6 % (95.0-100.0); Oxyhemoglobin 97.5 % THb (90.0-100.0); PCO2 ABG 54.4 mmHg (35.0-45.0); PO2 ABG 126.5 mmHg (80.0-100.0); PO2 FiO2 Ratio Arterial Blood 4.22 %; Total Hemoglobin 13.1 g/dL (12.0-18.0); pH ABG 7.462 (7.350-7.450)
[2022-01-23 05:45] LABS: Arterial Blood Gas Vent Mode CMV; Arterial Blood Gas Ventilator rate 14 /MIN; Device VENTILATOR; Modified Allen's Test Pass; Site Drawn RIGHT RADIAL
[2022-01-23 05:46] LABS: Arterial Blood Gas PEEP 8 cmH2O; Arterial Blood Gas Tidal Volume 350 ml
[2022-01-23] MEDS: PROPOFOL IV EMULSION 100 ML 6.34 MG IV CONT ×2 (06:19→20:16)
[2022-01-23 06:57] LABS: Glucose Point of Care 253 mg/dl (65-105)
[2022-01-23] MEDS: INSULIN GLARGINE (*BKC) 100 UNITS/ML 10 UNITS SUB-Q (09:03)
[2022-01-23] MEDS: FINASTERIDE 5 MG TABLET PO (09:04)
[2022-01-23] MEDS: ASPIRIN 81 MG ENTERIC TABLET PO (09:04)
[2022-01-23] MEDS: METOPROLOL TARTRATE 12.5 MG TABLET PO ×2 (09:04→20:07)
[2022-01-23] MEDS: PANTOPRAZOLE SODIUM IV 40 MG VIAL IV PUSH (09:05)
[2022-01-23] MEDS: MINERAL OIL/WHITE PETROLATUM OINTMENT 1 APPLIC EACH EYE ×2 (09:05→20:08)
[2022-01-23] MEDS: OLANZapine 5 MG TABLET 10 MG PO (09:05)
[2022-01-23] MEDS: POTASSIUM CHLORIDE 20 MEQ PACKET (FOR LIQUID) 40 MEQ FEED TUBE ×3 (09:05→20:07)
[2022-01-23] MEDS: FUROSEMIDE INJ 40 MG/4 ML VIAL IV PUSH ×2 (09:05→16:49)
[2022-01-23 09:39] LABS: INR 1.2; Partial Thromboplastin Time 24.7 SECONDS (22.3-36.8); Prothrombin Time 14.3 Seconds (11.1-14.7)
--- NOTE | 2022-01-23 11:15 | PCNFU ---
Nutrition Follow-Up Complete: Inadequate Oral Intake as related to mechanical ventilation as evidenced by NPO. Goal: Meet estimated nutritional needs Patient is progressing towards goal. We will continue current goal. Pt current nutrition is Glucerna 1.2 at 65 ml/hr. Last recorded weight is 103.8 kg. Bowel Motility:+Bm reported 01/23 Labs Reviewed:Glu 265, BUN 31, Alb 2.3,Na 128 Meds Noted:Zosyn, Propofol at 6.34 ml/ys=894 kcals,Vancomycin, Protonix, Atrovent, NovoLog. Skin: WNL Additional Notes: Patient remains on mechanical vent and tube feedings of Glucerna 1.2 at 65 ml/hr and tolerating. Protein modular once per day of Prosource. total kcal intake: 2201 kcals/106 gms protein/1151 ml water. Meeting 100% kcal and protein needs. Agree with diet orders. Monitoring: Will monitor every Wednesday and Wednesday.
--- NOTE | 2022-01-23 11:33 | WPDINTPN ---
Progress Note: A&P Assessment and Plan (1) Acute respiratory failure: Code(s): J96.00 - Acute respiratory failure, unspecified whether with hypoxia or hypercapnia Status: Acute Assessment and Plan: Acute Respiratory failure secondary to encephalopathy, pulmonary edema 01/18/2022: ETT was accidentally pulled out will turning the patient, patient was on pressure support ventilation at that time off all sedation. Was tolerating 2 L nasal cannula all through yesterday evening and overnight. 01/19/2022: Patient was agonal, chest x-ray worsened, unresponsive, decided to re-intubate the patient. Re-intubation was uneventful. Continue full mechanical ventilation support to prevent hypoxemia/hypercarbia and end organ damage. Chest x-ray this morning: Persistent small right and small to moderate left pleural effusions with associated atelectasis and/or pneumonia in the mid and lower lung zones ABGs reviewed, Lower extremity Dopplers were negative for DVT CT chest IMPRESSION: 1. Moderate-sized bilateral posterior layering pleural effusions with dependent atelectasis including complete collapse of the left lower lobe. Underlying lung disease in the atelectatic portions of the lung cannot be excluded. 2. 2.0 x 1.4 cm peripheral nodular opacity lingula is most likely infectious/inflammatory in etiology. Recommend 3 month follow-up low-dose noncontrast chest CT. 3. Mild groundglass opacities in the right middle and lower lobes which could represent atelectasis, pneumonia or minimal pulmonary edema. 4. Mild cardio likely with coronary artery disease and minimal pericardial effusion. 5. Small amount of ascites in the upper abdomen -continue Bronchodilators -continue diuretics. -patient is scheduled for ultrasound-guided thoracentesis today - Sedated with propofol, maintain RASS of 0 to -2, daily sedation vacation evaluated neurological status (2) Pneumonia: Code(s): J18.9 - Pneumonia, unspecified organism Status: Acute Assessment and Plan: Chest x-ray as above -completed a 10 day course of Zosyn, vancomycin (01/13) -status post 6 days of azithromycin (3) Sepsis: Code(s): A41.9 - Sepsis, unspecified organism Status: Acute Assessment and Plan: Patient presented with encephalopathy, hypoglycemia, respiratory failure source likely due to pna and or bacteremia -01/13: Blood cultures growing Staph capitis and Staph epidermidis -01/14: Sputum culture: Normal oropharyngeal tami -01/14: MRSA screen negative 01/15; repeat blood cultures, preliminary report is negative x2 -Continue abx as above - PICC line placed 01/14 (4) Encephalopathy: Code(s): G93.40 - Encephalopathy, unspecified Status: Acute Assessment and Plan: Likely secondary to hypoglycemia or narcotic. No reported seizures but hypoglycemia could have led to a seizure leading to postictal stage. Patient may have another CVA as he has history of multiple CVAs in the past Head CT reviewed and negative Currently he is sedated off D5 infusion Avoid further opioids at this time Ammonia level <9 TSH within normal limits Urine drug screen was positive for benzodiazepine -improved, patient does open his eyes and follows simple commands on low-dose propofol (5) CHF (congestive heart failure): Code(s): I50.9 - Heart failure, unspecified Status: Acute Assessment and Plan: Patient has history of congestive heart failure with EF 35-40% Most recent echocardiogram 10/31/2021 Summary ? 1. Complete two-dimensional, color flow and Doppler transthoracic echocardiogram is performed. ? 2. Left ventricular chamber dimension is mildly enlarged. ? 3. Left ventricular systolic function is moderately reduced, estimated at 35-40%. ? 4. Left ventricular septal wall motion is abnormal with septal motion related to bundle branch block. ? 5. The left ventricular diastolic function is abnormal. ? 6. E/e' 25 is elevated.
[2022-01-23 13:09] LABS: Glucose Point of Care 253 mg/dl (65-105)
[2022-01-23 13:09] LABS: Glucose Point of Care 252 mg/dl (65-105)
--- NOTE | 2022-01-23 17:14 | PM.IMPN ---
Progress Note: A&P Assessment and Plan (1) Acute respiratory failure: Code(s): J96.00 - Acute respiratory failure, unspecified whether with hypoxia or hypercapnia Status: Acute Assessment and Plan: Acute Respiratory failure secondary to encephalopathy, pulmonary edema Patient now intubated and sedated Continue full mechanical ventilation support to prevent hypoxemia/hypercarbia and end organ damage. Chest x-ray this morning: showed Stable diffuse lung disease, consistent with pulmonary edema versus pneumonia. Stable moderate-sized pleural effusions.. 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 (2) Pneumonia: Code(s): J18.9 - Pneumonia, unspecified organism Status: Acute Assessment and Plan: Chest x-ray as above -continue Zosyn, vancomycin (01/13) -azithromycin (01/14) (3) Sepsis: Code(s): A41.9 - Sepsis, unspecified organism Status: Acute Assessment and Plan: Patient presented with encephalopathy, hypoglycemia, respiratory failure source likely due to pna and or bacteremia -01/13: Blood cultures growing Staph capitis and Staph epidermidis -01/14: Sputum culture: Normal oropharyngeal tami -01/14: MRSA screen pending 01/15; repeat blood cultures pending -Continue abx as above - PICC line placed 01/14 -blood pressures stable this morning (4) Encephalopathy: Code(s): G93.40 - Encephalopathy, unspecified Status: Acute Assessment and Plan: Likely secondary to hypoglycemia or narcotic. No reported seizures but hypoglycemia could have led to a seizure leading to postictal stage. Patient may have another CVA as he has history of multiple CVAs in the past Head CT reviewed and negative Currently he is sedated off D5 infusion -Will decrease sedation to evaluate Neuro status. Check EEG if pt does not wake up Avoid further opioids at this time Ammonia level <9 TSH within normal limits Urine drug screen was positive for benzodiazepine (5) Hypoglycemia: Code(s): E16.2 - Hypoglycemia, unspecified Status: Acute Assessment and Plan: Patient has history of diabetes and is on Lantus and short-acting insulin at home Will hold Lantus for now -continue Accu-Cheks and sliding scale insulin -IV dextrose infusion was discontinued since patient has been hyperglycemic -increase Lantus (6) CHF (congestive heart failure): Code(s): I50.9 - Heart failure, unspecified Status: Acute Assessment and Plan: Patient has history of congestive heart failure with EF 35-40% Most recent echocardiogram 10/31/2021 Summary ? 1. Complete two-dimensional, color flow and Doppler transthoracic echocardiogram is performed. ? 2. Left ventricular chamber dimension is mildly enlarged. ? 3. Left ventricular systolic function is moderately reduced, estimated at 35-40%. ? 4. Left ventricular septal wall motion is abnormal with septal motion related to bundle branch block. ? 5. The left ventricular diastolic function is abnormal. ? 6. E/e' 25 is elevated. ? 7. Atrial fibrillation. ? 8. Left atrial chamber dimension is moderately enlarged. ? 9. There is mild mitral valve regurgitation. ? 10. There is tr
[2022-01-23 17:29] LABS: Glucose Point of Care 209 mg/dl (65-105)
[2022-01-23] MEDS: INSULIN GLARGINE (*BKC) 100 UNITS/ML 20 UNITS SUB-Q (20:10)
[2022-01-23 21:03] LABS: Glucose Point of Care 190 mg/dl (65-105)
[2022-01-24] VITALS (35 sets, daily range): BP systolic 103–151; BP diastolic 60–97; PULSE 71–142; RESP 14–27; TEMP 36.5–38.4; O2SAT 95–100
[2022-01-24 00:32] LABS: Glucose Point of Care 144 mg/dl (65-105)
[2022-01-24] MEDS: IPRATROPIUM BR 0.02% INH SOLN 0.5 MG/2.5 ML VIAL INHALATION ×4 (01:11→20:36)
[2022-01-24] MEDS: ALBUTEROL SULFATE NEB 2.5 MG/3 ML INH 5 MG INHALATION ×4 (01:11→20:36)
[2022-01-24] MEDS: POTASSIUM CHLORIDE 20 MEQ PACKET (FOR LIQUID) 40 MEQ FEED TUBE ×4 (03:29→20:27)
[2022-01-24 05:17] LABS: Alveolar/Arterial O2 Gradient 51.8 mmHg; Base Excess ABG 12.1 mEq/l (+/-2.0); Carboxyhemoglobin 0.5 % THb (0-2.0); Fractional Inspired Oxygen 30 %; HCO3 ABG 39.1 mEq/l (22.0-26.0); Methemoglobin ABG 0.4 %THb (0-1.5); Oxygen Content ABG 22.5 %vol (16.0-22.0); Oxygen Saturation ABG 97.3 % (95.0-100.0); Oxyhemoglobin 96.4 % THb (90.0-100.0); PCO2 ABG 58.1 mmHg (35.0-45.0); PO2 ABG 93.8 mmHg (80.0-100.0); PO2 FiO2 Ratio Arterial Blood 3.13 %; Reduced Hemoglobin 2.7 %THb (0-5.0); Total Hemoglobin 16.6 g/dL (12.0-18.0); pH ABG 7.446 (7.350-7.450)
[2022-01-24 05:20] LABS: Arterial Blood Gas Ventilator rate 12 /MIN; Device VENTILATOR; Modified Allen's Test Unable to perform; Site Drawn RIGHT RADIAL
[2022-01-24 05:21] LABS: Arterial Blood Gas PEEP 8 cmH2O; Arterial Blood Gas Tidal Volume 320 ml; Arterial Blood Gas Vent Mode CMV
[2022-01-24] MEDS: CENTRAL LINE FLUSH 10 ML IV PUSH ×3 (05:36→20:28)
[2022-01-24 06:10] LABS: INR 1.2; Prothrombin Time 14.3 Seconds (11.1-14.7)
[2022-01-24 06:11] LABS: Alanine Aminotransferase 43 U/L (6-50); Albumin Level 2.6 g/dL (3.5-5.1); Alkaline Phosphatase 111 U/L (38-126); Anion Gap 0 mmol/L (8-16); Aspartate Amino Transferase 43 U/L (17-59); Bilirubin,Total 0.5 mg/dL (0.2-1.3); Blood Urea Nitrogen 35 mg/dL (9-20); Calcium 8.3 mg/dL (8.4-10.2); Carbon Dioxide 37 mmol/L (22-30); Chloride 101 mmol/L (98-107); Estimated CRCL calculation 74 ml/min; Estimated Glomerular Filt Rate > 60; Glucose 84 mg/dL (65-110); Magnesium 2.1 mg/dL (1.6-2.3); Partial Thromboplastin Time 24.2 SECONDS (22.3-36.8); Potassium 4.7 mmol/L (3.4-5.0); Sodium 138 mmol/L (137-145)
[2022-01-24 07:53] LABS: Hematocrit 43.5 % (42.0-52.0); Hemoglobin 13.4 g/dL (14.0-18.0); Mean Corpuscular HGB Conc 30.8 g/dl (32-36); Mean Corpuscular Hemoglobin 29.5 pg (26-34); Mean Corpuscular Volume 95.8 fl (80-100); Mean Platelet Volume 12.5 fl (7.4-10.4); Platelet Count Result 233 k/mm3 (150-375); Red Blood Count 4.54 M/mm3 (4.6-6.20); Red Cell Distribution Width 16.8 % (11.5-14.5); White Blood Count 11.3 K/mm3 (4.5-10.0)
--- NOTE | 2022-01-24 09:08 | WPDINTPN ---
Progress Note: A&P Assessment and Plan (1) Acute respiratory failure: Code(s): J96.00 - Acute respiratory failure, unspecified whether with hypoxia or hypercapnia Status: Acute Assessment and Plan: Acute Respiratory failure secondary to encephalopathy, pulmonary edema 01/18/2022: ETT was accidentally pulled out will turning the patient, patient was on pressure support ventilation at that time off all sedation. Was tolerating 2 L nasal cannula all through yesterday evening and overnight. 01/19/2022: Patient was agonal, chest x-ray worsened, unresponsive, decided to re-intubate the patient. Re-intubation was uneventful. Continue full mechanical ventilation support to prevent hypoxemia/hypercarbia and end organ damage. Chest x-ray this morning: Persistent small right and small to moderate left pleural effusions with associated atelectasis and/or pneumonia in the mid and lower lung zones ABGs reviewed, Lower extremity Dopplers were negative for DVT CT chest IMPRESSION: 1. Moderate-sized bilateral posterior layering pleural effusions with dependent atelectasis including complete collapse of the left lower lobe. Underlying lung disease in the atelectatic portions of the lung cannot be excluded. 2. 2.0 x 1.4 cm peripheral nodular opacity lingula is most likely infectious/inflammatory in etiology. Recommend 3 month follow-up low-dose noncontrast chest CT. 3. Mild groundglass opacities in the right middle and lower lobes which could represent atelectasis, pneumonia or minimal pulmonary edema. 4. Mild cardio likely with coronary artery disease and minimal pericardial effusion. 5. Small amount of ascites in the upper abdomen -continue Bronchodilators -continue diuretics. - 01/23 patient had left thoracentesis done and 1 L fluid was removed -patient is scheduled for ultrasound-guided thoracentesis on right today - Sedated with propofol, maintain RASS of 0 to -2, daily sedation vacation evaluated neurological status -will try to do a weaning trial after thoracentesis (2) Pneumonia: Code(s): J18.9 - Pneumonia, unspecified organism Status: Acute Assessment and Plan: Chest x-ray as above -completed a 10 day course of Zosyn, vancomycin (01/13) -status post 6 days of azithromycin (3) Sepsis: Code(s): A41.9 - Sepsis, unspecified organism Status: Acute Assessment and Plan: Patient presented with encephalopathy, hypoglycemia, respiratory failure source likely due to pna and or bacteremia -01/13: Blood cultures growing Staph capitis and Staph epidermidis -01/14: Sputum culture: Normal oropharyngeal tami -01/14: MRSA screen negative 01/15; repeat blood cultures, preliminary report is negative x2 -Continue abx as above - PICC line placed 01/14 (4) Encephalopathy: Code(s): G93.40 - Encephalopathy, unspecified Status: Acute Assessment and Plan: Likely secondary to hypoglycemia or narcotic. No reported seizures but hypoglycemia could have led to a seizure leading to postictal stage. Patient may have another CVA as he has history of multiple CVAs in the past Head CT reviewed and negative Currently he is sedated off D5 infusion Avoid further opioids at this time Ammonia level <9 TSH within normal limits Urine drug screen was positive for benzodiazepine -improved, patient does open his eyes and follows simple commands on low-dose propofol (5) CHF (congestive heart failure): Code(s): I50.9 - Heart failure, unspecified Status: Acute Assessment and Plan: Patient has history of congestive heart failure with EF 35-40% Most recent echocardiogram 10/31/2021 Summary ? 1. Complete two-dimensional, color flow and Doppler transthoracic echocardiogram is performed. ? 2. Left ventricular chamber dimension is mildly enlarged. ? 3. Left ventricular systolic function is moderately reduced, estimated at 35-40%. ? 4. Left ventricular septal wall motion is abnormal with s
[2022-01-24] MEDS: acetaZOLAMIDE SODIUM FOR INJ 500 MG VIAL 250 MG IV PUSH (09:38)
[2022-01-24] MEDS: METOPROLOL TARTRATE 12.5 MG TABLET PO (09:39)
[2022-01-24] MEDS: PANTOPRAZOLE SODIUM IV 40 MG VIAL IV PUSH (09:39)
[2022-01-24] MEDS: MINERAL OIL/WHITE PETROLATUM OINTMENT 1 APPLIC EACH EYE ×2 (09:40→20:28)
[2022-01-24] MEDS: OLANZapine 5 MG TABLET 10 MG PO (09:40)
[2022-01-24] MEDS: FINASTERIDE 5 MG TABLET PO (09:40)
[2022-01-24] MEDS: polyethylene glycoL 3350 17 GM POWD.PACK PO (09:40)
[2022-01-24] MEDS: PROPOFOL IV EMULSION 100 ML 3.17 MG IV CONT (10:04)
[2022-01-24] MEDS: DEXTROSE 50% 25 GM/50 ML SYRINGE IV PUSH (12:24)
[2022-01-24] MEDS: METOPROLOL TARTRATE INJ 5 MG/5 ML VIAL IV PUSH ×2 (13:32→17:56)
[2022-01-24] MEDS: ASPIRIN 81 MG ENTERIC TABLET PO (13:33)
--- NOTE | 2022-01-24 16:23 | PM.IMPN ---
Progress Note: A&P Assessment and Plan (1) Acute respiratory failure: Code(s): J96.00 - Acute respiratory failure, unspecified whether with hypoxia or hypercapnia Status: Acute Assessment and Plan: Acute Respiratory failure secondary to encephalopathy, pulmonary edema Patient now intubated and sedated Continue full mechanical ventilation support to prevent hypoxemia/hypercarbia and end organ damage. Chest x-ray this morning: showed Stable diffuse lung disease, consistent with pulmonary edema versus pneumonia. Stable moderate-sized pleural effusions.. 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 (2) Pneumonia: Code(s): J18.9 - Pneumonia, unspecified organism Status: Acute Assessment and Plan: Chest x-ray as above -continue Zosyn, vancomycin (01/13) -azithromycin (01/14) (3) Sepsis: Code(s): A41.9 - Sepsis, unspecified organism Status: Acute Assessment and Plan: Patient presented with encephalopathy, hypoglycemia, respiratory failure source likely due to pna and or bacteremia -01/13: Blood cultures growing Staph capitis and Staph epidermidis -01/14: Sputum culture: Normal oropharyngeal tami -01/14: MRSA screen pending 01/15; repeat blood cultures pending -Continue abx as above - PICC line placed 01/14 -blood pressures stable this morning (4) Encephalopathy: Code(s): G93.40 - Encephalopathy, unspecified Status: Acute Assessment and Plan: Likely secondary to hypoglycemia or narcotic. No reported seizures but hypoglycemia could have led to a seizure leading to postictal stage. Patient may have another CVA as he has history of multiple CVAs in the past Head CT reviewed and negative Currently he is sedated off D5 infusion -Will decrease sedation to evaluate Neuro status. Check EEG if pt does not wake up Avoid further opioids at this time Ammonia level <9 TSH within normal limits Urine drug screen was positive for benzodiazepine (5) Hypoglycemia: Code(s): E16.2 - Hypoglycemia, unspecified Status: Acute Assessment and Plan: Patient has history of diabetes and is on Lantus and short-acting insulin at home Will hold Lantus for now -continue Accu-Cheks and sliding scale insulin -IV dextrose infusion was discontinued since patient has been hyperglycemic -increase Lantus (6) CHF (congestive heart failure): Code(s): I50.9 - Heart failure, unspecified Status: Acute Assessment and Plan: Patient has history of congestive heart failure with EF 35-40% Most recent echocardiogram 10/31/2021 Summary ? 1. Complete two-dimensional, color flow and Doppler transthoracic echocardiogram is performed. ? 2. Left ventricular chamber dimension is mildly enlarged. ? 3. Left ventricular systolic function is moderately reduced, estimated at 35-40%. ? 4. Left ventricular septal wall motion is abnormal with septal motion related to bundle branch block. ? 5. The left ventricular diastolic function is abnormal. ? 6. E/e' 25 is elevated. ? 7. Atrial fibrillation. ? 8. Left atrial chamber dimension is moder
[2022-01-24] MEDS: FUROSEMIDE INJ 40 MG/4 ML VIAL IV PUSH (17:21)
[2022-01-24] MEDS: ACETAMINOPHEN 325 MG TABLET 650 MG PO (17:27)
[2022-01-24 18:30] LABS: Glucose Point of Care 58 mg/dl (65-105)
[2022-01-24 18:30] LABS: Glucose Point of Care 104 mg/dl (65-105)
[2022-01-24 18:30] LABS: Glucose Point of Care 106 mg/dl (65-105)
[2022-01-24] MEDS: INSULIN GLARGINE (*BKC) 100 UNITS/ML 20 UNITS SUB-Q (20:24)
[2022-01-24] MEDS: METOPROLOL TARTRATE 25 MG TABLET PO (20:28)
[2022-01-24 20:47] LABS: Glucose Point of Care 97 mg/dl (65-105)
[2022-01-25] VITALS (29 sets, daily range): BP systolic 98–138; BP diastolic 57–81; PULSE 85–124; RESP 14–27; TEMP 37.1–38.3; O2SAT 93–100
[2022-01-25 00:02] LABS: Glucose Point of Care 142 mg/dl (65-105)
[2022-01-25] MEDS: POTASSIUM CHLORIDE 20 MEQ PACKET (FOR LIQUID) 40 MEQ FEED TUBE (03:32)
[2022-01-25] MEDS: ALBUTEROL SULFATE NEB 2.5 MG/3 ML INH 5 MG INHALATION ×4 (03:51→19:39)
[2022-01-25] MEDS: IPRATROPIUM BR 0.02% INH SOLN 0.5 MG/2.5 ML VIAL INHALATION ×4 (03:51→19:39)
[2022-01-25 05:02] LABS: Alveolar/Arterial O2 Gradient 65.8 mmHg; Carboxyhemoglobin 0.7 % THb (0-2.0); Fractional Inspired Oxygen 30 %; HCO3 ABG 35.6 mEq/l (22.0-26.0); Methemoglobin ABG 0.3 %THb (0-1.5); Oxygen Saturation ABG 97.1 % (95.0-100.0); Oxyhemoglobin 96.1 % THb (90.0-100.0); PCO2 ABG 50.7 mmHg (35.0-45.0); PO2 ABG 88.5 mmHg (80.0-100.0); PO2 FiO2 Ratio Arterial Blood 2.95 %; Reduced Hemoglobin 2.9 %THb (0-5.0); Total Hemoglobin 14.8 g/dL (12.0-18.0); pH ABG 7.464 (7.350-7.450)
[2022-01-25 05:03] LABS: Arterial Blood Gas PEEP 8 cmH2O; Arterial Blood Gas Tidal Volume 320 ml; Arterial Blood Gas Vent Mode CMV; Arterial Blood Gas Ventilator rate 12 /MIN; Device VENTILATOR; Modified Allen's Test Unable to perform; Site Drawn RIGHT RADIAL
[2022-01-25 05:14] LABS: Hematocrit 42.4 % (42.0-52.0); Hemoglobin 13.1 g/dL (14.0-18.0); Mean Corpuscular HGB Conc 30.9 g/dl (32-36); Mean Corpuscular Hemoglobin 29.4 pg (26-34); Mean Corpuscular Volume 95.3 fl (80-100); Mean Platelet Volume 11.7 fl (7.4-10.4); Platelet Count Result 243 k/mm3 (150-375); Red Blood Count 4.45 M/mm3 (4.6-6.20); Red Cell Distribution Width 16.8 % (11.5-14.5)
[2022-01-25 05:27] LABS: Alanine Aminotransferase 47 U/L (6-50); Albumin Level 2.6 g/dL (3.5-5.1); Alkaline Phosphatase 119 U/L (38-126); Anion Gap -1 mmol/L (8-16); Aspartate Amino Transferase 51 U/L (17-59); Bilirubin,Total 0.8 mg/dL (0.2-1.3); Blood Urea Nitrogen 42 mg/dL (9-20); Calcium 8.1 mg/dL (8.4-10.2); Carbon Dioxide 34 mmol/L (22-30); Chloride 101 mmol/L (98-107); Estimated CRCL calculation 60 ml/min; Estimated Glomerular Filt Rate > 60; Glucose 171 mg/dL (65-110); Magnesium 2.1 mg/dL (1.6-2.3); Potassium 5.9 mmol/L (3.4-5.0); Sodium 134 mmol/L (137-145)
[2022-01-25 05:28] LABS: Triglycerides 103 mg/dL (<150)
[2022-01-25] MEDS: CENTRAL LINE FLUSH 10 ML IV PUSH ×3 (05:47→20:33)
[2022-01-25] MEDS: FUROSEMIDE INJ 40 MG/4 ML VIAL IV PUSH ×2 (09:38→16:00)
[2022-01-25] MEDS: PANTOPRAZOLE SODIUM IV 40 MG VIAL IV PUSH (09:38)
[2022-01-25] MEDS: ASPIRIN 81 MG ENTERIC TABLET PO (09:38)
[2022-01-25] MEDS: MINERAL OIL/WHITE PETROLATUM OINTMENT 1 APPLIC EACH EYE (09:38)
[2022-01-25] MEDS: METOPROLOL TARTRATE 25 MG TABLET PO (09:38)
[2022-01-25] MEDS: OLANZapine 5 MG TABLET 10 MG PO (09:38)
[2022-01-25] MEDS: polyethylene glycoL 3350 17 GM POWD.PACK PO (09:39)
[2022-01-25] MEDS: SODIUM ZIRCONIUM CYCLOSILICATE 10 GM POWD.PACK FEED TUBE (09:39)
[2022-01-25] MEDS: FINASTERIDE 5 MG TABLET PO (09:39)
[2022-01-25] MEDS: PROPOFOL IV EMULSION 100 ML 3.17 MG IV CONT (10:42)
[2022-01-25 11:34] LABS: Appearance Urine Clear (Clear); Bilirubin Urine Negative (Negative); Blood Urine 2+ (Negative); Color Urine Yellow (Yellow); Glucose Urine UA Negative (Negative); Ketones Urine Negative (Negative); Leukocyte Esterase Ur Trace LEU/UL (Negative); Mucus Urine Rare /lpf; Nitrate Urine Negative (Negative); Protein Urine Negative (Negative); RBC Urine >75 /hpf (0-2); Specific Grav Ur 1.015 (1.001-1.035); Urobilinogen Urine 0.2 mg/dL (<2.0); WBC Urine 0-3 /hpf
[2022-01-25 11:36] LABS: Add Urine Microscopic? YES
--- NOTE | 2022-01-25 11:45 | WPDINTPN ---
Progress Note: A&P Assessment and Plan (1) Acute respiratory failure: Code(s): J96.00 - Acute respiratory failure, unspecified whether with hypoxia or hypercapnia Status: Acute Assessment and Plan: Acute Respiratory failure secondary to encephalopathy, pulmonary edema 01/18/2022: ETT was accidentally pulled out will turning the patient, patient was on pressure support ventilation at that time off all sedation. Was tolerating 2 L nasal cannula all through yesterday evening and overnight. 01/19/2022: Patient was agonal, chest x-ray worsened, unresponsive, decided to re-intubate the patient. Re-intubation was uneventful. Continue full mechanical ventilation support to prevent hypoxemia/hypercarbia and end organ damage. Chest x-ray this morning: Persistent small right and small to moderate left pleural effusions with associated atelectasis and/or pneumonia in the mid and lower lung zones ABGs reviewed, Lower extremity Dopplers were negative for DVT CT chest IMPRESSION: 1. Moderate-sized bilateral posterior layering pleural effusions with dependent atelectasis including complete collapse of the left lower lobe. Underlying lung disease in the atelectatic portions of the lung cannot be excluded. 2. 2.0 x 1.4 cm peripheral nodular opacity lingula is most likely infectious/inflammatory in etiology. Recommend 3 month follow-up low-dose noncontrast chest CT. 3. Mild groundglass opacities in the right middle and lower lobes which could represent atelectasis, pneumonia or minimal pulmonary edema. 4. Mild cardio likely with coronary artery disease and minimal pericardial effusion. 5. Small amount of ascites in the upper abdomen -continue Bronchodilators -continue diuretics. - 01/23 patient had left thoracentesis done and 1 L fluid was removed -patient is scheduled for ultrasound-guided thoracentesis on right today - Sedated with propofol, maintain RASS of 0 to -2, daily sedation vacation evaluated neurological status -01/24 -failed weaning trial due to respiratory distress and use of accessory muscles on pressure support -will try again later today (2) Pneumonia: Code(s): J18.9 - Pneumonia, unspecified organism Status: Acute Assessment and Plan: Chest x-ray as above -completed a 10 day course of Zosyn, vancomycin (01/13) -status post 6 days of azithromycin (3) Sepsis: Code(s): A41.9 - Sepsis, unspecified organism Status: Acute Assessment and Plan: Patient presented with encephalopathy, hypoglycemia, respiratory failure source likely due to pna and or bacteremia -01/13: Blood cultures growing Staph capitis and Staph epidermidis -01/14: Sputum culture: Normal oropharyngeal tami -01/14: MRSA screen negative 01/15; repeat blood cultures, preliminary report is negative x2 - PICC line placed 01/14 Patient completed 10 day course of antibiotics 01/25-febrile overnight increase in WBC Change Ford catheter, send UA Repeat blood culture Check CT chest abdomen Resume empiric antibiotics (4) Encephalopathy: Code(s): G93.40 - Encephalopathy, unspecified Status: Acute Assessment and Plan: Likely secondary to hypoglycemia or narcotic. No reported seizures but hypoglycemia could have led to a seizure leading to postictal stage. Patient may have another CVA as he has history of multiple CVAs in the past Head CT reviewed and negative Currently he is sedated off D5 infusion Avoid further opioids at this time Ammonia level <9 TSH within normal limits Urine drug screen was positive for benzodiazepine -improved, patient does open his eyes and follows simple commands on low-dose propofol (5) CHF (congestive heart failure): Code(s): I50.9 - Heart failure, unspecified Status: Acute Assessment and Plan: Patient has history of congestive heart failure with EF 35-40% Most recent echocardiogram 10/31/2021 Summary ? 1. Complete two-dimensional, color flow and Dop
[2022-01-25] MEDS: INSULIN ASPART (*BKC) 100 UNITS/ML SUB-Q (12:09)
[2022-01-25] MEDS: INSULIN HUMAN REGULAR (*BKC) 100 UNITS/ML 10 UNITS IV PUSH (12:10)
[2022-01-25] MEDS: DEXTROSE 50% 25 GM/50 ML SYRINGE IV PUSH (12:13)
[2022-01-25 12:35] LABS: Glucose Point of Care 209 mg/dl (65-105)
[2022-01-25 12:47] LABS: Glucose Point of Care 219 mg/dl (65-105)
[2022-01-25 14:04] LABS: Alveolar/Arterial O2 Gradient 65.9 mmHg; Fractional Inspired Oxygen 30 %; Oxygen Content ABG 18.2 %vol (16.0-22.0); Oxygen Saturation ABG 96.6 % (95.0-100.0); Oxyhemoglobin 95.5 % THb (90.0-100.0); PCO2 ABG 52.7 mmHg (35.0-45.0); PO2 ABG 86.1 mmHg (80.0-100.0); PO2 FiO2 Ratio Arterial Blood 2.87 %; Total Hemoglobin 13.5 g/dL (12.0-18.0); pH ABG 7.427 (7.350-7.450)
[2022-01-25 14:05] LABS: Device VENTILATOR; Site Drawn LEFT RADIAL
[2022-01-25 14:06] LABS: Arterial Blood Gas PEEP 5 cmH2O; Arterial Blood Gas Pressure Support 5 cmH2O; Arterial Blood Gas Vent Mode SPONTANEOUS
[2022-01-25 15:03] LABS: Anion Gap 1 mmol/L (8-16); Blood Urea Nitrogen 39 mg/dL (9-20); Calcium 8.2 mg/dL (8.4-10.2); Carbon Dioxide 35 mmol/L (22-30); Chloride 103 mmol/L (98-107); Estimated CRCL calculation 66 ml/min; Estimated Glomerular Filt Rate > 60; Glucose 192 mg/dL (65-110); Sodium 139 mmol/L (137-145)
--- NOTE | 2022-01-25 15:41 | PM.IMPN ---
Progress Note: A&P Assessment and Plan (1) Acute respiratory failure: Code(s): J96.00 - Acute respiratory failure, unspecified whether with hypoxia or hypercapnia Status: Acute Assessment and Plan: Acute Respiratory failure secondary to encephalopathy, pulmonary edema Patient now intubated and sedated Continue full mechanical ventilation support to prevent hypoxemia/hypercarbia and end organ damage. Chest x-ray this morning: showed Stable diffuse lung disease, consistent with pulmonary edema versus pneumonia. Stable moderate-sized pleural effusions.. Cardiomegaly ABGs reviewed, 01/15/2022: Responded well to Lasix, will repeat again today Bronchodilators Sedated with propofol, maintain RASS of 0 to -2, daily sedation vacation evaluated neurological status 01/25/2022 interval history: 81-year-old male admitted with respiratory failure remains on vent, multifactorial secondary to pulmonary edema, positive for COVID-19 patient being diuresed and pneumonia patient is being treated with Zosyn and vancomycin, patient had thoracentesis on 01/24 and 1100cc was removed, today patient had a weaning trial and it was successful and patient was extubated, also are upon arrival patient was encephalopathic hypoglycemia and may have resulted seizure and postictal, patient is found to have 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 (2) Pneumonia: Code(s): J18.9 - Pneumonia, unspecified organism Status: Acute Assessment and Plan: Chest x-ray as above -continue Zosyn, vancomycin (01/13) -azithromycin (01/14) (3) Sepsis: Code(s): A41.9 - Sepsis, unspecified organism Status: Acute Assessment and Plan: Patient presented with encephalopathy, hypoglycemia, respiratory failure source likely due to pna and or bacteremia -01/13: Blood cultures growing Staph capitis and Staph epidermidis -01/14: Sputum culture: Normal oropharyngeal tami -01/14: MRSA screen pending 01/15; repeat blood cultures pending -Continue abx as above - PICC line placed 01/14 -blood pressures stable this morning (4) Encephalopathy: Code(s): G93.40 - Encephalopathy, unspecified Status: Acute Assessment and Plan: Likely secondary to hypoglycemia or narcotic. No reported seizures but hypoglycemia could have led to a seizure leading to postictal stage. Patient may have another CVA as he has history of multiple CVAs in the past Head CT reviewed and negative Currently he is sedated off D5 infusion -Will decrease sedation to evaluate Neuro status. Check EEG if pt does not wake up Avoid further opioids at this time Ammonia level <9 TSH within normal limits Urine drug screen was positive for benzodiazepine (5) Hypoglycemia: Code(s): E16.2 - Hypoglycemia, unspecified Status: Acute Assessment and Plan: Patient has history of diabetes and is on Lantus and short-acting insulin at home Will hold Lantus for now -continue Accu-Cheks and sliding scale insulin -IV dextrose infusion was discontinued since patient has been hyperglycemic -increase Lantus (6) CHF (congestive heart failure): Code(s): I50.9 - Heart failure, unspecified Status: Acute Assessment and Plan: Patient has history of congestive heart failure with EF 35-40% Most recent echocardiogram 10/31/2021 Summary ? 1. Complete two-dimensional, color flow and Doppler transthoracic echocardiogram is performed. ? 2. Left ventricular chamber dimension is mildly enlarged. ? 3. Left ventricular systolic function is moderately reduced, estimated at 35-40%. ? 4. Left ventricular septal wall motion is abnormal with septal motion related to bundle branch block. ? 5. The le
[2022-01-25 17:27] LABS: Glucose Point of Care 200 mg/dl (65-105)
--- NOTE | 2022-01-25 22:01 | PCRCNOTE ---
PT WONT KEEP BIPAP ON HE CONTINUES TO PULL MASK OFF RN AWARE ..
[2022-01-25 23:57] LABS: Glucose Point of Care 147 mg/dl (65-105)
[2022-01-26] VITALS (17 sets, daily range): BP systolic 111–144; BP diastolic 57–83; PULSE 81–145; RESP 13–24; TEMP 36.8–37.3; O2SAT 95–100
[2022-01-26] MEDS: ALBUTEROL SULFATE NEB 2.5 MG/3 ML INH 5 MG INHALATION (01:23)
[2022-01-26] MEDS: IPRATROPIUM BR 0.02% INH SOLN 0.5 MG/2.5 ML VIAL INHALATION (01:24)
[2022-01-26 05:17] LABS: Hematocrit 38.9 % (42.0-52.0); Hemoglobin 12.2 g/dL (14.0-18.0); Mean Corpuscular HGB Conc 31.4 g/dl (32-36); Mean Corpuscular Hemoglobin 29.5 pg (26-34); Mean Corpuscular Volume 94.2 fl (80-100); Mean Platelet Volume 11.9 fl (7.4-10.4); Platelet Count Result 207 k/mm3 (150-375); Red Blood Count 4.13 M/mm3 (4.6-6.20); Red Cell Distribution Width 16.8 % (11.5-14.5); White Blood Count 11.9 K/mm3 (4.5-10.0)
[2022-01-26 05:27] LABS: Alanine Aminotransferase 37 U/L (6-50); Albumin Level 2.7 g/dL (3.5-5.1); Alkaline Phosphatase 99 U/L (38-126); Anion Gap 1 mmol/L (8-16); Aspartate Amino Transferase 36 U/L (17-59); Bilirubin,Total 1.3 mg/dL (0.2-1.3); Blood Urea Nitrogen 32 mg/dL (9-20); Calcium 8.1 mg/dL (8.4-10.2); Carbon Dioxide 37 mmol/L (22-30); Chloride 102 mmol/L (98-107); Estimated CRCL calculation 83 ml/min; Estimated Glomerular Filt Rate > 60; Glucose 119 mg/dL (65-110); Magnesium 1.9 mg/dL (1.6-2.3); Potassium 3.5 mmol/L (3.4-5.0); Sodium 140 mmol/L (137-145)
[2022-01-26] MEDS: CENTRAL LINE FLUSH 10 ML IV PUSH ×3 (05:48→20:27)
[2022-01-26] MEDS: PANTOPRAZOLE SODIUM IV 40 MG VIAL IV PUSH (08:53)
[2022-01-26] MEDS: METOPROLOL TARTRATE 25 MG TABLET PO ×2 (08:54→20:28)
[2022-01-26] MEDS: OLANZapine 5 MG TABLET 10 MG PO (08:54)
[2022-01-26] MEDS: FUROSEMIDE INJ 40 MG/4 ML VIAL IV PUSH (08:55)
[2022-01-26] MEDS: ASPIRIN 81 MG ENTERIC TABLET PO (08:56)
[2022-01-26] MEDS: FINASTERIDE 5 MG TABLET PO (08:56)
[2022-01-26] MEDS: APIXABAN 5 MG TABLET PO ×2 (08:56→20:28)
--- NOTE | 2022-01-26 08:59 | PCSTNOTE ---
Please refer to the Bedside Swallow Evaluation in the EMR. Please note, silent aspiration cannot be ruled out at bedside.
[2022-01-26] MEDS: KCL 20 MEQ/SW 100 ML 100 ML 50 MEQ IVPB (09:07)
--- NOTE | 2022-01-26 10:53 | PCFNICU ---
ICU Rounding Note: Pt current nutrition is DBCC/Minced and Moist Level 5. Last recorded weight is 92.8 kg. Bowel Motility: +BM reported 01/25 Labs Reviewed:Glu 119, BUN 32, Alb 2.7 Meds Noted:Cefepime, Lasix Skin: WNL Additional Notes: Patient was extubated on 01/25. Speech Therapy Eval today, recommending Minced and Moist, Level 5 diet. Agree with diet orders. Following daily in ICU rounds. Will monitor every 3 days.
--- NOTE | 2022-01-26 11:05 | WPDINTPN ---
Progress Note: A&P Assessment and Plan (1) Acute respiratory failure: Code(s): J96.00 - Acute respiratory failure, unspecified whether with hypoxia or hypercapnia Status: Acute Assessment and Plan: Acute Respiratory failure secondary to encephalopathy, pulmonary edema 01/18/2022: ETT was accidentally pulled out will turning the patient, patient was on pressure support ventilation at that time off all sedation. Was tolerating 2 L nasal cannula all through yesterday evening and overnight. 01/19/2022: Patient was agonal, chest x-ray worsened, unresponsive, decided to re-intubate the patient. Re-intubation was uneventful. Continue full mechanical ventilation support to prevent hypoxemia/hypercarbia and end organ damage. Chest x-ray this morning: Persistent small right and small to moderate left pleural effusions with associated atelectasis and/or pneumonia in the mid and lower lung zones ABGs reviewed, Lower extremity Dopplers were negative for DVT CT chest IMPRESSION: 1. Moderate-sized bilateral posterior layering pleural effusions with dependent atelectasis including complete collapse of the left lower lobe. Underlying lung disease in the atelectatic portions of the lung cannot be excluded. 2. 2.0 x 1.4 cm peripheral nodular opacity lingula is most likely infectious/inflammatory in etiology. Recommend 3 month follow-up low-dose noncontrast chest CT. 3. Mild groundglass opacities in the right middle and lower lobes which could represent atelectasis, pneumonia or minimal pulmonary edema. 4. Mild cardio likely with coronary artery disease and minimal pericardial effusion. 5. Small amount of ascites in the upper abdomen -continue Bronchodilators -continue diuretics. - 01/23 patient had left thoracentesis done and 1 L fluid was removed -patient is scheduled for ultrasound-guided thoracentesis on right today - Sedated with propofol, maintain RASS of 0 to -2, daily sedation vacation evaluated neurological status -01/24 -failed weaning trial due to respiratory distress and use of accessory muscles on pressure support -01/25- 5/5 PSV SBT done for more than 1 hour. RSBI, ABGI and Vitals acceptable. Pt awake and following commands. Patient was extubated -01/26 -on room air. Incentive spirometry. PT OT. Up in chair. Continue diuretics (2) Pneumonia: Code(s): J18.9 - Pneumonia, unspecified organism Status: Acute Assessment and Plan: Chest x-ray as above -completed a 10 day course of Zosyn, vancomycin (01/13) -status post 6 days of azithromycin (3) Sepsis: Code(s): A41.9 - Sepsis, unspecified organism Status: Acute Assessment and Plan: Patient presented with encephalopathy, hypoglycemia, respiratory failure source likely due to pna and or bacteremia -01/13: Blood cultures growing Staph capitis and Staph epidermidis -01/14: Sputum culture: Normal oropharyngeal tami -01/14: MRSA screen negative 01/15; repeat blood cultures, preliminary report is negative x2 - PICC line placed 01/14 Patient completed 10 day course of antibiotics 01/25-febrile overnight increase in WBC Ford catheter was changed, UA suggests UTI Repeat blood culture were sent Check CT chest abdomen IMPRESSION: 1. Pneumonia in the right lung and anterior segment left upper lobe, worsened from 01/21/22. 2. Small pleural effusions, left worse than right, improved from 01/21/2022. 3. Stable small pericardial effusion. Restarted on empiric vancomycin and cefepime 01/26 afebrile. WBC improved Monitor (4) Encephalopathy: Code(s): G93.40 - Encephalopathy, unspecified Status: Acute Assessment and Plan: Likely secondary to hypoglycemia or narcotic. No reported seizures but hypoglycemia could have led to a seizure leading to postictal stage. Patient may have another CVA as he has history of multiple CVAs in the past Head CT reviewed and negative Currently he is sedated off D5 infusion Avoid further opioid
[2022-01-26 11:53] LABS: Glucose Point of Care 170 mg/dl (65-105)
--- NOTE | 2022-01-26 14:01 | PCPTNOTE ---
Attempted PT evaluation, Pt fatigued. Pt does not respond to therapist question or keep eyes open. RN aware. Will Follow.
--- NOTE | 2022-01-26 14:10 | PCOTNOTE ---
Attempted to see pt. for occupational therapy evaluation. Pt. declines to participate in therapy services at this time. Nursing aware. Following
[2022-01-26 15:43] LABS: Anion Gap 0 mmol/L (8-16); Blood Urea Nitrogen 28 mg/dL (9-20); Calcium 8.1 mg/dL (8.4-10.2); Carbon Dioxide 35 mmol/L (22-30); Chloride 101 mmol/L (98-107); Estimated CRCL calculation 83 ml/min; Estimated Glomerular Filt Rate > 60; Glucose 171 mg/dL (65-110); Potassium 3.7 mmol/L (3.4-5.0); Sodium 136 mmol/L (137-145)
--- NOTE | 2022-01-26 16:33 | PM.IMPN ---
Progress Note: A&P Assessment and Plan (1) Acute respiratory failure: Code(s): J96.00 - Acute respiratory failure, unspecified whether with hypoxia or hypercapnia Status: Acute Assessment and Plan: Acute Respiratory failure secondary to encephalopathy, pulmonary edema Patient now intubated and sedated Continue full mechanical ventilation support to prevent hypoxemia/hypercarbia and end organ damage. Chest x-ray this morning: showed Stable diffuse lung disease, consistent with pulmonary edema versus pneumonia. Stable moderate-sized pleural effusions.. Cardiomegaly ABGs reviewed, 01/15/2022: Responded well to Lasix, will repeat again today Bronchodilators Sedated with propofol, maintain RASS of 0 to -2, daily sedation vacation evaluated neurological status 01/26/2022 interval history: 81-year-old male admitted with respiratory failure remains on vent, multifactorial secondary to pulmonary edema, positive for COVID-19 patient being diuresed and pneumonia patient is being treated with Zosyn and vancomycin, patient had thoracentesis on 01/24 and 1100cc was removed, 01/25 patient had a weaning trial and it was successful and patient was extubated, also upon arrival patient was encephalopathic hypoglycemia and may have resulted seizure and postictal, patient is found to have 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 (2) Pneumonia: Code(s): J18.9 - Pneumonia, unspecified organism Status: Acute Assessment and Plan: Chest x-ray as above -continue Zosyn, vancomycin (01/13) -azithromycin (01/14) (3) Sepsis: Code(s): A41.9 - Sepsis, unspecified organism Status: Acute Assessment and Plan: Patient presented with encephalopathy, hypoglycemia, respiratory failure source likely due to pna and or bacteremia -01/13: Blood cultures growing Staph capitis and Staph epidermidis -01/14: Sputum culture: Normal oropharyngeal tami -01/14: MRSA screen pending 01/15; repeat blood cultures pending -Continue abx as above - PICC line placed 01/14 -blood pressures stable this morning (4) Encephalopathy: Code(s): G93.40 - Encephalopathy, unspecified Status: Acute Assessment and Plan: Likely secondary to hypoglycemia or narcotic. No reported seizures but hypoglycemia could have led to a seizure leading to postictal stage. Patient may have another CVA as he has history of multiple CVAs in the past Head CT reviewed and negative Currently he is sedated off D5 infusion -Will decrease sedation to evaluate Neuro status. Check EEG if pt does not wake up Avoid further opioids at this time Ammonia level <9 TSH within normal limits Urine drug screen was positive for benzodiazepine (5) Hypoglycemia: Code(s): E16.2 - Hypoglycemia, unspecified Status: Acute Assessment and Plan: Patient has history of diabetes and is on Lantus and short-acting insulin at home Will hold Lantus for now -continue Accu-Cheks and sliding scale insulin -IV dextrose infusion was discontinued since patient has been hyperglycemic -increase Lantus (6) CHF (congestive heart failure): Code(s): I50.9 - Heart failure, unspecified Status: Acute Assessment and Plan: Patient has history of congestive heart failure with EF 35-40% Most recent echocardiogram 10/31/2021 Summary ? 1. Complete two-dimensional, color flow and Doppler transthoracic echocardiogram is performed. ? 2. Left ventricular chamber dimension is mildly enlarged. ? 3. Left ventricular systolic function is moderately reduced, estimated at 35-40%. ? 4. Left ventricular septal wall motion i
[2022-01-26 17:35] LABS: Glucose Point of Care 160 mg/dl (65-105)
[2022-01-26] MEDS: METOPROLOL TARTRATE INJ 5 MG/5 ML VIAL IV PUSH (21:01)
[2022-01-27] VITALS (16 sets, daily range): BP systolic 108–147; BP diastolic 68–98; PULSE 91–129; RESP 16–22; TEMP 37.1–37.4; O2SAT 96–100; BMI 10.0
[2022-01-27 00:10] LABS: Glucose Point of Care 166 mg/dl (65-105)
[2022-01-27 04:25] LABS: Hematocrit 40.5 % (42.0-52.0); Hemoglobin 12.7 g/dL (14.0-18.0); Mean Corpuscular HGB Conc 31.4 g/dl (32-36); Mean Corpuscular Volume 92.5 fl (80-100); Mean Platelet Volume 11.6 fl (7.4-10.4); Platelet Count Result 221 k/mm3 (150-375); Red Blood Count 4.38 M/mm3 (4.6-6.20); Red Cell Distribution Width 16.5 % (11.5-14.5); White Blood Count 9.8 K/mm3 (4.5-10.0)
[2022-01-27 04:39] LABS: Alanine Aminotransferase 32 U/L (6-50); Albumin Level 2.6 g/dL (3.5-5.1); Alkaline Phosphatase 92 U/L (38-126); Anion Gap 0 mmol/L (8-16); Aspartate Amino Transferase 36 U/L (17-59); Bilirubin,Total 1.4 mg/dL (0.2-1.3); Blood Urea Nitrogen 26 mg/dL (9-20); Calcium 8.1 mg/dL (8.4-10.2); Carbon Dioxide 33 mmol/L (22-30); Chloride 100 mmol/L (98-107); Estimated CRCL calculation 96 ml/min; Estimated Glomerular Filt Rate > 60; Glucose 160 mg/dL (65-110); Magnesium 1.9 mg/dL (1.6-2.3); Potassium 3.5 mmol/L (3.4-5.0); Sodium 133 mmol/L (137-145); Triglycerides 97 mg/dL (<150)
[2022-01-27 04:44] LABS: Alveolar/Arterial O2 Gradient 24.9 mmHg; Base Excess ABG 8.4 mEq/l (+/-2.0); Carboxyhemoglobin 0.7 % THb (0-2.0); Fractional Inspired Oxygen 21 %; HCO3 ABG 31.9 mEq/l (22.0-26.0); Methemoglobin ABG 0.3 %THb (0-1.5); Oxygen Content ABG 18.1 %vol (16.0-22.0); Oxygen Saturation ABG 96.5 % (95.0-100.0); Oxyhemoglobin 94.7 % THb (90.0-100.0); PCO2 ABG 39.8 mmHg (35.0-45.0); PO2 ABG 77.2 mmHg (80.0-100.0); PO2 FiO2 Ratio Arterial Blood 3.68 %; Reduced Hemoglobin 4.3 %THb (0-5.0); Total Hemoglobin 13.6 g/dL (12.0-18.0)
[2022-01-27 04:46] LABS: pH ABG 7.522 (7.350-7.450)
[2022-01-27 04:47] LABS: Device ROOM AIR; Modified Allen's Test Pass; Site Drawn RIGHT RADIAL
[2022-01-27] MEDS: CENTRAL LINE FLUSH 10 ML IV PUSH ×3 (06:07→21:26)
[2022-01-27] MEDS: OLANZapine 5 MG TABLET 10 MG PO (08:39)
[2022-01-27] MEDS: METOPROLOL TARTRATE 25 MG TABLET PO (08:39)
[2022-01-27] MEDS: APIXABAN 5 MG TABLET PO ×2 (08:40→21:26)
[2022-01-27] MEDS: PANTOPRAZOLE SODIUM IV 40 MG VIAL IV PUSH (08:40)
[2022-01-27] MEDS: FINASTERIDE 5 MG TABLET PO (08:40)
[2022-01-27] MEDS: FUROSEMIDE INJ 40 MG/4 ML VIAL IV PUSH (08:40)
[2022-01-27] MEDS: ASPIRIN 81 MG ENTERIC TABLET PO (08:40)
[2022-01-27 09:36] LABS: Glucose Point of Care 141 mg/dl (65-105)
[2022-01-27] MEDS: INSULIN ASPART (*BKC) 100 UNITS/ML SUB-Q (12:46)
[2022-01-27 12:51] LABS: Glucose Point of Care 228 mg/dl (65-105)
[2022-01-27] MEDS: METOPROLOL TARTRATE 12.5 MG TABLET PO (15:40)
[2022-01-27] MEDS: ALTEPLASE 2 MG VIAL (CATHFLO) IV PUSH (15:51)
--- NOTE | 2022-01-27 16:51 | PM.IMPN ---
Progress Note: A&P Assessment and Plan (1) Acute respiratory failure: Code(s): J96.00 - Acute respiratory failure, unspecified whether with hypoxia or hypercapnia Status: Acute Assessment and Plan: Acute Respiratory failure secondary to encephalopathy, pulmonary edema Patient now intubated and sedated Continue full mechanical ventilation support to prevent hypoxemia/hypercarbia and end organ damage. Chest x-ray this morning: showed Stable diffuse lung disease, consistent with pulmonary edema versus pneumonia. Stable moderate-sized pleural effusions.. Cardiomegaly ABGs reviewed, 01/15/2022: Responded well to Lasix, will repeat again today Bronchodilators Sedated with propofol, maintain RASS of 0 to -2, daily sedation vacation evaluated neurological status 01/27/2022 interval history: 81-year-old male admitted with respiratory failure remains on vent, multifactorial secondary to pulmonary edema, positive for COVID-19 patient being diuresed and pneumonia patient is being treated with Cefepime and vancomycin, patient had thoracentesis on 01/24 and 1100cc was removed, 01/25 patient had a weaning trial and it was successful and patient was extubated, also upon arrival patient was encephalopathic hypoglycemia and may have resulted seizure and postictal, patient is found to have 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 repeat chest x-ray shows persistent pneumonia will continue present management will have PT OT evaluate the patient. (2) Pneumonia: Code(s): J18.9 - Pneumonia, unspecified organism Status: Acute Assessment and Plan: Chest x-ray as above -continue Zosyn, vancomycin (01/13) -azithromycin (01/14) (3) Sepsis: Code(s): A41.9 - Sepsis, unspecified organism Status: Acute Assessment and Plan: Patient presented with encephalopathy, hypoglycemia, respiratory failure source likely due to pna and or bacteremia -01/13: Blood cultures growing Staph capitis and Staph epidermidis -01/14: Sputum culture: Normal oropharyngeal tami -01/14: MRSA screen pending 01/15; repeat blood cultures pending -Continue abx as above - PICC line placed 01/14 -blood pressures stable this morning (4) Encephalopathy: Code(s): G93.40 - Encephalopathy, unspecified Status: Acute Assessment and Plan: Likely secondary to hypoglycemia or narcotic. No reported seizures but hypoglycemia could have led to a seizure leading to postictal stage. Patient may have another CVA as he has history of multiple CVAs in the past Head CT reviewed and negative Currently he is sedated off D5 infusion -Will decrease sedation to evaluate Neuro status. Check EEG if pt does not wake up Avoid further opioids at this time Ammonia level <9 TSH within normal limits Urine drug screen was positive for benzodiazepine (5) Hypoglycemia: Code(s): E16.2 - Hypoglycemia, unspecified Status: Acute Assessment and Plan: Patient has history of diabetes and is on Lantus and short-acting insulin at home Will hold Lantus for now -continue Accu-Cheks and sliding scale insulin -IV dextrose infusion was discontinued since patient has been hyperglycemic -increase Lantus (6) CHF (congestive heart failure): Code(s): I50.9 - Heart failure, unspecified Status: Acute Assessment and Plan: Patient has history of congestive heart failure with EF 35-40% Most recent echocardiogram 10/31/2021 Summary ? 1. Complete two-dimensional, color flow and Doppler transthoracic echocardiogram is performed. ? 2. Left ventricular chamber
[2022-01-27 16:53] LABS: Glucose Point of Care 177 mg/dl (65-105)
[2022-01-27 19:42] LABS: Vancomycin Trough 27.4 ug/mL (10.0-20.0)
[2022-01-27] MEDS: METOPROLOL TARTRATE TAB 25 MG, METOPROLOL TARTRATE TAB 12.5 MG 37.5 MG PO (21:26)
[2022-01-27 23:27] LABS: Glucose Point of Care 123 mg/dl (65-105)
[2022-01-28] VITALS (14 sets, daily range): BP systolic 113–128; BP diastolic 62–90; PULSE 79–111; RESP 12–27; TEMP 36.6–37.1; O2SAT 94–100
[2022-01-28 04:53] LABS: Hematocrit 40.5 % (42.0-52.0); Hemoglobin 12.9 g/dL (14.0-18.0); Mean Corpuscular HGB Conc 31.9 g/dl (32-36); Mean Platelet Volume 11.5 fl (7.4-10.4); Platelet Count Result 246 k/mm3 (150-375); Red Blood Count 4.45 M/mm3 (4.6-6.20); Red Cell Distribution Width 16.1 % (11.5-14.5); White Blood Count 9.4 K/mm3 (4.5-10.0)
[2022-01-28 05:08] LABS: Alanine Aminotransferase 28 U/L (6-50); Albumin Level 2.6 g/dL (3.5-5.1); Alkaline Phosphatase 92 U/L (38-126); Anion Gap 2 mmol/L (8-16); Aspartate Amino Transferase 34 U/L (17-59); Bilirubin,Total 1.6 mg/dL (0.2-1.3); Blood Urea Nitrogen 21 mg/dL (9-20); Carbon Dioxide 34 mmol/L (22-30); Chloride 99 mmol/L (98-107); Estimated CRCL calculation 96 ml/min; Estimated Glomerular Filt Rate > 60; Glucose 114 mg/dL (65-110); Magnesium 1.8 mg/dL (1.6-2.3); Potassium 3.1 mmol/L (3.4-5.0); Sodium 135 mmol/L (137-145)
[2022-01-28] MEDS: CENTRAL LINE FLUSH 10 ML IV PUSH ×3 (06:47→20:38)
[2022-01-28] MEDS: APIXABAN 5 MG TABLET PO ×2 (08:34→20:49)
[2022-01-28] MEDS: ASPIRIN 81 MG ENTERIC TABLET PO (08:34)
[2022-01-28] MEDS: POTASSIUM CHLORIDE 20 MEQ PACKET (FOR LIQUID) 40 MEQ PO (08:34)
[2022-01-28] MEDS: FINASTERIDE 5 MG TABLET PO (08:35)
[2022-01-28] MEDS: METOPROLOL TARTRATE TAB 25 MG, METOPROLOL TARTRATE TAB 12.5 MG 37.5 MG PO ×2 (08:35→20:49)
[2022-01-28] MEDS: FUROSEMIDE INJ 40 MG/4 ML VIAL IV PUSH (08:35)
[2022-01-28] MEDS: PANTOPRAZOLE SODIUM IV 40 MG VIAL IV PUSH (08:36)
[2022-01-28] MEDS: OLANZapine 5 MG TABLET 10 MG PO (08:36)
[2022-01-28 09:19] LABS: Glucose Point of Care 136 mg/dl (65-105)
--- NOTE | 2022-01-28 09:37 | PM.IMPN ---
Progress Note: A&P Assessment and Plan (1) Acute respiratory failure: Code(s): J96.00 - Acute respiratory failure, unspecified whether with hypoxia or hypercapnia Status: Acute Assessment and Plan: Acute Respiratory failure secondary to encephalopathy, pulmonary edema on admission, -status post intubation and successfully extubated on 01/25/2022 -encourage incentive spirometry -up in chair with PT/OT, increase activity -continue diuresis -continue bronchodilators -01/21 Lower extremity Dopplers were negative for DVT -01/23 patient had left thoracentesis done and 1 L fluid was removed - right right thoracentesis with 950 mL fluid removal - (2) Pneumonia: Code(s): J18.9 - Pneumonia, unspecified organism Status: Acute Assessment and Plan: Chest x-ray as above -completed a 10 day course of Zosyn, vancomycin (01/13) -status post 6 days of azithromycin (3) Sepsis: Code(s): A41.9 - Sepsis, unspecified organism Status: Acute Assessment and Plan: Patient presented with encephalopathy, hypoglycemia, respiratory failure source likely due to pna and or bacteremia -01/13: Blood cultures growing Staph capitis and Staph epidermidis -01/14: Sputum culture: Normal oropharyngeal tami -01/14: MRSA screen negative 01/15; repeat blood cultures, preliminary report is negative x2 - PICC line placed 01/14 Patient completed 10 day course of antibiotics 01/25-febrile overnight increase in WBC Ford catheter was changed, UA suggests UTI Repeat blood culture were sent Check CT chest abdomen IMPRESSION: 1. Pneumonia in the right lung and anterior segment left upper lobe, worsened from 01/21/22. 2. Small pleural effusions, left worse than right, improved from 01/21/2022. 3. Stable small pericardial effusion. Restarted on empiric vancomycin and cefepime 01/26 afebrile. WBC improved Monitor (4) Encephalopathy: Code(s): G93.40 - Encephalopathy, unspecified Status: Acute Assessment and Plan: Likely secondary to hypoglycemia or narcotic. No reported seizures but hypoglycemia could have led to a seizure leading to postictal stage. Patient may have another CVA as he has history of multiple CVAs in the past Head CT reviewed and negative -ammonia levels were normal -TSH within normal limits -patient currently awake, alert, answers questions and follows commands -continue good sleep hygiene (5) CHF (congestive heart failure): Code(s): I50.9 - Heart failure, unspecified Status: Acute Assessment and Plan: Patient has history of congestive heart failure with EF 35-40% Most recent echocardiogram 10/31/2021 Summary ? 1. Complete two-dimensional, color flow and Doppler transthoracic echocardiogram is performed. ? 2. Left ventricular chamber dimension is mildly enlarged. ? 3. Left ventricular systolic function is moderately reduced, estimated at 35-40%. ? 4. Left ventricular septal wall motion is abnormal with septal motion related to bundle branch block. ? 5. The left ventricular diastolic function is abnormal. ? 6. E/e' 25 is elevated. ? 7. Atrial fibrillation. ? 8. Left atrial chamber dimension is moderately enlarged. ? 9. There is mild mitral valve regurgitation. ? 10. There is trace tricuspid valve regurgitation. ? 11. No pulmonary hypertension, estimated pulmonary arterial systolic pressure is 33 mmHg. ? 12. There is trace pulmonic regurgitation. Continue diuretics (6) Diabetic foot infection: Code(s): E11.628 - Type 2 diabetes mellitus with other skin complications; L08.9 - Local infection of the skin and subcutaneous tissue, unspecified Status: Acute Assessment and Plan: Patient's stump appears slightly warmer and red on admission No discharge seen 01/13/2022 CT scan of left lower extremity: Recent left-sided below-knee amputation. No abscess or evidence of osteomyelitis -wound care evaluate the patient, no further recommend
[2022-01-28 11:40] LABS: Glucose Point of Care 200 mg/dl (65-105)
--- NOTE | 2022-01-28 11:48 | PCFNICU ---
ICU Rounding Note: Pt current nutrition is Minced and Moist, Level 5/DBCC. Last recorded weight is 87.9 kg. Bowel Motility: +BM reported 01/25 Labs Reviewed:Alb 2.6,Glu 114,BUN 21, Cr 0.6,Na 135 Meds Noted: Eliquis, Lasix, Protonix, Vancomycin Skin: WNL Additional Notes: Patient remains on modified diet of Minced and Moist. Oral Intake poor, 10% today. Diet supplements started of [employer] Ice cream providing an additional 300 kcals and 9 gms protein. Following daily in ICU rounds. Will monitor every 3 days.
[2022-01-28 18:02] LABS: Glucose Point of Care 143 mg/dl (65-105)
[2022-01-28 21:29] LABS: Glucose Point of Care 121 mg/dl (65-105)
[2022-01-29] VITALS (14 sets, daily range): BP systolic 109–129; BP diastolic 60–87; PULSE 70–97; RESP 10–18; TEMP 36–36.9; O2SAT 90–100
[2022-01-29] MEDS: CENTRAL LINE FLUSH 10 ML IV PUSH ×3 (05:42→21:18)
[2022-01-29 06:39] LABS: Estimated CRCL calculation 113 ml/min; Estimated Glomerular Filt Rate > 60
[2022-01-29 08:33] LABS: Glucose Point of Care 140 mg/dl (65-105)
[2022-01-29] MEDS: FUROSEMIDE INJ 40 MG/4 ML VIAL IV PUSH (09:14)
[2022-01-29] MEDS: PANTOPRAZOLE SODIUM IV 40 MG VIAL IV PUSH (09:14)
[2022-01-29] MEDS: OLANZapine 5 MG TABLET 10 MG PO (09:14)
[2022-01-29] MEDS: APIXABAN 5 MG TABLET PO ×2 (09:15→21:18)
[2022-01-29] MEDS: ASPIRIN 81 MG ENTERIC TABLET PO (09:15)
[2022-01-29] MEDS: METOPROLOL TARTRATE TAB 25 MG, METOPROLOL TARTRATE TAB 12.5 MG 37.5 MG PO ×2 (09:15→21:18)
[2022-01-29] MEDS: FINASTERIDE 5 MG TABLET PO (09:15)
--- NOTE | 2022-01-29 11:26 | PCFNICU ---
ICU Rounding Note: Pt current nutrition is Minced and Moist, Level 5/DBCC. Last recorded weight is 86.2 kg. Bowel Motility: +BM reported 01/25 Labs Reviewed:Cr 0.5 Meds Noted: Eliquis, Lasix, Protonix, Vancomycin Skin: WNL Additional Notes: Patient currently on Minced and Moist, Level 5 diet, 0% intake, patient is refusing meals. CT scan today. Speech Evaluation planned. Following daily in ICU rounds. Will monitor every 3 days.
[2022-01-29 12:01] LABS: Glucose Point of Care 214 mg/dl (65-105)
[2022-01-29 12:13] LABS: Glucose Point of Care 191 mg/dl (65-105)
--- NOTE | 2022-01-29 12:20 | PM.IMPN ---
Progress Note: A&P Assessment and Plan (1) Acute respiratory failure: Code(s): J96.00 - Acute respiratory failure, unspecified whether with hypoxia or hypercapnia Status: Acute Assessment and Plan: Acute Respiratory failure secondary to encephalopathy, pulmonary edema on admission, -status post intubation and successfully extubated on 01/25/2022 -encourage incentive spirometry -up in chair with PT/OT, increase activity -continue diuresis -continue bronchodilators -01/21 Lower extremity Dopplers were negative for DVT -01/23 patient had left thoracentesis done and 1 L fluid was removed - right right thoracentesis with 950 mL fluid removal Will have speech therapy evaluate for bedside swallow, patient has decreased p.o. intake (2) Pneumonia: Code(s): J18.9 - Pneumonia, unspecified organism Status: Acute Assessment and Plan: Chest x-ray as above -completed a 10 day course of Zosyn, vancomycin (01/13) -status post 6 days of azithromycin (3) Sepsis: Code(s): A41.9 - Sepsis, unspecified organism Status: Acute Assessment and Plan: Patient presented with encephalopathy, hypoglycemia, respiratory failure source likely due to pna and or bacteremia -01/13: Blood cultures growing Staph capitis and Staph epidermidis -01/14: Sputum culture: Normal oropharyngeal tami -01/14: MRSA screen negative 01/15; repeat blood cultures, preliminary report is negative x2 - PICC line placed 01/14 Patient completed 10 day course of antibiotics 01/25-febrile overnight increase in WBC Ford catheter was changed, UA suggests UTI Repeat blood culture were sent Check CT chest abdomen IMPRESSION: 1. Pneumonia in the right lung and anterior segment left upper lobe, worsened from 01/21/22. 2. Small pleural effusions, left worse than right, improved from 01/21/2022. 3. Stable small pericardial effusion. Restarted on empiric vancomycin and cefepime 01/26 afebrile. WBC improved Monitor (4) Encephalopathy: Code(s): G93.40 - Encephalopathy, unspecified Status: Acute Assessment and Plan: Likely secondary to hypoglycemia or narcotic. No reported seizures but hypoglycemia could have led to a seizure leading to postictal stage. Patient may have another CVA as he has history of multiple CVAs in the past Head CT reviewed and negative -ammonia levels were normal -TSH within normal limits -patient currently awake, alert, confused, answers to few questions and follows simple commands -continue good sleep hygiene -01/29/2022 CT brain with no acute abnormality, no intracranial hemorrhage mass or acute infarct. Stable chronic right frontal lobe infarct, atrophy and chronic white matter changes (5) CHF (congestive heart failure): Code(s): I50.9 - Heart failure, unspecified Status: Acute Assessment and Plan: Patient has history of congestive heart failure with EF 35-40% Most recent echocardiogram 10/31/2021 Summary ? 1. Complete two-dimensional, color flow and Doppler transthoracic echocardiogram is performed. ? 2. Left ventricular chamber dimension is mildly enlarged. ? 3. Left ventricular systolic function is moderately reduced, estimated at 35-40%. ? 4. Left ventricular septal wall motion is abnormal with septal motion related to bundle branch block. ? 5. The left ventricular diastolic function is abnormal. ? 6. E/e' 25 is elevated. ? 7. Atrial fibrillation. ? 8. Left atrial chamber dimension is moderately enlarged. ? 9. There is mild mitral valve regurgitation. ? 10. There is trace tricuspid valve regurgitation. ? 11. No pulmonary hypertension, estimated pulmonary arterial systolic pressure is 33 mmHg. ? 12. There is trace pulmonic regurgitation. Continue diuretics (6) Diabetic foot infection: Code(s): E11.628 - Type 2 diabetes mellitus with other skin complications; L08.9 - Local infection of the skin and subcutaneous tissue, unspecified Status
[2022-01-29 13:25] LABS: Alveolar/Arterial O2 Gradient 19.3 mmHg; Base Excess ABG 7.7 mEq/l (+/-2.0); Carboxyhemoglobin 1.8 % THb (0-2.0); Fractional Inspired Oxygen 21 %; Methemoglobin ABG 0.2 %THb (0-1.5); Oxygen Saturation ABG 96.4 % (95.0-100.0); Oxyhemoglobin 94.1 % THb (90.0-100.0); PCO2 ABG 43.4 mmHg (35.0-45.0); PO2 ABG 78.5 mmHg (80.0-100.0); PO2 FiO2 Ratio Arterial Blood 3.74 %; Reduced Hemoglobin 3.9 %THb (0-5.0); Total Hemoglobin 14.3 g/dL (12.0-18.0); pH ABG 7.486 (7.350-7.450)
[2022-01-29 13:26] LABS: Device ROOM AIR; Modified Allen's Test Pass; Site Drawn RIGHT RADIAL
--- NOTE | 2022-01-29 13:58 | PCSTNOTE ---
Nurse reports patient is not participating well with oral feedings; suggested wait until tomorrow morning to see if patient is more awake and alert for Bedside Swallow Evaluation.
[2022-01-29 17:35] LABS: Glucose Point of Care 148 mg/dl (65-105)
[2022-01-29 22:41] LABS: Glucose Point of Care 138 mg/dl (65-105)
--- NOTE | 2022-01-29 23:38 | PC.NURSE ---
This patient, Kenneth Guillory, was transferred to [facility] on 01/29/22 at 2325. Personal belongings sent with patient. Report given to JESSE Wick. Appropriate documentation sent with patient.
--- NOTE | 2022-01-29 23:45 | PC.NURSE ---
This patient, Kenneth Guillory, was received from [ICU ] on 01/29/22 at 2340. Patient/family oriented to unit policies and routines
[2022-01-30] VITALS (14 sets, daily range): BP systolic 100–132; BP diastolic 61–76; PULSE 62–155; RESP 16–22; TEMP 36–36.6; O2SAT 90–100
[2022-01-30 03:44] LABS: Basophils Percent Auto 0.5 % (0.2-1.2); Eosinophils Absolute Auto 0.1 K/mm3 (0-0.3); Eosinophils Percent Auto 1.1 % (0-4.4); Hematocrit 40.5 % (42.0-52.0); Immature Granulocyte Absolute 0.19 K/mm3 (0.00-0.031); Immature Granulocyte Percent A 2.5 % (0-0.5); Lymphocytes Absolute Auto 0.83 K/mm3 (0.9-3.2); Lymphocytes Percent Auto 10.9 % (18.3-44.2); Mean Corpuscular HGB Conc 32.1 g/dl (32-36); Mean Corpuscular Hemoglobin 29.7 pg (26-34); Mean Corpuscular Volume 92.5 fl (80-100); Mean Platelet Volume 11.7 fl (7.4-10.4); Monocytes Absolute Auto 0.7 K/mm3 (0.1-0.6); Monocytes Percent Auto 8.7 % (2.6-8.5); Neutrophils Absolute Auto 5.8 K/mm3 (1.3-6.7); Neutrophils Percent Auto 76.3 % (45.5-73.1); Platelet Count Result 228 k/mm3 (150-375); Red Blood Count 4.38 M/mm3 (4.6-6.20); Red Cell Distribution Width 16.6 % (11.5-14.5); White Blood Count 7.6 K/mm3 (4.5-10.0)
[2022-01-30 03:50] LABS: Ammonia < 9 umol/L (9-30)
[2022-01-30 03:51] LABS: Lactic Acid Reflex 1.1 mmol/L (0.7-2.0)
[2022-01-30 03:53] LABS: Alanine Aminotransferase 22 U/L (6-50); Albumin Level 2.6 g/dL (3.5-5.1); Alkaline Phosphatase 89 U/L (38-126); Anion Gap 2 mmol/L (8-16); Aspartate Amino Transferase 30 U/L (17-59); Bilirubin,Total 1.2 mg/dL (0.2-1.3); Blood Urea Nitrogen 25 mg/dL (9-20); Carbon Dioxide 36 mmol/L (22-30); Chloride 97 mmol/L (98-107); Estimated CRCL calculation 83 ml/min; Estimated Glomerular Filt Rate > 60; Glucose 150 mg/dL (65-110); Magnesium 1.8 mg/dL (1.6-2.3); Phosphorus 2.9 mg/dL (2.5-4.5); Sodium 135 mmol/L (137-145)
[2022-01-30] MEDS: CENTRAL LINE FLUSH 10 ML IV PUSH ×3 (06:51→21:52)
[2022-01-30 07:36] LABS: Vancomycin Trough 19.3 ug/mL (10.0-20.0)
[2022-01-30] MEDS: METOPROLOL TARTRATE INJ 5 MG/5 ML VIAL IV PUSH (08:47)
[2022-01-30] MEDS: ASPIRIN 81 MG ENTERIC TABLET PO (08:53)
[2022-01-30] MEDS: FINASTERIDE 5 MG TABLET PO (08:53)
[2022-01-30] MEDS: PANTOPRAZOLE SODIUM IV 40 MG VIAL IV PUSH (08:53)
[2022-01-30] MEDS: APIXABAN 5 MG TABLET PO ×2 (08:53→21:51)
[2022-01-30] MEDS: OLANZapine 5 MG TABLET 10 MG PO (08:53)
[2022-01-30] MEDS: FUROSEMIDE INJ 40 MG/4 ML VIAL IV PUSH (08:53)
[2022-01-30] MEDS: METOPROLOL TARTRATE TAB 25 MG, METOPROLOL TARTRATE TAB 12.5 MG 37.5 MG PO ×2 (09:03→21:51)
[2022-01-30 09:04] LABS: Glucose Point of Care 161 mg/dl (65-105)
--- NOTE | 2022-01-30 09:04 | PM.IMPN ---
Progress Note: A&P Assessment and Plan (1) Acute respiratory failure: Code(s): J96.00 - Acute respiratory failure, unspecified whether with hypoxia or hypercapnia Status: Acute Assessment and Plan: Acute Respiratory failure secondary to encephalopathy, pulmonary edema on admission, -status post intubation and successfully extubated on 01/25/2022 -encourage incentive spirometry -up in chair with PT/OT, increase activity -continue diuresis -continue bronchodilators -01/21 Lower extremity Dopplers were negative for DVT -01/23 patient had left thoracentesis done and 1 L fluid was removed - right right thoracentesis with 950 mL fluid removal Will have speech therapy evaluate for bedside swallow, patient has decreased p.o. intake 01/30/2022 - Bedside swallow completed. Per BIOMEDICAL ENGINEERING AIDE, patient passed the swallow study but the patient cannot feed himself. (2) Pneumonia: Code(s): J18.9 - Pneumonia, unspecified organism Status: Acute Assessment and Plan: Chest x-ray as above -completed a 10 day course of Zosyn, vancomycin (01/13) -status post 6 days of azithromycin (3) Sepsis: Code(s): A41.9 - Sepsis, unspecified organism Status: Acute Assessment and Plan: Patient presented with encephalopathy, hypoglycemia, respiratory failure source likely due to pna and or bacteremia -01/13: Blood cultures growing Staph capitis and Staph epidermidis -01/14: Sputum culture: Normal oropharyngeal tami -01/14: MRSA screen negative 01/15; repeat blood cultures, preliminary report is negative x2 - PICC line placed 01/14 Patient completed 10 day course of antibiotics 01/25-febrile overnight increase in WBC Ford catheter was changed, UA suggests UTI Repeat blood culture were sent Check CT chest abdomen IMPRESSION: 1. Pneumonia in the right lung and anterior segment left upper lobe, worsened from 01/21/22. 2. Small pleural effusions, left worse than right, improved from 01/21/2022. 3. Stable small pericardial effusion. Restarted on empiric vancomycin and cefepime 01/26 afebrile. WBC improved Monitor 01/30/22 - Has been on cefepime 1g q12h and vancomycin since 01/25/22. Leukocytosis resolved since 01/27/22. Tomorrow will be day will be day #7. Can discontinue antibiotics after tomorrow. Repeat CXR on 01/31/22 AM. Will likely need placement for SNF. Approval is currently pending. (4) Encephalopathy: Code(s): G93.40 - Encephalopathy, unspecified Status: Acute Assessment and Plan: Likely secondary to hypoglycemia or narcotic. No reported seizures but hypoglycemia could have led to a seizure leading to postictal stage. Patient may have another CVA as he has history of multiple CVAs in the past Head CT reviewed and negative -ammonia levels were normal -TSH within normal limits -patient currently awake, alert, confused, answers to few questions and follows simple commands -continue good sleep hygiene -01/29/2022 CT brain with no acute abnormality, no intracranial hemorrhage mass or acute infarct. Stable chronic right frontal lobe infarct, atrophy and chronic white matter changes (5) CHF (congestive heart failure): Code(s): I50.9 - Heart failure, unspecified Status: Acute Assessment and Plan: Patient has history of congestive heart failure with EF 35-40% Most recent echocardiogram 10/31/2021 Summary ? 1. Complete two-dimensional, color flow and Doppler transthoracic echocardiogram is performed. ? 2. Left ventricular chamber dimension is mildly enlarged. ? 3. Left ventricular systolic function is moderately reduced, estimated at 35-40%. ? 4. Left ventricular septal wall motion is abnormal with septal motion related to bundle branch block. ? 5. The left ventricular diastolic function is abnormal. ? 6. E/e' 25 is elevated. ? 7. Atrial fibrillation. ? 8. Left atrial chamber dimension is moderately enlarged. ? 9. There is mild mitral valve regurgita
--- NOTE | 2022-01-30 09:10 | PCSTNOTE ---
Please refer to the Bedside Swallow Evaluation in the EMR. Please note, silent aspiration cannot be ruled out at bedside.
[2022-01-30] MEDS: MAGNESIUM SULF 2 GM/WATER 50ML 2 GM/50 ML BAG IVPB (10:40)
[2022-01-30] MEDS: POTASSIUM CHLORIDE 20 MEQ TABLET 40 MEQ PO (10:40)
[2022-01-30] MEDS: POTASSIUM CHLORIDE INJ 40 MEQ in SODIUM CHLORIDE 0.9% IV 500 ML 130 MEQ IVPB (10:40)
[2022-01-30 12:47] LABS: Glucose Point of Care 251 mg/dl (65-105)
[2022-01-30] MEDS: SODIUM PHOSPHATE 20 MM in DEXTROSE 5% IN WATER 250 ML 50 MM IVPB (13:14)
[2022-01-30] MEDS: INSULIN ASPART (*BKC) 100 UNITS/ML SUB-Q (13:16)
[2022-01-30 17:38] LABS: Glucose Point of Care 190 mg/dl (65-105)
[2022-01-30 21:04] LABS: Glucose Point of Care 213 mg/dl (65-105)
[2022-01-31] VITALS (15 sets, daily range): BP systolic 116–123; BP diastolic 58–98; PULSE 78–160; RESP 16–22; TEMP 36.2–36.6; O2SAT 96–100
[2022-01-31] MEDS: CENTRAL LINE FLUSH 10 ML IV PUSH ×2 (06:25→20:37)
[2022-01-31 06:44] LABS: Basophils Absolute Auto 0.1 K/mm3 (0.0-0.1); Eosinophils Absolute Auto 0.1 K/mm3 (0-0.3); Eosinophils Percent Auto 1.1 % (0-4.4); Hematocrit 35.5 % (42.0-52.0); Hemoglobin 11.4 g/dL (14.0-18.0); Immature Granulocyte Absolute 0.11 K/mm3 (0.00-0.031); Immature Granulocyte Percent A 1.8 % (0-0.5); Lymphocytes Absolute Auto 0.88 K/mm3 (0.9-3.2); Lymphocytes Percent Auto 14.3 % (18.3-44.2); Mean Corpuscular HGB Conc 32.1 g/dl (32-36); Mean Corpuscular Hemoglobin 29.2 pg (26-34); Mean Platelet Volume 11.1 fl (7.4-10.4); Monocytes Absolute Auto 0.6 K/mm3 (0.1-0.6); Neutrophils Absolute Auto 4.5 K/mm3 (1.3-6.7); Neutrophils Percent Auto 72.8 % (45.5-73.1); Platelet Count Result 200 k/mm3 (150-375); Red Cell Distribution Width 16.5 % (11.5-14.5); White Blood Count 6.1 K/mm3 (4.5-10.0)
[2022-01-31 06:56] LABS: Anion Gap 1 mmol/L (8-16); Blood Urea Nitrogen 23 mg/dL (9-20); Calcium 7.8 mg/dL (8.4-10.2); Carbon Dioxide 33 mmol/L (22-30); Chloride 100 mmol/L (98-107); Estimated CRCL calculation 74 ml/min; Estimated Glomerular Filt Rate > 60; Glucose 246 mg/dL (65-110); Potassium 3.4 mmol/L (3.4-5.0); Sodium 134 mmol/L (137-145)
[2022-01-31 07:33] LABS: Valproic Acid < 10.0 ug/mL (50-120)
[2022-01-31 07:57] LABS: Glucose Point of Care 247 mg/dl (65-105)
--- NOTE | 2022-01-31 08:28 | PM.IMPN ---
Progress Note: A&P Assessment and Plan (1) Acute respiratory failure: Code(s): J96.00 - Acute respiratory failure, unspecified whether with hypoxia or hypercapnia Status: Acute Assessment and Plan: Acute Respiratory failure secondary to encephalopathy, pulmonary edema on admission, -status post intubation and successfully extubated on 01/25/2022 -encourage incentive spirometry -up in chair with PT/OT, increase activity -continue diuresis -continue bronchodilators -01/21 Lower extremity Dopplers were negative for DVT -01/23 patient had left thoracentesis done and 1 L fluid was removed - right right thoracentesis with 950 mL fluid removal 01/30/2022 - Bedside swallow completed. Per RN TRANSFER, patient passed the swallow study but the patient cannot feed himself. (2) Pneumonia: Code(s): J18.9 - Pneumonia, unspecified organism Status: Acute Assessment and Plan: Chest x-ray as above -completed a 10 day course of Zosyn, vancomycin (01/13) -completed azithromycin (3) Sepsis: Code(s): A41.9 - Sepsis, unspecified organism Status: Acute Assessment and Plan: Patient presented with encephalopathy, hypoglycemia, respiratory failure source likely due to pna and or bacteremia -01/13: Blood cultures growing Staph capitis and Staph epidermidis -01/14: Sputum culture: Normal oropharyngeal tami -01/14: MRSA screen negative 01/15; repeat blood cultures, preliminary report is negative x2 - PICC line placed 01/14 Patient completed 10 day course of antibiotics 01/25-febrile overnight increase in WBC Ford catheter was changed, UA suggests UTI Repeat blood culture were sent Check CT chest abdomen IMPRESSION: 1. Pneumonia in the right lung and anterior segment left upper lobe, worsened from 01/21/22. 2. Small pleural effusions, left worse than right, improved from 01/21/2022. 3. Stable small pericardial effusion. Restarted on empiric vancomycin and cefepime 01/26 afebrile. WBC improved Monitor 01/30/22 - Has been on cefepime 1g q12h and vancomycin since 01/25/22. Completed 7-day course. Will need placement for SNF. Approval is currently pending. (4) Encephalopathy: Code(s): G93.40 - Encephalopathy, unspecified Status: Acute Assessment and Plan: Likely secondary to hypoglycemia or narcotic. No reported seizures but hypoglycemia could have led to a seizure leading to postictal stage. Patient may have another CVA as he has history of multiple CVAs in the past Head CT reviewed and negative -ammonia levels were normal -TSH within normal limits -patient currently awake, alert, confused, answers to few questions and follows simple commands -continue good sleep hygiene -01/29/2022 CT brain with no acute abnormality, no intracranial hemorrhage mass or acute infarct. Stable chronic right frontal lobe infarct, atrophy and chronic white matter changes (5) CHF (congestive heart failure): Code(s): I50.9 - Heart failure, unspecified Status: Acute Assessment and Plan: Patient has history of congestive heart failure with EF 35-40% Most recent echocardiogram 10/31/2021 Summary ? 1. Complete two-dimensional, color flow and Doppler transthoracic echocardiogram is performed. ? 2. Left ventricular chamber dimension is mildly enlarged. ? 3. Left ventricular systolic function is moderately reduced, estimated at 35-40%. ? 4. Left ventricular septal wall motion is abnormal with septal motion related to bundle branch block. ? 5. The left ventricular diastolic function is abnormal. ? 6. E/e' 25 is elevated. ? 7. Atrial fibrillation. ? 8. Left atrial chamber dimension is moderately enlarged. ? 9. There is mild mitral valve regurgitation. ? 10. There is trace tricuspid valve regurgitation. ? 11. No pulmonary hypertension, estimated pulmonary arterial systolic pressure is 33 mmHg. ? 12. There is trace pulmonic regurgitation. Continue diuretics (6) Diabet
[2022-01-31] MEDS: FINASTERIDE 5 MG TABLET PO (09:14)
[2022-01-31] MEDS: METOPROLOL TARTRATE TAB 25 MG, METOPROLOL TARTRATE TAB 12.5 MG 37.5 MG PO ×2 (09:14→20:36)
[2022-01-31] MEDS: OLANZapine 5 MG TABLET 10 MG PO (09:14)
[2022-01-31] MEDS: ASPIRIN 81 MG ENTERIC TABLET PO (09:15)
[2022-01-31] MEDS: FUROSEMIDE INJ 40 MG/4 ML VIAL IV PUSH (09:15)
[2022-01-31] MEDS: PANTOPRAZOLE SODIUM IV 40 MG VIAL IV PUSH (09:15)
[2022-01-31] MEDS: APIXABAN 5 MG TABLET PO ×2 (09:15→20:36)
[2022-01-31] MEDS: INSULIN ASPART (*BKC) 100 UNITS/ML SUB-Q ×2 (09:26→11:54)
[2022-01-31 12:17] LABS: Glucose Point of Care 294 mg/dl (65-105)
[2022-01-31 16:58] LABS: Glucose Point of Care 132 mg/dl (65-105)
[2022-01-31] MEDS: METOPROLOL TARTRATE INJ 5 MG/5 ML VIAL IV PUSH (20:36)
[2022-01-31] MEDS: INSULIN GLARGINE (*BKC) 100 UNITS/ML 12 UNITS SUB-Q (20:52)
[2022-02-01] VITALS (17 sets, daily range): BP systolic 96–120; BP diastolic 55–72; PULSE 66–97; RESP 14–18; TEMP 36–36.4; O2SAT 99–100
[2022-02-01 00:07] LABS: Glucose Point of Care 221 mg/dl (65-105)
[2022-02-01] MEDS: CENTRAL LINE FLUSH 10 ML IV PUSH ×3 (05:09→20:22)
[2022-02-01 05:33] LABS: Anion Gap 0 mmol/L (8-16); Blood Urea Nitrogen 20 mg/dL (9-20); Carbon Dioxide 36 mmol/L (22-30); Chloride 101 mmol/L (98-107); Estimated CRCL calculation 113 ml/min; Estimated Glomerular Filt Rate > 60; Glucose 169 mg/dL (65-110); Magnesium 1.8 mg/dL (1.6-2.3); Potassium 2.9 mmol/L (3.4-5.0); Sodium 137 mmol/L (137-145)
[2022-02-01] MEDS: POTASSIUM CHLORIDE 20 MEQ TABLET 40 MEQ PO (06:31)
[2022-02-01] MEDS: METOPROLOL TARTRATE TAB 25 MG, METOPROLOL TARTRATE TAB 12.5 MG 37.5 MG PO ×2 (07:59→20:21)
[2022-02-01] MEDS: APIXABAN 5 MG TABLET PO ×2 (08:00→20:21)
[2022-02-01] MEDS: FINASTERIDE 5 MG TABLET PO (08:00)
[2022-02-01] MEDS: OLANZapine 5 MG TABLET 10 MG PO (08:00)
[2022-02-01] MEDS: ASPIRIN 81 MG ENTERIC TABLET PO (08:00)
[2022-02-01] MEDS: FUROSEMIDE INJ 40 MG/4 ML VIAL IV PUSH (08:00)
[2022-02-01] MEDS: PANTOPRAZOLE SODIUM IV 40 MG VIAL IV PUSH (08:00)
[2022-02-01] MEDS: POTASSIUM CHLORIDE 20 MEQ PACKET (FOR LIQUID) 40 MEQ PO (09:03)
[2022-02-01] MEDS: POTASSIUM CHLORIDE INJ 40 MEQ in SODIUM CHLORIDE 0.9% IV 500 ML 130 MEQ IVPB (09:03)
[2022-02-01 09:32] LABS: Glucose Point of Care 159 mg/dl (65-105)
[2022-02-01 12:07] LABS: Glucose Point of Care 286 mg/dl (65-105)
[2022-02-01] MEDS: INSULIN ASPART (*BKC) 100 UNITS/ML SUB-Q ×2 (12:31→16:21)
--- NOTE | 2022-02-01 12:53 | PM.IMPN ---
Progress Note: A&P Assessment and Plan (1) Acute respiratory failure: Code(s): J96.00 - Acute respiratory failure, unspecified whether with hypoxia or hypercapnia Status: Acute Assessment and Plan: Acute Respiratory failure secondary to encephalopathy, pulmonary edema on admission, -status post intubation and successfully extubated on 01/25/2022 -encourage incentive spirometry -up in chair with PT/OT, increase activity -continue diuresis -continue bronchodilators -01/21 Lower extremity Dopplers were negative for DVT -01/23 patient had left thoracentesis done and 1 L fluid was removed - right right thoracentesis with 950 mL fluid removal (2) Pneumonia: Code(s): J18.9 - Pneumonia, unspecified organism Status: Acute Assessment and Plan: Chest x-ray as above -completed a 10 day course of Zosyn, vancomycin (01/13) -completed azithromycin (3) Sepsis: Code(s): A41.9 - Sepsis, unspecified organism Status: Acute Assessment and Plan: Patient presented with encephalopathy, hypoglycemia, respiratory failure source likely due to pna and or bacteremia -01/13: Blood cultures growing Staph capitis and Staph epidermidis -01/14: Sputum culture: Normal oropharyngeal tami -01/14: MRSA screen negative 01/15; repeat blood cultures, preliminary report is negative x2 - PICC line placed 01/14 Patient completed 10 day course of antibiotics 01/25-febrile overnight increase in WBC Ford catheter was changed, UA suggests UTI Repeat blood culture were sent Check CT chest abdomen IMPRESSION: 1. Pneumonia in the right lung and anterior segment left upper lobe, worsened from 01/21/22. 2. Small pleural effusions, left worse than right, improved from 01/21/2022. 3. Stable small pericardial effusion. Restarted on empiric vancomycin and cefepime 01/26 afebrile. WBC improved Monitor 01/30/22 - Has been on cefepime 1g q12h and vancomycin since 01/25/22. Completed 7-day course. Will need placement for SNF. Approval is currently pending. (4) Encephalopathy: Code(s): G93.40 - Encephalopathy, unspecified Status: Acute Assessment and Plan: Likely secondary to hypoglycemia or narcotic. No reported seizures but hypoglycemia could have led to a seizure leading to postictal stage. Patient may have another CVA as he has history of multiple CVAs in the past Head CT reviewed and negative -ammonia levels were normal -TSH within normal limits -patient currently awake, alert, confused, answers to few questions and follows simple commands -continue good sleep hygiene -01/29/2022 CT brain with no acute abnormality, no intracranial hemorrhage mass or acute infarct. Stable chronic right frontal lobe infarct, atrophy and chronic white matter changes (5) CHF (congestive heart failure): Code(s): I50.9 - Heart failure, unspecified Status: Acute Assessment and Plan: Patient has history of congestive heart failure with EF 35-40% Most recent echocardiogram 10/31/2021 Summary ? 1. Complete two-dimensional, color flow and Doppler transthoracic echocardiogram is performed. ? 2. Left ventricular chamber dimension is mildly enlarged. ? 3. Left ventricular systolic function is moderately reduced, estimated at 35-40%. ? 4. Left ventricular septal wall motion is abnormal with septal motion related to bundle branch block. ? 5. The left ventricular diastolic function is abnormal. ? 6. E/e' 25 is elevated. ? 7. Atrial fibrillation. ? 8. Left atrial chamber dimension is moderately enlarged. ? 9. There is mild mitral valve regurgitation. ? 10. There is trace tricuspid valve regurgitation. ? 11. No pulmonary hypertension, estimated pulmonary arterial systolic pressure is 33 mmHg. ? 12. There is trace pulmonic regurgitation. Continue diuretics (6) Diabetic foot infection: Code(s): E11.628 - Type 2 diabetes mellitus with other skin complications; L08.9 - Local infe
[2022-02-01 16:02] LABS: Glucose Point of Care 294 mg/dl (65-105)
[2022-02-01] MEDS: INSULIN GLARGINE (*BKC) 100 UNITS/ML 12 UNITS SUB-Q (20:22)
[2022-02-01 20:46] LABS: Glucose Point of Care 264 mg/dl (65-105)
[2022-02-02] VITALS (13 sets, daily range): BP systolic 98–130; BP diastolic 48–71; PULSE 66–115; RESP 12–24; TEMP 36–37.2; O2SAT 94–100
[2022-02-02] MEDS: CENTRAL LINE FLUSH 10 ML IV PUSH ×3 (03:34→20:20)
[2022-02-02 03:53] LABS: Anion Gap -1 mmol/L (8-16); Blood Urea Nitrogen 21 mg/dL (9-20); Carbon Dioxide 36 mmol/L (22-30); Chloride 104 mmol/L (98-107); Estimated CRCL calculation 96 ml/min; Estimated Glomerular Filt Rate > 60; Glucose 200 mg/dL (65-110); Potassium 3.8 mmol/L (3.4-5.0); Sodium 139 mmol/L (137-145)
[2022-02-02] MEDS: APIXABAN 5 MG TABLET PO ×2 (08:13→20:20)
[2022-02-02] MEDS: METOPROLOL TARTRATE TAB 25 MG, METOPROLOL TARTRATE TAB 12.5 MG 37.5 MG PO ×2 (08:13→20:19)
[2022-02-02] MEDS: FUROSEMIDE INJ 40 MG/4 ML VIAL IV PUSH (08:13)
[2022-02-02] MEDS: FINASTERIDE 5 MG TABLET PO (08:13)
[2022-02-02] MEDS: PANTOPRAZOLE SODIUM IV 40 MG VIAL IV PUSH (08:13)
[2022-02-02] MEDS: ASPIRIN 81 MG ENTERIC TABLET PO (08:13)
[2022-02-02] MEDS: OLANZapine 5 MG TABLET 10 MG PO (08:13)
[2022-02-02 08:42] LABS: Glucose Point of Care 161 mg/dl (65-105)
--- NOTE | 2022-02-02 09:17 | PCNFU ---
Nutrition Follow-Up Complete: Inadequate Oral Intake as related to mechanical ventilation as evidenced by NPO. Goal: Meet estimanted nutritional needs - Progressing toward goal Pt current nutrition is Minced & Moist level 5. Magic cup BID. Nutrition recommendation: Continue same diet orders and supplements. Last recorded weight is 82.6 kg. (Weight loss -4%/1 week. -8 lb, has had thoracentesis 2x) Bowel Motility: No BMs charted. On bowel regimen Labs Reviewed: BUN 21, Cre 0.6 Meds Noted: Lasix, Eliquis, Miralax Skin: Healing L leg incision, L AKA Additional Notes: Appetite improved yesterday to 10% lunch and 100% dinner. Magic cups lunch and dinner. Continue same care plan and monitoring. Monitoring every 3 days.
--- NOTE | 2022-02-02 11:59 | P.PNIM_ITS ---
Progress Note: A&P Assessment and Plan (1) Acute respiratory failure: Code(s): J96.00 - Acute respiratory failure, unspecified whether with hypoxia or hypercapnia Status: Acute Assessment and Plan: Acute Respiratory failure secondary to encephalopathy, pulmonary edema on admission, -status post intubation and successfully extubated on 01/25/2022 -encourage incentive spirometry -up in chair with PT/OT, increase activity -continue diuresis -continue bronchodilators -01/21 Lower extremity Dopplers were negative for DVT -01/23 patient had left thoracentesis done and 1 L fluid was removed - right right thoracentesis with 950 mL fluid removal (2) Pneumonia: Code(s): J18.9 - Pneumonia, unspecified organism Status: Acute Assessment and Plan: Chest x-ray as above -completed a 10 day course of Zosyn, vancomycin (01/13) -completed azithromycin (3) Sepsis: Code(s): A41.9 - Sepsis, unspecified organism Status: Acute Assessment and Plan: Patient presented with encephalopathy, hypoglycemia, respiratory failure source likely due to pna and or bacteremia -01/13: Blood cultures growing Staph capitis and Staph epidermidis -01/14: Sputum culture: Normal oropharyngeal tami -01/14: MRSA screen negative 01/15; repeat blood cultures, preliminary report is negative x2 - PICC line placed 01/14 Patient completed 10 day course of antibiotics 01/25-febrile overnight increase in WBC Ford catheter was changed, UA suggests UTI Repeat blood culture were sent Check CT chest abdomen IMPRESSION: 1. Pneumonia in the right lung and anterior segment left upper lobe, worsened from 01/21/22. 2. Small pleural effusions, left worse than right, improved from 01/21/2022. 3. Stable small pericardial effusion. Restarted on empiric vancomycin and cefepime 01/26 afebrile. WBC improved Monitor 01/30/22 - Has been on cefepime 1g q12h and vancomycin since 01/25/22. Completed 7-day course. Will need placement for SNF. Approval is currently pending. (4) Encephalopathy: Code(s): G93.40 - Encephalopathy, unspecified Status: Acute Assessment and Plan: Likely secondary to hypoglycemia or narcotic. No reported seizures but hypo glycemia could have led to a seizure leading to postictal stage. Patient may have another CVA as he has history of multiple CVAs in the past Head CT reviewed and negative -ammonia levels were normal -TSH within normal limits -patient currently awake, alert, confused, answers to few questions and follows simple commands -continue good sleep hygiene -01/29/2022 CT brain with no acute abnormality, no intracranial hemorrhage mass or acute infarct. Stable chronic right frontal lobe infarct, atrophy and chronic white matter changes (5) CHF (congestive heart failure): Code(s): I50.9 - Heart failure, unspecified Status: Acute Assessment and Plan: Patient has history of congestive heart failure with EF 35-40% Most recent echocardiogram 10/31/2021 Summary ? 1. Complete two-dimensional, color flow and Doppler transthoracic echocardiogram is performed. ? 2. Left ventricular chamber dimension is mildly enlarged. ? 3. Left ventricular systolic function is moderately reduced, estimated at 35- 40%. ? 4. Left ventricular septal wall motion is abnormal with septal motion related to bundle branch block. ? 5. The left ventricular diastolic function is abnormal. ? 6. E/e' 25 is elevated. ? 7. Atrial fibrillation. ? 8. Left atrial chamber dimension is moderately
[2022-02-02] MEDS: INSULIN ASPART (*BKC) 100 UNITS/ML SUB-Q (12:03)
[2022-02-02 13:49] LABS: Glucose Point of Care 256 mg/dl (65-105)
[2022-02-02 16:50] LABS: Glucose Point of Care 156 mg/dl (65-105)
[2022-02-02] MEDS: INSULIN GLARGINE (*BKC) 100 UNITS/ML 12 UNITS SUB-Q (20:30)
[2022-02-02 20:34] LABS: Glucose Point of Care 196 mg/dl (65-105)
[2022-02-03] MEDS: CENTRAL LINE FLUSH 10 ML IV PUSH (04:43)
[2022-02-03 07:50] LABS: Glucose Point of Care 130 mg/dl (65-105)
[2022-02-03 08:00] VITALS: BP 124/73; PULSE 57; RESP 12; TEMP 35.6; O2SAT 96
[2022-02-03] MEDS: FUROSEMIDE INJ 40 MG/4 ML VIAL IV PUSH (08:44)
[2022-02-03] MEDS: PANTOPRAZOLE SODIUM IV 40 MG VIAL IV PUSH (08:44)
[2022-02-03 08:45] VITALS: PULSE 79
[2022-02-03] MEDS: APIXABAN 5 MG TABLET PO (08:45)
[2022-02-03] MEDS: ASPIRIN 81 MG ENTERIC TABLET PO (08:45)
[2022-02-03] MEDS: METOPROLOL TARTRATE TAB 25 MG, METOPROLOL TARTRATE TAB 12.5 MG 37.5 MG PO (08:45)
[2022-02-03] MEDS: OLANZapine 5 MG TABLET 10 MG PO (08:45)
[2022-02-03] MEDS: FINASTERIDE 5 MG TABLET PO (08:46)
--- NOTE | 2022-02-03 11:20 | PM.DS ---
DS: Admitting Diagnosis Discharge Date February 03, 2022 Admitting Diagnosis respiratory failure secondary to pulmonary edema DS: Discharge Diagnosis Discharge Diagnosis (1) Acute respiratory failure: Code(s): J96.00 - Acute respiratory failure, unspecified whether with hypoxia or hypercapnia Status: Acute Assessment and Plan: Acute Respiratory failure secondary to encephalopathy, pulmonary edema on admission, -status post intubation and successfully extubated on 01/25/2022 -encourage incentive spirometry -up in chair with PT/OT, increase activity -continue diuresis -continue bronchodilators -01/21 Lower extremity Dopplers were negative for DVT -01/23 patient had left thoracentesis done and 1 L fluid was removed - right right thoracentesis with 950 mL fluid removal (2) Pneumonia: Code(s): J18.9 - Pneumonia, unspecified organism Status: Acute Assessment and Plan: Chest x-ray as above -completed a 10 day course of Zosyn, vancomycin (01/13) -completed azithromycin (3) Sepsis: Code(s): A41.9 - Sepsis, unspecified organism Status: Acute Assessment and Plan: Patient presented with encephalopathy, hypoglycemia, respiratory failure source likely due to pna and or bacteremia -01/13: Blood cultures growing Staph capitis and Staph epidermidis -01/14: Sputum culture: Normal oropharyngeal tami -01/14: MRSA screen negative 01/15; repeat blood cultures, preliminary report is negative x2 - PICC line placed 01/14 Patient completed 10 day course of antibiotics 01/25-febrile overnight increase in WBC Ford catheter was changed, UA suggests UTI Repeat blood culture were sent Check CT chest abdomen IMPRESSION: 1. Pneumonia in the right lung and anterior segment left upper lobe, worsened from 01/21/22. 2. Small pleural effusions, left worse than right, improved from 01/21/2022. 3. Stable small pericardial effusion. Restarted on empiric vancomycin and cefepime 01/26 afebrile. WBC improved Monitor 01/30/22 - Has been on cefepime 1g q12h and vancomycin since 01/25/22. Completed 7-day course. Will need placement for SNF. Approval is currently pending. (4) Encephalopathy: Code(s): G93.40 - Encephalopathy, unspecified Status: Acute Assessment and Plan: Likely secondary to hypoglycemia or narcotic. No reported seizures but hypoglycemia could have led to a seizure leading to postictal stage. Patient may have another CVA as he has history of multiple CVAs in the past Head CT reviewed and negative -ammonia levels were normal -TSH within normal limits -patient currently awake, alert, confused, answers to few questions and follows simple commands -continue good sleep hygiene -01/29/2022 CT brain with no acute abnormality, no intracranial hemorrhage mass or acute infarct. Stable chronic right frontal lobe infarct, atrophy and chronic white matter changes (5) CHF (congestive heart failure): Code(s): I50.9 - Heart failure, unspecified Status: Acute Assessment and Plan: Patient has history of congestive heart failure with EF 35-40% Most recent echocardiogram 10/31/2021 Summary ? 1. Complete two-dimensional, color flow and Doppler transthoracic echocardiogram is performed. ? 2. Left ventricular chamber dimension is mildly enlarged. ? 3. Left ventricular systolic function is moderately reduced, estimated at 35-40%. ? 4. Left ventricular septal wall motion is abnormal with septal motion related to bundle branch block. ? 5. The left ventricular diastolic function is abnormal. ? 6. E/e' 25 is elevated. ? 7. Atrial fibrillation. ? 8. Left atrial chamber dimension is moderately enlarged. ? 9. There is mild mitral valve regurgitation. ? 10. There is trace tricuspid valve regurgitation. ? 11. No pulmonary hypertension, estimated pulmonary arterial systolic pressure is 33 mmHg. ? 12. There is trace pulmonic regurgitation. Continue diuretic
[2022-02-03] MEDS: INSULIN ASPART (*BKC) 100 UNITS/ML SUB-Q (11:40)
[2022-02-03 11:43] LABS: Glucose Point of Care 230 mg/dl (65-105)
--- NOTE | 2022-02-03 13:20 | PC.NURSE ---
Report called to Matheus Barnett @ [phone]. Pt transferred to [facility] at 1300 to await ambulance for discharge.
--- NOTE | 2022-02-03 13:49 | PC.NURSE ---
Pt transferred to [facility] to await EMS transport to [facility], report called to NH by Christina MOLINA, dressing change to left BKA completed, PICC line removed from left upper arm, no bleeding or hematoma, dressing change to skin tear to left upper arm. Pt tolerated well, pt denies pain, resting comfortably and sleeping intermittently, pt awakens easily, declines offer for warm blanket, continue to monitor.
[2022-02-03 15:55] VITALS: BP 101/75; PULSE 92; RESP 16; TEMP 36.3; O2SAT 98
== END 2022-02-03 16:00 | DRG 870 ==
LOC: ANHED 11:42 → ANHICU 19:29 → ANHIMU 02-03 08:38 → ANHCPC 02-04 09:58 → ANHICU 02-04 09:58 → ANHIMU 02-04 09:58
PROVIDERS: Chiropractor; Family Medicine; Internal Medicine; Physician Assistant; Admitting Provider Family Medicine; Emergency Provider Emergency Medicine; PCP Internal Medicine; Visit Provider Internal Medicine
DX: A41.9 Sepsis, unspecified organism (principal); G93.41 Metabolic encephalopathy; J96.00 Acute respiratory failure, unspecified whether with hypoxia or hypercapnia; U07.1 COVID-19; I50.23 Acute on chronic systolic (congestive) heart failure; I42.9 Cardiomyopathy, unspecified; J90 Pleural effusion, not elsewhere classified; E11.649 Type 2 diabetes mellitus with hypoglycemia without coma; E11.628 Type 2 diabetes mellitus with other skin complications; I48.0 Paroxysmal atrial fibrillation; Z79.01 Long term (current) use of anticoagulants; N40.0 Benign prostatic hyperplasia without lower urinary tract symptoms; I25.10 Atherosclerotic heart disease of native coronary artery without angina pectoris; E11.40 Type 2 diabetes mellitus with diabetic neuropathy, unspecified; F10.21 Alcohol dependence, in remission; I95.9 Hypotension, unspecified; Z89.512 Acquired absence of left leg below knee; Z86.73 Personal history of transient ischemic attack (TIA), and cerebral infarction without residual deficits; Z87.891 Personal history of nicotine dependence; Z79.4 Long term (current) use of insulin; Z79.899 Other long term (current) drug therapy
CPT/HCPCS: 31500; 32555; 36415; 36569; 36600; 70450; 71045; 71250; 73700; 74176; 80048; 80053; 80164; 80202; 80307; 81001; 82140; 82375; 82565; 82805; 82948; 83050; 83605; 83735; 83880; 84100; 84145; 84443; 84478; 84484; 85025; 85027; 85610; 85730; 87040; 87070; 87077; 87081; 87186; 87205; 87636; 92610; 93005; 93970; 94002; 94003; 94640; 96361; 96374; 96375; 97110; 97162; 97166; 97530; 99291; A9270; C1751; C9113; J0282; J0456; J0692; J1100; J1120; J1815; J1940; J2543; J2704; J2997; J3370; J3475; J3480; J7040; J7060; P9047

== ENCOUNTER 2024-01-22 07:36 | Emergency (ER) | payer OTHER, SELFPAY ==
[2024-01-22] VITALS (30 sets, daily range): BP systolic 105–132; BP diastolic 66–98; PULSE 87–133; RESP 17–30; TEMP 36.6; O2SAT 92–100
--- NOTE | ~2024-01-22 | CT_ITS ---
EXAMINATION: CTA chest PE protocol DATE: 01/22/2024 11:40 INDICATION: Shortness of breath. TECHNIQUE: Computed tomography angiography (CTA) of the chest was performed with 100 mL Omnipaque-350 intravenous contrast timed to evaluate the pulmonary arteries. Coronal maximum intensity projection 3D-reconstructions were created by the technologist. Automated exposure control and iterative reconst ruction technique were employed. The dose-length product was 818.93 mGy-cm. COMPARISON: Chest CT 01/25/2022 FINDINGS: There are moderate-sized loculated pleural effusions bilaterally with pleural thickening. T here are groundglass opacities in the upper lobes. There is smooth septal thickening bilaterally. The re are airspace opacities with volume loss involving the lower lobes, right middle lobe, and lingula. Cardiomegaly is noted. No pericardial effusion. There are coronary artery calcifications. There is n o pulmonary embolus. There is a 13 mm mass in left adrenal gland without change, likely an adenoma. T here are bridging endplate osteophytes at multiple levels in the spine, consistent with diffuse idiop athic skeletal hyperostosis (DISH). IMPRESSION: 1. No pulmonary embolus. 2. Moderate pulmonary edema. 3. Airspace opacities with volume loss in the lungs bilaterally, likely at least predominantly atelec tasis. Pneumonia cannot be excluded. 4. Moderate-sized loculated pleural effusions bilaterally. Reviewed, dictated and finalized at location A. SALES REPRESENTATIVE IMPRESSION: 1. No pulmonary embolus. 2. Moderate pulmonary edema. 3. Airspace opacities with volume loss in the lungs bilaterally, likely at leas t predominantly atelectasis. Pneumonia cannot be excluded. 4. Moderate-sized loculated pleural effusions bilaterally.
--- NOTE | ~2024-01-22 | XR_ITS ---
EXAMINATION: XR chest 2V DATE: 01/22/2024 08:44 INDICATION: Shortness of breath. TECHNIQUE: Frontal and lateral views of the chest were obtained. COMPARISON: Chest single view 01/31/2022, chest CT 01/25/2022 FINDINGS: There are small pleural effusions. There are airspace opacities in the mid and lower lung z ones. No pneumothorax. Cardiomegaly is noted. IMPRESSION: 1. Small pleural effusions. 2. Airspace opacities in the mid and lower lung zones, consistent with atelectasis versus pneumonia. 3. Cardiomegaly. Reviewed, dictated and finalized at location A. LE DATABASE DEVELOPER IMPRESSION: 1. Small pleural effusions. 2. Airspace opacities in the mid and lower lung zones, consistent with atelecta sis versus pneumonia. 3. Cardiomegaly.
--- NOTE | 2024-01-22 07:45 | ECG_ITS ---
Test Date: 2024-01-22 07:51:55 Measurements Intervals Holden Rate: 118 P: 0 VT: 0 QRS: 6 QRSD: 146 T: 187 QT: 362 QTc: 508 Interpretive Statements ATRIAL FIBRILLATION WITH RAPID VENTRICULAR RESPONSE LEFT BUNDLE BRANCH BLOCK [120+ ms QRS DURATION, 80+ ms Q/S IN V1/V2, 85+ ms R IN I/aVL/V5/V6] No previous ECG available for comparison Electronically Signed On 01-22-2024 14:37:47 ANALOG IC DESIGN ARCHITECT by Nirmal Streeter M.D.
[2024-01-22 08:10] LABS: Basophils Absolute Auto 0.1 K/mm3 (0.0-0.1); Basophils Percent Auto 0.7 % (0.2-1.2); Eosinophils Absolute Auto 0.1 K/mm3 (0-0.3); Eosinophils Percent Auto 0.8 % (0-4.4); Hematocrit 43.9 % (42.0-52.0); Hemoglobin 13.5 g/dL (14.0-18.0); Immature Granulocyte Absolute 0.04 K/mm3 (0.00-0.031); Immature Granulocyte Percent A 0.6 % (0-0.5); Lymphocytes Absolute Auto 0.55 K/mm3 (0.9-3.2); Lymphocytes Percent Auto 7.7 % (18.3-44.2); Mean Corpuscular HGB Conc 30.8 g/dl (32-36); Mean Corpuscular Hemoglobin 28.8 pg (26-34); Mean Corpuscular Volume 93.6 fl (80-100); Mean Platelet Volume 10.5 fl (7.4-10.4); Monocytes Absolute Auto 0.8 K/mm3 (0.1-0.6); Monocytes Percent Auto 11.5 % (2.6-8.5); Neutrophils Absolute Auto 5.6 K/mm3 (1.3-6.7); Neutrophils Percent Auto 78.7 % (45.5-73.1); Platelet Count Result 295 k/mm3 (150-375); Red Blood Count 4.69 M/mm3 (4.6-6.20); Red Cell Distribution Width 16.9 % (11.5-14.5); White Blood Count 7.1 K/mm3 (4.5-10.0)
[2024-01-22 08:19] LABS: Alanine Aminotransferase 19 U/L (6-50); Albumin Level 3.6 g/dL (3.5-5.1); Alkaline Phosphatase 108 U/L (38-126); Anion Gap 3 mmol/L (4-12); Aspartate Amino Transferase 31 U/L (17-59); Bilirubin,Total 1.2 mg/dL (0.2-1.3); Blood Urea Nitrogen 21 mg/dL (9-20); Carbon Dioxide 35 mmol/L (22-30); Chloride 98 mmol/L (98-107); Estimated CRCL calculation 92 ml/min; Estimated Glomerular Filt Rate > 60; Glucose 121 mg/dL (65-110); Potassium 4.2 mmol/L (3.4-5.0); Sodium 136 mmol/L (137-145)
--- NOTE | 2024-01-22 10:05 | ED.SOB ---
HPI - SOB/Dyspnea General Chief Complaint: Shortness of Breath/Dyspnea Stated Complaint: multiple complaints Time Seen by Provider: 01/22/24 09:25 Source: patient and family ( Daughter) History of Present Illness HPI Narrative: patient presents from [facility]. Patient initially has no complaints however when asked specifically if he feels short of breath he does admit that he has been short of breath. Staff have reported that he has had a productive cough and weight gain of approximately 20 lb in a short of period of time. They also noticed edema in his right leg. 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 he is not typically on supple oxygen though has a history of CHF. Over the past 3 days they had been applied supplemental oxygen. Patient states he has had a cough occasionally is productive. He denies any chest pain, fevers, or chills. he does not known if he has had orthopnea when asked about the symptoms. He states he has not noticed this and has otherwise stated consistent with sleeping only 1 pillow known acute changes. He denies any paroxysmal nocturnal dyspnea. Per review of senior care documentation he is on Eliquis as well as 40 mg furosemide daily and metoprolol 25mg BID. Related Data Home Medications Medication Instructions Recorded Confirmed ascorbic acid (vitamin C) 500 mg 500 mg PO DAILY 01/13/22 01/19/24 capsule cholecalciferol (vitamin D3) 125 125 mcg PO DAILY 01/13/22 01/19/24 mcg (5,000 unit) capsule cholecalciferol (vitamin D3) 50 50 mcg PO DAILY 01/13/22 01/19/24 mcg (2,000 unit) tablet cyanocobalamin (vitamin B-12) 1,000 mcg PO DAILY 01/13/22 01/19/24 1,000 mcg tablet finasteride 5 mg tablet 5 mg PO DAILY 01/13/22 01/19/24 insulin glargine 100 unit/mL 15 units subcut QPM 01/13/22 01/19/24 subcutaneous solution (Lantus U-100 Insulin) olanzapine 10 mg tablet 10 mg PO DAILY 01/13/22 01/19/24 polyethylene glycol 3350 17 gram 17 g PO DAILY 01/13/22 01/19/24 oral powder packet (Miralax) ramelteon 8 mg tablet 8 mg PO HS 01/13/22 01/19/24 Allergies Allergy/AdvReac Type Severity Reaction Status Date / Time No Known Allergies Allergy Verified 01/22/24 07:56 [facility] Past Medical History Medical History (Updated 01/23/24 @ 00:00 by El Harrell) Abnormal ankle brachial index (MEHNAZ) Abnormal nuclear stress test Alcohol abuse, uncomplicated Atrial fibrillation Benign essential HTN BPH (benign prostatic hyperplasia) Brain TIA CAD (coronary artery disease) CHF (congestive heart failure) Diabetes mellitus with neuropathy Encephalomalacia Heart failure with reduced ejection fraction Hematuria Hyperlipidemia Obesity (BMI 30-39.9) Old lacunar stroke without late effect Other and unspecified hyperlipidemia Paroxysmal atrial fibrillation Peripheral vascular disease due to secondary diabetes Uncontrolled type 2 diabetes mellitus, with long-term current use of insulin Unspecified systolic (congestive) heart failure Surgical History Surgical History History of cardiac catheterization History of colonoscopy Hx of transurethral resection of prostate Family History Family History Sibling Family history of malignant neoplasm Patient's brother is in good health Patient's sister is Father Family history of malignant neoplasm Patient's father is Mother Family history of malignant neoplasm Patient's mother is Social History Social History Social History: The patient is and lives in his own home. He has 3 children. Retired from the local [employer]. He smoked briefly and quit in 1989. History of alcoholism, no alcohol for many years. No illicit substance abuse. And he has 3 children. He lives in his own home. Surrogate medical decision maker: Eamon Guillory, son. Code status: Full code. Smoking packs per day: 1 Smoking cigarettes per day: 20.0 Years smoked: 15 Smoking pack-years: 15.00 Smoking status: Former smoker Tobacco type: cigarettes Second hand tobacco smoke exposure: No Smoking end date: 12/15/89 Alcohol intake: unknown Alcohol use details: 2012 Substance use: unknown Substance use type: does not use Lack of Transportation: No Lack of Food: Never True Current Housing: I Have Housing Concerned About Future Housing: No Difficulty Paying Gas/Electric Bills: No Difficulty Paying for Meds: No Currently Unemployed: No Education: High School Diploma/GED Difficulty w/ Childcare or Family Care: No Additional living arrangements comments: [facility] Gender identity (if verbalized by the patient): Male Spiritual care concerns: No Exam Narrative: GENERAL: chronically ill-appearing, well-nourished HEAD: Normocephalic, atraumatic. EYES: Non injected, non icteric ENT: Nares clear, no rhinorrhea or epistaxis. poor dentition NECK: Supple. CHEST: Speaking in multi word sentences but winded after 5-6 words. Tachypneic and mildly labored at rest. Patient does have bilateral wheezes. HEART: Tachycardic rate and rhythm. ABDOMEN: protuberant but Soft, nondistended. EXTREMITIES: Right Lower extremity edema. Left [id number] amputation. SKIN: Warm, dry. NEURO: No focal deficits. Alert and oriented x3. PSYCH: Normal mood and affect. Course Vital Signs Vital signs: Vital Signs Temperature 97.9 F 01/22/24 07:36 Pulse Rate 110 H 01/22/24 07:36 Respiratory Rate 29 H 01/22/24 07:36 Blood Pressure 130/98 H 01/22/24 07:36 Pulse Oximetry 92 01/22/24 07:36 Oxygen Delivery Room Air 01/22/24 07:36 Temperature 97.9 F 01/22/24 07:36 Pulse Rate 117 H 01/22/24 16:32 Respiratory Rate 30 H 01/22/24 16:32 Blood Pressure 121/92 H 01/22/24 16:32 Pulse Oximetry 92 01/22/24 16:32 Oxygen Delivery Nasal Cannula 01/22/24 10:37 Oxygen Flow Rate 2 01/22/24 10:37 MDM - SOB/Dyspnea MDM Narrative Medical decision making narrative: patient presents from [facility] where staff has noticed that he has had edema in his right leg and has required supplemental oxygen. They also note weight gain of approximately 20 lb in a short time. . Patient initially states he has no complaints but that does endorse some shortness of breath and a cough but without chest pain. In the emergency department he is afebrile with vital signs notable for mild hypertension, elevated heart rate, tachypnea, and he is hypoxic on room air. Patient has atrial fibrillation listed on his problem list on this is present on his EKG today. It is generally well controlled however and ranges in the 110s to 120s on air sampling and monitoring. per review of senior care documentation he is on Eliquis as well as furosemide 40 mg daily and metoprolol 25mg BID. At approximately 10:45 a.m. patient's atrial fibrillation becomes less controlled ranging from a rate of 120-145. Because he is on metoprolol at baseline, will give a 2.5mg IV push. He does rate control with this with a rate of 91-100 on reassessment. Given that he responded to this, will give 25 mg oral metoprolol. Acute on chronic heart failure exacerbation; 40mg IV Lasix ordered. I did discuss patient with on-call hospitalist AUDI Lomas however, given that he has loculated pleural effusions, this would meet criteria for transfer elsewhere given that he may require cardiothoracic surgery for more than a simple thoracentesis. Patient states he has not received care anywhere else because he has never been sick despite having a right lower extremity amputation. He does state that it would be his preference to stay as close as possible to this location if he has to be transferred. [facility] does have cardiothoracic surgery on staff. Patient's daughter has already left at this time. I attempted to call and left a voicemail. Spoke with [facility] transfer center. They confirm he has received care through [facility] previously including laboratory animal facility supervisor and seeing vascular surgery through them. Patient's daughter did call back and I updated her on the need to transfer and the process for doing so. She verifies understanding is in agreement. Spoke with Dr Aleman (thoracic surgeon) at [facility] 12:57 who agrees to consult. Will await hospitalist. Dr Pagan, hospitalist accepts the requests a troponin be obtained as this was initially accidentally omitted from his orders. Pending bed. patient is given a bed. EMS transportation arranged. AFIB RVR Critical Care: 1 or more vital organ systems impaired (heart, lungs) with a high probability of imminent or life-threatening deterioration in the patient's condition requiring frequent personal assessment and manipulation of the patient's condition. This included time spent evaluating the patient, speaking with Patient and family, reviewing/interpreting laboratory/imaging studies, discussing the case with consultants or admitting teams, retrieving data and reviewing charts, monitoring for decompensation, documenting the visit, and performing bundled procedures exclusive of separately billed procedures. Differential Diagnosis Differential diagnosis: Likely congestive heart failure, community acquired pneumonia, pulmonary embolism and other ( acute viral syndrome) Medical Records Attestation: I reviewed the patient's medical records. Medical records narrative: Echocardiogram from 2021 shows: Summary 1. Complete two-dimensional, color flow and Doppler transthoracic echocardiogram is performed. 2. Left ventricular chamber dimension is mildly enlarged. 3. Left ventricular systolic function is moderately reduced, estimated at 35-40%. 4. Left ventricular septal wall motion is abnormal with septal motion related to bundle branch block. 5. The left ventricular diastolic function is abnormal. 6. E/e' 25 is elevated. 7. Atrial fibrillation. 8. Left atrial chamber dimension is moderately enlarged. 9. There is mild mitral valve regurgitation. 10. There is trace tricuspid valve regurgitation. 11. No pulmonary hypertension, estimated pulmonary arterial systolic pressure is 33 mmHg. 12. There is trace pulmonic regurgitation. Lab Data Attestation: I reviewed the patient's lab results. 01/22/24 08:04 01/22/24 08:04 Labs: Lab Results 01/22/24 01/22/24 01/22/24 Range/Units 08:03 08:04 10:31 WBC 7.1 (4.5-10.0) K/mm3 RBC 4.69 (4.6-6.20) M/mm3 Hgb 13.5 L (14.0-18.0) g/dL Hct 43.9 (42.0-52.0) % MCV 93.6 (80-100) fl MCH 28.8 (26-34) pg MCHC 30.8 L (32-36) g/dl RDW 16.9 H (11.5-14.5) % Plt Count 295 (150-375) k/mm3 MPV 10.5 H (7.4-10.4) fl Immature Gran % (Auto) 0.6 H (0-0.5) % Neut % (Auto) 78.7 H (45.5-73.1) % Lymph % (Auto) 7.7 L (18.3-44.2) % Hopkins % (Auto) 11.5 H (2.6-8.5) % Eos % (Auto) 0.8 (0-4.4) % Baso % (Auto) 0.7 (0.2-1.2) % Lymph # (Auto) 0.55 L (0.9-3.2) K/mm3 Hopkins # (Auto) 0.8 H (0.1-0.6) K/mm3 Eos # (Auto) 0.1 (0-0.3) K/mm3 Baso # (Auto) 0.1 (0.0-0.1) K/mm3 Abs Immat Gran (auto) 0.04 H (0.00-0.031) K/mm3 Absolute Neuts (auto) 5.6 (1.3-6.7) K/mm3 Absolute Nucleated RBC 0.000 (0.0-0.012) K/mm3 Nucleated RBC % 0.0 (0.0-0.2) % D-Dimer 3.61 H (<0.48) ug/mL Sodium 136 L (137-145) mmol/L Potassium 4.2 (3.4-5.0) mmol/L Chloride 98 (98-107) mmol/L Carbon Dioxide 35 H (22-30) mmol/L Anion Gap 3 L (4-12) mmol/L BUN 21 H (9-20) mg/dL Creatinine 0.70 (0.7-1.3) mg/dL Estim Creat Clear Calc 92 ml/min Estimated GFR > 60 (59 - ) Glucose 121 H (65-110) mg/dL Calcium 9.0 (8.4-10.2) mg/dL Magnesium 1.9 (1.6-2.3) mg/dL Total Bilirubin 1.2 (0.2-1.3) mg/dL AST 31 (17-59) U/L ALT 19 (6-50) U/L Alkaline Phosphatase 108 (38-126) U/L Troponin I 0.016 (0.000-0.034) ng/mL NT-Pro-B Natriuret Pep 19793 H (19.9-100) pg/mL Total Protein 8.0 (6.3-8.2) g/dL Albumin 3.6 (3.5-5.1) g/dL Influenza A (RT-PCR) Negative (Negative) Influenza B (RT-PCR) Negative (Negative) RSV (RT-PCR) Negative (Negative) SARS-CoV-2 RNA (RT-PCR) Negative (Negative) ABG Data ABG results: 01/22/24 10:14 Puncture Site Left radial ABG pH 7.448 ABG pCO2 49.3 H ABG pO2 85.7 ABG PO2/FiO2 Ratio 3.06 ABG HCO3 33.3 H ABG O2 Saturation 96.7 ABG O2 Content 18.6 ABG Base Excess 8.0 A-a Gradient 55.8 Oxyhemoglobin 95.7 Total Hemoglobin 13.8 O2 Delivery Device Nasal cannula O2 Liters/Min 2.0 FiO2 28 Attestation: I personally reviewed and interpreted this ABG as follows: Interpretation: Metabolic alkalosis with respiratory acidosis Imaging Data Radiologist's impression: Impressions Chest X-Ray 01/22/24 08:47 IMPRESSION: 1. Small pleural effusions. 2. Airspace opacities in the mid and lower lung zones, consistent with atelectasis versus pneumonia. 3. Cardiomegaly. Chest CTA 01/22/24 11:42 IMPRESSION: 1. No pulmonary embolus. 2. Moderate pulmonary edema. 3. Airspace opacities with volume loss in the lungs bilaterally, likely at least predominantly atelectasis. Pneumonia cannot be excluded. 4. Moderate-sized loculated pleural effusions bilaterally. ECG Data EKG #1: Attestation: I personally reviewed and interpreted this ECG as follows: ECG completion date: 01/22/24 ECG completion time: 07:51 Prior ECG tracings: available for review (01/17/2022 showed atrial fibrillation with left bundle branch block and some ST depressions with T-wave inversion in V6.) Interpretation: Atrial fibrillation with rapid ventricular response at a rate of 118 beats per minute. QRS 146. QT/QTC 362/432. Left bundle-branch block with QRS duration greater than 120 milliseconds, dominant S-wave in V1, broad monophasic R-wave in lateral leads (1, aVL, V5-V6), absence of Q-waves in lateral leads. T-wave inversion in lead 2 but otherwise upright in normal in contiguous inferior leads 3 and AVF. No other T-wave inversions.. Questionable ST depression in lateral precordial leads V5 V6 although this appears to be more related to artifact/baseline. Critical Care Time Critical Care Time Critical Care Time: Yes Total Critical Care Time: 40 Discharge Plan Discharge Clinical Impression: Shortness of breath, Pleural effusion, Cardiomegaly, Atrial fibrillation with RVR, Acute on chronic congestive heart failure, Pulmonary edema Patient Disposition: Acute Care Hospital Condition: Stable Prescriptions: No Action metoprolol tartrate 25 mg Tablet 25 mg PO Q12H 30 Days Qty: 60 0RF Eliquis 5 mg Tablet 5 mg PO Q12HR 30 Days Qty: 60 0RF insulin aspart U-100 [Novolog U-100 Insulin aspart] 100 unit/mL Solution 2 - 5 unit subcut TIDWM PRN (Reason: hyperglycemia) Qty: 10 0RF Protocol: Insulin Corrective Low-Dose Condition: glucose < 70 mg/dl Dose/Route: Follow Hypoglycemia Order Condition: glucose 70-200 mg/dl Dose/Route: No additional insulin Condition: glucose 201-250 mg/dl Dose/Route: 2 units sub-Q Condition: glucose 251-300 mg/dl Dose/Route: 3 units sub-Q Condition: glucose 301-350 mg/dl Dose/Route: 4 units sub-Q Condition: glucose 351-400 mg/dl Dose/Route: 5 units sub-Q Condition: glucose > 400 mg/dl Dose/Route: Call Protocol Text: *No Correction Dose at Bedtime* finasteride 5 mg tablet 5 mg PO DAILY insulin glargine [Lantus U-100 Insulin] 100 unit/mL solution 15 units subcut QPM polyethylene glycol 3350 [Miralax] 17 gram Powder In Packet 17 g PO DAILY cyanocobalamin (vitamin B-12) 1,000 mcg Tablet 1,000 mcg PO DAILY cholecalciferol (vitamin D3) 125 mcg (5,000 unit) Capsule 125 mcg PO DAILY ramelteon 8 mg Tablet 8 mg PO HS cholecalciferol (vitamin D3) 50 mcg (2,000 unit) Tablet 50 mcg PO DAILY ascorbic acid (vitamin C) 500 mg Capsule 500 mg PO DAILY olanzapine 10 mg Tablet 10 mg PO DAILY furosemide 40 mg tablet 40 mg PO DAILY Qty: 30 0RF Follow-up/Referrals: PHYSICIAN,BALL WARPER TENDER [Primary Care Provider] - Salvador Shepard MD [Physician] - (attending physician per [place] documentation) Time of Disposition: 13:44
[2024-01-22 10:30] LABS: Alveolar/Arterial O2 Gradient 55.8 mmHg; Fractional Inspired Oxygen 28 %; HCO3 ABG 33.3 mEq/l (22.0-26.0); Oxygen Content ABG 18.6 %vol (16.0-22.0); Oxygen Saturation ABG 96.7 % (95.0-100.0); Oxyhemoglobin 95.7 % THb (90.0-100.0); PCO2 ABG 49.3 mmHg (35.0-45.0); PO2 ABG 85.7 mmHg (80.0-100.0); PO2 FiO2 Ratio Arterial Blood 3.06 %; Total Hemoglobin 13.8 g/dL (12.0-18.0); pH ABG 7.448 (7.350-7.450)
[2024-01-22 10:31] LABS: Device NASAL CANNULA; Modified Allen's Test Pass; Site Drawn LEFT RADIAL
[2024-01-22] MEDS: ALBUTEROL SULFATE NEB 2.5 MG/3 ML INH INHALATION (10:34)
[2024-01-22 10:44] LABS: Magnesium 1.9 mg/dL (1.6-2.3)
[2024-01-22] MEDS: METOPROLOL TARTRATE INJ 5 MG/5 ML VIAL 2.5 MG IV PUSH (10:50)
[2024-01-22 10:54] LABS: NT Pro B Type Natriuretic Pept 10300 pg/mL (19.9-100)
[2024-01-22 10:58] LABS: D Dimer 3.61 ug/mL (<0.48)
[2024-01-22 11:11] LABS: Influenza A QL RT-PCR Negative (Negative); Influenza B QL RT-PCR Negative (Negative); RSV RNA, RT-PCR Negative (Negative); SARS-CoV-2 RNA PCR Negative (Negative)
[2024-01-22] MEDS: METOPROLOL TARTRATE 25 MG TABLET PO (11:20)
[2024-01-22] MEDS: FUROSEMIDE INJ 40 MG/4 ML VIAL IV PUSH (11:20)
[2024-01-22 14:28] LABS: Troponin I 0.016 ng/mL (0.000-0.034)
--- NOTE | 2024-01-22 14:38 | PC.NURSE ---
spoke with radiology to request a disc of images to place in patient packet. called Karen with [facility] transfer center and updated on troponin level.
--- NOTE | 2024-01-22 16:28 | PC.NURSE ---
Called and updated patients daughter about transfer and results of the CT of the chest.
== END 2024-01-22 17:51 | disposition short-term general hospital (02) ==
PROVIDERS: Emergency Provider Student in an Organized Health Care Education/Training Program
DX: I50.23 Acute on chronic systolic (congestive) heart failure (principal); I48.0 Paroxysmal atrial fibrillation; I51.7 Cardiomegaly; I25.10 Atherosclerotic heart disease of native coronary artery without angina pectoris; I11.0 Hypertensive heart disease with heart failure; E11.51 Type 2 diabetes mellitus with diabetic peripheral angiopathy without gangrene; I73.9 Peripheral vascular disease, unspecified; E11.40 Type 2 diabetes mellitus with diabetic neuropathy, unspecified; E78.5 Hyperlipidemia, unspecified; E66.9 Obesity, unspecified; Z68.31 Body mass index [BMI] 31.0-31.9, adult; N40.0 Benign prostatic hyperplasia without lower urinary tract symptoms; Z86.73 Personal history of transient ischemic attack (TIA), and cerebral infarction without residual deficits; Z87.891 Personal history of nicotine dependence; Z79.4 Long term (current) use of insulin; Z79.899 Other long term (current) drug therapy; Z79.01 Long term (current) use of anticoagulants; R91.8 Other nonspecific abnormal finding of lung field; I44.7 Left bundle-branch block, unspecified
CPT/HCPCS: 36415; 36600; 71046; 71275; 80053; 82805; 83735; 83880; 84484; 85018; 85025; 85380; 87637; 93005; 94640; 96374; 96375; 99285; A9270; J1940; Q9967